=== PATIENT | female | born 2005 | race Caucasian/White ===

== ENCOUNTER 2024-02-22 14:48 | Outpatient (OUT) | payer BC, SELFPAY ==
--- NOTE | 2024-02-22 14:52 | US_ITS ---
[address] [address] Patient Name: JEFF SOTOMAYOR MRN: [id number] date: 2005 Sex: F Assigned Patient Location: [facility] Current Patient Location: Accession/Order Number: [id number] Exam Date: 02/22/2024 14:52 Report Date: 02/23/2024 08:42 At the request of: ROHAN GIBSON Procedure: US OB transvaginal EXAMINATION: US OB transvaginal HISTORY: MISSED MENSES COMPARISON: No relevant comparison available. FINDINGS: GESTATIONAL SAC: Irregular shaped gestational sac within lower cervical canal. YOLK SAC: Absent POLE: Absent CARDIAC: Absent UTERUS: Endometrium is 6 mm in thickness. OVARIES: Right: Normal. Left: Normal. CERVIX: 4.2 cm in length. CUL-DE-SAC: Normal. OTHER: None. AGE BY LMP: 8 weeks 1 day [place] BY LMP: 10/02/2024 AGE BY US CRL: Not applicable [place] BY US CRL: US/US OB transvaginal IMPRESSION: 1. in progress with a slightly irregular gestational sac within the lower cervical canal. Electronically authenticated by: CLARKE LATHAM Date: 02/23/2024 08:42
== END 2024-02-22 14:49 | disposition home or self-care (01) ==
LOC: NOMS 14:49
PROVIDERS: PCP Internal Medicine; Visit Provider Obstetrics & Gynecology
DX: O20.0 Threatened abortion (principal); N92.6 Irregular menstruation, unspecified
CPT/HCPCS: 76817

== ENCOUNTER 2024-02-23 10:14 | Outpatient (OUT) | payer BC, SELFPAY ==
--- OUTSIDE RECORDS SUMMARY | 2024-02-23 10:20 | XMS_ITS | CCD ---
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 [place] [address] [place] Globulin (S) [Mass/Vol] 3.1 g/dL Normal [facility] Comment on above: Performed By: #### C MP, ETOH, CBC #### [address] Glucose [Mass/Vol] 86 mg/dL Normal 70-100 [facility] Comment on above: Result Comment: [facility] Glucose Reference Range is dependent on time and content of last meal. Glucose of more than 200 mg/dL in a nonstressed, ambulatory subject supports the diagnosis of Diabetes Mellitus. ADA recommended reference range Performed By: #### C MP, ETOH, CBC #### [place] [address] [place] Potassium [Moles/Vol] 3.8 mmol/L Normal 3.5-5.1 [facility] Comment on above: Performed By: #### C MP, ETOH, CBC #### [place] [address] [place] Protein [Mass/Vol] 8.2 g/dL Normal 6.4-8.9 [facility] Comment on above: Performed By: #### C MP, ETOH, CBC #### [address] Sodium [Moles/Vol] 138 mmol/L Normal 136-145 [facility] Comment on above: Performed By: #### C MP, ETOH, CBC #### [address] Urea nitrogen [Mass/Vol] 9 mg/dL Normal 7-25 [facility] Comment on above: Performed By: #### C MP, ETOH, CBC #### [place] [address] [place] Drug Screen,Urineon 11-24-19 24 Amphetamine Screen,Urine Negative Normal Negative [facility] Comment on above: Performed By: #### U HCG, UA, URDS #### [address] Barbiturate Screen,Urine Negative Normal Negative [facility] Comment on above: Performed By: #### U HCG, UA, URDS #### [address] Benzodiazepines Screen,Urine Negative Normal Negative [facility] Comment on above: Performed By: #### U HCG, UA, URDS #### [address] Cannabinoid Screen,Urine Positive High Negative [facility] Comment on above: Result Comment: Thes e are unconfirmed results and should not be used for legal purposes. Drug Cut-Off Concentration: AMPH 1000 ng/mL LUCIA 200 ng/mL BROOKE 200 ng/mL COCM 300 ng/mL OP 300 ng/mL PCP 25 ng/mL THC 20 ng/mL PERFORMED BY: [place] [address] PATHOLOGIST HEAD TRIMMER TIFFANIE HIGH M.D. Performed By: #### U HCG, UA, URDS #### [address] Cocaine Screen,Urine Negative Normal Negative [facility] Comment on above: Performed By: #### U HCG, UA, URDS #### [address] Opiate Screen,Urine Negative Normal Negative [facility] Comment on above: Performed By: #### U HCG, UA, URDS #### [address] Phencyclidine Screen,Urine Negative Normal Negative [facility] Comment on above: Performed By: #### U HCG, UA, URDS #### [address] Ethyl Alcohol Profileon Ethanol [Mass/Vol] mg/dL Normal [facility] Comment on above: Performed By: #### C MP, ETOH, CBC #### [address] Percent Ethanol Not performed Normal [facility] Comment on above: Result Comment: PERF ORMED BY: [place] [address] PATHOLOGIST HEAD TRIMMER TIFFANIE HIGH M.D. Performed By: #### C MP, ETOH, CBC #### [address] HCG,Urineon 11-24-2023 Beta HCG ( test) Ql (U) Negative Normal [facility] Comment on above: Order Comment: Name Collection Type:: Clean-Voided Midstream Result Comment: PERF ORMED BY: [place] [address] PATHOLOGIST HEAD TRIMMER TIFFANIE HIGH M.D. Performed By: #### U HCG, UA, URDS #### [address] Urinalysison 11-24-2023 Appearance (U) Clear Normal Clear [facility] Comment on above: Order Comment: Name Collection Type:: Clean-Voided Midstream Performed By: #### U HCG, UA, URDS #### [address] Bilirubin,Urine Negative Normal Negative [facility] Comment on above: Order Comment: Name Collection Type:: Clean-Voided Midstream Performed By: #### U HCG, UA, URDS #### [facility] [address] Color (U) Yellow Normal Yellow [facility] Comment on above: Order Comment: Name Collection Type:: Clean-Voided Midstream Performed By: #### U HCG, UA, URDS #### [facility] [address] Glucose Ql (U) Normal Normal Normal [facility] Comment on above: Order Comment: Name Collection Type:: Clean-Voided Midstream Performed By: #### U HCG, UA, URDS #### [address] Ketones Ql (U) Negative Normal Negative [facility] Comment on above: Order Comment: Name Collection Type:: Clean-Voided Midstream Performed By: #### U HCG, UA, URDS #### [address] Leukocyte esterase Test strip Ql (U) Negative Normal Negative [facility] Comment on above: Order Comment: Name Collection Type:: Clean-Voided Midstream Performed By: #### U HCG, UA, URDS #### [place] [address] [place] Nitrite,Urine Negative Normal Negative [facility] Comment on above: Order Comment: Name Collection Type:: Clean-Voided Midstream Performed By: #### U HCG, UA, URDS #### [place] [address] [place] Occult Blood,Urine Negative Normal Negative [facility] Comment on above: Order Comment: Name Collection Type:: Clean-Voided Midstream Performed By: #### U HCG, UA, URDS #### [place] [address] [place] pH (U) 6.5 [pH] Normal 5.0-9.0 [facility] Comment on above: Order Comment: Name Collection Type:: Clean-Voided Midstream Performed By: #### U HCG, UA, URDS #### [facility] [address] [place] [id number] [facility] Protein,Urine Negative Normal Negative [facility] Comment on above: Order Comment: Name Collection Type:: Clean-Voided Midstream Performed By: #### U HCG, UA, URDS #### [facility] [address] [place] [id number] [facility] Specificy [place],Urine 1.020 Normal 1.001-1.030 [facility] Comment on above: Order Comment: Name Collection Type:: Clean-Voided Midstream Performed By: #### U HCG, UA, URDS #### [facility] [address] Urobilinogen,Urine Normal Normal Normal [facility] Comment on above: Order Comment: Name Collection Type:: Clean-Voided Midstream Performed By: #### U HCG, UA, URDS #### [place] [id number] [facility] Lipid 1996 panelon 4 Cholesterol [Mass/Vol] 143 mg/dL Low 150-200 [facility] Comment on above: Performed By: #### 2 4331-1 #### [facility] ([id number]) [address], [address] [place] [address] Cholesterol in HDL [Mass/Vol] 67 mg/dL Normal >39 [facility] Comment on above: Result Comment: HDL <40 mg/dL - High Risk HDL > or = 40mg/dL- Desirable HDL >60 mg/dL - Negative Risk Performed By: #### 2 4331-1 #### [facility] ([id number]) [address], [address] [place] [address] Cholesterol in LDL [Mass/Vol] 65 mg/dL Normal <130 [facility] Comment on above: Result Comment: LDL <100 mg/dL - Desirable LDL >160 mg/dL - High Risk Performed By: #### 2 4331-1 #### [facility] ([id number]) [address], [address] [place] [address] Cholesterol in VLDL [Mass/Vol] 11 mg/dL Normal 0-30 [facility] Comment on above: Performed By: #### 2 4331-1 #### [facility] ([id number]) [address], [address] [place] [address] CHOLESTEROL:HDL 2.1 Normal 1.0-5.0 [facility] Comment on above: Performed By: #### 2 4331-1 #### [facility] ([id number]) [address], [address] [place] [address] Triglyceride [Mass/Vol] 53 mg/dL Normal 27-150 [facility] Comment on above: Performed By: #### 2 4331-1 #### [facility] ([id number]) [address], [address] [place] [address] Encounters Encounter Date Encounter Type Care Provider Facility Start: 02-18-2024 End: 02-18-2024 ambulatory ROHAN GIBSON Not Available Start: 02-13-2024 End: 02-13-2024 Emergency department patient visit ARUN Santana [facility] Start: 02-12-2024 End: 02-13-2024 Emergency department patient visit KB WRIGHT [facility] Start: 02-12-2024 End: 02-12-2024 Emergency department patient visit MYCHAL [facility] Start: 11-25-2023 End: 11-26-2023 Evaluation and management of inpatient Ignacio Domenico Facility:[facility] Start: 11-24-2023 ambulatory Ollie Courtney acility:[facility] Start: 11-11-2023 End: 11-12-2023 ambulatory LONNY MACEDO [facility] Start: 10-27-2022 End: 10-27-[address] ANTHONY PAY Facility: Payers Date Payer Category Payer Self-pay 2022 Unknown [id number] 2004 Unknown [id number] 2.16.8 [id number] 2004 Unknown [id number] 2.16.8 [id number] 2004 Unknown [id number] 2.16.8 [id number] 2004 Unknown [id number] 2.16.8 [id number] 2004 Unknown [id number] 2.16.84 [id number] 1972 Unknown [id number] 2.16.84 [id number] 1959 Unknown [id number] Unknown [id number] 2.16.8 [id number] Unknown [id number] 2.16.8 [id number] Summary Purpose Family History No Family History Records FoundNo Family History Records FoundNo Family History Records FoundNo Family History Records Found Advance Directives No Advanced Directives Records FoundNo Advanced Directives Records FoundNo Advanced Directives Records FoundNo Advanced Directives Records Found Additional Source Comments INFORMATION SOURCE (unrecogn ized section and content) DATE CREATED AUTHOR 10/28/2022 [facility] DATE CREATED AUTHOR AUTHOR'S ORGANIZ ATION 02/14/2024 [facility] DATE CREATED AUTHOR AUTHOR'S ORGANIZ ATION 02/19/2024 [facility] DATE CREATED AUTHOR AUTHOR'S ORGANIZ ATION 02/19/2024 [facility] FOR RECORDS PERTAINING TO PATIENTS WHO ARE OR HAVE BEEN ENROLLED IN A CHEMICAL DEPENDENCY/SUBSTANCEABUSE PROGRAM, SOME INFORMATION MAY BE OMITTED. This clinical summary was aggregated from multiple sources. Caution should be exercised in using it in the provision of clinical care. This summary normalizes information from multiple sources, and as a consequence, information in this document may materially change the coding, format and clinical context of patient data. In addition, data may be omitted in some cases. CLINICAL DECISIONS SHOULD BE BASED ON THE PRIMARY CLINICAL RECORDS. [facility]. provides no warranty or guarantee of the accuracy or completeness of information in this document.
[2024-02-23 11:40] LABS: HCG Quantitative 51 mIU/mL
== END 2024-02-23 10:15 | disposition home or self-care (01) ==
LOC: LAB 10:17
PROVIDERS: PCP Internal Medicine; Visit Provider Obstetrics & Gynecology
DX: O20.0 Threatened abortion (principal)
CPT/HCPCS: 36415; 84702

== ENCOUNTER 2024-03-02 10:25 | Outpatient (OUT) | payer BC, SELFPAY ==
[2024-03-02 11:32] LABS: HCG Quantitative 4 mIU/mL
== END 2024-03-02 10:26 | disposition home or self-care (01) ==
LOC: LAB 10:26
PROVIDERS: PCP Internal Medicine; Visit Provider Obstetrics & Gynecology
DX: O20.0 Threatened abortion (principal)
CPT/HCPCS: 36415; 84702

== ENCOUNTER 2024-03-10 11:49 | Outpatient (RCR) | payer BC, SELFPAY ==
[2024-03-10 12:35] LABS: HCG Quantitative <1 mIU/mL
== END 2024-03-20 23:59 | disposition home or self-care (01) ==
LOC: LAB 11:49
PROVIDERS: PCP Internal Medicine; Visit Provider Obstetrics & Gynecology
DX: O20.0 Threatened abortion (principal)
CPT/HCPCS: 36415; 84702

== ENCOUNTER 2024-03-14 13:07 | Outpatient (OUT) | payer BC, SELFPAY ==
--- OUTSIDE RECORDS SUMMARY | 2024-03-14 13:16 | XMS_ITS ---
Patient Summarization (C-CDA 2.1 CCD) Created on: March 14, 2024 SHARONA MARKS : 2005 Sex: Undifferentiated Author Organization Sample organization Care Team Providers Care Floor Installer Name Role Phone PAY, DR ANTHONY Admitting Unavailable PAY, DR ANTHONY Attending Unavailable PAY, DR ANTHONY Consulting Unavailable Domenico, Ignacio Attending Unavailable NON STAFF Primary Care Unavailable Domenico, Ignacio Admitting Unavailable AmeliaOllie Admitting Unavailab le Ollie Cisneros Attending Unavailab le NON STAFF Primary Care Unavailable ROHAN GIBSON Attending Unavailable ARTHUR, ROHAN Attending Unavailable ARUN MEREDITH Primary Care Unavailable KB WRIGHT Attending Unavailable ARUN MEREDITH Primary Care Unavailable CLARKE DUEÑAS Attending Unavailable LONNY MACEDO Referring Unavailable ARUN MEREDITH Primary Care Unavailable KB WRIGHT Attending Unavailable KB WRIGHT Referring Unavailable ARUN MEREDITH Primary Care Unavailable ARUN MEREDITH Referring Unavailable ARUN MEREDITH Primary Care Unavailable Encounters Encounter Date Encounter Type Care Provider Facility Start: 02-29-2024 End: 02-29-2024 ambulatory ARUN [facility] Start: 02-22-2024 End: 02-22-2024 ambulatory ROHAN ARTHUR Not Available Start: 02-18-2024 End: 02-18-2024 ambulatory ROHAN ARTHUR Not Available Start: 02-12-2024 End: 02-13-2024 [facility] Start: 02-12-2024 End: 02-13-2024 Emergency department patient visit KB WRIGHT [facility] Start: 02-12-2024 End: 02-12-2024 Emergency department patient visit ARUN Santana [facility] Start: 11-25-2023 End: 11-26-2023 Evaluation and management of inpatient Ignacio Domenico Facility:[facility] Start: 11-24-2023 ambulatory Ollieralph Cisneros Roz acility:[facility] Start: 11-11-2023 End: 11-11-2023 ambulatory LONNY Greene HELLEN [facility] Start: 10-27-2022 End: 10-27-[address] RAJ KELLY Facility: Payers Date Payer Category Payer Self-pay 2022 Unknown [id number] 2005 Unknown [id number] 2.16.84 [id number] 2004 Unknown [id number] 2.16.84 [id number] 2004 Unknown [id number] 2.16.8 [id number] 2004 Unknown [id number] 2.16.8 [id number] 2004 Unknown [id number] 2.16.8 [id number] 2004 Unknown [id number] 2.16.8 [id number] 2004 Unknown [id number] 2.16.8 [id number] 1972 Unknown [id number] 2.16.84 [id number] 1959 Unknown [id number] Unknown [id number] 2.16.8 [id number] Unknown [id number] 2.16.8 [id number] Problems Active Problems Problem Classification Problem Date Documented Da te Episodic/Chronic Abdominal pain (1 source) Pelvic and perineal pain; Translations: [Pelvic and perineal pain] Onset: 02-12-2024 Episodic Allergic reactions (1 source) Other atopic [...] [Other specified related conditions, first trimester] Onset: 02-12-2024 Episodic Polyhydramnios and other problems of amniotic cavity (1 source) Other specified disorders of amniotic fluid and membranes, first trimester, not applicable or unspecified; Translations: [Other specified disorders of amniotic fluid and membranes, first trimester, not applicable or unspecified] Onset: 02-12-2024 Episodic Residual codes; unclassified (1 source) Pallor; Translations: [Pallor] Onset: 02-29-2024 Episodic Unclassified (1 source) Other specified diseases and conditions complicating ; Translations: [Other specified diseases and conditions complicating ] Onset: 02-12-2024 Unclassified (1 source) Vaginal Bleeding - Onset: 02-12-2024 Unclassified (1 source) Vagina bleeding Onset: 02-12-2024 Past or Other Problems Problem Classification Problem Date Documented Da te Episodic/Chronic Other aftercare (1 source) Other emt intermediate (current) drug therapy; Translations: [Other emt intermediate (current) drug therapy] Onset: 11-11-2023 Episodic Results Test Name Value Interpretation Reference Range Facility CBC AND AUTO DIFFon 02-29-20 ABSOLUTE BASOPHIL 0.0 X10E9/L Normal 0.0-0.2 [facility] Comment on above: Performed By: #### N UM #### [facility] ([id number]) [address] [place] [address] 09004 ABSOLUTE NEUTROPHIL 2.4 X10E9/L Normal 1.5-6.6 [facility] Comment on above: Performed By: #### N UM #### [facility] ([id number]) [address] [place] [address] 36359 Basophils/100 WBC (Bld) 0.8 % Normal [facility] Comment on above: Performed By: #### N UM #### [facility] ([id number]) [address] [place] [address] 37678 Eosinophils (Bld) [#/Vol] 0.2 10*3/uL Normal 0.0-0.4 [facility] Comment on above: Performed By: #### N UM #### [facility] ([id number]) [address] [place] [address] 85197 Eosinophils/100 WBC (Bld) 3.0 % Normal [facility] Comment on above: Performed By: #### N UM #### [facility] ([id number]) [address] [place] [address] 26442 Erythrocyte distribution width (RBC) [Ratio] 12.3 % Normal 11.5-15.0 [facility] Comment on above: Performed By: #### N UM #### [facility] ([id number]) [address] [place] [address] 11138 Hematocrit (Bld) [Volume fraction] 36.6 % Normal 35-47 [facility] Comment on above: Performed By: #### N UM #### [facility] ([id number]) [address] [place] [address] 73885 Hemoglobin (Bld) [Mass/Vol] 12.5 g/dL Normal 11.7-15.5 [facility] Comment on above: Performed By: #### N UM #### [facility] ([id number]) [address] [place] [address] 35488 Lymphocytes (Bld) [#/Vol] 2.3 10*3/uL Normal 1.0-3.5 [facility] Comment on above: Performed By: #### N UM #### [facility] ([id number]) [address] [place] [address] 08470 Lymphocytes/100 WBC (Bld) 43.8 % Normal [facility] Comment on above: Performed By: #### N UM #### [facility] ([id number]) [address] [place] [address] 81212 MCH (RBC) [Entitic mass] 29.5 pg Normal 27-34 [facility] Comment on above: Performed By: #### N UM #### [facility] ([id number]) [address] [place] [address] 16243 MCHC (RBC) [Mass/Vol] 34.1 g/dL Normal 32-36 [facility] Comment on above: Performed By: #### N UM #### [facility] ([id number]) [address] [place] [address] 75388 MCV (RBC) [Entitic vol] 86 fL Normal 80-100 [facility] Comment on above: Performed By: #### N UM #### [facility] ([id number]) [address] [place] [address] 14525 Monocytes (Bld) [#/Vol] 0.4 10*3/uL Normal 0-0.9 [facility] Comment on above: Performed By: #### N UM #### [facility] ([id number]) [address] [place] [address] 16677 Monocytes/100 WBC (Bld) 7.4 % Normal [facility] Comment on above: Performed By: #### N UM #### [facility] ([id number]) [address] [place] [address] 01094 Neutrophils/100 WBC (Bld) 45.0 % Normal [facility] Comment on above: Performed By: #### N UM #### [facility] ([id number]) [address] [place] [address] 11549 Platelet mean volume (Bld) [Entitic vol] 8.7 fL Normal 7-12 [facility] Comment on above: Performed By: #### N UM #### [facility] ([id number]) [address] [place] [address] 50936 Platelets (Bld) [#/Vol] 326 10*3/uL Normal 150-450 [facility] Comment on above: Performed By: #### N UM #### [facility] ([id number]) [address] [place] [address] 31193 RBC COUNT 4.23 X10E12/L Normal 3.80-5.20 [facility] Comment on above: Performed By: #### N UM #### [facility] ([id number]) [address] [place] [address] 96351 WBC (Bld) [#/Vol] 5.3 10*3/uL Normal 4.0-11.0 [facility] Comment on above: Performed By: #### N UM #### [facility] ([id number]) [address] [place] [address] 52507 BASIC METABOLIC PANLon 02-12 Anion gap [Moles/Vol] 8 mmol/L Normal 5-15 [facility] Comment on above: Performed By: #### [place], [address]-6, CBCA #### [facility] ([id number]) [address] [place] [address] 42908 Calcium [Mass/Vol] 9.1 mg/dL Normal 8.5-10.5 [facility] Comment on above: Performed By: #### B EDEL, , CBCA #### [facility] ([id number]) [address] [place] [address] 31280 Chloride [Moles/Vol] 103 mmol/L Normal 98-109 [facility] Comment on above: Performed By: #### Ed HOLLINGSWORTH, , CBCA #### [facility] ([id number]) [address] [place] [address] 53104 CO2 [Moles/Vol] 22 mmol/L Normal 22-32 [facility] Comment on above: Performed By: #### Ed HOLLINGSWORTH, , CBCA #### [facility] ([id number]) [address] [place] [address] 88395 Creatinine [Mass/Vol] 0.57 mg/dL Normal 0.40-1.00 [facility] Comment on above: Result Comment: METH OD TRACEABLE TO IDMS STANDARD Performed By: #### Ed HOLLINGSWORTH, , CBCA #### [facility] ([id number]) [address] [place] [address] 69127 eGFR (CKD-EPI) NON-RACE DEPENDENT >90 Normal >59 [facility] Comment on above: Result Comment: Reported eGFR is based on the CKD-EPI 2020 equation that does not use a race coefficient. Performed By: #### B EDEL, , CBCA #### [facility] ([id number]) [address] [place] [address] 27049 Glucose [Mass/Vol] 93 mg/dL Normal 65-99 [facility] Comment on above: Performed By: #### Ed HOLLINGSWORTH, , CBCA #### [facility] ([id number]) [address] [place] [address] 27678 Potassium [Moles/Vol] 3.6 mmol/L Normal 3.5-5.0 [facility] Comment on above: Performed By: #### B EDEL, , CBCA #### [facility] ([id number]) [address] [place] [address] 27806 Sodium [Moles/Vol] 133 mmol/L Low 134-146 [facility] Comment on above: Performed By: #### Ed HOLLINGSWORTH, , CBCA #### [facility] ([id number]) [address] [place] [address] 41291 Urea nitrogen [Mass/Vol] 11 mg/dL Normal 5-23 [facility] Comment on above: Performed By: #### Ed HOLLINGSWORTH, , CBCA #### [facility] ([id number]) [address] [place] [address] 02288 CBC AND AUTO DIFFon 02-13-20 24 ABSOLUTE BASOPHIL 0.1 X10E9/L Normal 0.0-0.2 [facility] Comment on above: Performed By: #### Ed HOLLINGSWORTH, , CBCA #### [facility] ([id number]) [address] [place] [address] 10463 ABSOLUTE NEUTROPHIL 5.3 X10E9/L Normal 1.5-6.6 [facility] Comment on above: Performed By: #### Ed HOLLINGSWORTH, , CBCA #### [facility] ([id number]) [address] [place] [address] 31623 Basophils/100 WBC (Bld) 0.9 % Normal [facility] Comment on above: Performed By: #### Ed HOLLINGSWORTH, , CBCA #### [facility] ([id number]) [address] [place] [address] [place] [address] DIFFERENTIAL COMMENT PLATELETS REVIEWED Normal [facility] Comment on above: Performed By: #### Ed HOLLINGSWORTH, , CBCA #### [facility] ([id number]) [address] [place] [address] 54946 Eosinophils (Bld) [#/Vol] 0.4 10*3/uL Normal 0.0-0.4 [facility] Comment on above: Performed By: #### B EDEL, , CBCA #### [facility] ([id number]) [address] [place] [address] 51867 Eosinophils/100 WBC (Bld) 4.0 % Normal [facility] Comment on above: Performed By: #### B EDEL, , CBCA #### [facility] ([id number]) [address] [place] [address] 46309 Erythrocyte distribution width (RBC) [Ratio] 12.7 % Normal 11.5-15.0 [facility] Comment on above: Performed By: #### B EDEL, , CBCA #### [facility] ([id number]) [address] [place] [address] 19479 Hematocrit (Bld) [Volume fraction] 34.3 % Low 35-47 [facility] Comment on above: Performed By: #### B EDEL, , CBCA #### [facility] ([id number]) [address] [place] [address] 65144 Hemoglobin (Bld) [Mass/Vol] 12.2 g/dL Normal 11.7-15.5 [facility] Comment on above: Performed By: #### B EDEL, , CBCA #### [facility] ([id number]) [address] [place] [address] 14736 Lymphocytes (Bld) [#/Vol] 2.7 10*3/uL Normal 1.0-3.5 [facility] Comment on above: Performed By: #### B EDEL, , CBCA #### [facility] ([id number]) [address] [place] [address] 26731 Lymphocytes/100 WBC (Bld) 29.1 % Normal [facility] Comment on above: Performed By: #### Ed HOLLINGSWORTH, , CBCA #### [facility] ([id number]) [address] [place] [address] 20138 MCH (RBC) [Entitic mass] 30.1 pg Normal 27-34 [facility] Comment on above: Performed By: #### Ed HOLLINGSWORTH, , CBCA #### [facility] ([id number]) [address] [place] [address] 18625 MCHC (RBC) [Mass/Vol] 35.7 g/dL Normal 32-36 [facility] Comment on above: Performed By: #### Ed HOLLINGSWORTH, , CBCA #### [facility] ([id number]) [address] [place] [address] 97057 MCV (RBC) [Entitic vol] 84 fL Normal 80-100 [facility] Comment on above: Performed By: #### Ed HOLLINGSWORTH, , CBCA #### [facility] ([id number]) [address] [place] [address] 37143 Monocytes (Bld) [#/Vol] 0.9 10*3/uL Normal 0-0.9 [facility] Comment on above: Performed By: #### Ed HOLLINGSWORTH, , CBCA #### [facility] ([id number]) [address] [place] [address] 29761 Monocytes/100 WBC (Bld) 9.9 % Normal [facility] Comment on above: Performed By: #### Ed HOLLINGSWORTH, , CBCA #### [facility] ([id number]) [address] [place] [address] 71140 Neutrophils/100 WBC (Bld) 56.1 % Normal [facility] Comment on above: Performed By: #### Ed HOLLINGSWORTH, , CBCA #### [facility] ([id number]) [address] [place] [address] 90377 Platelet mean volume (Bld) [Entitic vol] 9.0 fL Normal 7-12 [facility] Comment on above: Performed By: #### Ed HOLLINGSWORTH, , CBCA #### [facility] ([id number]) [address] [place] [address] 43401 Platelets (Bld) [#/Vol] 203 10*3/uL Normal 150-450 [facility] Comment on above: Performed By: #### Ed HOLLINGSWORTH, , CBCA #### [facility] ([id number]) [address] [place] [address] 98871 RBC COUNT 4.07 X10E12/L Normal 3.80-5.20 [facility] Comment on above: Performed By: #### Ed HOLLINGSWORTH, , CBCA #### [facility] ([id number]) [address] [place] [address] 66170 WBC (Bld) [#/Vol] 9.4 10*3/uL Normal 4.0-11.0 [facility] Comment on above: Performed By: #### Ed HOLLINGSWORTH, , CBCA #### [facility] ([id number]) [address] [place] [address] 84975 HCG.beta subunit IA 3rd IS Q non 02-13-2024 [place] [address] m[IU]/mL Normal [facility] Comment on above: Result Comment: [...] or nontrophoblastic neoplasms. Performed By: #### [place], [address]-5, CBCA #### [facility] ([id number]) [address] [place] [address] 15314 URN MACROSCOPIC NURon 2023 BILIRUBIN LUCIE Negative Normal NEG [facility] Comment on above: Performed By: #### N UM #### [facility] ([id number]) [address] [place] [address] 51041 BLOOD/HGB LUCIE Large Abnormal NEG [facility] Comment on above: Performed By: #### N UM #### [facility] ([id number]) [address] [place] [address] 94237 GLUCOSE LUCIE Negative Normal NEG [facility] Comment on above: Performed By: #### N UM #### [facility] ([id number]) [address] [place] [address] 57572 KETONES LUCIE Negative Normal NEG [facility] Comment on above: Performed By: #### N UM #### [facility] ([id number]) [address] [place] [address] 35017 LEUKOCYTE ESTERASE LUCIE Negative Normal NEG [facility] Comment on above: Performed By: #### N UM #### [facility] ([id number]) [address] [place] [address] 62546 NITRITE LUCIE Negative Normal NEG [facility] Comment on above: Performed By: #### N UM #### [facility] ([id number]) [address] [place] [address] 91563 PH LUCIE 6.5 Normal 5.0-8.5 [facility] Comment on above: Performed By: #### N UM #### [facility] ([id number]) [address] [place] [address] 81451 PROTEIN LUCIE Trace Abnormal NEG [facility] Comment on above: Performed By: #### N UM #### [facility] ([id number]) [address] [place] [address] 44707 SPECIFIC GRAVITY LUCIE 1.015 Normal 1.003-1.035 [facility] Comment on above: Performed By: #### N UM #### [facility] ([id number]) [address] [place] [address] 04827 UROBILINOGEN LUCIE 0.2 eu/dL Normal <1.1 [facility] Comment on above: Performed By: #### N UM #### [facility] ([id number]) [address] [place] [address] 48827 HCG ( test) Ql (U)o n 02-12-2024 Beta HCG ( test) Ql (U) Positive Abnormal NEG [facility] Comment on above: Performed By: #### 2 106-3 #### [facility] ([id number]) [address] [place] [address] 32963 HCG.beta subunit IA 3rd IS Q non 02-12-2024 [place] [address] m[IU]/mL Normal P [facility] Comment on above: Result Comment: NEW REFERENCE [...] neoplasms. Performed By: #### 4 544-3, 718-7, #### [facility] ([id number]) [address] [place] [address] 12280 HEMOGLOBINon 02-12-2024 Hemoglobin (Bld) [Mass/Vol] 12.7 g/dL Normal 11.7-15.5 [facility] Comment on above: Performed By: #### 4 544-3, 718-7, #### [facility] ([id number]) [address] [place] [address] 49202 Hematocrit Auto (Bld) [Volum e fraction]on 02-12-2024 Hematocrit (Bld) [Volume fraction] 35.4 % Normal 35-47 [facility] Comment on above: Performed By: #### 4 544-3, 718-7, #### [facility] ([id number]) [address] [place] [address] 55909 URN MACROSCOPIC NURon 2023 BILIRUBIN LUCIE Negative Normal NEG [facility] Comment on above: Performed By: #### N UM #### [facility] ([id number]) [address] [place] [address] 06210 BLOOD/HGB LUCIE MODERATE Abnormal NEG [facility] Comment on above: Performed By: #### N UM #### [facility] ([id number]) [address] [place] [address] 76606 GLUCOSE LUCIE Negative Normal NEG [facility] Comment on above: Performed By: #### N UM #### [facility] ([id number]) [address] [place] [address] 54713 KETONES LUCIE 15 mg/dL Abnormal NEG [facility] Comment on above: Performed By: #### N UM #### [facility] ([id number]) [address] [place] [address] 01999 LEUKOCYTE ESTERASE LUCIE Trace Abnormal NEG [facility] Comment on above: Performed By: #### N UM #### [facility] ([id number]) [address] [place] [address] 94566 NITRITE LUCIE Negative Normal NEG [facility] Comment on above: Performed By: #### N UM #### [facility] ([id number]) [address] [place] [address] 74088 PH LUCIE 6.5 Normal 5.0-8.5 [facility] Comment on above: Performed By: #### N UM #### [facility] ([id number]) [address] [place] [address] 08908 PROTEIN LUCIE Negative Normal NEG [facility] Comment on above: Performed By: #### N UM #### [facility] ([id number]) [address] [place] [address] 05327 SPECIFIC GRAVITY LUCIE >=1.030 Normal 1.003-1.035 [facility] Comment on above: Performed By: #### N UM #### [facility] ([id number]) [address] [place] [address] 16314 UROBILINOGEN LUCIE 1.0 eu/dL Normal <1.1 [facility] Comment on above: Performed By: #### N UM #### [facility] ([id number]) [address] [place] [address] 20885 [place] PREG LESS THAN 14 WKS WIT [...] cardiac activity with heart rate 100 bpm. Scalp Level-rump length 6 mm corresponding to gestational age [...] Sandy MD on 02/12/2024 5:07 AM Normal [facility] ECG 12 lead ECGon 11-25-2023 ECG 12 lead ECG [facility] [place] [address] [place] [address] Electrocardiograph Report Signed Patient: Sharona Marks MR#: [id number] : 2005 Acct:[id number] Age/Sex: 17 / F ADM Date: 11/24/23 Loc: Room: [address] [place] [address] Type: ADM IN Attending Dr: Ignacio Acuña [...] change was found Confirmed by Chapito Corbin ([id number]) on 11/25/2023 7:52:58 PM Referred By: Electronically Signed By:Chapito Corbin Transcribed By: MUS Signed By Chapito Corbin MD 11/25/231952 Normal [facility] Lipid Panelon 11-25-2023 Cholesterol [Mass/Vol] 121 mg/dL Low 140-200 [facility] Comment on above: Result Comment: Chol less than 200 mg/dl low risk Chol 201-239 mg/dl borderline risk Chol 240 mg/dl and greater high risk Performed By: #### L IPID, [id number], TSH3 wRFLX #### [facility] [address] [id number] [place] Cholesterol in HDL [Mass/Vol] 57 mg/dL Normal 23-92 [facility] Comment on above: Result Comment: HDL CHOL ATP-III CLASSIFICATION Cardiovascular Risk HDL > or equal to 60 mg/dL LOW HDL < 40 mg/dL HIGH Performed By: #### L IPID, [id number], TSH3 wRFLX #### [facility] [address] [place] [address] [place] Cholesterol.total/Cho lesterol in HDL [Mass ratio] 2.1 {ratio} Normal <5.0 [facility] Comment on above: Performed By: #### L IPID, [id number], TSH3 [id number] #### [facility] [address] [place] [address] [place] LDL Cholesterol,Calculate d 55 mg/dL Normal 0-100 [facility] Comment on above: Result Comment: LDL ATP III CLASSIFICATION LDL less than 100 mg/dL Optimal LDL 100-129 mg/dL Near or above optimal LDL 130-159 mg/dL Borderline high LDL 160-189 mg/dL High LDL greater than 189 mg/dL Very high Performed By: #### L IPID, [id number], TSH3 [id number] #### [facility] [address] Triglyceride w/Reflex 44 mg/dL Normal 0-149 [facility] Comment on above: Result Comment: TRIG ATP III CLASSIFICATION TRIG less than 150 mg/dL Normal TRIG 150-199 mg/dL Borderline high TRIG 200-500 mg/dL High TRIG greater than 500 mg/dL Very high Standard traceable to the Center for Disease Conrtrol and Prevention (CDC) test method. Performed By: #### L IPID, [id number], TSH3 wRFLX #### [address] VLDL CHOLESTEROL 8 mg/dL Normal [facility] Comment on above: Performed By: #### L IPID, [id number], TSH3 wRFLX #### [address] Thyroid Stim Hormone w/Rflxo n 11-25-2023 Thyroid Stim Hormone w/Rflx 3.18 u[iU]/mL Normal 0.45-5.33 [facility] Comment on above: Performed By: #### L IPID, [id number], TSH3 wRFLX #### [address] Vitamin D 25 Hydroxy Totalon 11-25-2023 Vitamin D 25 Hydroxy Total 14.7 ng/mL Low 30-100 [facility] Comment on above: Result Comment: DARYA MIN D STATUS 25(OH)VITAMIN D RANGE (ng/mL) Deficient <20 Insufficient 20 to <30 Sufficient 30 to 100 Reference: Angel MF,Yovany RAZO, Bee WILEY, et al. Evaluation,treatment, and prevention of vitamin D deficiency; an Endocrine Society clinical practice guideline. JCEM. 2010; 96(7):1911-30. PERFORMED BY: [address] [address] PATHOLOGIST CREDIT RELATIONSHIP MANAGER TIFFANIE HIGH M.D. Performed By: #### L IPID, [id number], TSH3 wRFLX #### [address] Complete Blood Count Auto Di ffon 11-24-2023 Basophils (Bld) [#/Vol] 0.0 10*3/uL Normal 0.0-0.1 [facility] Comment on above: Result Comment: PERF ORMED BY: [place] [address] PATHOLOGIST CREDIT RELATIONSHIP MANAGER TIFFANIE HIGH M.D. Performed By: #### C MP, ETOH, CBC #### [address] Basophils/100 WBC (Bld) 0.5 % Normal . [facility] Comment on above: Performed By: #### C MP, ETOH, CBC #### [address] Eosinophils (Bld) [#/Vol] 0.1 10*3/uL Normal 0.0-0.7 [facility] Comment on above: Performed By: #### C MP, ETOH, CBC #### [address] Eosinophils/100 WBC (Bld) 1.0 % Normal . [facility] Comment on above: Performed By: #### C MP, ETOH, CBC #### [address] Erythrocyte distribution width (RBC) [Ratio] 13.2 % Normal 11.9-15.3 [facility] Comment on above: Performed By: #### C MP, ETOH, CBC #### [address] Hematocrit (Bld) [Volume fraction] 41.6 % Normal 36.0-46.0 [facility] Comment on above: Performed By: #### C MP, ETOH, CBC #### [address] Hemoglobin (Bld) [Mass/Vol] 14.3 g/dL Normal 12.0-16.0 [facility] Comment on above: Performed By: #### C MP, ETOH, CBC #### [address] Lymphocytes (Bld) [#/Vol] 3.5 10*3/uL Normal 1.20-4.8 [facility] Comment on above: Performed By: #### C MP, ETOH, CBC #### [address] Lymphocytes/100 WBC (Bld) 39.9 % Normal . [facility] Comment on above: Performed By: #### C MP, ETOH, CBC #### [address] MCH (RBC) [Entitic mass] 29.3 pg Normal 25.0-35.0 [facility] Comment on above: Performed By: #### C MP, ETOH, CBC #### [address] MCV (RBC) [Entitic vol] 84.8 fL Normal 78-102 [facility] Comment on above: Performed By: #### C MP, ETOH, CBC #### [address] Mean Corpuscular HGB Conc 34.5 g/dL Normal 31.0-37.0 [facility] Comment on above: Performed By: #### C MP, ETOH, CBC #### [place] [address] [place] Monocytes (Bld) [#/Vol] 0.6 10*3/uL Normal 0.1-1.00 [facility] Comment on above: Performed By: #### C MP, ETOH, CBC #### [place] [address] [place] Monocytes/100 WBC (Bld) 17.05 % Normal 0.00-20.00 [facility] Comment on above: Performed By: #### C MP, ETOH, CBC #### [facility] [address] [place] [address] [place] Monocytes/100 WBC (Bld) 7.1 % Normal . [facility] Comment on above: Performed By: #### C MP, ETOH, CBC #### [facility] [address] [place] [address] [place] Neutrophils (Bld) [#/Vol] 4.5 10*3/uL Normal 1.2-7.7 [facility] Comment on above: Performed By: #### C MP, ETOH, CBC #### [facility] [address] [place] [address] [place] Neutrophils/100 WBC (Bld) 51.5 % Normal . [facility] Comment on above: Performed By: #### C MP, ETOH, CBC #### [facility] [address] [place] [address] [place] NRBC% 0.1 /100{WBC} Normal 0-0.5 [facility] Comment on above: Performed By: #### C MP, ETOH, CBC #### [facility] [address] [place] [address] [place] Platelet mean volume (Bld) [Entitic vol] 7.7 fL Normal 6.3-10.7 [facility] Comment on above: Performed By: #### C MP, ETOH, CBC #### [facility] [address] [place] [id number] [place] Platelets (Bld) [#/Vol] 319 10*3/uL Normal 150-450 [facility] Comment on above: Performed By: #### C MP, ETOH, CBC #### [facility] [address] [place] [id number] [place] RBC (Bld) [#/Vol] 4.90 10*6/uL Normal 4.10-5.10 [facility] Comment on above: Performed By: #### C MP, ETOH, CBC #### [facility] [address] [place] [address] [place] WBC (Bld) [#/Vol] 8.7 10*3/uL Normal 4.5-13.5 The [facility] Comment on above: Performed By: #### C MP, ETOH, CBC #### [facility] [address] Comprehensive Metabolic Pane david 11-24-2023 Albumin [Mass/Vol] 5.1 g/dL Normal 3.5-5.7 [facility] Comment on above: Performed By: #### C MP, ETOH, CBC #### [facility] [address] Albumin/Globulin [Mass ratio] 1.6 {ratio} Normal [facility] Comment on above: Performed By: #### C MP, ETOH, CBC #### [facility] [address] ALP [Catalytic activity/Vol] 67 U/L Normal 34-104 [facility] Comment on above: Performed By: #### C MP, ETOH, CBC #### [facility] [address] ALT [Catalytic activity/Vol] 10 U/L Normal 7-52 [facility] Comment on above: Performed By: #### C MP, ETOH, CBC #### [address] Anion gap [Moles/Vol] 10.9 mmol/L Normal 6.0-15.0 [facility] Comment on above: Performed By: #### C MP, ETOH, CBC #### [address] AST [Catalytic activity/Vol] 15 U/L Normal 13-39 [facility] Comment on above: Performed By: #### C MP, ETOH, CBC #### [place] [address] [place] Bilirubin [Mass/Vol] 0.4 mg/dL Normal 0.3-1.0 [facility] Comment on above: Performed By: #### C MP, ETOH, CBC #### [address] Calcium [Mass/Vol] 9.5 mg/dL Normal 8.6-10.3 [facility] Comment on above: Performed By: #### C MP, ETOH, CBC #### [address] Chloride [Moles/Vol] 106 mmol/L Normal 98-107 [facility] Comment on above: Performed By: #### C MP, ETOH, CBC #### [address] CO2 [Moles/Vol] 24.9 mmol/L Normal 21.0-31.0 [facility] Comment on above: Performed By: #### C MP, ETOH, CBC #### [address] Creatinine [Mass/Vol] 0.71 mg/dL Normal 0.60-1.20 [facility] Comment on above: Performed By: #### C MP, ETOH, CBC #### [place] [address] [place] Creatinine Clr Calc Pharmacy 124.96 Normal [facility] Comment on above: Result Comment: PERF ORMED BY: [place] [address] PATHOLOGIST CREDIT RELATIONSHIP MANAGER TIFFANIE HIGH M.D. Performed By: #### C MP, ETOH, CBC #### [address] GFR/1.73 sq M.predicted MDRD (S/P/Bld) [Vol rate/Area] mL/min/{1.73_m2} Normal [facility] Comment on above: Performed By: #### C MP, ETOH, CBC #### [place] [address] [place] Globulin (S) [Mass/Vol] 3.1 g/dL Normal [facility] Comment on above: Performed By: #### C MP, ETOH, CBC #### [address] Glucose [Mass/Vol] 86 mg/dL Normal 70-100 [facility] Comment on above: Result Comment: [facility] Glucose Reference Range is dependent on time and content of last meal. Glucose of more than 200 mg/dL in a nonstressed, ambulatory subject supports the diagnosis of Diabetes Mellitus. ADA recommended reference range Performed By: #### C MP, ETOH, CBC #### [address] Potassium [Moles/Vol] 3.8 mmol/L Normal 3.5-5.1 [facility] Comment on above: Performed By: #### C MP, ETOH, CBC #### [address] Protein [Mass/Vol] 8.2 g/dL Normal 6.4-8.9 [facility] Comment on above: Performed By: #### C MP, ETOH, CBC #### [address] Sodium [Moles/Vol] 138 mmol/L Normal 136-145 [facility] Comment on above: Performed By: #### C MP, ETOH, CBC #### [address] Urea nitrogen [Mass/Vol] 9 mg/dL Normal 7-25 [facility] Comment on above: Performed By: #### C MP, ETOH, CBC #### [address] Drug Screen,Urineon 11-24-19 24 Amphetamine Screen,Urine Negative Normal Negative [facility] Comment on above: Performed By: #### U HCG, UA, URDS #### [address] Barbiturate Screen,Urine Negative Normal Negative [facility] Comment on above: Performed By: #### U HCG, UA, URDS #### [place] [address] [place] Benzodiazepines Screen,Urine Negative Normal Negative [facility] Comment on above: Performed By: #### U HCG, UA, URDS #### [address] Cannabinoid Screen,Urine Positive High Negative [facility] Comment on above: Result Comment: Thes e are unconfirmed results and should not be used for legal purposes. Drug Cut-Off Concentration: AMPH 1000 ng/mL LUCIA 200 ng/mL BROOKE 200 ng/mL COCM 300 ng/mL OP 300 ng/mL PCP 25 ng/mL THC 20 ng/mL PERFORMED BY: [place] [address] PATHOLOGIST CREDIT RELATIONSHIP MANAGER TIFFANIE HIGH M.D. Performed By: #### U HCG, UA, URDS #### [address] Cocaine Screen,Urine Negative Normal Negative [facility] Comment on above: Performed By: #### U HCG, UA, URDS #### [address] Opiate Screen,Urine Negative Normal Negative [facility] Comment on above: Performed By: #### U HCG, UA, URDS #### [address] Phencyclidine Screen,Urine Negative Normal Negative [facility] Comment on above: Performed By: #### U HCG, UA, URDS #### [address] Ethyl Alcohol Profileon Ethanol [Mass/Vol] mg/dL Normal The [facility] Comment on above: Performed By: #### C MP, ETOH, CBC #### [address] Percent Ethanol Not performed Normal [facility] Comment on above: Result Comment: PERF ORMED BY: [place] [address] PATHOLOGIST CREDIT RELATIONSHIP MANAGER TIFFANIE HIGH M.D. Performed By: #### C MP, ETOH, CBC #### [place] [address] [place] HCG,Urineon 11-24-2023 Beta HCG ( test) Ql (U) Negative Normal [facility] Comment on above: Order Comment: Name Collection Type:: Clean-Voided Midstream Result Comment: PERF ORMED BY: [place] [address] PATHOLOGIST CREDIT RELATIONSHIP MANAGER TIFFANIE HIGH M.D. Performed By: #### U HCG, UA, URDS #### [address] Urinalysison 11-24-2023 Appearance (U) Clear Normal Clear The [facility] Comment on above: Order Comment: Name Collection Type:: Clean-Voided Midstream Performed By: #### U HCG, UA, URDS #### [address] Bilirubin,Urine Negative Normal Negative [facility] Comment on above: Order Comment: Name Collection Type:: Clean-Voided Midstream Performed By: #### U HCG, UA, URDS #### [address] Color (U) Yellow Normal Yellow [facility] Comment on above: Order Comment: Name Collection Type:: Clean-Voided Midstream Performed By: #### U HCG, UA, URDS #### [address] Glucose Ql (U) Normal Normal Normal The [facility] Comment on above: Order Comment: Name Collection Type:: Clean-Voided Midstream Performed By: #### U HCG, UA, URDS #### [address] Ketones Ql (U) Negative Normal Negative The [facility] Comment on above: Order Comment: Name Collection Type:: Clean-Voided Midstream Performed By: #### U HCG, UA, URDS #### [address] Leukocyte esterase Test strip Ql (U) Negative Normal Negative [facility] Comment on above: Order Comment: Name Collection Type:: Clean-Voided Midstream Performed By: #### U HCG, UA, URDS #### [place] [address] [place] Nitrite,Urine Negative Normal Negative [facility] Comment on above: Order Comment: Name Collection Type:: Clean-Voided Midstream Performed By: #### U HCG, UA, URDS #### [address] Occult Blood,Urine Negative Normal Negative The [facility] Comment on above: Order Comment: Name Collection Type:: Clean-Voided Midstream Performed By: #### U HCG, UA, URDS #### [address] pH (U) 6.5 [pH] Normal 5.0-9.0 [facility] Comment on above: Order Comment: Name Collection Type:: Clean-Voided Midstream Performed By: #### U HCG, UA, URDS #### [address] Protein,Urine Negative Normal Negative [facility] Comment on above: Order Comment: Name Collection Type:: Clean-Voided Midstream Performed By: #### U HCG, UA, URDS #### [address] Specificy [place],Urine 1.020 Normal 1.001-1.030 [facility] Comment on above: Order Comment: Name Collection Type:: Clean-Voided Midstream Performed By: #### U HCG, UA, URDS #### [address] Urobilinogen,Urine Normal Normal Normal [facility] Comment on above: Order Comment: Name Collection Type:: Clean-Voided Midstream Performed By: #### U HCG, UA, URDS #### [address] Lipid 1996 panelon 4 Cholesterol [Mass/Vol] 143 mg/dL Low 150-200 [facility] Comment on above: Performed By: #### 2 4331-1 #### [facility] ([id number]) [address], [address] [place] [address] Cholesterol in HDL [Mass/Vol] 67 mg/dL Normal >39 [facility] Comment on above: Result Comment: HDL <40 mg/dL - High Risk HDL > or = 40mg/dL- Desirable HDL >60 mg/dL - Negative Risk Performed By: #### 2 4331-1 #### [facility] ([id number]) [address], [address] [place] [address] Cholesterol in LDL [Mass/Vol] 65 mg/dL Normal <130 [facility] Comment on above: Result Comment: LDL <100 mg/dL - Desirable LDL >160 mg/dL - High Risk Performed By: #### 2 4331-1 #### [facility] ([id number]) [address], [address] [place] [address] Cholesterol in VLDL [Mass/Vol] 11 mg/dL Normal 0-30 [facility] Comment on above: Performed By: #### 2 4331-1 #### [facility] ([id number]) [address], [address] [place] [address] CHOLESTEROL:HDL 2.1 Normal 1.0-5.0 [facility] Comment on above: Performed By: #### 2 4331-1 #### [facility] ([id number]) [address], [address] [place] [address] Triglyceride [Mass/Vol] 53 mg/dL Normal 27-150 [facility] Comment on above: Performed By: #### 2 4331-1 #### [facility] ([id number]) [address], [address] [place] [address] Summary Purpose Family History No Family History Records FoundNo Family History Records FoundNo Family History Records FoundNo Family History Records Found Advance Directives No Advanced Directives Records FoundNo Advanced Directives Records FoundNo Advanced Directives Records FoundNo Advanced Directives Records Found Additional Source Comments INFORMATION SOURCE (unrecogn ized section and content) DATE CREATED AUTHOR 10/28/2022 [facility] DATE CREATED AUTHOR AUTHOR'S ORGANIZ ATION 02/19/2024 [facility] DATE CREATED AUTHOR AUTHOR'S ORGANIZ ATION 02/23/2024 [facility] EPIC DATE CREATED AUTHOR AUTHOR'S ORGANIZ ATION 03/01/2024 [facility] FOR RECORDS PERTAINING TO PATIENTS WHO ARE [...] BE BASED ON THE PRIMARY CLINICAL RECORDS. [facility] [employer] [facility]. provides no warranty or guarantee of the accuracy or completeness of information in this document.
[2024-03-14 14:43] LABS: HCG Quantitative <1 mIU/mL
== END 2024-03-14 13:08 | disposition home or self-care (01) ==
LOC: LAB 13:08
PROVIDERS: PCP Internal Medicine; Visit Provider Obstetrics & Gynecology
DX: O20.0 Threatened abortion (principal)
CPT/HCPCS: 36415; 84702

== ENCOUNTER 2024-06-10 09:34 | Outpatient (OUT) | payer BC, SELFPAY ==
--- NOTE | 2024-06-10 09:35 | US_ITS ---
[place] [address] Patient Name: JEFF SOTOMAYOR MRN: [id number] date: 2005 Sex: F Assigned Patient Location: [facility] Current Patient Location: [facility] Accession/Order Number: [id number] Exam Date: 06/10/2024 09:35 Report Date: 06/10/2024 10:36 At the request of: ROHAN GIBSON Procedure: US OB >= 14 weeks Fetus EXAMINATION: US OB >= 14 weeks Fetus, US OB transvaginal HISTORY: MISSED MENSES COMPARISON: No relevant comparison available. FINDINGS: White intrauterine gestation CRL: 9.17 cm, 15 weeks 0 days BPD: 2.96 cm, 15 weeks 3 days Head circumference: 10.4 cm, 15 weeks 1 day Abdominal circumference: 9.35 cm, 15 weeks 3 days Femur length: 1.1 cm, 15 weeks 3 days Estimated weight: 124 g, +/- 4 ounces Femur length BPD: 61.15 Femur length abdominal circumference: 19.36 Heart rate: 154 bpm The uterus is normal, anteverted, anteflexed The ovaries are not visualized Clinical age: Unknown Ultrasound age: 15 weeks 2 days Ultrasound [place]: 11/30/2024 US/US OB >= 14 weeks Fetus IMPRESSION: Viable white intrauterine gestation measuring 15 weeks 2 days Electronically authenticated by: RAPHAEL PAYNE Date: 06/10/2024 10:36
--- NOTE | 2024-06-10 09:38 | US_ITS ---
[place] [id number] Patient Name: JEFF SOTOMAYOR MRN: [id number] date: 2005 Sex: F Assigned Patient Location: [facility] Current Patient Location: [facility] Accession/Order Number: [id number] Exam Date: 06/10/2024 09:38 Report Date: 06/10/2024 10:36 At the request of: ROHAN GIBSON Procedure: US OB transvaginal EXAMINATION: US OB >= 14 weeks Fetus, US OB transvaginal HISTORY: MISSED MENSES COMPARISON: No relevant comparison available. FINDINGS: White intrauterine gestation CRL: 9.17 cm, 15 weeks 0 days BPD: 2.96 cm, 15 weeks 3 days Head circumference: 10.4 cm, 15 weeks 1 day Abdominal circumference: 9.35 cm, 15 weeks 3 days Femur length: 1.1 cm, 15 weeks 3 days Estimated weight: 124 g, +/- 4 ounces Femur length BPD: 61.15 Femur length abdominal circumference: 19.36 Heart rate: 154 bpm The uterus is normal, anteverted, anteflexed The ovaries are not visualized Clinical age: Unknown Ultrasound age: 15 weeks 2 days Ultrasound [place]: 11/30/2024 US/US OB transvaginal IMPRESSION: Viable white intrauterine gestation measuring 15 weeks 2 days Electronically authenticated by: RAPHAEL PAYNE Date: 06/10/2024 10:36
--- OUTSIDE RECORDS SUMMARY | 2024-06-10 09:55 | XMS_ITS | CCD ---
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 Performed By: #### N UM #### [facility] ([id number]) [address] [place] [address] 90462 PH LUCIE 6.5 Normal 5.0-8.5 [facility] Comment on above: Performed By: #### N UM #### [facility] ([id number]) [address] [place] [address] PROTEIN LUCIE Negative Normal NEG [facility] Comment on above: Performed By: #### N UM #### [facility] ([id number]) [address] [place] [address] SPECIFIC GRAVITY LUCIE >=1.030 Normal 1.003-1.035 [facility] Comment on above: Performed By: #### N UM #### [facility] ([id number]) [address] [place] [address] 03857 UROBILINOGEN LUCIE 1.0 eu/dL Normal <1.1 [facility] Comment on above: Performed By: #### N UM #### [facility] ([id number]) [address] [place] [address] [place] PREG LESS THAN 14 WKS WIT [...] cardiac activity with heart rate 100 bpm. [place]-rump length 6 mm corresponding to gestational age [...] Sandy MD on 02/12/2024 5:07 AM Normal [facility] ECG 12 lead ECGon 11-25-2023 ECG 12 lead ECG [facility] Main [place] [address] [place] [address] Electrocardiograph Report Signed Patient: Sharona Marks MR#: [id number] : 2005 Acct:[id number] Age/Sex: 17 / F ADM Date: 11/24/23 Loc: Room: [address] [place] [address] Type: ADM IN Attending Dr: Ignacio Acuña [...] change was found Confirmed by Chapito Corbin ([id number]) on 11/25/2023 7:52:58 PM Referred By: Electronically Signed By:Chapito Corbin Transcribed By: MUS Signed By Chapito Corbin MD 11/25/231952 Normal [facility] Lipid Panelon 11-25-2023 Cholesterol [Mass/Vol] 121 mg/dL Low 140-200 [facility] Comment on above: Result Comment: Chol less than 200 mg/dl low risk Chol 201-239 mg/dl borderline risk Chol 240 mg/dl and greater high risk Performed By: #### L IPID, [id number], TSH3 wRFLX #### [address] Cholesterol in HDL [Mass/Vol] 57 mg/dL Normal 23-92 [facility] Comment on above: Result Comment: HDL CHOL ATP-III CLASSIFICATION Cardiovascular Risk HDL > or equal to 60 mg/dL LOW HDL < 40 mg/dL HIGH Performed By: #### L IPID, [id number], TSH3 wRFLX #### [address] Cholesterol.total/Cho lesterol in HDL [Mass ratio] 2.1 {ratio} Normal <5.0 [facility] Comment on above: Performed By: #### L IPID, [id number], TSH3 wRFLX #### [address] LDL Cholesterol,Calculate d 55 mg/dL Normal 0-100 [facility] Comment on above: Result Comment: LDL ATP III CLASSIFICATION LDL less than 100 mg/dL Optimal LDL 100-129 mg/dL Near or above optimal LDL 130-159 mg/dL Borderline high LDL 160-189 mg/dL High LDL greater than 189 mg/dL Very high Performed By: #### L IPID, [id number], TSH3 wRFLX #### [address] Triglyceride w/Reflex 44 mg/dL Normal 0-149 [facility] Comment on above: Result Comment: TRIG ATP III CLASSIFICATION TRIG less than 150 mg/dL Normal TRIG 150-199 mg/dL Borderline high TRIG 200-500 mg/dL High TRIG greater than 500 mg/dL Very high Standard traceable to the Center for Disease Conrtrol and Prevention (CDC) test method. Performed By: #### L IPID, [id number], TSH3 wRFLX #### [address] VLDL CHOLESTEROL 8 mg/dL Normal [facility] Comment on above: Performed By: #### L IPID, [id number], TSH3 wRFLX #### [address] Thyroid Stim Hormone w/Rflxo n 11-25-2023 Thyroid Stim Hormone w/Rflx 3.18 u[iU]/mL Normal 0.45-5.33 [facility] Comment on above: Performed By: #### L IPID, [id number], TSH3 wRFLX #### [address] Vitamin D 25 Hydroxy Totalon 11-25-2023 Vitamin D 25 Hydroxy Total 14.7 ng/mL Low 30-100 [facility] Comment on above: Result Comment: DARYA MIN D STATUS 25(OH)VITAMIN D RANGE (ng/mL) Deficient <20 Insufficient 20 to <30 Sufficient 30 to 100 Reference: Angel MF,Yovany RAZO, Bee WILEY, et al. Evaluation,treatment, and prevention of vitamin D deficiency; an Endocrine Society clinical practice guideline. JCEM. 2010; 96(7):1911-30. PERFORMED BY: [place] [address] PATHOLOGIST BUSINESS MANAGEMENT PROFESSOR TIFFANIE HIGH M.D. Performed By: #### L IPID, [id number], TSH3 wRFLX #### [address] Complete Blood Count Auto Di ffon 11-24-2023 Basophils (Bld) [#/Vol] 0.0 10*3/uL Normal 0.0-0.1 [facility] Comment on above: Result Comment: PERF ORMED BY: [place] [address] PATHOLOGIST BUSINESS MANAGEMENT PROFESSOR TIFFANIE HIGH M.D. Performed By: #### C MP, ETOH, CBC #### [place] [address] [place] Basophils/100 WBC (Bld) 0.5 % Normal . [facility] Comment on above: Performed By: #### C MP, ETOH, CBC #### [place] [address] [place] Eosinophils (Bld) [#/Vol] 0.1 10*3/uL Normal 0.0-0.7 [facility] Comment on above: Performed By: #### C MP, ETOH, CBC #### [address] Eosinophils/100 WBC (Bld) 1.0 % Normal . [facility] Comment on above: Performed By: #### C MP, ETOH, CBC #### [address] Erythrocyte distribution width (RBC) [Ratio] 13.2 % Normal 11.9-15.3 [facility] Comment on above: Performed By: #### C MP, ETOH, CBC #### [address] Hematocrit (Bld) [Volume fraction] 41.6 % Normal 36.0-46.0 [facility] Comment on above: Performed By: #### C MP, ETOH, CBC #### [address] Hemoglobin (Bld) [Mass/Vol] 14.3 g/dL Normal 12.0-16.0 [facility] Comment on above: Performed By: #### C MP, ETOH, CBC #### [address] Lymphocytes (Bld) [#/Vol] 3.5 10*3/uL Normal 1.20-4.8 [facility] Comment on above: Performed By: #### C MP, ETOH, CBC #### [place] [address] [place] Lymphocytes/100 WBC (Bld) 39.9 % Normal . [facility] Comment on above: Performed By: #### C MP, ETOH, CBC #### [address] MCH (RBC) [Entitic mass] 29.3 pg Normal 25.0-35.0 [facility] Comment on above: Performed By: #### C MP, ETOH, CBC #### [address] MCV (RBC) [Entitic vol] 84.8 fL Normal 78-102 [facility] Comment on above: Performed By: #### C MP, ETOH, CBC #### [address] Mean Corpuscular HGB Conc 34.5 g/dL Normal 31.0-37.0 [facility] Comment on above: Performed By: #### C MP, ETOH, CBC #### [place] [address] [place] Monocytes (Bld) [#/Vol] 0.6 10*3/uL Normal 0.1-1.00 [facility] Comment on above: Performed By: #### C MP, ETOH, CBC #### [address] Monocytes/100 WBC (Bld) 17.05 % Normal 0.00-20.00 [facility] Comment on above: Performed By: #### C MP, ETOH, CBC #### [address] Monocytes/100 WBC (Bld) 7.1 % Normal . [facility] Comment on above: Performed By: #### C MP, ETOH, CBC #### [address] Neutrophils (Bld) [#/Vol] 4.5 10*3/uL Normal 1.2-7.7 [facility] Comment on above: Performed By: #### C MP, ETOH, CBC #### [place] [address] [place] Neutrophils/100 WBC (Bld) 51.5 % Normal . [facility] Comment on above: Performed By: #### C MP, ETOH, CBC #### [place] [address] [place] NRBC% 0.1 /100{WBC} Normal 0-0.5 [facility] Comment on above: Performed By: #### C MP, ETOH, CBC #### [address] Platelet mean volume (Bld) [Entitic vol] 7.7 fL Normal 6.3-10.7 [facility] Comment on above: Performed By: #### C MP, ETOH, CBC #### [address] Platelets (Bld) [#/Vol] 319 10*3/uL Normal 150-450 [facility] Comment on above: Performed By: #### C MP, ETOH, CBC #### [address] RBC (Bld) [#/Vol] 4.90 10*6/uL Normal 4.10-5.[address] [facility] Comment on above: Performed By: #### C MP, ETOH, CBC #### [address] WBC (Bld) [#/Vol] 8.7 10*3/uL Normal 4.5-13.5 [facility] Comment on above: Performed By: #### C MP, ETOH, CBC #### [address] Comprehensive Metabolic Pane david 11-24-2023 Albumin [Mass/Vol] 5.1 g/dL Normal 3.5-5.7 [facility] Comment on above: Performed By: #### C MP, ETOH, CBC #### [address] Albumin/Globulin [Mass ratio] 1.6 {ratio} Normal [facility] Comment on above: Performed By: #### C MP, ETOH, CBC #### [address] ALP [Catalytic activity/Vol] 67 U/L Normal 34-104 [facility] Comment on above: Performed By: #### C MP, ETOH, CBC #### [address] ALT [Catalytic activity/Vol] 10 U/L Normal 7-52 [facility] Comment on above: Performed By: #### C MP, ETOH, CBC #### [address] [place] [address] [place] Anion gap [Moles/Vol] 10.9 mmol/L Normal 6.0-15.0 [facility] Comment on above: Performed By: #### C MP, ETOH, CBC #### [facility] [address] AST [Catalytic activity/Vol] 15 U/L Normal 13-39 [facility] Comment on above: Performed By: #### C MP, ETOH, CBC #### [facility] [address] [place] [address] [place] Bilirubin [Mass/Vol] 0.4 mg/dL Normal 0.3-1.0 [facility] Comment on above: Performed By: #### C MP, ETOH, CBC #### [address] Calcium [Mass/Vol] 9.5 mg/dL Normal 8.6-10.3 [facility] Comment on above: Performed By: #### C MP, ETOH, CBC #### [place] [address] [place] Chloride [Moles/Vol] 106 mmol/L Normal 98-107 [facility] Comment on above: Performed By: #### C MP, ETOH, CBC #### [place] [address] [place] CO2 [Moles/Vol] 24.9 mmol/L Normal 21.0-31.0 [facility] Comment on above: Performed By: #### C MP, ETOH, CBC #### [place] [address] [place] Creatinine [Mass/Vol] 0.71 mg/dL Normal 0.60-1.20 [facility] Comment on above: Performed By: #### C MP, ETOH, CBC #### [place] [address] [place] Creatinine Clr Calc Pharmacy 124.96 Normal [facility] Comment on above: Result Comment: PERF ORMED BY: [place] [address] PATHOLOGIST BUSINESS MANAGEMENT PROFESSOR TIFFANIE HIGH M.D. Performed By: #### C MP, ETOH, CBC #### [facility] [address] [place] [address] [place] GFR/1.73 sq M.predicted MDRD (S/P/Bld) [Vol rate/Area] mL/min/{1.73_m2} Normal [facility] Comment on above: Performed By: #### C MP, ETOH, CBC #### [facility] [address] [place] [address] [place] Globulin (S) [Mass/Vol] 3.1 g/dL Normal [facility] Comment on above: Performed By: #### C MP, ETOH, CBC #### [address] Glucose [Mass/Vol] 86 mg/dL Normal 70-100 [facility] Comment on above: Result Comment: [facility] Glucose Reference Range is dependent on time and content of last meal. Glucose of more than 200 mg/dL in a nonstressed, ambulatory subject supports the diagnosis of Diabetes Mellitus. ADA recommended reference range Performed By: #### C MP, ETOH, CBC #### [address] Potassium [Moles/Vol] 3.8 mmol/L Normal 3.5-5.1 [facility] Comment on above: Performed By: #### C MP, ETOH, CBC #### [facility] [address] [place] [address] [place] Protein [Mass/Vol] 8.2 g/dL Normal 6.4-8.9 [facility] Comment on above: Performed By: #### C MP, ETOH, CBC #### [facility] [address] [place] [address] [place] Sodium [Moles/Vol] 138 mmol/L Normal 136-145 [facility] Comment on above: Performed By: #### C MP, ETOH, CBC #### [facility] [address] [place] [address] [place] Urea nitrogen [Mass/Vol] 9 mg/dL Normal 7-25 [facility] Comment on above: Performed By: #### C MP, ETOH, CBC #### [place] [address] [place] Drug Screen,Urineon 11-24-19 24 Amphetamine Screen,Urine Negative Normal Negative [facility] Comment on above: Performed By: #### U HCG, UA, URDS #### [address] Barbiturate Screen,Urine Negative Normal Negative [facility] Comment on above: Performed By: #### U HCG, UA, URDS #### [place] [address] [place] Benzodiazepines Screen,Urine Negative Normal Negative [facility] Comment on above: Performed By: #### U HCG, UA, URDS #### [address] Cannabinoid Screen,Urine Positive High Negative [facility] Comment on above: Result Comment: Thes e are unconfirmed results and should not be used for legal purposes. Drug Cut-Off Concentration: AMPH 1000 ng/mL LUCIA 200 ng/mL BROOKE 200 ng/mL COCM 300 ng/mL OP 300 ng/mL PCP 25 ng/mL THC 20 ng/mL PERFORMED BY: [place] [address] PATHOLOGIST BUSINESS MANAGEMENT PROFESSOR TIFFANIE HIGH M.D. Performed By: #### U HCG, UA, URDS #### [address] Cocaine Screen,Urine Negative Normal Negative [facility] Comment on above: Performed By: #### U HCG, UA, URDS #### [place] [address] [place] Opiate Screen,Urine Negative Normal Negative [facility] Comment on above: Performed By: #### U HCG, UA, URDS #### [address] Phencyclidine Screen,Urine Negative Normal Negative [facility] Comment on above: Performed By: #### U HCG, UA, URDS #### [address] [place] [address] [place] Ethyl Alcohol Profileon Ethanol [Mass/Vol] mg/dL Normal [facility] Comment on above: Performed By: #### C MP, ETOH, CBC #### [address] Percent Ethanol Not performed Normal [facility] Comment on above: Result Comment: PERF ORMED BY: [place] [address] PATHOLOGIST BUSINESS MANAGEMENT PROFESSOR TIFFANIE HIGH M.D. Performed By: #### C MP, ETOH, CBC #### [address] HCG,Urineon 11-24-2023 Beta HCG ( test) Ql (U) Negative Normal [facility] Comment on above: Order Comment: Name Collection Type:: Clean-Voided Midstream Result Comment: PERF ORMED BY: [place] [address] PATHOLOGIST BUSINESS MANAGEMENT PROFESSOR TIFFANIE HIGH M.D. Performed By: #### U HCG, UA, URDS #### [address] Urinalysison 11-24-2023 Appearance (U) Clear Normal Clear [facility] Comment on above: Order Comment: Name Collection Type:: Clean-Voided Midstream Performed By: #### U HCG, UA, URDS #### [address] Bilirubin,Urine Negative Normal Negative [facility] Comment on above: Order Comment: Name Collection Type:: Clean-Voided Midstream Performed By: #### U HCG, UA, URDS #### [address] Color (U) Yellow Normal Yellow [facility] Comment on above: Order Comment: Name Collection Type:: Clean-Voided Midstream Performed By: #### U HCG, UA, URDS #### [address] Glucose Ql (U) Normal Normal Normal [facility] Comment on above: Order Comment: Name Collection Type:: Clean-Voided Midstream Performed By: #### U HCG, UA, URDS #### [address] [address] Ketones Ql (U) Negative Normal Negative [facility] Comment on above: Order Comment: Name Collection Type:: Clean-Voided Midstream Performed By: #### U HCG, UA, URDS #### [address] Leukocyte esterase Test strip Ql (U) Negative Normal Negative [facility] Comment on above: Order Comment: Name Collection Type:: Clean-Voided Midstream Performed By: #### U HCG, UA, URDS #### [address] Nitrite,Urine Negative Normal Negative [facility] Comment on above: Order Comment: Name Collection Type:: Clean-Voided Midstream Performed By: #### U HCG, UA, URDS #### [place] [address] [place] Occult Blood,Urine Negative Normal Negative [facility] Comment on above: Order Comment: Name Collection Type:: Clean-Voided Midstream Performed By: #### U HCG, UA, URDS #### [address] pH (U) 6.5 [pH] Normal 5.0-9.0 [facility] Comment on above: Order Comment: Name Collection Type:: Clean-Voided Midstream Performed By: #### U HCG, UA, URDS #### [place] [address] [place] Protein,Urine Negative Normal Negative [facility] Comment on above: Order Comment: Name Collection Type:: Clean-Voided Midstream Performed By: #### U HCG, UA, URDS #### [place] [address] [place] Specificy [place],Urine 1.020 Normal 1.001-1.030 [facility] Comment on above: Order Comment: Name Collection Type:: Clean-Voided Midstream Performed By: #### U HCG, UA, URDS #### [facility] [address] [id number] [facility] Urobilinogen,Urine Normal Normal Normal [facility] Comment on above: Order Comment: Name Collection Type:: Clean-Voided Midstream Performed By: #### U HCG, UA, URDS #### [facility] [address] [id number] [facility] Lipid 1996 panelon 4 Cholesterol [Mass/Vol] 143 mg/dL Low 150-200 [facility] Comment on above: Performed By: #### 2 4331-1 #### [facility] ([id number]) [address], [address] [place] [address] Cholesterol in HDL [Mass/Vol] 67 mg/dL Normal >39 [facility] Comment on above: Result Comment: HDL <40 mg/dL - High Risk HDL > or = 40mg/dL- Desirable HDL >60 mg/dL - Negative Risk Performed By: #### 2 4331-1 #### [facility] ([id number]) [address], [address] [place] [address] Cholesterol in LDL [Mass/Vol] 65 mg/dL Normal <130 [facility] Comment on above: Result Comment: LDL <100 mg/dL - Desirable LDL >160 mg/dL - High Risk Performed By: #### 2 4331-1 #### [facility] ([id number]) [address], [address] [place] [address] Cholesterol in VLDL [Mass/Vol] 11 mg/dL Normal 0-30 [facility] Comment on above: Performed By: #### 2 4331-1 #### [facility] ([id number]) [address], [address] [place] [address] CHOLESTEROL:HDL 2.1 Normal 1.0-5.0 [facility] Comment on above: Performed By: #### 2 4331-1 #### [facility] ([id number]) [address], [address] [place] [address] Triglyceride [Mass/Vol] 53 mg/dL Normal 27-150 [facility] Comment on above: Performed By: #### 2 4331-1 #### [facility] ([id number]) [address], [address] [place] [address] Encounters Encounter Date Encounter Type Care Provider Facility Start: 05-22-2024 End: 05-22-2024 Emergency department patient visit [facility] Start: 05-11-2024 End: 05-11-2024 Emergency department patient visit [facility] Start: 02-29-2024 End: 02-29-2024 ambulatory [facility] Start: 02-22-2024 End: 02-22-2024 ambulatory ROHAN ARTHUR Not Available Start: 02-18-2024 End: 02-18-2024 ambulatory ROHAN ARTHUR Not Available Start: 02-12-2024 End: 02-13-2024 Emergency department patient visit [facility] Start: 02-12-2024 End: 02-13-2024 Emergency department patient visit [facility] Start: 02-12-2024 End: 02-12-2024 Emergency department patient visit [facility] Start: 11-24-2023 End: 11-26-2023 Evaluation and management of inpatient Ignacio Domenico Facility:[facility] Start: 11-24-2023 ambulatory Ollie Courtney acility:[facility] Start: 11-11-2023 End: 11-11-2023 ambulatory [facility] Start: 10-27-2022 End: 10-27-[address] ANTHONY PAY Facility: Payers Date Payer Category Payer Self-pay 2022 Unknown [id number] 2004 Unknown [id number] 2.16.84 [id number] 2004 Unknown [id number] 2.16.84 [id number] 2004 Unknown [id number] 2.16.8 40.1.428541.3.579.2.6 2004 Unknown [id number] 2.16.8 40.1.582425.3.579.2.1286 2004 Unknown [id number] 2.16.8 40.1.301328.3.579.2.1286 2004 Unknown [id number] 2.16.8 40.1.276228.3.579.2.1286 2004 Unknown [id number] 2.16.8 40.1.572999.3.579.2.1286 2004 Unknown [id number] 2.16.8 40.1.698587.3.579.2.1286 1972 Unknown [id number] 2.16.84 0.1.348569.3.579.2.593 1959 Unknown [id number] Unknown [id number] 2.16.8 40.1.979362.3.579.2.531 Unknown [id number] 2.16.8 40.1.867306.3.579.2.531 Summary Purpose Family History No Family History [...] pital DATE CREATED AUTHOR AUTHOR'S ORGANIZ ATION 02/23/2024 [facility] DATE CREATED AUTHOR AUTHOR'S ORGANIZ ATION 05/22/2024 [facility] DATE CREATED AUTHOR AUTHOR'S ORGANIZ ATION 06/03/2024 [facility] FOR RECORDS PERTAINING TO PATIENTS WHO ARE [...] BE BASED ON THE PRIMARY CLINICAL RECORDS. [facility] [employer]. provides no warranty or guarantee of the accuracy or completeness of information in this document.
== END 2024-06-10 09:35 | disposition home or self-care (01) ==
PROVIDERS: PCP Internal Medicine; Visit Provider Obstetrics & Gynecology
DX: N92.6 Irregular menstruation, unspecified (principal); R79.89 Other specified abnormal findings of blood chemistry; Z34.92 Encounter for supervision of normal pregnancy, unspecified, second trimester; Z3A.15 15 weeks gestation of pregnancy
CPT/HCPCS: 76815; 76817

== ENCOUNTER 2024-06-10 12:56 | Outpatient (OUT) | payer BC, SELFPAY ==
--- OUTSIDE RECORDS SUMMARY | 2024-06-10 13:16 | XMS_ITS | CCD ---
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 Comment on above: Performed By: #### N UM #### [facility] ([id number]) [address] [place] [address] 74968 Chloride [Moles/Vol] 104 mmol/L Normal 98-109 [facility] Comment on above: Performed By: #### N UM #### [facility] ([id number]) [address] [place] [address] 17796 CO2 [Moles/Vol] 22 mmol/L Normal 22-32 [facility] Comment on above: Performed By: #### N UM #### [facility] ([id number]) [address] [place] [address] 55391 Creatinine [Mass/Vol] 0.51 mg/dL Normal 0.40-1.00 [facility] Comment on above: Result Comment: METH OD TRACEABLE TO IDMS STANDARD Performed By: #### N UM #### [facility] ([id number]) [address] [place] [address] 17957 eGFR (CKD-EPI) NON-RACE DEPENDENT >90 Normal >59 [facility] Comment on above: Result Comment: Reported eGFR is based on the CKD-EPI 1 equation that does not use a race coefficient. Performed By: #### N UM #### [facility] ([id number]) [address] [place] [address] 68635 Glucose [Mass/Vol] 102 mg/dL High 65-99 [facility] Comment on above: Performed By: #### N UM #### [facility] ([id number]) [address] [place] [address] 47528 Potassium [Moles/Vol] 3.4 mmol/L Low 3.5-5.0 [facility] Comment on above: Performed By: #### N UM #### [facility] ([id number]) [address] [place] [address] 27838 Sodium [Moles/Vol] 132 mmol/L Low 134-146 [facility] Comment on above: Performed By: #### N UM #### [facility] ([id number]) [address] [place] [address] 20716 Urea nitrogen [Mass/Vol] 6 mg/dL Normal 5-23 [facility] Comment on above: Performed By: #### N UM #### [facility] ([id number]) [address] [place] [address] 84899 CBC AND AUTO DIFFon 05-22-20 24 ABSOLUTE BASOPHIL 0.1 X10E9/L Normal 0.0-0.2 [facility] Comment on above: Performed By: #### N UM #### [facility] ([id number]) [address] [place] [address] 10576 ABSOLUTE NEUTROPHIL 3.3 X10E9/L Normal 1.5-6.6 [facility] Comment on above: Performed By: #### N UM #### [facility] ([id number]) [address] [place] [address] 91795 Basophils/100 WBC (Bld) 0.9 % Normal [facility] Comment on above: Performed By: #### N UM #### [facility] ([id number]) [address] [place] [address] 17862 Eosinophils (Bld) [#/Vol] 0.2 10*3/uL Normal 0.0-0.4 [facility] Comment on above: Performed By: #### N UM #### [facility] ([id number]) [address] [place] [address] 29701 Eosinophils/100 WBC (Bld) 3.9 % Normal [facility] Comment on above: Performed By: #### N UM #### [facility] ([id number]) [address] [place] [address] 50225 Erythrocyte distribution width (RBC) [Ratio] 13.9 % Normal 11.5-15.0 [facility] Comment on above: Performed By: #### N UM #### [facility] ([id number]) [address] [place] [address] 79641 Hematocrit (Bld) [Volume fraction] 38.4 % Normal 35-47 [facility] Comment on above: Performed By: #### N UM #### [facility] ([id number]) [address] [place] [address] 42462 Hemoglobin (Bld) [Mass/Vol] 13.2 g/dL Normal 11.7-15.5 [facility] Comment on above: Performed By: #### N UM #### [facility] ([id number]) [address] [place] [address] 79536 Lymphocytes (Bld) [#/Vol] 1.4 10*3/uL Normal 1.0-3.5 [facility] Comment on above: Performed By: #### N UM #### [facility] ([id number]) [address] [place] [address] 24822 Lymphocytes/100 WBC (Bld) 25.9 % Normal [facility] Comment on above: Performed By: #### N UM #### [facility] ([id number]) [address] [place] [address] 90281 MCH (RBC) [Entitic mass] 28.2 pg Normal 27-34 [facility] Comment on above: Performed By: #### N UM #### [facility] ([id number]) [address] [place] [address] 70520 MCHC (RBC) [Mass/Vol] 34.3 g/dL Normal 32-36 [facility] Comment on above: Performed By: #### N UM #### [facility] ([id number]) [address] [place] [address] 06148 MCV (RBC) [Entitic vol] 82 fL Normal 80-100 [facility] Comment on above: Performed By: #### N UM #### [facility] ([id number]) [address] [place] [address] 13928 Monocytes (Bld) [#/Vol] 0.6 10*3/uL Normal 0-0.9 [facility] Comment on above: Performed By: #### N UM #### [facility] ([id number]) [address] [place] [address] 78066 Monocytes/100 WBC (Bld) 10.2 % Normal [facility] Comment on above: Performed By: #### N UM #### [facility] ([id number]) [address] [place] [address] 88676 Neutrophils/100 WBC (Bld) 59.1 % Normal [facility] Comment on above: Performed By: #### N UM #### [facility] ([id number]) [address] [place] [address] 13490 Platelet mean volume (Bld) [Entitic vol] 8.7 fL Normal 7-12 [facility] Comment on above: Performed By: #### N UM #### [facility] ([id number]) [address] [place] [address] 39544 Platelets (Bld) [#/Vol] 198 10*3/uL Normal 150-450 [facility] Comment on above: Performed By: #### N UM #### [facility] ([id number]) [address] [place] [address] 47375 RBC COUNT 4.67 X10E12/L Normal 3.80-5.20 [facility] Comment on above: Performed By: #### N UM #### [facility] ([id number]) [address] [place] [address] 35052 WBC (Bld) [#/Vol] 5.6 10*3/uL Normal 4.0-11.0 [facility] Comment on above: Performed By: #### N UM #### [facility] ([id number]) [address] [place] [address] 53220 HCG ( test) Ql (U)o n 05-22-2024 Beta HCG ( test) Ql (U) Positive Abnormal NEG [facility] Comment on above: Performed By: #### N UM #### [facility] ([id number]) [address] [place] [address] 80452 HCG.beta subunit IA 3rd IS Q non 05-22-2024 [place] [address] m[IU]/mL Normal [facility] Comment on above: Result Comment: NEW [...] neoplasms. Performed By: #### N UM #### [facility] ([id number]) [address] [place] [address] 87805 URN MACROSCOPIC NURon 2023 BILIRUBIN LUCIE Small Abnormal NEG [facility] Comment on above: Performed By: #### N UM #### [facility] ([id number]) [address] [place] [address] [place] [address] BLOOD/HGB LUCIE Trace Abnormal NEG [facility] Comment on above: Performed By: #### N UM #### [facility] ([id number]) [address] [place] [address] [place] [address] GLUCOSE LUCIE Negative Normal NEG [facility] Comment on above: Performed By: #### N UM #### [facility] ([id number]) [address] [place] [address] [place] [address] KETONES LUCIE Trace Abnormal NEG [facility] Comment on above: Performed By: #### N UM #### [facility] ([id number]) [address] [place] [address] [place] [address] LEUKOCYTE ESTERASE LUCIE Small Abnormal NEG [facility] Comment on above: Performed By: #### N UM #### [facility] ([id number]) [address] [place] [address] [place] [address] NITRITE LUCIE Negative Normal NEG [facility] Comment on above: Performed By: #### N UM #### [facility] ([id number]) [address] [place] [address] [place] [address] PH LUCIE 6.5 Normal 5.0-8.5 [facility] Comment on above: Performed By: #### N UM #### [facility] ([id number]) [address] [place] [address] [place] [address] PROTEIN LUCIE 100 mg/dL Abnormal NEG [facility] Comment on above: Performed By: #### N UM #### [facility] ([id number]) [address] [place] [address] [place] [address] SPECIFIC GRAVITY LUCIE >=1.030 Normal 1.003-1.035 [facility] Comment on above: Performed By: #### N UM #### [facility] ([id number]) [address] [place] [address] 12824 UROBILINOGEN LUCIE 1.0 eu/dL Normal <1.1 [facility] Comment on above: Performed By: #### N UM #### [facility] ([id number]) [address] [place] [address] 82307 RAPID STREP SCR NURSINGon S. pyogenes Ag EIA Ql (Throat) Positive Abnormal NEG [facility] Comment on above: Performed By: #### N UM #### [facility] ([id number]) [address] [place] [address] 13753 CBC AND AUTO DIFFon 02-29-20 ABSOLUTE BASOPHIL 0.0 X10E9/L Normal 0.0-0.2 [facility] Comment on above: Performed By: #### N UM #### [facility] ([id number]) [address] [place] [address] 34922 ABSOLUTE NEUTROPHIL 2.4 X10E9/L Normal 1.5-6.6 [facility] Comment on above: Performed By: #### N UM #### [facility] ([id number]) [address] [place] [address] 42340 Basophils/100 WBC (Bld) 0.8 % Normal [facility] Comment on above: Performed By: #### N UM #### [facility] ([id number]) [address] [place] [address] 42125 Eosinophils (Bld) [#/Vol] 0.2 10*3/uL Normal 0.0-0.4 [facility] Comment on above: Performed By: #### N UM #### [facility] ([id number]) [address] [place] [address] 58640 Eosinophils/100 WBC (Bld) 3.0 % Normal [facility] Comment on above: Performed By: #### N UM #### [facility] ([id number]) [address] [place] [address] 67827 Erythrocyte distribution width (RBC) [Ratio] 12.3 % Normal 11.5-15.0 [facility] Comment on above: Performed By: #### N UM #### [facility] ([id number]) [address] [place] [address] 96209 Hematocrit (Bld) [Volume fraction] 36.6 % Normal 35-47 [facility] Comment on above: Performed By: #### N UM #### [facility] ([id number]) [address] [place] [address] 46396 Hemoglobin (Bld) [Mass/Vol] 12.5 g/dL Normal 11.7-15.5 [facility] Comment on above: Performed By: #### N UM #### [facility] ([id number]) [address] [place] [address] 10855 Lymphocytes (Bld) [#/Vol] 2.3 10*3/uL Normal 1.0-3.5 [facility] Comment on above: Performed By: #### N UM #### [facility] ([id number]) [address] [place] [address] 24209 Lymphocytes/100 WBC (Bld) 43.8 % Normal [facility] Comment on above: Performed By: #### N UM #### [facility] ([id number]) [address] [place] [address] 05960 MCH (RBC) [Entitic mass] 29.5 pg Normal 27-34 [facility] Comment on above: Performed By: #### N UM #### [facility] ([id number]) [address] [place] [address] 64153 MCHC (RBC) [Mass/Vol] 34.1 g/dL Normal 32-36 [facility] Comment on above: Performed By: #### N UM #### [facility] ([id number]) [address] [place] [address] 54464 MCV (RBC) [Entitic vol] 86 fL Normal 80-100 [facility] Comment on above: Performed By: #### N UM #### [facility] ([id number]) [address] [place] [address] 81965 Monocytes (Bld) [#/Vol] 0.4 10*3/uL Normal 0-0.9 [facility] Comment on above: Performed By: #### N UM #### [facility] ([id number]) [address] [place] [address] 48985 Monocytes/100 WBC (Bld) 7.4 % Normal [facility] Comment on above: Performed By: #### N UM #### [facility] ([id number]) [address] [place] [address] 92970 Neutrophils/100 WBC (Bld) 45.0 % Normal [facility] Comment on above: Performed By: #### N UM #### [facility] ([id number]) [address] [place] [address] 21857 Platelet mean volume (Bld) [Entitic vol] 8.7 fL Normal 7-12 [facility] Comment on above: Performed By: #### N UM #### [facility] ([id number]) [address] [place] [address] 87139 Platelets (Bld) [#/Vol] 326 10*3/uL Normal 150-450 [facility] Comment on above: Performed By: #### N UM #### [facility] ([id number]) [address] [place] [address] 42053 RBC COUNT 4.23 X10E12/L Normal 3.80-5.20 [facility] Comment on above: Performed By: #### N UM #### [facility] ([id number]) [address] [place] [address] 13774 WBC (Bld) [#/Vol] 5.3 10*3/uL Normal 4.0-11.0 [facility] Comment on above: Performed By: #### N UM #### [facility] ([id number]) [address] [place] [address] 55850 BASIC METABOLIC PANLon 02-12 Anion gap [Moles/Vol] 8 mmol/L Normal 5-15 [facility] Comment on above: Performed By: #### B EDEL, , CBCA #### [facility] ([id number]) [address] [place] [address] 79076 Calcium [Mass/Vol] 9.1 mg/dL Normal 8.5-10.5 [facility] Comment on above: Performed By: #### B EDEL, , CBCA #### [facility] ([id number]) [address] [place] [address] 26038 Chloride [Moles/Vol] 103 mmol/L Normal 98-109 [facility] Comment on above: Performed By: #### Ed HOLLINGSWORTH, , CBCA #### [facility] ([id number]) [address] [place] [address] 22899 CO2 [Moles/Vol] 22 mmol/L Normal 22-32 [facility] Comment on above: Performed By: #### Ed HOLLINGSWORTH, , CBCA #### [facility] ([id number]) [address] [place] [address] 98344 Creatinine [Mass/Vol] 0.57 mg/dL Normal 0.40-1.00 [facility] Comment on above: Result Comment: METH OD TRACEABLE TO IDMS STANDARD Performed By: #### B EDEL, , CBCA #### [facility] ([id number]) [address] [place] [address] 45237 eGFR (CKD-EPI) NON-RACE DEPENDENT >90 Normal >59 [facility] Comment on above: Result Comment: Reported eGFR is based on the CKD-EPI 2020 equation that does not use a race coefficient. Performed By: #### B EDEL, , CBCA #### [facility] ([id number]) [address] [place] [address] 97951 Glucose [Mass/Vol] 93 mg/dL Normal 65-99 [facility] Comment on above: Performed By: #### B EDEL, , CBCA #### [facility] ([id number]) [address] [place] [address] 98210 Potassium [Moles/Vol] 3.6 mmol/L Normal 3.5-5.0 [facility] Comment on above: Performed By: #### Ed HOLLINGSWORTH, , CBCA #### [facility] ([id number]) [address] [place] [address] 20493 Sodium [Moles/Vol] 133 mmol/L Low 134-146 [facility] Comment on above: Performed By: #### Ed HOLLINGSWORTH, , CBCA #### [facility] ([id number]) [address] [place] [address] 49737 Urea nitrogen [Mass/Vol] 11 mg/dL Normal 5-23 [facility] Comment on above: Performed By: #### Ed HOLLINGSWORTH, , CBCA #### [facility] ([id number]) [address] [place] [address] 71441 CBC AND AUTO DIFFon 05-25-20 24 ABSOLUTE BASOPHIL 0.1 X10E9/L Normal 0.0-0.2 [facility] Comment on above: Performed By: #### B EDEL , CBCA #### [facility] ([id number]) [address] [place] [address] 81715 ABSOLUTE NEUTROPHIL 5.3 X10E9/L Normal 1.5-6.6 [facility] Comment on above: Performed By: #### B EDEL, , CBCA #### [facility] ([id number]) [address] [place] [address] 11483 Basophils/100 WBC (Bld) 0.9 % Normal [facility] Comment on above: Performed By: #### B EDEL, , CBCA #### [facility] ([id number]) [address] [place] [address] 38405 DIFFERENTIAL COMMENT PLATELETS REVIEWED Normal [facility] Comment on above: Performed By: #### B EDEL, , CBCA #### [facility] ([id number]) [address] [place] [address] 76152 Eosinophils (Bld) [#/Vol] 0.4 10*3/uL Normal 0.0-0.4 [facility] Comment on above: Performed By: #### B EDEL, , CBCA #### [facility] ([id number]) [address] [place] [address] 79874 Eosinophils/100 WBC (Bld) 4.0 % Normal [facility] Comment on above: Performed By: #### B EDEL, , CBCA #### [facility] ([id number]) [address] [place] [address] 39179 Erythrocyte distribution width (RBC) [Ratio] 12.7 % Normal 11.5-15.0 [facility] Comment on above: Performed By: #### B EDEL, , CBCA #### [facility] ([id number]) [address] [place] [address] [place] [address] Hematocrit (Bld) [Volume fraction] 34.3 % Low 35-47 [facility] Comment on above: Performed By: #### B EDEL, , CBCA #### [facility] ([id number]) [address] [place] [address] 88188 Hemoglobin (Bld) [Mass/Vol] 12.2 g/dL Normal 11.7-15.5 [facility] Comment on above: Performed By: #### B EDEL, , CBCA #### [facility] ([id number]) [address] [place] [address] 43502 Lymphocytes (Bld) [#/Vol] 2.7 10*3/uL Normal 1.0-3.5 [facility] Comment on above: Performed By: #### Ed HOLLINGSWORTH, , CBCA #### [facility] ([id number]) [address] [place] [address] 81094 Lymphocytes/100 WBC (Bld) 29.1 % Normal [facility] Comment on above: Performed By: #### Ed HOLLINGSWORTH, , CBCA #### [facility] ([id number]) [address] [place] [address] 38473 MCH (RBC) [Entitic mass] 30.1 pg Normal 27-34 [facility] Comment on above: Performed By: #### Ed HOLLINGSWORTH, , CBCA #### [facility] ([id number]) [address] [place] [address] 20491 MCHC (RBC) [Mass/Vol] 35.7 g/dL Normal 32-36 [facility] Comment on above: Performed By: #### Ed HOLLINGSWORTH, , CBCA #### [facility] ([id number]) [address] [place] [address] 08854 MCV (RBC) [Entitic vol] 84 fL Normal 80-100 [facility] Comment on above: Performed By: #### Ed HOLLINGSWORTH, , CBCA #### [facility] ([id number]) [address] [place] [address] 79505 Monocytes (Bld) [#/Vol] 0.9 10*3/uL Normal 0-0.9 [facility] Comment on above: Performed By: #### Ed HOLLINGSWORTH, , CBCA #### [facility] ([id number]) [address] [place] [address] 14083 Monocytes/100 WBC (Bld) 9.9 % Normal [facility] Comment on above: Performed By: #### Ed HOLLINGSWORTH, , CBCA #### [facility] ([id number]) [address] [place] [address] 55934 Neutrophils/100 WBC (Bld) 56.1 % Normal [facility] Comment on above: Performed By: #### Ed HOLLINGSWORTH, , CBCA #### [facility] ([id number]) [address] [place] [address] 73679 Platelet mean volume (Bld) [Entitic vol] 9.0 fL Normal 7-12 [facility] Comment on above: Performed By: #### Ed HOLLINGSWORTH, , CBCA #### [facility] ([id number]) [address] [place] [address] 19970 Platelets (Bld) [#/Vol] 203 10*3/uL Normal 150-450 [facility] Comment on above: Performed By: #### Ed HOLLINGSWORTH, , CBCA #### [facility] ([id number]) [address] [place] [address] 25066 RBC COUNT 4.07 X10E12/L Normal 3.80-5.20 [facility] Comment on above: Performed By: #### Ed HOLLINGSWORTH, , CBCA #### [facility] ([id number]) [address] [place] [address] 80227 WBC (Bld) [#/Vol] 9.4 10*3/uL Normal 4.0-11.0 [facility] Comment on above: Performed By: #### B MP, , CBCA #### [facility] ([id number]) [address] [place] [address] 59535 HCG.beta subunit IA 3rd IS Q non 02-13-2024 [place] [address] m[IU]/mL Normal [facility] Comment on above: Result Comment: NEW [...] By: #### B MP, , CBCA #### [facility] ([id number]) [address] [place] [address] 19511 URN MACROSCOPIC NURon 2023 BILIRUBIN LUCIE Negative Normal NEG [facility] Comment on above: Performed By: #### N UM #### [facility] ([id number]) [address] [place] [address] 48493 BLOOD/HGB LUCIE Large Abnormal NEG [facility] Comment on above: Performed By: #### N UM #### [facility] ([id number]) [address] [place] [address], [place] [address] GLUCOSE LUCIE Negative Normal NEG [facility] Comment on above: Performed By: #### N UM #### [facility] ([id number]) [address] [place] [address] [place] [address] KETONES LUCIE Negative Normal NEG [facility] Comment on above: Performed By: #### N UM #### [facility] ([id number]) [address] [place] [address] [place] [address] LEUKOCYTE ESTERASE LUCIE Negative Normal NEG [facility] Comment on above: Performed By: #### N UM #### [facility] ([id number]) [address] [place] [address] [place] [address] NITRITE LUCIE Negative Normal NEG [facility] Comment on above: Performed By: #### N UM #### [facility] ([id number]) [address] [place] [address] [place] [address] PH LUCIE 6.5 Normal 5.0-8.5 [facility] Comment on above: Performed By: #### N UM #### [facility] ([id number]) [address] [place] [address] [place] [address] PROTEIN LUCIE Trace Abnormal NEG [facility] Comment on above: Performed By: #### N UM #### [facility] ([id number]) [address] [place] [address] [place] [address] SPECIFIC GRAVITY LUCIE 1.015 Normal 1.003-1.035 [facility] Comment on above: Performed By: #### N UM #### [facility] ([id number]) [address] [place] [address] [place] [address] UROBILINOGEN LUCIE 0.2 eu/dL Normal <1.1 [facility] Comment on above: Performed By: #### N UM #### [facility] ([id number]) [address] [place] [id number] HCG ( test) Ql (U)o n 02-12-2024 Beta HCG ( test) Ql (U) Positive Abnormal NEG [facility] Comment on above: Performed By: #### 2 106-3 #### [facility] ([id number]) [address] [place] [address] HCG.beta subunit IA 3rd IS Q non 02-12-2024 [place] [address] m[IU]/mL Normal [facility] [facility] Comment on above: Result Comment: NEW [...] Performed By: #### 4 544-3, 718, #### [facility] ([id number]) [address] [place] [address]229 HEMOGLOBINon 02-12-2024 Hemoglobin (Bld) [Mass/Vol] 12.7 g/dL Normal 11.7-15.5 [facility] Comment on above: Performed By: #### 4 544-3, 718-7, #### [facility] ([id number]) [address] [place] [address]11 Hematocrit Auto (Bld) [Volum e fraction]on 02-12-2024 Hematocrit (Bld) [Volume fraction] 35.4 % Normal 35-47 [facility] Comment on above: Performed By: #### 4 544-3, 718-7, 92161-0 #### [facility] ([id number]) [address] [place] [address]245 URN MACROSCOPIC NURon 2023 BILIRUBIN LUCIE Negative Normal NEG [facility] Comment on above: Performed By: #### N UM #### [facility] ([id number]) [address] [place] [address] 19303 BLOOD/HGB LUCIE MODERATE Abnormal NEG [facility] Comment on above: Performed By: #### N UM #### [facility] ([id number]) [address] [place] [address] [place] [address] GLUCOSE LUCIE Negative Normal NEG [facility] Comment on above: Performed By: #### N UM #### [facility] ([id number]) [address] [place] [address] [place] [address] KETONES LUCIE 15 mg/dL Abnormal NEG [facility] Comment on above: Performed By: #### N UM #### [facility] ([id number]) [address] [place] [address] [place] [address] LEUKOCYTE ESTERASE LUCIE Trace Abnormal NEG [facility] Comment on above: Performed By: #### N UM #### [facility] ([id number]) [address] [place] [address] [place] [address] NITRITE LUCIE Negative Normal NEG [facility] Comment on above: Performed By: #### N UM #### [facility] ([id number]) [address] [place] [address] 85368 PH LUCIE 6.5 Normal 5.0-8.5 [facility] Comment on above: Performed By: #### N UM #### [facility] ([id number]) [address] [place] [address] PROTEIN LUCIE Negative Normal NEG [facility] Comment on above: Performed By: #### N UM #### [facility] ([id number]) [address] [place] [address] SPECIFIC GRAVITY LUCIE >=1.030 Normal 1.003-1.035 [facility] Comment on above: Performed By: #### N UM #### [facility] ([id number]) [address] [place] [address] UROBILINOGEN LUCIE 1.0 eu/dL Normal <1.1 [facility] Comment on above: Performed By: #### N UM #### [facility] ([id number]) [address] [place] [address] [place] PREG LESS THAN 14 WKS WIT [...] cardiac activity with heart rate 100 bpm. Benton-rump length 6 mm corresponding to gestational age [...] Sandy MD on 02/12/2024 5:07 AM Normal [facility] ECG 12 lead ECGon 11-25-2023 ECG 12 lead ECG [facility] [place] [address] [place] [address] Electrocardiograph Report Signed Patient: Sharona Marks MR#: [id number] : 2005 Acct:[id number] Age/Sex: 17 / F ADM Date: 11/24/23 Loc: Room: [address] [place] [address] Type: ADM IN Attending Dr: Ignacio Acuña [...] change was found Confirmed by Chapito Corbin ([id number]) on 11/25/2023 7:52:58 PM Referred By: Electronically Signed By:Chapito Corbin Transcribed By: MUS Signed By Chapito Corbin MD 11/25/231952 Normal [facility] Lipid Panelon 11-25-2023 Cholesterol [Mass/Vol] 121 mg/dL Low 140-200 [facility] Comment on above: Result Comment: Chol less than 200 mg/dl low risk Chol 201-239 mg/dl borderline risk Chol 240 mg/dl and greater high risk Performed By: #### L IPID, [id number], TSH3 wRFLX #### [address] Cholesterol in HDL [Mass/Vol] 57 mg/dL Normal 23-92 [facility] Comment on above: Result Comment: HDL CHOL ATP-III CLASSIFICATION Cardiovascular Risk HDL > or equal to 60 mg/dL LOW HDL < 40 mg/dL HIGH Performed By: #### L IPID, [id number], TSH3 wRFLX #### [address] Cholesterol.total/Cho lesterol in HDL [Mass ratio] 2.1 {ratio} Normal <5.0 [facility] Comment on above: Performed By: #### L IPID, [id number], TSH3 wRFLX #### [address] LDL Cholesterol,Calculate d 55 mg/dL Normal 0-100 [facility] Comment on above: Result Comment: LDL ATP III CLASSIFICATION LDL less than 100 mg/dL Optimal LDL 100-129 mg/dL Near or above optimal LDL 130-159 mg/dL Borderline high LDL 160-189 mg/dL High LDL greater than 189 mg/dL Very high Performed By: #### L IPID, [id number], TSH3 wRFLX #### [address] Triglyceride w/Reflex 44 mg/dL Normal 0-149 [facility] Comment on above: Result Comment: TRIG ATP III CLASSIFICATION TRIG less than 150 mg/dL Normal TRIG 150-199 mg/dL Borderline high TRIG 200-500 mg/dL High TRIG greater than 500 mg/dL Very high Standard traceable to the Center for Disease Conrtrol and Prevention (CDC) test method. Performed By: #### L IPID, [id number], TSH3 wRFLX #### [address] VLDL CHOLESTEROL 8 mg/dL Normal [facility] Comment on above: Performed By: #### L IPID, [id number], TSH3 wRFLX #### [address] Thyroid Stim Hormone w/Rflxo n 11-25-2023 Thyroid Stim Hormone w/Rflx 3.18 u[iU]/mL Normal 0.45-5.33 [facility] Comment on above: Performed By: #### L IPID, [id number], TSH3 wRFLX #### [address] Vitamin D 25 Hydroxy Totalon 11-25-2023 Vitamin D 25 Hydroxy Total 14.7 ng/mL Low 30-100 [facility] Comment on above: Result Comment: DARYA MIN D STATUS 25(OH)VITAMIN D RANGE (ng/mL) Deficient <20 Insufficient 20 to <30 Sufficient 30 to 100 Reference: Angel MF,Yovany RAZO, Bee WILEY, et al. Evaluation,treatment, and prevention of vitamin D deficiency; an Endocrine Society clinical practice guideline. JCEM. 2010; 96(7):1911-30. PERFORMED BY: [place] [address] PATHOLOGIST [employer] INSTALLER TIFFANIE HIGH M.D. Performed By: #### L IPID, [id number], TSH3 wRFLX #### [address] Complete Blood Count Auto Di ffon 11-24-2023 Basophils (Bld) [#/Vol] 0.0 10*3/uL Normal 0.0-0.1 [facility] Comment on above: Result Comment: PERF ORMED BY: [place] [address] PATHOLOGIST [employer] INSTALLER TIFFANIE HIGH M.D. Performed By: #### C MP, ETOH, CBC #### [place] [address] [place] Basophils/100 WBC (Bld) 0.5 % Normal . [facility] Comment on above: Performed By: #### C MP, ETOH, CBC #### [place] [address] [place] Eosinophils (Bld) [#/Vol] 0.1 10*3/uL Normal 0.0-0.7 [facility] Comment on above: Performed By: #### C MP, ETOH, CBC #### [address] Eosinophils/100 WBC (Bld) 1.0 % Normal . [facility] Comment on above: Performed By: #### C MP, ETOH, CBC #### [address] Erythrocyte distribution width (RBC) [Ratio] 13.2 % Normal 11.9-15.3 [facility] Comment on above: Performed By: #### C MP, ETOH, CBC #### [address] Hematocrit (Bld) [Volume fraction] 41.6 % Normal 36.0-46.0 [facility] Comment on above: Performed By: #### C MP, ETOH, CBC #### [address] Hemoglobin (Bld) [Mass/Vol] 14.3 g/dL Normal 12.0-16.0 [facility] Comment on above: Performed By: #### C MP, ETOH, CBC #### [address] Lymphocytes (Bld) [#/Vol] 3.5 10*3/uL Normal 1.20-4.8 [facility] Comment on above: Performed By: #### C MP, ETOH, CBC #### [place] [address] [place] Lymphocytes/100 WBC (Bld) 39.9 % Normal . [facility] Comment on above: Performed By: #### C MP, ETOH, CBC #### [address] MCH (RBC) [Entitic mass] 29.3 pg Normal 25.0-35.0 [facility] Comment on above: Performed By: #### C MP, ETOH, CBC #### [address] MCV (RBC) [Entitic vol] 84.8 fL Normal 78-102 [facility] Comment on above: Performed By: #### C MP, ETOH, CBC #### [address] Mean Corpuscular HGB Conc 34.5 g/dL Normal 31.0-37.0 [facility] Comment on above: Performed By: #### C MP, ETOH, CBC #### [place] [address] [place] Monocytes (Bld) [#/Vol] 0.6 10*3/uL Normal 0.1-1.00 [facility] Comment on above: Performed By: #### C MP, ETOH, CBC #### [address] Monocytes/100 WBC (Bld) 17.05 % Normal 0.00-20.00 [facility] Comment on above: Performed By: #### C MP, ETOH, CBC #### [address] Monocytes/100 WBC (Bld) 7.1 % Normal . [facility] Comment on above: Performed By: #### C MP, ETOH, CBC #### [address] Neutrophils (Bld) [#/Vol] 4.5 10*3/uL Normal 1.2-7.7 [facility] Comment on above: Performed By: #### C MP, ETOH, CBC #### [place] [address] [place] Neutrophils/100 WBC (Bld) 51.5 % Normal . [facility] Comment on above: Performed By: #### C MP, ETOH, CBC #### [place] [address] [place] NRBC% 0.1 /100{WBC} Normal 0-0.5 [facility] Comment on above: Performed By: #### C MP, ETOH, CBC #### [address] Platelet mean volume (Bld) [Entitic vol] 7.7 fL Normal 6.3-10.7 [facility] Comment on above: Performed By: #### C MP, ETOH, CBC #### [address] Platelets (Bld) [#/Vol] 319 10*3/uL Normal 150-450 [facility] Comment on above: Performed By: #### C MP, ETOH, CBC #### [address] RBC (Bld) [#/Vol] 4.90 10*6/uL Normal 4.10-5.10 [facility] Comment on above: Performed By: #### C MP, ETOH, CBC #### [address] WBC (Bld) [#/Vol] 8.7 10*3/uL Normal 4.5-13.5 [facility] Comment on above: Performed By: #### C MP, ETOH, CBC #### [address] Comprehensive Metabolic Pane david 11-24-2023 Albumin [Mass/Vol] 5.1 g/dL Normal 3.5-5.7 [facility] Comment on above: Performed By: #### C MP, ETOH, CBC #### [address] Albumin/Globulin [Mass ratio] 1.6 {ratio} Normal [facility] Comment on above: Performed By: #### C MP, ETOH, CBC #### [address] ALP [Catalytic activity/Vol] 67 U/L Normal 34-104 [facility] Comment on above: Performed By: #### C MP, ETOH, CBC #### [address] ALT [Catalytic activity/Vol] 10 U/L Normal 7-52 [facility] Comment on above: Performed By: #### C MP, ETOH, CBC #### [address] [place] [address] [place] Anion gap [Moles/Vol] 10.9 mmol/L Normal 6.0-15.0 [facility] Comment on above: Performed By: #### C MP, ETOH, CBC #### [facility] [address] AST [Catalytic activity/Vol] 15 U/L Normal 13-39 [facility] Comment on above: Performed By: #### C MP, ETOH, CBC #### [facility] [address] [place] [address] [place] Bilirubin [Mass/Vol] 0.4 mg/dL Normal 0.3-1.0 [facility] Comment on above: Performed By: #### C MP, ETOH, CBC #### [address] Calcium [Mass/Vol] 9.5 mg/dL Normal 8.6-10.3 [facility] Comment on above: Performed By: #### C MP, ETOH, CBC #### [place] [address] [place] Chloride [Moles/Vol] 106 mmol/L Normal 98-107 [facility] Comment on above: Performed By: #### C MP, ETOH, CBC #### [place] [address] [place] CO2 [Moles/Vol] 24.9 mmol/L Normal 21.0-31.0 [facility] Comment on above: Performed By: #### C MP, ETOH, CBC #### [place] [address] [place] Creatinine [Mass/Vol] 0.71 mg/dL Normal 0.60-1.20 [facility] Comment on above: Performed By: #### C MP, ETOH, CBC #### [place] [address] [place] Creatinine Clr Calc Pharmacy 124.96 Normal [facility] Comment on above: Result Comment: PERF ORMED BY: [place] [address] PATHOLOGIST [employer] INSTALLER TIFFANIE HIGH M.D. Performed By: #### C MP, ETOH, CBC #### [facility] [address] [place] [address] [place] GFR/1.73 sq M.predicted MDRD (S/P/Bld) [Vol rate/Area] mL/min/{1.73_m2} Normal [facility] Comment on above: Performed By: #### C MP, ETOH, CBC #### [facility] [address] [place] [address] [place] Globulin (S) [Mass/Vol] 3.1 g/dL Normal [facility] Comment on above: Performed By: #### C MP, ETOH, CBC #### [address] Glucose [Mass/Vol] 86 mg/dL Normal 70-100 [facility] Comment on above: Result Comment: [facility] Glucose Reference Range is dependent on time and content of last meal. Glucose of more than 200 mg/dL in a nonstressed, ambulatory subject supports the diagnosis of Diabetes Mellitus. ADA recommended reference range Performed By: #### C MP, ETOH, CBC #### [address] Potassium [Moles/Vol] 3.8 mmol/L Normal 3.5-5.1 [facility] Comment on above: Performed By: #### C MP, ETOH, CBC #### [facility] [address] [place] [address] [place] Protein [Mass/Vol] 8.2 g/dL Normal 6.4-8.9 [facility] Comment on above: Performed By: #### C MP, ETOH, CBC #### [facility] [address] [place] [address] [place] Sodium [Moles/Vol] 138 mmol/L Normal 136-145 [facility] Comment on above: Performed By: #### C MP, ETOH, CBC #### [facility] [address] [place] [address] [place] Urea nitrogen [Mass/Vol] 9 mg/dL Normal 7-25 [facility] Comment on above: Performed By: #### C MP, ETOH, CBC #### [place] [address] [place] Drug Screen,Urineon 11-24-19 24 Amphetamine Screen,Urine Negative Normal Negative [facility] Comment on above: Performed By: #### U HCG, UA, URDS #### [address] Barbiturate Screen,Urine Negative Normal Negative [facility] Comment on above: Performed By: #### U HCG, UA, URDS #### [place] [address] [place] Benzodiazepines Screen,Urine Negative Normal Negative [facility] Comment on above: Performed By: #### U HCG, UA, URDS #### [address] Cannabinoid Screen,Urine Positive High Negative [facility] Comment on above: Result Comment: Thes e are unconfirmed results and should not be used for legal purposes. Drug Cut-Off Concentration: AMPH 1000 ng/mL LUCIA 200 ng/mL BROOKE 200 ng/mL COCM 300 ng/mL OP 300 ng/mL PCP 25 ng/mL THC 20 ng/mL PERFORMED BY: [place] [address] PATHOLOGIST [employer] INSTALLER TIFFANIE HIGH M.D. Performed By: #### U HCG, UA, URDS #### [address] Cocaine Screen,Urine Negative Normal Negative [facility] Comment on above: Performed By: #### U HCG, UA, URDS #### [place] [address] [place] Opiate Screen,Urine Negative Normal Negative [facility] Comment on above: Performed By: #### U HCG, UA, URDS #### [address] Phencyclidine Screen,Urine Negative Normal Negative [facility] Comment on above: Performed By: #### U HCG, UA, URDS #### [address] [place] [address] [place] Ethyl Alcohol Profileon Ethanol [Mass/Vol] mg/dL Normal [facility] Comment on above: Performed By: #### C MP, ETOH, CBC #### [address] Percent Ethanol Not performed Normal [facility] Comment on above: Result Comment: PERF ORMED BY: [place] [address] PATHOLOGIST [employer]IO ANTEN[employer] INSTALLER TIFFANIE HIGH M.D. Performed By: #### C MP, ETOH, CBC #### [address] HCG,Urineon 11-24-2023 Beta HCG ( test) Ql (U) Negative Normal [facility] Comment on above: Order Comment: Name Collection Type:: Clean-Voided Midstream Result Comment: PERF ORMED BY: [place] [address] PATHOLOGIST [employer]IO AN[employer]EN[employer] INSTALLER TIFFANIE HIGH M.D. Performed By: #### U HCG, UA, URDS #### [address] Urinalysison 11-24-2023 Appearance (U) Clear Normal Clear [facility] Comment on above: Order Comment: Name Collection Type:: Clean-Voided Midstream Performed By: #### U HCG, UA, URDS #### [address] Bilirubin,Urine Negative Normal Negative [facility] Comment on above: Order Comment: Name Collection Type:: Clean-Voided Midstream Performed By: #### U HCG, UA, URDS #### [address] Color (U) Yellow Normal Yellow [facility] Comment on above: Order Comment: Name Collection Type:: Clean-Voided Midstream Performed By: #### U HCG, UA, URDS #### [address] Glucose Ql (U) Normal Normal Normal [facility] Comment on above: Order Comment: Name Collection Type:: Clean-Voided Midstream Performed By: #### U HCG, UA, URDS #### [address] Ketones Ql (U) Negative Normal Negative [facility] Comment on above: Order Comment: Name Collection Type:: Clean-Voided Midstream Performed By: #### U HCG, UA, URDS #### [address] Leukocyte esterase Test strip Ql (U) Negative Normal Negative [facility] Comment on above: Order Comment: Name Collection Type:: Clean-Voided Midstream Performed By: #### U HCG, UA, URDS #### [address] Nitrite,Urine Negative Normal Negative [facility] Comment on above: Order Comment: Name Collection Type:: Clean-Voided Midstream Performed By: #### U HCG, UA, URDS #### [place] [address] [place] Occult Blood,Urine Negative Normal Negative [facility] Comment on above: Order Comment: Name Collection Type:: Clean-Voided Midstream Performed By: #### U HCG, UA, URDS #### [address] pH (U) 6.5 [pH] Normal 5.0-9.0 [facility] Comment on above: Order Comment: Name Collection Type:: Clean-Voided Midstream Performed By: #### U HCG, UA, URDS #### [place] [address] [place] Protein,Urine Negative Normal Negative [facility] Comment on above: Order Comment: Name Collection Type:: Clean-Voided Midstream Performed By: #### U HCG, UA, URDS #### [place] [address] [place] Specificy [place],Urine 1.020 Normal 1.001-1.030 [facility] Comment on above: Order Comment: Name Collection Type:: Clean-Voided Midstream Performed By: #### U HCG, UA, URDS #### [facility] [address] [place] [id number] [facility] Urobilinogen,Urine Normal Normal Normal [facility] Comment on above: Order Comment: Name Collection Type:: Clean-Voided Midstream Performed By: #### U HCG, UA, URDS #### [facility] [address] [place] [id number] [facility] Lipid 1996 panelon 4 Cholesterol [Mass/Vol] 143 mg/dL Low 150-200 [facility] Comment on above: Performed By: #### 2 4331-1 #### [facility] ([id number]) [address], [address] [place] [address] Cholesterol in HDL [Mass/Vol] 67 mg/dL Normal >39 [facility] Comment on above: Result Comment: HDL <40 mg/dL - High Risk HDL > or = 40mg/dL- Desirable HDL >60 mg/dL - Negative Risk Performed By: #### 2 4331-1 #### [facility] ([id number]) [address] [place] [address] Cholesterol in LDL [Mass/Vol] 65 mg/dL Normal <130 [facility] Comment on above: Result Comment: LDL <100 mg/dL - Desirable LDL >160 mg/dL - High Risk Performed By: #### 2 4331-1 #### [facility] ([id number]) [address] [place] [address] Cholesterol in VLDL [Mass/Vol] 11 mg/dL Normal 0-30 [facility] Comment on above: Performed By: #### 2 4331-1 #### [facility] ([id number]) [address] [place] [address] CHOLESTEROL:HDL 2.1 Normal 1.0-5.0 [facility] Comment on above: Performed By: #### 2 4331-1 #### [facility] ([id number]) [address] [place] [address] Triglyceride [Mass/Vol] 53 mg/dL Normal 27-150 [facility] Comment on above: Performed By: #### 2 4331-1 #### [facility] ([id number]) [address] [place] [address] Encounters Encounter Date Encounter Type Care Provider Facility Start: 05-22-2024 End: 05-22-2024 Emergency department patient visit [facility] Start: 05-11-2024 End: 05-11-2024 Emergency department patient visit [facility] Start: 02-29-2024 End: 02-29-2024 ambulatory [facility] Start: 02-22-2024 End: 02-22-2024 ambulatory ROHAN ARTHUR Not Available Start: 02-18-2024 End: 02-18-2024 ambulatory ROHAN ARTHUR Not Available Start: 02-12-2024 End: 02-13-2024 Emergency department patient visit [facility] Start: 02-12-2024 End: 02-13-2024 Emergency department patient visit [facility] Start: 02-12-2024 End: 02-12-2024 Emergency department patient visit [facility] Start: 11-24-2023 End: 11-26-2023 Evaluation and management of inpatient Ignacio Domenico Facility:[facility] Start: 11-24-2023 ambulatory Ollie Courtney acility:[facility] Start: 11-11-2023 End: 11-11-2023 ambulatory LONNY M [facility] Start: 10-27-2022 End: 10-27-[address] ANTHONY PAY Facility: Payers Date Payer Category Payer Self-pay 2022 Unknown [id number] 2004 Unknown [id number] 2.16.84 [id number] 2004 Unknown [id number] 2.16.84 [id number] 2004 Unknown [id number] 2.16.8 [id number] 2004 Unknown [id number] 2.16.8 [id number] 2004 Unknown [id number] 2.16.8 [id number] 2004 Unknown [id number] 2.16.8 [id number] 2004 Unknown [id number] 2.16.8 [id number] 2004 Unknown [id number] 2.16.8 40.1.476438.3.579.2.1286 1972 Unknown [id number] 2.16.84 [id number] 1959 Unknown [id number] Unknown [id number] 2.16.8 [id number] Unknown [id number] 2.16.8 [id number] Summary Purpose Family History No Family History [...] DATE CREATED AUTHOR AUTHOR'S ORGANIZ ATION 02/23/2024 [facility] DATE CREATED AUTHOR AUTHOR'S ORGANIZ ATION 05/22/2024 [facility] DATE CREATED AUTHOR AUTHOR'S ORGANIZ ATION 06/03/2024 [facility] FOR RECORDS PERTAINING TO [...] BE BASED ON THE PRIMARY CLINICAL RECORDS. [facility]. provides no warranty or guarantee of the accuracy or completeness of information in this document.
[2024-06-10 13:30] LABS: Basophils Percent Auto 0.4 % (0.2-2.0); Eosinophils Absolute Auto 0.2 10^3/uL (0.0-0.7); Eosinophils Percent Auto 2.8 % (0.9-7.0); Hematocrit 34.2 % (36.0-48.0); Immature Granulocytes Abs Auto 0.02 10^3/uL (0.00-0.03); Immature Granulocytes Pct Auto 0.3 % (0.0-0.5); Lymphocytes Absolute Auto 1.6 10^3/uL (1.2-3.8); Lymphocytes Percent Auto 21.1 % (20.5-60.0); Mean Corpuscular HGB Conc 35.1 g/dL (29.9-35.2); Mean Corpuscular Hemoglobin 28.4 pg (26.7-34.0); Mean Platelet Volume 10.6 fL (9.5-13.5); Monocytes Absolute Auto 0.5 10^3/uL (0.3-0.8); Monocytes Percent Auto 6.5 % (1.7-12.0); Neutrophils Absolute Auto 5.1 10^3/uL (1.4-6.5); Neutrophils Percent Auto 68.9 % (43.0-75.0); Platelet Count 193 10^3/uL (150-450); Red Blood Count 4.22 10^6/uL (4.20-5.40); Red Cell Distribution Width 13.1 % (11.0-15.0); White Blood Count 7.4 10^3/uL (4.0-11.0)
[2024-06-10 13:39] LABS: Amphetamine Screen Urine NEGATIVE (NEGATIVE); Barbiturates Screen Urine NEGATIVE (NEGATIVE); Benzodiazepines Screen Urine NEGATIVE (NEGATIVE); Buprenorphine Screen Urine NEGATIVE (NEGATIVE); Cannabinoid Screen Urine POSITIVE (NEGATIVE); Cocaine Screen Urine NEGATIVE (NEGATIVE); Methadone Screen Urine NEGATIVE (NEGATIVE); Methamphetamines Screen Urine NEGATIVE (NEGATIVE); Opiate Screen Urine NEGATIVE (NEGATIVE); Oxycodone Screen Urine NEGATIVE (NEGATIVE); Phencyclidine Screen Urine NEGATIVE (NEGATIVE); Tricyclic Antidepressant Urine NEGATIVE (NEGATIVE)
[2024-06-10 14:53] LABS: BOX Test Reference Lab UNITY; BOX Test Sent Out UNITY
[2024-06-10 14:56] LABS: Estimated Average Glucose 94 mg/dL; Glycohemoglobin A1C 4.9 % (4.5-6.2)
[2024-06-11 06:10] LABS: HBsAg Screen Negative (Negative); HIV Ab/p24 Ag Screen Non Reactive (Non Reactive); Rubella Antibodies, IgG 1.86 index (Immune >0.99)
[2024-06-11 12:08] LABS: Rapid Plasma Reagin, Quant Non Reactive titer (NonRea<1:1)
[2024-06-11 16:09] LABS: HCV Ab Non Reactive (Non Reactive)
[2024-06-14 10:14] LABS: Cannabinoid Positive (.); Carboxy THC Conf, MS, UR >750 ng/mL (Cutoff=10)
== END 2024-06-10 12:57 | disposition home or self-care (01) ==
PROVIDERS: PCP Internal Medicine; Visit Provider Obstetrics & Gynecology
DX: Z34.92 Encounter for supervision of normal pregnancy, unspecified, second trimester (principal); Z3A.15 15 weeks gestation of pregnancy; Z36.0 Encounter for antenatal screening for chromosomal anomalies; N92.6 Irregular menstruation, unspecified; R79.89 Other specified abnormal findings of blood chemistry
CPT/HCPCS: 36415; 76815; 76817; 80307; 80349; 83036; 85025; 86592; 86762; 86803; 86850; 86900; 86901; 87086; 87340; 87389

== ENCOUNTER 2024-06-16 15:11 | Outpatient (OUT) | payer MEDICAID, SELFPAY ==
--- OUTSIDE RECORDS SUMMARY | 2024-06-16 15:34 | XMS_ITS | CCD ---
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 Name Role Phone PAY, DR ANTHONY Admitting Unavailable PAY, DR ANTHONY Attending Unavailable PAY, DR ANTHONY Consulting Unavailable ARUN MEREDITH Primary Care Unavailable KB WRIGHT Attending Unavailable MASOUD, ARUN Santana Primary Care Unavailable CLARKE DUEÑAS Attending Unavailable KB WRIGHT Attending Unavailable KB WRIGHT Referring Unavailable HICANDIE, ARUN Santana Primary Care Unavailable MASOUD, ARUN Santana Referring Unavailable HIESTHORACIO, ARUN Santana Primary Care Unavailable HIESTHORACIO, ARUN Santana Primary Care Unavailable HIESTHORACIO, ARUN Santana Primary Care Unavailable PARISA VERAS Attending Unavailable LONNY MACEDO Referring Unavailable ARUN MEREDITH Primary Care Unavailable Ignacio Acuña Attending Unavailable NON STAFF Primary Care Unavailable Ignacio Acuña Admitting Unavailable Ollie Cisneros Admitting Unavailab le Ollie Cisneros Attending Unavailab le NON STAFF Primary Care Unavailable ROHAN GIBSON Attending Unavailable ROHAN GIBSON Attending Unavailable Problems Active [...] 02-12-2024 Episodic Other aftercare (1 source) Other retirement (current) drug therapy; Translations: [Other retirement (current) drug therapy] Onset: 11-11-2023 Episodic Other [...] mmol/L Normal 5-15 [facility] Comment on above: Performed By: #### N UM #### [facility] ([id number]) [address] [place] [address] 15855 Calcium [Mass/Vol] 8.7 mg/dL Normal 8.5-10.5 [facility] Comment on above: Performed By: #### N UM #### [facility] ([id number]) [address] [place] [address] 22481 Chloride [Moles/Vol] 104 mmol/L Normal 98-109 [facility] Comment on above: Performed By: #### N UM #### [facility] ([id number]) [address] [place] [address] 00670 CO2 [Moles/Vol] 22 mmol/L Normal 22-32 [facility] Comment on above: Performed By: #### N UM #### [facility] ([id number]) [address] [place] [address] 96497 Creatinine [Mass/Vol] 0.51 mg/dL Normal 0.40-1.00 [facility] Comment on above: Result Comment: METH OD TRACEABLE TO IDMS STANDARD Performed By: #### N UM #### [facility] ([id number]) [address] [place] [address] 22860 eGFR (CKD-EPI) NON-RACE DEPENDENT >90 Normal >59 [facility] Comment on above: Result Comment: Reported eGFR is based on the CKD-EPI 2020 equation that does not use a race coefficient. Performed By: #### N UM #### [facility] ([id number]) [address] [place] [address] 84653 Glucose [Mass/Vol] 102 mg/dL High 65-99 [facility] Comment on above: Performed By: #### N UM #### [facility] ([id number]) [address] [place] [address] 89822 Potassium [Moles/Vol] 3.4 mmol/L Low 3.5-5.0 [facility] Comment on above: Performed By: #### N UM #### [facility] ([id number]) [address] [place] [address] 72402 Sodium [Moles/Vol] 132 mmol/L Low 134-146 [facility] Comment on above: Performed By: #### N UM #### [facility] ([id number]) [address] [place] [address] 24341 Urea nitrogen [Mass/Vol] 6 mg/dL Normal 5-23 [facility] Comment on above: Performed By: #### N UM #### [facility] ([id number]) [address] [place] [address] 37573 CBC AND AUTO DIFFon 05-22-20 24 ABSOLUTE BASOPHIL 0.1 X10E9/L Normal 0.0-0.2 [facility] Comment on above: Performed By: #### N UM #### [facility] ([id number]) [address] [place] [address] 24332 ABSOLUTE NEUTROPHIL 3.3 X10E9/L Normal 1.5-6.6 [facility] Comment on above: Performed By: #### N UM #### [facility] ([id number]) [address] [place] [address] 41689 Basophils/100 WBC (Bld) 0.9 % Normal [facility] Comment on above: Performed By: #### N UM #### [facility] ([id number]) [address] [place] [address] 28716 Eosinophils (Bld) [#/Vol] 0.2 10*3/uL Normal 0.0-0.4 [facility] Comment on above: Performed By: #### N UM #### [facility] ([id number]) [address] [place] [address] 24948 Eosinophils/100 WBC (Bld) 3.9 % Normal [facility] Comment on above: Performed By: #### N UM #### [facility] ([id number]) [address] [place] [address] 79204 Erythrocyte distribution width (RBC) [Ratio] 13.9 % Normal 11.5-15.0 [facility] Comment on above: Performed By: #### N UM #### [facility] ([id number]) [address] [place] [address] 11491 Hematocrit (Bld) [Volume fraction] 38.4 % Normal 35-47 [facility] Comment on above: Performed By: #### N UM #### [facility] ([id number]) [address] [place] [address] 23983 Hemoglobin (Bld) [Mass/Vol] 13.2 g/dL Normal 11.7-15.5 [facility] Comment on above: Performed By: #### N UM #### [facility] ([id number]) [address] [place] [address] 03424 Lymphocytes (Bld) [#/Vol] 1.4 10*3/uL Normal 1.0-3.5 [facility] Comment on above: Performed By: #### N UM #### [facility] ([id number]) [address] [place] [address] 91054 Lymphocytes/100 WBC (Bld) 25.9 % Normal [facility] Comment on above: Performed By: #### N UM #### [facility] ([id number]) [address] [place] [address] 66893 MCH (RBC) [Entitic mass] 28.2 pg Normal 27-34 [facility] Comment on above: Performed By: #### N UM #### [facility] ([id number]) [address] [place] [address] 50483 MCHC (RBC) [Mass/Vol] 34.3 g/dL Normal 32-36 [facility] Comment on above: Performed By: #### N UM #### [facility] ([id number]) [address] [place] [address] 42938 MCV (RBC) [Entitic vol] 82 fL Normal 80-100 [facility] Comment on above: Performed By: #### N UM #### [facility] ([id number]) [address] [place] [address] 56524 Monocytes (Bld) [#/Vol] 0.6 10*3/uL Normal 0-0.9 [facility] Comment on above: Performed By: #### N UM #### [facility] ([id number]) [address] [place] [address] 63493 Monocytes/100 WBC (Bld) 10.2 % Normal [facility] Comment on above: Performed By: #### N UM #### [facility] ([id number]) [address] [place] [address] 79773 Neutrophils/100 WBC (Bld) 59.1 % Normal [facility] Comment on above: Performed By: #### N UM #### [facility] ([id number]) [address] [place] [address] 71930 Platelet mean volume (Bld) [Entitic vol] 8.7 fL Normal 7-12 [facility] Comment on above: Performed By: #### N UM #### [facility] ([id number]) [address] [place] [address] 88030 Platelets (Bld) [#/Vol] 198 10*3/uL Normal 150-450 [facility] Comment on above: Performed By: #### N UM #### [facility] ([id number]) [address] [place] [address] 09893 RBC COUNT 4.67 X10E12/L Normal 3.80-5.20 [facility] Comment on above: Performed By: #### N UM #### [facility] ([id number]) [address] [place] [address] 35323 WBC (Bld) [#/Vol] 5.6 10*3/uL Normal 4.0-11.0 [facility] Comment on above: Performed By: #### N UM #### [facility] ([id number]) [address] [place] [address] 84792 HCG ( test) Ql (U)o n 05-22-2024 Beta HCG ( test) Ql (U) Positive Abnormal NEG [facility] Comment on above: Performed By: #### N UM #### [facility] ([id number]) [address] [place] [address] 72939 HCG.beta subunit IA 3rd IS Q non 05-22-2024 [place] [address] m[IU]/mL Normal P [facility] Comment on above: Result Comment: NEW [...] neoplasms. Performed By: #### N UM #### [facility] ([id number]) [address] [place] [address] 85464 URN MACROSCOPIC NURon 2023 BILIRUBIN LUCIE Small Abnormal NEG [facility] Comment on above: Performed By: #### N UM #### [facility] ([id number]) [address] [place] [address] [place] [address] BLOOD/HGB LUCIE Trace Abnormal NEG [facility] Comment on above: Performed By: #### N UM #### [facility] ([id number]) [address] [place] [address] [place] [address] GLUCOSE LUCIE Negative Normal NEG [facility] Comment on above: Performed By: #### N UM #### [facility] ([id number]) [address] [place] [address] [place] [address] KETONES LUCIE Trace Abnormal NEG [facility] Comment on above: Performed By: #### N UM #### [facility] ([id number]) [address] [place] [address] [place] [address] LEUKOCYTE ESTERASE LUCIE Small Abnormal NEG [facility] Comment on above: Performed By: #### N UM #### [facility] ([id number]) [address] [place] [address] [place] [address] NITRITE LUCIE Negative Normal NEG [facility] Comment on above: Performed By: #### N UM #### [facility] ([id number]) [address] [place] [address] [place] [address] PH LUCIE 6.5 Normal 5.0-8.5 [facility] Comment on above: Performed By: #### N UM #### [facility] ([id number]) [address] [place] [address] [place] [address] PROTEIN LUCIE 100 mg/dL Abnormal NEG [facility] Comment on above: Performed By: #### N UM #### [facility] ([id number]) [address] [place] [address] [place] [address] SPECIFIC GRAVITY LUCIE >=1.030 Normal 1.003-1.035 [facility] Comment on above: Performed By: #### N UM #### [facility] ([id number]) [address] [place] [address] 01060 UROBILINOGEN LUCIE 1.0 eu/dL Normal <1.1 [facility] Comment on above: Performed By: #### N UM #### [facility] ([id number]) [address] [place] [address] 03581 RAPID STREP SCR NURSINGon S. pyogenes Ag EIA Ql (Throat) Positive Abnormal NEG [facility] Comment on above: Performed By: #### N UM #### [facility] ([id number]) [address] [place] [address] 62531 CBC AND AUTO DIFFon 02-29-20 ABSOLUTE BASOPHIL 0.0 X10E9/L Normal 0.0-0.2 [facility] Comment on above: Performed By: #### N UM #### [facility] ([id number]) [address] [place] [address] 42990 ABSOLUTE NEUTROPHIL 2.4 X10E9/L Normal 1.5-6.6 [facility] Comment on above: Performed By: #### N UM #### [facility] ([id number]) [address] [place] [address] 70864 Basophils/100 WBC (Bld) 0.8 % Normal [facility] Comment on above: Performed By: #### N UM #### [facility] ([id number]) [address] [place] [address] 61893 Eosinophils (Bld) [#/Vol] 0.2 10*3/uL Normal 0.0-0.4 [facility] Comment on above: Performed By: #### N UM #### [facility] ([id number]) [address] [place] [address] 85580 Eosinophils/100 WBC (Bld) 3.0 % Normal [facility] Comment on above: Performed By: #### N UM #### [facility] ([id number]) [address] [place] [address] 52591 Erythrocyte distribution width (RBC) [Ratio] 12.3 % Normal 11.5-15.0 [facility] Comment on above: Performed By: #### N UM #### [facility] ([id number]) [address] [place] [address] 32213 Hematocrit (Bld) [Volume fraction] 36.6 % Normal 35-47 [facility] Comment on above: Performed By: #### N UM #### [facility] ([id number]) [address] [place] [address] 50948 Hemoglobin (Bld) [Mass/Vol] 12.5 g/dL Normal 11.7-15.5 [facility] Comment on above: Performed By: #### N UM #### [facility] ([id number]) [address] [place] [address] 08305 Lymphocytes (Bld) [#/Vol] 2.3 10*3/uL Normal 1.0-3.5 [facility] Comment on above: Performed By: #### N UM #### [facility] ([id number]) [address] [place] [address] 76156 Lymphocytes/100 WBC (Bld) 43.8 % Normal [facility] Comment on above: Performed By: #### N UM #### [facility] ([id number]) [address] [place] [address] 94583 MCH (RBC) [Entitic mass] 29.5 pg Normal 27-34 [facility] Comment on above: Performed By: #### N UM #### [facility] ([id number]) [address] [place] [address] 91234 MCHC (RBC) [Mass/Vol] 34.1 g/dL Normal 32-36 [facility] Comment on above: Performed By: #### N UM #### [facility] ([id number]) [address] [place] [address] 09273 MCV (RBC) [Entitic vol] 86 fL Normal 80-100 [facility] Comment on above: Performed By: #### N UM #### [facility] ([id number]) [address] [place] [address] 60769 Monocytes (Bld) [#/Vol] 0.4 10*3/uL Normal 0-0.9 [facility] Comment on above: Performed By: #### N UM #### [facility] ([id number]) [address] [place] [address] 09826 Monocytes/100 WBC (Bld) 7.4 % Normal [facility] Comment on above: Performed By: #### N UM #### [facility] ([id number]) [address] [place] [address] 99602 Neutrophils/100 WBC (Bld) 45.0 % Normal [facility] Comment on above: Performed By: #### N UM #### [facility] ([id number]) [address] [place] [address] 82632 Platelet mean volume (Bld) [Entitic vol] 8.7 fL Normal 7-12 [facility] Comment on above: Performed By: #### N UM #### [facility] ([id number]) [address] [place] [address] 82552 Platelets (Bld) [#/Vol] 326 10*3/uL Normal 150-450 [facility] Comment on above: Performed By: #### N UM #### [facility] ([id number]) [address] [place] [address] 05423 RBC COUNT 4.23 X10E12/L Normal 3.80-5.20 [facility] Comment on above: Performed By: #### N UM #### [facility] ([id number]) [address] [place] [address] 52711 WBC (Bld) [#/Vol] 5.3 10*3/uL Normal 4.0-11.0 [facility] Comment on above: Performed By: #### N UM #### [facility] ([id number]) [address] [place] [address] 37721 BASIC METABOLIC PANLon 02-12 Anion gap [Moles/Vol] 8 mmol/L Normal 5-15 [facility] Comment on above: Performed By: #### B EDEL, , CBCA #### [facility] ([id number]) [address] [place] [address] 96532 Calcium [Mass/Vol] 9.1 mg/dL Normal 8.5-10.5 [facility] Comment on above: Performed By: #### B EDEL, , CBCA #### [facility] ([id number]) [address] [place] [address] 93219 Chloride [Moles/Vol] 103 mmol/L Normal 98-109 [facility] Comment on above: Performed By: #### Ed HOLLINGSWORTH, , CBCA #### [facility] ([id number]) [address] [place] [address] 64842 CO2 [Moles/Vol] 22 mmol/L Normal 22-32 [facility] Comment on above: Performed By: #### Ed HOLLINGSWORTH, , CBCA #### [facility] ([id number]) [address] [place] [address] 02667 Creatinine [Mass/Vol] 0.57 mg/dL Normal 0.40-1.00 [facility] Comment on above: Result Comment: METH OD TRACEABLE TO IDMS STANDARD Performed By: #### B EDEL, , CBCA #### [facility] ([id number]) [address] [place] [address] 12047 eGFR (CKD-EPI) NON-RACE DEPENDENT >90 Normal >59 [facility] Comment on above: Result Comment: Reported eGFR is based on the CKD-EPI 2020 equation that does not use a race coefficient. Performed By: #### B EDEL, , CBCA #### [facility] ([id number]) [address] [place] [address] 49292 Glucose [Mass/Vol] 93 mg/dL Normal 65-99 [facility] Comment on above: Performed By: #### Ed HOLLING[place]TH, , CBCA #### [facility] ([id number]) [address] [place] [address] 81010 Potassium [Moles/Vol] 3.6 mmol/L Normal 3.5-5.0 [facility] Comment on above: Performed By: #### Ed HOLLING[place]TH, , CBCA #### [facility] ([id number]) [address] [place] [address] 53569 Sodium [Moles/Vol] 133 mmol/L Low 134-146 [facility] Comment on above: Performed By: #### Ed HOLLING[place]ORTH, , CBCA #### [facility] ([id number]) [address] [place] [address] 01459 Urea nitrogen [Mass/Vol] 11 mg/dL Normal 5-23 [facility] Comment on above: Performed By: #### Ed HOLLINGSWORTH, , CBCA #### [facility] ([id number]) [address] [place] [address] 77209 CBC AND AUTO DIFFon 05-25-20 24 ABSOLUTE BASOPHIL 0.1 X10E9/L Normal 0.0-0.2 [facility] Comment on above: Performed By: #### B EDEL, , CBCA #### [facility] ([id number]) [address] [place] [address] 21837 ABSOLUTE NEUTROPHIL 5.3 X10E9/L Normal 1.5-6.6 [facility] Comment on above: Performed By: #### B EDEL, , CBCA #### [facility] ([id number]) [address] [place] [address] 31856 Basophils/100 WBC (Bld) 0.9 % Normal [facility] Comment on above: Performed By: #### B DEEL, , CBCA #### [facility] ([id number]) [address] [place] [address] 65232 DIFFERENTIAL COMMENT PLATELETS REVIEWED Normal [facility] Comment on above: Performed By: #### B EDEL, , CBCA #### [facility] ([id number]) [address] [place] [address] 40022 Eosinophils (Bld) [#/Vol] 0.4 10*3/uL Normal 0.0-0.4 [facility] Comment on above: Performed By: #### B EDEL, , CBCA #### [facility] ([id number]) [address] [place] [address] 34200 Eosinophils/100 WBC (Bld) 4.0 % Normal [facility] Comment on above: Performed By: #### B EDEL, , CBCA #### [facility] ([id number]) [address] [place] [address] 64142 Erythrocyte distribution width (RBC) [Ratio] 12.7 % Normal 11.5-15.0 [facility] Comment on above: Performed By: #### B EDEL, , CBCA #### [facility] ([id number]) [address] [place] [address] 92963 Hematocrit (Bld) [Volume fraction] 34.3 % Low 35-47 [facility] Comment on above: Performed By: #### Ed HOLLINGSWORTH, , CBCA #### [facility] ([id number]) [address] [place] [address] 55188 Hemoglobin (Bld) [Mass/Vol] 12.2 g/dL Normal 11.7-15.5 [facility] Comment on above: Performed By: #### Ed HOLLINGSWORTH, , CBCA #### [facility] ([id number]) [address] [place] [address] 71023 Lymphocytes (Bld) [#/Vol] 2.7 10*3/uL Normal 1.0-3.5 [facility] Comment on above: Performed By: #### Ed HOLLINGSWORTH, , CBCA #### [facility] ([id number]) [address] [place] [address] 44079 Lymphocytes/100 WBC (Bld) 29.1 % Normal [facility] Comment on above: Performed By: #### Ed HOLLINGSWORTH, , CBCA #### [facility] ([id number]) [address] [place] [address] 19417 MCH (RBC) [Entitic mass] 30.1 pg Normal 27-34 [facility] Comment on above: Performed By: #### Ed HOLLINGSWORTH, , CBCA #### [facility] ([id number]) [address] [place] [address] 13896 MCHC (RBC) [Mass/Vol] 35.7 g/dL Normal 32-36 [facility] Comment on above: Performed By: #### Ed HOLLINGSWORTH, , CBCA #### [facility] ([id number]) [address] [place] [address] 50178 MCV (RBC) [Entitic vol] 84 fL Normal 80-100 [facility] Comment on above: Performed By: #### B EDEL, , CBCA #### [facility] ([id number]) [address] [place] [address] 96689 Monocytes (Bld) [#/Vol] 0.9 10*3/uL Normal 0-0.9 [facility] Comment on above: Performed By: #### Ed HOLLINGSWORTH, , CBCA #### [facility] ([id number]) [address] [place] [address] 24127 Monocytes/100 WBC (Bld) 9.9 % Normal [facility] Comment on above: Performed By: #### Ed HOLLINGSWORTH, , CBCA #### [facility] ([id number]) [address] [place] [address] 21516 Neutrophils/100 WBC (Bld) 56.1 % Normal [facility] Comment on above: Performed By: #### Ed HOLLINGSWORTH, , CBCA #### [facility] ([id number]) [address] [place] [address] 09053 Platelet mean volume (Bld) [Entitic vol] 9.0 fL Normal 7-12 [facility] Comment on above: Performed By: #### Ed HOLLINGSWORTH, , CBCA #### [facility] ([id number]) [address] [place] [address] 37688 Platelets (Bld) [#/Vol] 203 10*3/uL Normal 150-450 [facility] Comment on above: Performed By: #### Ed HOLLINGSWORTH, , CBCA #### [facility] ([id number]) [address] [place] [address] 48852 RBC COUNT 4.07 X10E12/L Normal 3.80-5.20 [facility] Comment on above: Performed By: #### Ed HOLLINGSWORTH, , CBCA #### [facility] ([id number]) [address] [place] [address] 59979 WBC (Bld) [#/Vol] 9.4 10*3/uL Normal 4.0-11.0 [facility] Comment on above: Performed By: #### B EDEL, , CBCA #### [facility] ([id number]) [address] [place] [address] 25414 HCG.beta subunit IA 3rd IS Q non 02-13-2024 [place] [address] m[IU]/mL Normal [facility] Comment on above: Result Comment: NEW [...] By: #### B EDEL, , CBCA #### [facility] ([id number]) [address] [place] [address] 70701 URN MACROSCOPIC NURon 2023 BILIRUBIN LUCIE Negative Normal NEG [facility] Comment on above: Performed By: #### N UM #### [facility] ([id number]) [address] [place] [address] 49474 BLOOD/HGB LUCIE Large Abnormal NEG [facility] Comment on above: Performed By: #### N UM #### [facility] ([id number]) [address] [place] [address] [place] [address] GLUCOSE LUCIE Negative Normal NEG [facility] Comment on above: Performed By: #### N UM #### [facility] ([id number]) [address] [place] [address] [place] [address] KETONES LUCIE Negative Normal NEG [facility] Comment on above: Performed By: #### N UM #### [facility] ([id number]) [address] [place] [address] [place] [address] LEUKOCYTE ESTERASE LUCIE Negative Normal NEG [facility] Comment on above: Performed By: #### N UM #### [facility] ([id number]) [address] [place] [address] [place] [address] NITRITE LUCIE Negative Normal NEG [facility] Comment on above: Performed By: #### N UM #### [facility] ([id number]) [address] [place] [address] [place] [address] PH LUCIE 6.5 Normal 5.0-8.5 [facility] Comment on above: Performed By: #### N UM #### [facility] ([id number]) [address] [place] [address], [place] [address] PROTEIN LUCIE Trace Abnormal NEG [facility] Comment on above: Performed By: #### N UM #### [facility] ([id number]) [address] [place] [address] [place] [address] SPECIFIC GRAVITY LUCIE 1.015 Normal 1.003-1.035 [facility] Comment on above: Performed By: #### N UM #### [facility] ([id number]) [address] [place] [address] [place] [address] UROBILINOGEN LUCIE 0.2 eu/dL Normal <1.1 [facility] Comment on above: Performed By: #### N UM #### [facility] ([id number]) [address] [place] [address] HCG ( test) Ql (U)o n 02-12-2024 Beta HCG ( test) Ql (U) Positive Abnormal NEG [facility] Comment on above: Performed By: #### 2 106-3 #### [facility] ([id number]) [address] [place] [address] HCG.beta subunit IA 3rd IS Q non 02-12-2024 [place] [address] m[IU]/mL Normal P [facility] Comment on above: Result Comment: NEW [...] Performed By: #### 4 544-3, 718-7, #### [facility] ([id number]) [address] [place] [id number] HEMOGLOBINon 02-12-2024 Hemoglobin (Bld) [Mass/Vol] 12.7 g/dL Normal 11.7-15.5 [facility] Comment on above: Performed By: #### 4 544-3, 718-7, #### [facility] ([id number]) [address] [place] [address] Hematocrit Auto (Bld) [Volum e fraction]on 02-12-2024 Hematocrit (Bld) [Volume fraction] 35.4 % Normal 35-47 [facility] Comment on above: Performed By: #### 4 544-3, 718-7, 34322-5 #### [facility] ([id number]) [address] [place] [address] URN MACROSCOPIC NURon 2023 BILIRUBIN LUCIE Negative Normal NEG [facility] Comment on above: Performed By: #### N UM #### [facility] ([id number]) [address] [place] [address] BLOOD/HGB LUCIE MODERATE Abnormal NEG [facility] Comment on above: Performed By: #### N UM #### [facility] ([id number]) [address] [place] [address] [place] [address] GLUCOSE LUCIE Negative Normal NEG [facility] Comment on above: Performed By: #### N UM #### [facility] ([id number]) [address] [place] [address] [place] [address] KETONES LUCIE 15 mg/dL Abnormal NEG [facility] Comment on above: Performed By: #### N UM #### [facility] ([id number]) [address] [place] [address] [place] [address] LEUKOCYTE ESTERASE LUCIE Trace Abnormal NEG [facility] Comment on above: Performed By: #### N UM #### [facility] ([id number]) [address] [place] [address] [place] [address] NITRITE LUCIE Negative Normal NEG [facility] Comment on above: Performed By: #### N UM #### [facility] [facility] ([id number]) [address] [place] [address] PH LUCIE 6.5 Normal 5.0-8.5 [facility] Comment on above: Performed By: #### N UM #### [facility] ([id number]) [address] [place] [address] PROTEIN LUCIE Negative Normal NEG [facility] Comment on above: Performed By: #### N UM #### [facility] ([id number]) [address] [place] [address] 24193 SPECIFIC GRAVITY LUCIE >=1.030 Normal 1.003-1.035 [facility] Comment on above: Performed By: #### N UM #### [facility] ([id number]) [address] [place] [address] 79448 UROBILINOGEN LUCIE 1.0 eu/dL Normal <1.1 [facility] Comment on above: Performed By: #### N UM #### [facility] ([id number]) [address] [place] [address] [place] PREG LESS THAN 14 WKS WIT [...] cardiac activity with heart rate 100 bpm. [place]-rump length 6 mm corresponding to gestational age [...] Sandy MD on 02/12/2024 5:07 AM [facility] ECG 12 lead ECGon 11-25-2023 ECG 12 lead ECG [facility] Main [place] [address] [place] [address] Electrocardiograph Report Signed Patient: Sharona Marks MR#: [id number] : 2005 Acct:[id number] Age/Sex: 17 / F ADM Date: 11/24/23 Loc: Room: [address] [place] [address] Type: ADM IN Attending Dr: Ignacio Acuña [...] change was found Confirmed by Chapito Corbin ([id number]) on 11/25/2023 7:52:58 PM Referred By: Electronically Signed By:Chapito Corbin Transcribed By: MUS Signed By Chapito Corbin MD 11/25/231952 Normal [facility] Lipid Panelon 11-25-2023 Cholesterol [Mass/Vol] 121 mg/dL Low 140-200 [facility] Comment on above: Result Comment: Chol less than 200 mg/dl low risk Chol 201-239 mg/dl borderline risk Chol 240 mg/dl and greater high risk Performed By: #### L IPID, [id number], TSH3 wRFLX #### [facility] [address] Cholesterol in HDL [Mass/Vol] 57 mg/dL Normal 23-92 [facility] Comment on above: Result Comment: HDL CHOL ATP-III CLASSIFICATION Cardiovascular Risk HDL > or equal to 60 mg/dL LOW HDL < 40 mg/dL HIGH Performed By: #### L IPID, [id number], TSH3 wRFLX #### [facility] [address] Cholesterol.total/Cho lesterol in HDL [Mass ratio] 2.1 {ratio} Normal <5.0 [facility] Comment on above: Performed By: #### L IPID, [id number], TSH3 wRFLX #### [address] LDL Cholesterol,Calculate d 55 mg/dL Normal 0-100 [facility] Comment on above: Result Comment: LDL ATP III CLASSIFICATION LDL less than 100 mg/dL Optimal LDL 100-129 mg/dL Near or above optimal LDL 130-159 mg/dL Borderline high LDL 160-189 mg/dL High LDL greater than 189 mg/dL Very high Performed By: #### L IPID, [id number], TSH3 wRFLX #### [address] Triglyceride w/Reflex 44 mg/dL Normal 0-149 [facility] Comment on above: Result Comment: TRIG ATP III CLASSIFICATION TRIG less than 150 mg/dL Normal TRIG 150-199 mg/dL Borderline high TRIG 200-500 mg/dL High TRIG greater than 500 mg/dL Very high Standard traceable to the Center for Disease Conrtrol and Prevention (CDC) test method. Performed By: #### L IPID, [id number], TSH3 wRFLX #### [address] VLDL CHOLESTEROL 8 mg/dL Normal [facility] Comment on above: Performed By: #### L IPID, [id number], TSH3 wRFLX #### [address] Thyroid Stim Hormone w/Rflxo n 03-06-2024 Thyroid Stim Hormone w/Rflx 3.18 u[iU]/mL Normal 0.45-5.33 [facility] Comment on above: Performed By: #### L IPID, [id number], TSH3 wRFLX #### [address] Vitamin D 25 Hydroxy Totalon 11-25-2023 Vitamin D 25 Hydroxy Total 14.7 ng/mL Low 30-100 [facility] Comment on above: Result Comment: DARYA MIN D STATUS 25(OH)VITAMIN D RANGE (ng/mL) Deficient <20 Insufficient 20 to <30 Sufficient 30 to 100 Reference: Angel MF,Yovany NC, Bee WILEY, et al. Evaluation,treatment, and prevention of vitamin D deficiency; an Endocrine Society clinical practice guideline. JCEM. 2010; 96(7):1911-30. PERFORMED BY: [place] [address] PATHOLOGIST LEAD RIDER TIFFANIE HIGH M.D. Performed By: #### L IPID, [id number], TSH3 wRFLX #### [address] Complete Blood Count Auto Di ffon 11-24-2023 Basophils (Bld) [#/Vol] 0.0 10*3/uL Normal 0.0-0.1 [facility] Comment on above: Result Comment: PERF ORMED BY: [place] [address] PATHOLOGIST LEAD RIDER TIFFANIE HIGH M.D. Performed By: #### C MP, ETOH, CBC #### [place] [address] [place] Basophils/100 WBC (Bld) 0.5 % Normal . [facility] Comment on above: Performed By: #### C MP, ETOH, CBC #### [address] Eosinophils (Bld) [#/Vol] 0.1 10*3/uL Normal 0.0-0.7 [facility] Comment on above: Performed By: #### C MP, ETOH, CBC #### [address] Eosinophils/100 WBC (Bld) 1.0 % Normal . [facility] Comment on above: Performed By: #### C MP, ETOH, CBC #### [address] Erythrocyte distribution width (RBC) [Ratio] 13.2 % Normal 11.9-15.3 [facility] Comment on above: Performed By: #### C MP, ETOH, CBC #### [address] Hematocrit (Bld) [Volume fraction] 41.6 % Normal 36.0-46.0 [facility] Comment on above: Performed By: #### C MP, ETOH, CBC #### [address] Hemoglobin (Bld) [Mass/Vol] 14.3 g/dL Normal 12.0-16.0 [facility] Comment on above: Performed By: #### C MP, ETOH, CBC #### [address] Lymphocytes (Bld) [#/Vol] 3.5 10*3/uL Normal 1.20-4.8 [facility] Comment on above: Performed By: #### C MP, ETOH, CBC #### [place] [address] [place] Lymphocytes/100 WBC (Bld) 39.9 % Normal . [facility] Comment on above: Performed By: #### C MP, ETOH, CBC #### [address] MCH (RBC) [Entitic mass] 29.3 pg Normal 25.0-35.0 [facility] Comment on above: Performed By: #### C MP, ETOH, CBC #### [address] MCV (RBC) [Entitic vol] 84.8 fL Normal 78-102 [facility] Comment on above: Performed By: #### C MP, ETOH, CBC #### [address] Mean Corpuscular HGB Conc 34.5 g/dL Normal 31.0-37.0 [facility] Comment on above: Performed By: #### C MP, ETOH, CBC #### [place] [address] [place] Monocytes (Bld) [#/Vol] 0.6 10*3/uL Normal 0.1-1.00 [facility] Comment on above: Performed By: #### C MP, ETOH, CBC #### [address] Monocytes/100 WBC (Bld) 17.05 % Normal 0.00-20.00 [facility] Comment on above: Performed By: #### C MP, ETOH, CBC #### [place] [address] [place] Monocytes/100 WBC (Bld) 7.1 % Normal . [facility] Comment on above: Performed By: #### C MP, ETOH, CBC #### [address] Neutrophils (Bld) [#/Vol] 4.5 10*3/uL Normal 1.2-7.7 [facility] Comment on above: Performed By: #### C MP, ETOH, CBC #### [place] [address] [place] Neutrophils/100 WBC (Bld) 51.5 % Normal . [facility] Comment on above: Performed By: #### C MP, ETOH, CBC #### [place] [address] [place] NRBC% 0.1 /100{WBC} Normal 0-0.5 [facility] Comment on above: Performed By: #### C MP, ETOH, CBC #### [address] Platelet mean volume (Bld) [Entitic vol] 7.7 fL Normal 6.3-10.7 [facility] Comment on above: Performed By: #### C MP, ETOH, CBC #### [address] Platelets (Bld) [#/Vol] 319 10*3/uL Normal 150-450 [facility] Comment on above: Performed By: #### C MP, ETOH, CBC #### [address] RBC (Bld) [#/Vol] 4.90 10*6/uL Normal 4.10-5.10 [facility] Comment on above: Performed By: #### C MP, ETOH, CBC #### [address] WBC (Bld) [#/Vol] 8.7 10*3/uL Normal 4.5-13.5 The [facility] Comment on above: Performed By: #### C MP, ETOH, CBC #### [address] Comprehensive Metabolic Pane david 11-24-2023 Albumin [Mass/Vol] 5.1 g/dL Normal 3.5-5.7 The [facility] Comment on above: Performed By: #### C MP, ETOH, CBC #### [address] Albumin/Globulin [Mass ratio] 1.6 {ratio} Normal [facility] Comment on above: Performed By: #### C MP, ETOH, CBC #### [address] ALP [Catalytic activity/Vol] 67 U/L Normal 34-104 [facility] Comment on above: Performed By: #### C MP, ETOH, CBC #### [address] ALT [Catalytic activity/Vol] 10 U/L Normal 7-52 [facility] Comment on above: Performed By: #### C MP, ETOH, CBC #### [place] [address] [place] Anion gap [Moles/Vol] 10.9 mmol/L Normal 6.0-15.0 Th e [facility] Comment on above: Performed By: #### C MP, ETOH, CBC #### [address] AST [Catalytic activity/Vol] 15 U/L Normal 13-39 [facility] Comment on above: Performed By: #### C MP, ETOH, CBC #### [address] Bilirubin [Mass/Vol] 0.4 mg/dL Normal 0.3-1.0 [facility] Comment on above: Performed By: #### C MP, ETOH, CBC #### [address] Calcium [Mass/Vol] 9.5 mg/dL Normal 8.6-10.3 The [facility] Comment on above: Performed By: #### C MP, ETOH, CBC #### [address] Chloride [Moles/Vol] 106 mmol/L Normal 98-107 [facility] Comment on above: Performed By: #### C MP, ETOH, CBC #### [address] CO2 [Moles/Vol] 24.9 mmol/L Normal 21.0-31.0 The [facility] Comment on above: Performed By: #### C MP, ETOH, CBC #### [address] Creatinine [Mass/Vol] 0.71 mg/dL Normal 0.60-1.20 [facility] Comment on above: Performed By: #### C MP, ETOH, CBC #### [place] [address] [place] Creatinine Clr Calc Pharmacy 124.96 Normal [facility] Comment on above: Result Comment: PERF ORMED BY: [place] [address] PATHOLOGIST LEAD RIDER TIFFANIE HIGH M.D. Performed By: #### C MP, ETOH, CBC #### [facility] [address] [place] [address] [place] GFR/1.73 sq M.predicted MDRD (S/P/Bld) [Vol rate/Area] mL/min/{1.73_m2} Normal [facility] Comment on above: Performed By: #### C MP, ETOH, CBC #### [facility] [address] [place] [address] [place] Globulin (S) [Mass/Vol] 3.1 g/dL Normal [facility] Comment on above: Performed By: #### C MP, ETOH, CBC #### [facility] [address] Glucose [Mass/Vol] 86 mg/dL Normal 70-100 The [facility] Comment on above: Result Comment: [place] Glucose Reference Range is dependent on time and content of last meal. Glucose of more than 200 mg/dL in a nonstressed, ambulatory subject supports the diagnosis of Diabetes Mellitus. ADA recommended reference range Performed By: #### C MP, ETOH, CBC #### [facility] [address] [place] [address] [place] Potassium [Moles/Vol] 3.8 mmol/L Normal 3.5-5.1 [facility] Comment on above: Performed By: #### C MP, ETOH, CBC #### [facility] [address] [place] [address] [place] Protein [Mass/Vol] 8.2 g/dL Normal 6.4-8.9 The [facility] Comment on above: Performed By: #### C MP, ETOH, CBC #### [facility] [address] [place] [id number] [place] Sodium [Moles/Vol] 138 mmol/L Normal 136-145 The [facility] Comment on above: Performed By: #### C MP, ETOH, CBC #### [facility] [address] [place] [id number] [place] Urea nitrogen [Mass/Vol] 9 mg/dL Normal 7-25 [facility] Comment on above: Performed By: #### C MP, ETOH, CBC #### [address] Drug Screen,Urineon 11-24-19 24 Amphetamine Screen,Urine Negative Normal Negative [facility] Comment on above: Performed By: #### U HCG, UA, URDS #### [address] Barbiturate Screen,Urine Negative Normal Negative [facility] Comment on above: Performed By: #### U HCG, UA, URDS #### [address] Benzodiazepines Screen,Urine Negative Normal Negative [facility] Comment on above: Performed By: #### U HCG, UA, URDS #### [address] Cannabinoid Screen,Urine Positive High Negative [facility] Comment on above: Result Comment: Thes e are unconfirmed results and should not be used for legal purposes. Drug Cut-Off Concentration: AMPH 1000 ng/mL LUCIA 200 ng/mL BROOKE 200 ng/mL COCM 300 ng/mL OP 300 ng/mL PCP 25 ng/mL THC 20 ng/mL PERFORMED BY: [place] [address] PATHOLOGIST LEAD RIDER TIFFANIE HIGH M.D. Performed By: #### U HCG, UA, URDS #### [address] Cocaine Screen,Urine Negative Normal Negative [facility] Comment on above: Performed By: #### U HCG, UA, URDS #### [place] [address] [place] Opiate Screen,Urine Negative Normal Negative The [facility] Comment on above: Performed By: #### U HCG, UA, URDS #### [address] Phencyclidine Screen,Urine Negative Normal Negative [facility] Comment on above: Performed By: #### U HCG, UA, URDS #### [address] Ethyl Alcohol Profileon Ethanol [Mass/Vol] mg/dL Normal The [facility] Comment on above: Performed By: #### C MP, ETOH, CBC #### [address] Percent Ethanol Not performed Normal [facility] Comment on above: Result Comment: PERF ORMED BY: [place] [address] PATHOLOGIST LEAD RIDER TIFFANIE HIGH M.D. Performed By: #### C MP, ETOH, CBC #### [address] HCG,Urineon 11-24-2023 Beta HCG ( test) Ql (U) Negative Normal [facility] Comment on above: Order Comment: Name Collection Type:: Clean-Voided Midstream Result Comment: PERF ORMED BY: [place] [address] PATHOLOGIST LEAD RIDER TIFFANIE HIGH M.D. Performed By: #### U HCG, UA, URDS #### [address] Urinalysison 11-24-2023 Appearance (U) Clear Normal Clear The [facility] Comment on above: Order Comment: Name Collection Type:: Clean-Voided Midstream Performed By: #### U HCG, UA, URDS #### [address] Bilirubin,Urine Negative Normal Negative The [facility] Comment on above: Order Comment: Name Collection Type:: Clean-Voided Midstream Performed By: #### U HCG, UA, URDS #### [address] Color (U) Yellow Normal Yellow [facility] Comment on above: Order Comment: Name Collection Type:: Clean-Voided Midstream Performed By: #### U HCG, UA, URDS #### [address] Glucose Ql (U) Normal Normal Normal [facility] Comment on above: Order Comment: Name Collection Type:: Clean-Voided Midstream Performed By: #### U HCG, UA, URDS #### [place] [address] [place] Ketones Ql (U) Negative Normal Negative [facility] Comment on above: Order Comment: Name Collection Type:: Clean-Voided Midstream Performed By: #### U HCG, UA, URDS #### [address] Leukocyte esterase Test strip Ql (U) Negative Normal Negative [facility] Comment on above: Order Comment: Name Collection Type:: Clean-Voided Midstream Performed By: #### U HCG, UA, URDS #### [place] [address] [place] Nitrite,Urine Negative Normal Negative [facility] Comment on above: Order Comment: Name Collection Type:: Clean-Voided Midstream Performed By: #### U HCG, UA, URDS #### [place] [address] [place] Occult Blood,Urine Negative Normal Negative The [facility] Comment on above: Order Comment: Name Collection Type:: Clean-Voided Midstream Performed By: #### U HCG, UA, URDS #### [place] [address] [place] pH (U) 6.5 [pH] Normal 5.0-9.0 [facility] Comment on above: Order Comment: Name Collection Type:: Clean-Voided Midstream Performed By: #### U HCG, UA, URDS #### [place] [address] [place] Protein,Urine Negative Normal Negative [facility] Comment on above: Order Comment: Name Collection Type:: Clean-Voided Midstream Performed By: #### U HCG, UA, URDS #### [place] [address] [place] Specificy [place],Urine 1.020 Normal 1.001-1.030 [facility] Comment on above: Order Comment: Name Collection Type:: Clean-Voided Midstream Performed By: #### U HCG, UA, URDS #### [facility] [address] Urobilinogen,Urine Normal Normal Normal The [facility] Comment on above: Order Comment: Name Collection Type:: Clean-Voided Midstream Performed By: #### U HCG, UA, URDS #### [facility] [address] [place] [id number] [facility] Lipid 1996 panelon 4 Cholesterol [Mass/Vol] 143 mg/dL Low 150-200 [facility] Comment on above: Performed By: #### 2 4331-1 #### [facility] ([id number]) [address], [address] [place] [address] Cholesterol in HDL [Mass/Vol] 67 mg/dL Normal >39 [facility] Comment on above: Result Comment: HDL <40 mg/dL - High Risk HDL > or = 40mg/dL- Desirable HDL >60 mg/dL - Negative Risk Performed By: #### 2 4331-1 #### [facility] ([id number]) [address], [address] [place] [address] Cholesterol in LDL [Mass/Vol] 65 mg/dL Normal <130 [facility] Comment on above: Result Comment: LDL <100 mg/dL - Desirable LDL >160 mg/dL - High Risk Performed By: #### 2 4331-1 #### [facility] ([id number]) [address], [address] [place] [address] Cholesterol in VLDL [Mass/Vol] 11 mg/dL Normal 0-30 [facility] Comment on above: Performed By: #### 2 4331-1 #### [facility] ([id number]) [address], [address] [place] [address] CHOLESTEROL:HDL 2.1 Normal 1.0-5.0 [facility] Comment on above: Performed By: #### 2 4331-1 #### [facility] ([id number]) [address] [place] [address] Triglyceride [Mass/Vol] 53 mg/dL Normal 27-150 [facility] Comment on above: Performed By: #### 2 4331-1 #### [facility] ([id number]) [address] [place] [address] Encounters Encounter Date Encounter Type Care Provider Facility Start: 06-10-2024 End: 06-10-2024 ambulatory ROHAN ARTHUR Not Available Start: 05-22-2024 End: 05-22-2024 Emergency department patient visit [facility] Start: 05-11-2024 End: 05-11-2024 Emergency department patient visit [facility] Start: 02-29-2024 End: 02-29-2024 ambulatory [facility] Start: 02-22-2024 End: 02-22-2024 ambulatory ROHAN ARTHUR Not Available Start: 02-18-2024 End: 02-18-2024 ambulatory ROHAN ARTHUR Not Available Start: 02-12-2024 End: 02-13-2024 Emergency department patient visit [facility] Start: 02-12-2024 End: 02-13-2024 Emergency department patient visit [facility] Start: 02-12-2024 End: 02-12-2024 Emergency department patient visit [facility] Start: 11-24-2023 End: 11-26-2023 Evaluation and management of inpatient Ignacio Domenico Facility:[facility] Start: 11-24-2023 ambulatory Ollie Courtney acility:[facility] Start: 11-11-2023 End: 11-11-2023 ambulatory LONNY Greene [facility] Start: 10-27-2022 End: 10-27-[address] ANTHONY PAY Facility: Payers Date Payer Category Payer Medicaid [id number] 2023 Self-pay 2022 Unknown [id number] 2004 Unknown [id number] 2.16.8 [id number] 2004 Unknown [id number] 2.16.8 40.1.215118.3.579.2.1286 2004 Unknown [id number] 2.16.8 40.1.436464.3.579.2.1286 2004 Unknown [id number] 2.16.8 40.1.833348.3.579.2.1286 2004 Unknown [id number] 2.16.8 40.1.062087.3.579.2.1286 2004 Unknown [id number] 2.16.8 40.1.748803.3.579.2.1286 2004 Unknown [id number] 2.16.84 0.1.243239.3.579.2.1259 2004 Unknown [id number] 2.16.84 0.1.219250.3.579.2.1259 2004 Unknown [id number] 2.16.84 0.1.092489.3.579.2.1259 1972 Unknown [id number] 2.16.84 0.1.226014.3.579.2.593 1959 Unknown [id number] Unknown [id number] 2.16.8 40.1.658822.3.579.2.531 Unknown [id number] 2.16.8 40.1.191126.3.579.2.531 Summary Purpose Family History No Family History Records FoundNo Family History Records FoundNo Family History Records FoundNo Family History Records Found Advance Directives No Advanced Directives Records FoundNo Advanced Directives Records FoundNo Advanced Directives Records FoundNo Advanced Directives Records Found Additional Source Comments INFORMATION SOURCE (unrecogn ized section and content) DATE CREATED AUTHOR 10/28/2022 [facility] DATE CREATED AUTHOR AUTHOR'S ORGANIZ ATION 05/22/2024 [facility] DATE CREATED AUTHOR AUTHOR'S ORGANIZ ATION 06/03/2024 [facility] DATE CREATED AUTHOR AUTHOR'S ORGANIZ ATION 06/12/2024 [facility] EPIC FOR RECORDS PERTAINING TO PATIENTS WHO ARE [...] BE BASED ON THE PRIMARY CLINICAL RECORDS. [facility] [employer] [facility]. provides no warranty or guarantee of the accuracy or completeness of information in this document.
[2024-06-19 01:10] LABS: AFP Value 19.7 ng/mL (.); Gest. Age on Collection Date 16.1 weeks (.); Gestat. Age Based On Ultrasound (.); Insulin Dep Diabetes No (.); Maternal Age At EDD 19.9 yr (.); OSBR Risk 1 IN 10000 (.); Results Report (.)
== END 2024-06-16 15:12 | disposition home or self-care (01) ==
LOC: LAB 15:12
PROVIDERS: PCP Internal Medicine; Visit Provider Obstetrics & Gynecology
DX: Z34.92 Encounter for supervision of normal pregnancy, unspecified, second trimester (principal)
CPT/HCPCS: 36415; 82105

== ENCOUNTER 2024-07-18 14:01 | Outpatient (OUT) | payer MEDICAID, SELFPAY ==
--- NOTE | 2024-07-18 14:04 | US_ITS ---
[address] [address] Patient Name: JEFF SOTOMAYOR MRN: [id number] date: 2005 Sex: F Assigned Patient Location: [facility] Current Patient Location: [facility] Accession/Order Number: [id number] Exam Date: 07/18/2024 14:05 Report Date: 07/18/2024 15:16 At the request of: ROHAN GIBSON Procedure: US OB anatomy EXAMINATION: US OB anatomy, US OB cervical length HISTORY: ANATOMY COMPARISON: No relevant comparison available. TECHNIQUE: Transabdominal sonographic examination was performed for obstetrical and evaluation. FINDINGS: Number: 1 Heart Rate: 158 bpm H.B. /min Amniotic Fluid Volume: Subjectively normal Placental Location: ANT/FUNDAL, the placental edge is 7.4 cm in the internal os Cervix Length: 4.90 cm , closed Normal anatomy: Lateral ventricles, cerebellum, posterior fossa, nose, lips, orbits, four-chamber heart, RVOT, LVOT, diaphragm, stomach, kidneys, abdominal cord insertion, bladder, umbilical arteries, three-vessel cord, spine, extremities BIOMETRY: BPD: 4.48 cm; 19 weeks 4 days; 9.70 % HC: 16.96 cm; 19 weeks 4 days; 5.40 % AC: 15.42 cm; 20 weeks 4 days; 39.80 % FL: 3.28 cm; 20 weeks 2 days; 25.70 % EFW:331.90 g; 25.20 % FL/AC: 21.27 FL/BPD: 73.21 HC/AC: 1.10 GESTATIONAL AGE: Age by EDC: 20 weeks 5 days [place] by EDC: 2024-11-30 Age by current US: 20 weeks 0 days [place] by current US: 2024-12-05 US/US OB anatomy IMPRESSION: Normal anatomy scan Closed cervix measuring 4.9 cm *Reference: [facility] Practice Guideline for the performance of Obstetric Ultrasound Examinations, June 21, 2007. Electronically authenticated by: RAPHAEL PAYNE Date: 07/18/2024 15:16
--- NOTE | 2024-07-18 14:04 | US_ITS ---
[address] [address] Patient Name: JEFF SOTOMAYOR MRN: [id number] date: 2005 Sex: F Assigned Patient Location: [facility] Current Patient Location: [facility] Accession/Order Number: [id number] Exam Date: 07/18/2024 14:05 Report Date: 07/18/2024 15:16 At the request of: ROHAN GIBSON Procedure: US OB cervical length EXAMINATION: US OB anatomy, US OB cervical length HISTORY: ANATOMY COMPARISON: No relevant comparison available. TECHNIQUE: Transabdominal sonographic examination was performed for obstetrical and evaluation. FINDINGS: Number: 1 Heart Rate: 158 bpm H.B. /min Amniotic Fluid Volume: Subjectively normal Placental Location: ANT/FUNDAL, the placental edge is 7.4 cm in the internal os Cervix Length: 4.90 cm , closed Normal anatomy: Lateral ventricles, cerebellum, posterior fossa, nose, lips, orbits, four-chamber heart, RVOT, LVOT, diaphragm, stomach, kidneys, abdominal cord insertion, bladder, umbilical arteries, three-vessel cord, spine, extremities BIOMETRY: BPD: 4.48 cm; 19 weeks 4 days; 9.70 % HC: 16.96 cm; 19 weeks 4 days; 5.40 % AC: 15.42 cm; 20 weeks 4 days; 39.80 % FL: 3.28 cm; 20 weeks 2 days; 25.70 % EFW:331.90 g; 25.20 % FL/AC: 21.27 FL/BPD: 73.21 HC/AC: 1.10 GESTATIONAL AGE: Age by EDC: 20 weeks 5 days [place] by EDC: 2024-11-30 Age by current US: 20 weeks 0 days [place] by current US: 2024-12-05 US/US OB cervical length IMPRESSION: Normal anatomy scan Closed cervix measuring 4.9 cm *Reference: [facility] Practice Guideline for the performance of Obstetric Ultrasound Examinations, June 21, 2007. Electronically authenticated by: RAPHAEL PAYNE Date: 07/18/2024 15:16
--- OUTSIDE RECORDS SUMMARY | 2024-07-18 14:10 | XMS_ITS | CCD ---
Author Organization [facility]iniSynd Care Team Providers Care Stone Polisher Hand Name Role Phone PAY, DR ANTHONY Admitting Unavailable PAY, DR ANTHONY Attending Unavailable PAY, DR ANTHONY Consulting Unavailable ARUN MEREDITH Primary Care Unavailable KB WRIGHT Attending Unavailable MASOUD, ARUN Santana Primary Care Unavailable CLARKE DUEÑAS Attending Unavailable KB WRIGHT Attending Unavailable KB WRIGHT Referring Unavailable MASOUD, ARUN Santana Primary Care Unavailable MASOUD, ARUN Santana Referring Unavailable MASOUD, ARUN Santana Primary Care Unavailable ARUN MEREDITH Primary Care Unavailable MASOUD, ARUN Santana Primary Care Unavailable PARISA VERAS Attending Unavailable LONNY MACEDO Referring Unavailable ARUN MEREDITH Primary Care Unavailable Ignacio Acuña Attending Unavailable NON STAFF Primary Care Unavailable Ignacio Acuña Admitting Unavailable Ollie Cisneros Admitting Unavailab Ollie Chacon Attending Unavailab le NON STAFF Primary Care Unavailable ROHAN CHAVARRIA Attending Unavailable ROHAN CHAVARRIA Attending Unavailable ROHAN CHAVARRIA Attending Unavailable Arun Meredith MD Primary Care Provider Medications Current Medications Medication Drug Class(es) Dates Sig (Normalized) Sig (Original) citalopram 20 mg oral tablet (2 sources) Serotonin Reuptake Inhibitor Start: 07-05-2024 End: 07-05-2025 take 1 tablet by mouth once daily citalopram (CeleXA) 20 MG tablet Indications: Major depressive disorder in partial remission, unspecified whether recurrent (HCC) (CMS/HCC) Take 1 tablet (20 mg) by mouth Daily 30 tablet 11 07/05/2024 07/05/2025 Active ondansetron 4 mg disintegrating oral tablet (3 sources) Serotonin-3 Receptor Antagonist Start: 06-10-2024 End: 07-10-2024 take 1 tablet by mouth every six hours as needed for nausea and vomiting and nausea and nausea ondansetron ODT (Zofran-ODT) 4 MG disintegrating tablet Indications: Nausea Take 1 tablet (4 mg) by mouth every 6 (six) hours if needed for nausea or vomiting 30 tablet 2 06/10/2024 07/10/2024 Active MV-Min-Fe Fum-FA-DHA ( 1 PO) (3 sources) MV-Min- Fe Fum-FA-DHA ( 1 PO) Take by mouth Active Problems Active Problems Problem Classification Problem Date [...] W/FATS COOKING OILS INITIAL] Onset: 10-28-2022 Episodic Immunizations and screening for infectious disease (2 sources) Exposure to sexually transmissible disorder; Translations: [Contact with and (suspected) exposure to infections with a predominantly sexual mode of transmission] 07-05-2024 Episodic Mood disorders (3 sources) Bipolar disorder, unspecified; Translations: [Major depression in partial remission] Onset: 11-24-2023 07-05-2024 Chronic Other female genital disorders (2 sources) Vaginal discharge; Translations: [Other specified noninflammatory disorders of vagina] 07-05-2024 Episodic Other and delivery including normal (2 sources) Second trimester ; Translations: [Encounter for supervision of normal , unspecified, second trimester] 07-05-2024 Episodic Other screening for suspected conditions (not mental disorders or infectious disease) (2 sources) Patient encounter status; Translations: [Encounter for other specified screening] 07-05-2024 Episodic Other upper respiratory disease (1 source) Pain [...] Unclassified (1 source) Vagina bleeding Onset: 02-12-2024 Unclassified (3 sources) OB Reminders Onset: 07-05-2024 07-05-2024 Urinary tract infections (1 source) Urinary tract [...] 02-12-2024 Episodic Other aftercare (1 source) 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; Translations: [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] Onset: 11-11-2023 Episodic Other [...] Test Name Value Interpretation Reference Range Facility Urinalysis macro (dipstick) panel (U)on 07-05-2024 Bilirubin, UA Negative Negative - 4(70) +++ mg/dL [facility] Blood, UA Negative Negative - 50 Mendez/mcL [facility] Clarity, UA Clear [facility], UA Yellow [facility] Glucose, UA Negative Negative - 2000(110) ++++ mg/dL [facility] Interpretation and review of laboratory results Abnormal [facility] Ketones, UA Positive Negative - 160(16) ++++ mg/dL [facility] Leukocytes, UA Positive Negative - 500+++ Bhavani/mcL [facility] Nitrite, UA Negative Negative - Positive [facility] pH, UA 5.5 5 - 9 [facility] Protein, UA Positive Negative - 2000(20) ++++ mg/dL [facility] Spec Grav, UA 1.03 1 - 1.03 [facility] Urobilinogen, UA 1.0 0.2 - 12 [facility] BASIC METABOLIC PANLon 05-22 Anion gap [Moles/Vol] 6 mmol/L Normal 5-15 [facility] Comment on above: Performed By: #### N UM #### [facility] ([id number]) [address] [place] [address] 60850 Calcium [Mass/Vol] 8.7 mg/dL Normal 8.5-10.5 [facility] Comment on above: Performed By: #### N UM #### [facility] ([id number]) [address] [place] [address] 51640 Chloride [Moles/Vol] 104 mmol/L Normal 98-109 [facility] Comment on above: Performed By: #### N UM #### [facility] ([id number]) [address] [place] [address] 85298 CO2 [Moles/Vol] 22 mmol/L Normal 22-32 [facility] Comment on above: Performed By: #### N UM #### [facility] ([id number]) [address] [place] [address] 16403 Creatinine [Mass/Vol] 0.51 mg/dL Normal 0.40-1.00 [facility] Comment on above: Result Comment: METH OD TRACEABLE TO IDMS STANDARD Performed By: #### N UM #### [facility] ([id number]) [address] [place] [address] 32590 eGFR (CKD-EPI) NON-RACE DEPENDENT >90 Normal >59 [facility] Comment on above: Result Comment: Reported eGFR is based on the CKD-EPI 2020 equation that does not use a race coefficient. Performed By: #### N UM #### [facility] ([id number]) [address] [place] [address] 02824 Glucose [Mass/Vol] 102 mg/dL High 65-99 [facility] Comment on above: Performed By: #### N UM #### [facility] ([id number]) [address] [place] [address] 20212 Potassium [Moles/Vol] 3.4 mmol/L Low 3.5-5.0 [facility] Comment on above: Performed By: #### N UM #### [facility] ([id number]) [address] [place] [address] 24227 Sodium [Moles/Vol] 132 mmol/L Low 134-146 [facility] Comment on above: Performed By: #### N UM #### [facility] ([id number]) [address] [place] [address] 52397 Urea nitrogen [Mass/Vol] 6 mg/dL Normal 5-23 [facility] Comment on above: Performed By: #### N UM #### [facility] ([id number]) [address] [place] [address] 31085 CBC AND AUTO DIFFon 05-22-20 24 ABSOLUTE BASOPHIL 0.1 X10E9/L Normal 0.0-0.2 [facility] Comment on above: Performed By: #### N UM #### [facility] ([id number]) [address] [place] [address] 08027 ABSOLUTE NEUTROPHIL 3.3 X10E9/L Normal 1.5-6.6 [facility] Comment on above: Performed By: #### N UM #### [facility] ([id number]) [address] [place] [address] 20070 Basophils/100 WBC (Bld) 0.9 % Normal [facility] Comment on above: Performed By: #### N UM #### [facility] ([id number]) [address] [place] [address] 96840 Eosinophils (Bld) [#/Vol] 0.2 10*3/uL Normal 0.0-0.4 [facility] Comment on above: Performed By: #### N UM #### [facility] ([id number]) [address] [place] [address] 79728 Eosinophils/100 WBC (Bld) 3.9 % Normal [facility] Comment on above: Performed By: #### N UM #### [facility] ([id number]) [address] [place] [address] 80091 Erythrocyte distribution width (RBC) [Ratio] 13.9 % Normal 11.5-15.0 [facility] Comment on above: Performed By: #### N UM #### [facility] ([id number]) [address] [place] [address] 70390 Hematocrit (Bld) [Volume fraction] 38.4 % Normal 35-47 [facility] Comment on above: Performed By: #### N UM #### [facility] ([id number]) [address] [place] [address] 94200 Hemoglobin (Bld) [Mass/Vol] 13.2 g/dL Normal 11.7-15.5 [facility] Comment on above: Performed By: #### N UM #### [facility] ([id number]) [address] [place] [address] 04344 Lymphocytes (Bld) [#/Vol] 1.4 10*3/uL Normal 1.0-3.5 [facility] Comment on above: Performed By: #### N UM #### [facility] ([id number]) [address] [place] [address] 19883 Lymphocytes/100 WBC (Bld) 25.9 % Normal [facility] Comment on above: Performed By: #### N UM #### [facility] ([id number]) [address] [place] [address] 57967 MCH (RBC) [Entitic mass] 28.2 pg Normal 27-34 [facility] Comment on above: Performed By: #### N UM #### [facility] ([id number]) [address] [place] [address] 71774 MCHC (RBC) [Mass/Vol] 34.3 g/dL Normal 32-36 [facility] Comment on above: Performed By: #### N UM #### [facility] ([id number]) [address] [place] [address] 26254 MCV (RBC) [Entitic vol] 82 fL Normal 80-100 [facility] Comment on above: Performed By: #### N UM #### [facility] ([id number]) [address] [place] [address] 38440 Monocytes (Bld) [#/Vol] 0.6 10*3/uL Normal 0-0.9 [facility] Comment on above: Performed By: #### N UM #### [facility] ([id number]) [address] [place] [address] 76387 Monocytes/100 WBC (Bld) 10.2 % Normal [facility] Comment on above: Performed By: #### N UM #### [facility] ([id number]) [address] [place] [address] 11266 Neutrophils/100 WBC (Bld) 59.1 % Normal [facility] Comment on above: Performed By: #### N UM #### [facility] ([id number]) [address] [place] [address] 11153 Platelet mean volume (Bld) [Entitic vol] 8.7 fL Normal 7-12 [facility] Comment on above: Performed By: #### N UM #### [facility] ([id number]) [address] [place] [address] 83095 Platelets (Bld) [#/Vol] 198 10*3/uL Normal 150-450 [facility] Comment on above: Performed By: #### N UM #### [facility] ([id number]) [address] [place] [address] 36309 RBC COUNT 4.67 X10E12/L Normal 3.80-5.20 [facility] Comment on above: Performed By: #### N UM #### [facility] ([id number]) [address] [place] [address] 22651 WBC (Bld) [#/Vol] 5.6 10*3/uL Normal 4.0-11.0 [facility] Comment on above: Performed By: #### N UM #### [facility] ([id number]) [address] [place] [address] 73872 HCG ( test) Ql (U)o n 05-22-2024 Beta HCG ( test) Ql (U) Positive Abnormal NEG [facility] Comment on above: Performed By: #### N UM #### [facility] ([id number]) [address] [place] [address] 16794 HCG.beta subunit IA 3rd IS Q non 05-22-2024 [place] [address] m[IU]/mL Normal P [facility] Comment on above: Result Comment: NEW [...] neoplasms. Performed By: #### N UM #### [facility] ([id number]) [address] [place] [address] 18812 URN MACROSCOPIC NURon 2023 BILIRUBIN LUCIE Small Abnormal NEG [facility] Comment on above: Performed By: #### N UM #### [facility] ([id number]) [address] [place] [address] 43900 BLOOD/HGB LUCIE Trace Abnormal NEG [facility] Comment on above: Performed By: #### N UM #### [facility] ([id number]) [address] [place] [address] 14727 GLUCOSE LUCIE Negative Normal [facility] Comment on above: Performed By: #### N UM #### [facility] ([id number]) [address] [place] [address] 86934 KETONES LUCIE Trace Abnormal NEG [facility] Comment on above: Performed By: #### N UM #### [facility] ([id number]) [address] [place] [address] 48310 LEUKOCYTE ESTERASE LUCIE Small Abnormal NEG [facility] Comment on above: Performed By: #### N UM #### [facility] ([id number]) [address] [place] [address] 08922 NITRITE LUCIE Negative Normal [facility] Comment on above: Performed By: #### N UM #### [facility] ([id number]) [address] [place] [address] 06903 PH LUCIE 6.5 Normal 5.0-8.5 [facility] Comment on above: Performed By: #### N UM #### [facility] ([id number]) [address] [place] [address] 44283 PROTEIN LUCIE 100 mg/dL Abnormal NEG [facility] Comment on above: Performed By: #### N UM #### [facility] ([id number]) [address] [place] [address] 99665 SPECIFIC GRAVITY LUCIE >=1.030 Normal 1.003-1.035 [facility] Comment on above: Performed By: #### N UM #### [facility] ([id number]) [address] [place] [address] 89715 UROBILINOGEN LUCIE 1.0 eu/dL Normal <1.1 [facility] Comment on above: Performed By: #### N UM #### [facility] ([id number]) [address] [place] [address] 62292 RAPID STREP SCR NURSINGon S. pyogenes Ag EIA Ql (Throat) Positive Abnormal NEG [facility] Comment on above: Performed By: #### N UM #### [facility] ([id number]) [address] [place] [address] 31891 CBC AND AUTO DIFFon 02-29-20 ABSOLUTE BASOPHIL 0.0 X10E9/L Normal 0.0-0.2 [facility] Comment on above: Performed By: #### N UM #### [facility] ([id number]) [address] [place] [address] 59843 ABSOLUTE NEUTROPHIL 2.4 X10E9/L Normal 1.5-6.6 [facility] Comment on above: Performed By: #### N UM #### [facility] ([id number]) [address] [place] [address] 87769 Basophils/100 WBC (Bld) 0.8 % Normal [facility] Comment on above: Performed By: #### N UM #### [facility] ([id number]) [address] [place] [address] 18840 Eosinophils (Bld) [#/Vol] 0.2 10*3/uL Normal 0.0-0.4 [facility] Comment on above: Performed By: #### N UM #### [facility] ([id number]) [address] [place] [address] 97346 Eosinophils/100 WBC (Bld) 3.0 % Normal [facility] Comment on above: Performed By: #### N UM #### [facility] ([id number]) [address] [place] [address] 51419 Erythrocyte distribution width (RBC) [Ratio] 12.3 % Normal 11.5-15.0 [facility] Comment on above: Performed By: #### N UM #### [facility] ([id number]) [address] [place] [address] 46689 Hematocrit (Bld) [Volume fraction] 36.6 % Normal 35-47 [facility] Comment on above: Performed By: #### N UM #### [facility] ([id number]) [address] [place] [address] 34425 Hemoglobin (Bld) [Mass/Vol] 12.5 g/dL Normal 11.7-15.5 [facility] Comment on above: Performed By: #### N UM #### [facility] ([id number]) [address] [place] [address] 17737 Lymphocytes (Bld) [#/Vol] 2.3 10*3/uL Normal 1.0-3.5 [facility] Comment on above: Performed By: #### N UM #### [facility] ([id number]) [address] [place] [address] 17632 Lymphocytes/100 WBC (Bld) 43.8 % Normal [facility] Comment on above: Performed By: #### N UM #### [facility] ([id number]) [address] [place] [address] 82553 MCH (RBC) [Entitic mass] 29.5 pg Normal 27-34 [facility] Comment on above: Performed By: #### N UM #### [facility] ([id number]) [address] [place] [address] 93323 MCHC (RBC) [Mass/Vol] 34.1 g/dL Normal 32-36 [facility] Comment on above: Performed By: #### N UM #### [facility] ([id number]) [address] [place] [address] 14969 MCV (RBC) [Entitic vol] 86 fL Normal 80-100 [facility] Comment on above: Performed By: #### N UM #### [facility] ([id number]) [address] [place] [address] 30340 Monocytes (Bld) [#/Vol] 0.4 10*3/uL Normal 0-0.9 [facility] Comment on above: Performed By: #### N UM #### [facility] ([id number]) [address] [place] [address] 40739 Monocytes/100 WBC (Bld) 7.4 % Normal [facility] Comment on above: Performed By: #### N UM #### [facility] ([id number]) [address] [place] [address] 56950 Neutrophils/100 WBC (Bld) 45.0 % Normal [facility] Comment on above: Performed By: #### N UM #### [facility] ([id number]) [address] [place] [address] 68051 Platelet mean volume (Bld) [Entitic vol] 8.7 fL Normal 7-12 [facility] Comment on above: Performed By: #### N UM #### [facility] ([id number]) [address] [place] [address] 28952 Platelets (Bld) [#/Vol] 326 10*3/uL Normal 150-450 [facility] Comment on above: Performed By: #### N UM #### [facility] ([id number]) [address] [place] [address] 53201 RBC COUNT 4.23 X10E12/L Normal 3.80-5.20 [facility] Comment on above: Performed By: #### N UM #### [facility] ([id number]) [address] [place] [address] 62396 WBC (Bld) [#/Vol] 5.3 10*3/uL Normal 4.0-11.0 [facility] Comment on above: Performed By: #### N UM #### [facility] ([id number]) [address] [place] [address] 71911 BASIC METABOLIC PANLon 02-12 Anion gap [Moles/Vol] 8 mmol/L Normal 5-15 [facility] Comment on above: Performed By: #### B EDEL, , CBCA #### [facility] ([id number]) [address] [place] [address] 01002 Calcium [Mass/Vol] 9.1 mg/dL Normal 8.5-10.5 [facility] Comment on above: Performed By: #### B EDEL, , CBCA #### [facility] ([id number]) [address] [place] [address] 15461 Chloride [Moles/Vol] 103 mmol/L Normal 98-109 [facility] Comment on above: Performed By: #### B EDEL, , CBCA #### [facility] ([id number]) [address] [place] [address] 13036 CO2 [Moles/Vol] 22 mmol/L Normal 22-32 [facility] Comment on above: Performed By: #### B DEEL, , CBCA #### [facility] ([id number]) [address] [place] [address] 88644 Creatinine [Mass/Vol] 0.57 mg/dL Normal 0.40-1.00 [facility] Comment on above: Result Comment: METH OD TRACEABLE TO IDMS STANDARD Performed By: #### B EDEL, , CBCA #### [facility] ([id number]) [address] [place] [address] 59095 eGFR (CKD-EPI) NON-RACE DEPENDENT >90 Normal >59 [facility] Comment on above: Result Comment: Reported eGFR is based on the CKD-EPI 2020 equation that does not use a race coefficient. Performed By: #### B EDEL, , CBCA #### [facility] ([id number]) [address] [place] [address] 99014 Glucose [Mass/Vol] 93 mg/dL Normal 65-99 [facility] Comment on above: Performed By: #### B EDEL, , CBCA #### [facility] ([id number]) [address] [place] [address] 28401 Potassium [Moles/Vol] 3.6 mmol/L Normal 3.5-5.0 [facility] Comment on above: Performed By: #### B EDEL, , CBCA #### [facility] ([id number]) [address] [place] [address] 91525 Sodium [Moles/Vol] 133 mmol/L Low 134-146 [facility] Comment on above: Performed By: #### B EDEL, , CBCA #### [facility] ([id number]) [address] [place] [address] 13031 Urea nitrogen [Mass/Vol] 11 mg/dL Normal 5-23 [facility] Comment on above: Performed By: #### B EDEL, , CBCA #### [facility] ([id number]) [address] [place] [address] 23711 CBC AND AUTO DIFFon 02-12- 24 ABSOLUTE BASOPHIL 0.1 X10E9/L Normal 0.0-0.2 [facility] Comment on above: Performed By: #### B EDEL, , CBCA #### [facility] ([id number]) [address] [place] [address] 15789 ABSOLUTE NEUTROPHIL 5.3 X10E9/L Normal 1.5-6.6 [facility] Comment on above: Performed By: #### Ed HOLLINGSWORTH, , CBCA #### [facility] ([id number]) [address] [place] [address] 31439 Basophils/100 WBC (Bld) 0.9 % Normal [facility] Comment on above: Performed By: #### Ed HOLLINGSWORTH, , CBCA #### [facility] ([id number]) [address] [place] [address] [place] [address] DIFFERENTIAL COMMENT PLATELETS REVIEWED Normal [facility] Comment on above: Performed By: #### Ed HOLLINGSWORTH, , CBCA #### [facility] ([id number]) [address] [place] [address] 36831 Eosinophils (Bld) [#/Vol] 0.4 10*3/uL Normal 0.0-0.4 [facility] Comment on above: Performed By: #### B EDEL, , CBCA #### [facility] ([id number]) [address] [place] [address] 36590 Eosinophils/100 WBC (Bld) 4.0 % Normal [facility] Comment on above: Performed By: #### Ed HOLLINGSWORTH, , CBCA #### [facility] ([id number]) [address] [place] [address] 91157 Erythrocyte distribution width (RBC) [Ratio] 12.7 % Normal 11.5-15.0 [facility] Comment on above: Performed By: #### Ed HOLLINGSWORTH, , CBCA #### [facility] ([id number]) [address] [place] [address] 79861 Hematocrit (Bld) [Volume fraction] 34.3 % Low 35-47 [facility] Comment on above: Performed By: #### Ed HOLLINGSWORTH, , CBCA #### [facility] ([id number]) [address] [place] [address] 62451 Hemoglobin (Bld) [Mass/Vol] 12.2 g/dL Normal 11.7-15.5 [facility] Comment on above: Performed By: #### Ed HOLLINGSWORTH, , CBCA #### [facility] ([id number]) [address] [place] [address] 58917 Lymphocytes (Bld) [#/Vol] 2.7 10*3/uL Normal 1.0-3.5 [facility] Comment on above: Performed By: #### Ed HOLLINGSWORTH, , CBCA #### [facility] ([id number]) [address] [place] [address] 01825 Lymphocytes/100 WBC (Bld) 29.1 % Normal [facility] Comment on above: Performed By: #### Ed HOLLINGSWORTH, , CBCA #### [facility] ([id number]) [address] [place] [address] 64789 MCH (RBC) [Entitic mass] 30.1 pg Normal 27-34 [facility] Comment on above: Performed By: #### Ed HOLLINGSWORTH, , CBCA #### [facility] ([id number]) [address] [place] [address] 54095 MCHC (RBC) [Mass/Vol] 35.7 g/dL Normal 32-36 [facility] Comment on above: Performed By: #### Ed HOLLINGSWORTH, , CBCA #### [facility] ([id number]) [address] [place] [address] 01190 MCV (RBC) [Entitic vol] 84 fL Normal 80-100 [facility] Comment on above: Performed By: #### Ed HOLLINGSWORTH, , CBCA #### [facility] ([id number]) [address] [place] [address] 18206 Monocytes (Bld) [#/Vol] 0.9 10*3/uL Normal 0-0.9 [facility] Comment on above: Performed By: #### Ed HOLLINGSWORTH, , CBCA #### [facility] ([id number]) [address] [place] [address] 63592 Monocytes/100 WBC (Bld) 9.9 % Normal [facility] Comment on above: Performed By: #### Ed HOLLINGSWORTH, , CBCA #### [facility] ([id number]) [address] [place] [address] 92925 Neutrophils/100 WBC (Bld) 56.1 % Normal [facility] Comment on above: Performed By: #### Ed HOLLINGSWORTH, , CBCA #### [facility] ([id number]) [address] [place] [address] 94701 Platelet mean volume (Bld) [Entitic vol] 9.0 fL Normal 7-12 [facility] Comment on above: Performed By: #### B EDEL, , CBCA #### [facility] ([id number]) [address] [place] [address] 00045 Platelets (Bld) [#/Vol] 203 10*3/uL Normal 150-450 [facility] Comment on above: Performed By: #### B EDEL, , CBCA #### [facility] ([id number]) [address] [place] [address] 60140 RBC COUNT 4.07 X10E12/L Normal 3.80-5.20 [facility] Comment on above: Performed By: #### B EDEL, , CBCA #### [facility] ([id number]) [address] [place] [address] 32002 WBC (Bld) [#/Vol] 9.4 10*3/uL Normal 4.0-11.0 [facility] Comment on above: Performed By: #### B EDEL, , CBCA #### [facility] ([id number]) [address] [place] [address] 43671 HCG.beta subunit IA 3rd IS Q non 02-13-2024 [place] [address] m[IU]/mL Normal P [facility] Comment on above: Result Comment: NEW [...] nontrophoblastic neoplasms. Performed By: #### [place], [address]-3, CBCA #### [facility] ([id number]) [address] [place] [address] 87210 URN MACROSCOPIC NURon 2023 BILIRUBIN LUCIE Negative Normal NEG [facility] Comment on above: Performed By: #### N UM #### [facility] ([id number]) [address] [place] [address] 61989 BLOOD/HGB LUCIE Large Abnormal NEG [facility] Comment on above: Performed By: #### N UM #### [facility] ([id number]) [address] [place] [address] 32407 GLUCOSE LUCIE Negative Normal NEG [facility] Comment on above: Performed By: #### N UM #### [facility] ([id number]) [address] [place] [address] 48558 KETONES LUCIE Negative Normal NEG [facility] Comment on above: Performed By: #### N UM #### [facility] ([id number]) [address] [place] [address] 41843 LEUKOCYTE ESTERASE LUCIE Negative Normal NEG [facility] Comment on above: Performed By: #### N UM #### [facility] ([id number]) [address] [place] [address] 57472 NITRITE LUCIE Negative Normal NEG [facility] Comment on above: Performed By: #### N UM #### [facility] ([id number]) [address] [place] [address] 80263 PH LUCIE 6.5 Normal 5.0-8.5 [facility] Comment on above: Performed By: #### N UM #### [facility] ([id number]) [address] [place] [address] 32016 PROTEIN LUCIE Trace Abnormal NEG [facility] Comment on above: Performed By: #### N UM #### [facility] ([id number]) [address] [place] [address] 88139 SPECIFIC GRAVITY LUCIE 1.015 Normal 1.003-1.035 [facility] Comment on above: Performed By: #### N UM #### [facility] ([id number]) [address] [place] [address] 63779 UROBILINOGEN LUCIE 0.2 eu/dL Normal <1.1 [facility] Comment on above: Performed By: #### N UM #### [facility] ([id number]) [address] [place] [address] 51477 HCG ( test) Ql (U)o n 02-12-2024 Beta HCG ( test) Ql (U) Positive Abnormal NEG [facility] Comment on above: Performed By: #### 2 106-3 #### [facility] ([id number]) [address] [place] [address] 58204 HCG.beta subunit IA 3rd IS Q non 02-12-2024 [place] [address] m[IU]/mL Normal P [facility] Comment on above: Result Comment: NEW [...] Performed By: #### 4 544-3, 718-7, #### [facility] ([id number]) [address] [place] [address] 69151 HEMOGLOBINon 02-12-2024 Hemoglobin (Bld) [Mass/Vol] 12.7 g/dL Normal 11.7-15.5 [facility] Comment on above: Performed By: #### 4 544-3, 7187, #### [facility] ([id number]) [address] [place] [address] 07591 Hematocrit Auto (Bld) [Volum e fraction]on 02-12-2024 Hematocrit (Bld) [Volume fraction] 35.4 % Normal 35-47 [facility] Comment on above: Performed By: #### 4 544-3, 7187, #### [facility] ([id number]) [address] [place] [address] 77541 URN MACROSCOPIC NURon 2023 BILIRUBIN LUCIE Negative Normal NEG [facility] Comment on above: Performed By: #### N UM #### [facility] ([id number]) [address] [place] [address] 51078 BLOOD/HGB LUCIE MODERATE Abnormal NEG [facility] Comment on above: Performed By: #### N UM #### [facility] ([id number]) [address] [place] [address] 87430 GLUCOSE LUCIE Negative Normal NEG [facility] Comment on above: Performed By: #### N UM #### [facility] ([id number]) [address] [place] [address] 05444 KETONES LUCIE 15 mg/dL Abnormal NEG [facility] Comment on above: Performed By: #### N UM #### [facility] ([id number]) [address] [place] [address] 82439 LEUKOCYTE ESTERASE LUCIE Trace Abnormal NEG [facility] Comment on above: Performed By: #### N UM #### [facility] ([id number]) [address] [place] [address] 73305 NITRITE LUCIE Negative Normal NEG [facility] Comment on above: Performed By: #### N UM #### [facility] ([id number]) [address] [place] [address] 68900 PH LUCIE 6.5 Normal 5.0-8.5 [facility] Comment on above: Performed By: #### N UM #### [facility] ([id number]) [address] [place] [address] 43805 PROTEIN LUCIE Negative Normal NEG [facility] Comment on above: Performed By: #### N UM #### [facility] ([id number]) [address] [place] [address] 33718 SPECIFIC GRAVITY LUCIE >=1.030 Normal 1.003-1.035 [facility] Comment on above: Performed By: #### N UM #### [facility] ([id number]) [address] [place] [address] 48771 UROBILINOGEN LUCIE 1.0 eu/dL Normal <1.1 [facility] Comment on above: Performed By: #### N UM #### [facility] ([id number]) [address] [place] [address] 80505 [place] PREG LESS THAN 14 WKS WIT [...] cardiac activity with heart rate 100 bpm. Doctor Phillips-rump length 6 mm corresponding to gestational age [...] lead ECGon 11-25-2023 ECG 12 lead ECG [place] [address] Electrocardiograph Report Signed Patient: Sharona Marks MR#: [id number] : 2005 Acct:[id number] Age/Sex: 17 / F ADM Date: 11/24/23 Loc: Room: [address] [place] [address] Type: ADM IN Attending Dr: Ignacio Acuña [...] change was found Confirmed by Chapito Corbin ([id number]) on 11/25/2023 7:52:58 PM Referred By: Electronically Signed By:Chapito Corbin Transcribed By: MUS Signed By Chapito Corbin MD 11/25/231952 Normal [facility] Lipid Panelon 11-25-2023 Cholesterol [Mass/Vol] 121 mg/dL Low 140-200 [facility] Comment on above: Result Comment: Chol less than 200 mg/dl low risk Chol 201-239 mg/dl borderline risk Chol 240 mg/dl and greater high risk Performed By: #### L IPID, [id number], TSH3 wRFLX #### [facility] [address] [place] [address] Cholesterol in HDL [Mass/Vol] 57 mg/dL Normal 23-92 [facility] Comment on above: Result Comment: HDL CHOL ATP-III CLASSIFICATION Cardiovascular Risk HDL > or equal to 60 mg/dL LOW HDL < 40 mg/dL HIGH Performed By: #### L IPID, [id number], TSH3 wRFLX #### [facility] [address] [place] [address] [facility] Cholesterol.total/Ch olesterol in HDL [Mass ratio] 2.1 {ratio} Normal <5.0 [facility] Comment on above: Performed By: #### L IPID, [id number], TSH3 wRFLX #### [facility] [address] [place] [address] [facility] LDL Cholesterol,Calculat ed 55 mg/dL Normal 0-100 [facility] Comment on above: Result Comment: LDL ATP III CLASSIFICATION LDL less than 100 mg/dL Optimal LDL 100-129 mg/dL Near or above optimal LDL 130-159 mg/dL Borderline high LDL 160-189 mg/dL High LDL greater than 189 mg/dL Very high Performed By: #### L IPID, [id number], TSH3 wRFLX #### [address] Triglyceride w/Reflex 44 mg/dL Normal 0-149 [facility] Comment on above: Result Comment: TRIG ATP III CLASSIFICATION TRIG less than 150 mg/dL Normal TRIG 150-199 mg/dL Borderline high TRIG 200-500 mg/dL High TRIG greater than 500 mg/dL Very high Standard traceable to the Center for Disease Conrtrol and Prevention (CDC) test method. Performed By: #### L IPID, [id number], TSH3 wRFLX #### [address] VLDL CHOLESTEROL 8 mg/dL Normal [facility] Comment on above: Performed By: #### L IPID, [id number], TSH3 wRFLX #### [address] Thyroid Stim Hormone w/Rflxo n 11-25-2023 Thyroid Stim Hormone w/Rflx 3.18 u[iU]/mL Normal 0.45-5.33 [facility] Comment on above: Performed By: #### L IPID, [id number], TSH3 wRFLX #### [address] Vitamin D 25 Hydroxy Totalon 11-25-2023 Vitamin D 25 Hydroxy Total 14.7 ng/mL Low 30-100 [facility] Comment on above: Result Comment: DARYA MIN D STATUS 25(OH)VITAMIN D RANGE (ng/mL) Deficient <20 Insufficient 20 to <30 Sufficient 30 to 100 Reference: Angel MF,Yovany NC, Bee WILEY, et al. Evaluation,treatment, and prevention of vitamin D deficiency; an Endocrine Society clinical practice guideline. JCEM. 2010; 96(7):1911-30. PERFORMED BY: [place] [address] PATHOLOGIST COMPOSITION BOARD PRESS OPERATOR TIFFANIE HIGH M.D. Performed By: #### L IPID, [id number], TSH3 wRFLX #### [address] Complete Blood Count Auto Di ffon 11-24-2023 Basophils (Bld) [#/Vol] 0.0 10*3/uL Normal 0.0-0.1 [facility] Comment on above: Result Comment: PERF ORMED BY: [place] [address] PATHOLOGIST COMPOSITION BOARD PRESS OPERATOR TIFFANIE HIGH M.D. Performed By: #### C MP, ETOH, CBC #### [address] Basophils/100 WBC (Bld) 0.5 % Normal . [facility] Comment on above: Performed By: #### C MP, ETOH, CBC #### [address] Eosinophils (Bld) [#/Vol] 0.1 10*3/uL Normal 0.0-0.7 [facility] Comment on above: Performed By: #### C MP, ETOH, CBC #### [address] Eosinophils/100 WBC (Bld) 1.0 % Normal . [facility] Comment on above: Performed By: #### C MP, ETOH, CBC #### [address] Erythrocyte distribution width (RBC) [Ratio] 13.2 % Normal 11.9-15.3 [facility] Comment on above: Performed By: #### C MP, ETOH, CBC #### [address] Hematocrit (Bld) [Volume fraction] 41.6 % Normal 36.0-46.0 [facility] Comment on above: Performed By: #### C MP, ETOH, CBC #### [address] Hemoglobin (Bld) [Mass/Vol] 14.3 g/dL Normal 12.0-16.0 [facility] Comment on above: Performed By: #### C MP, ETOH, CBC #### [place] [address] [place] Lymphocytes (Bld) [#/Vol] 3.5 10*3/uL Normal 1.20-4.8 [facility] Comment on above: Performed By: #### C MP, ETOH, CBC #### [address] Lymphocytes/100 WBC (Bld) 39.9 % Normal . [facility] Comment on above: Performed By: #### C MP, ETOH, CBC #### [address] MCH (RBC) [Entitic mass] 29.3 pg Normal 25.0-35.0 [facility] Comment on above: Performed By: #### C MP, ETOH, CBC #### [address] MCV (RBC) [Entitic vol] 84.8 fL Normal 78-102 [facility] Comment on above: Performed By: #### C MP, ETOH, CBC #### [address] Mean Corpuscular HGB Conc 34.5 g/dL Normal 31.0-37.0 [facility] Comment on above: Performed By: #### C MP, ETOH, CBC #### [address] Monocytes (Bld) [#/Vol] 0.6 10*3/uL Normal 0.1-1.00 [facility] Comment on above: Performed By: #### C MP, ETOH, CBC #### [address] Monocytes/100 WBC (Bld) 17.05 % Normal 0.00-20.00 [facility] Comment on above: Performed By: #### C MP, ETOH, CBC #### [address] Monocytes/100 WBC (Bld) 7.1 % Normal . [facility] Comment on above: Performed By: #### C MP, ETOH, CBC #### [place] [address] [place] Neutrophils (Bld) [#/Vol] 4.5 10*3/uL Normal 1.2-7.7 [facility] Comment on above: Performed By: #### C MP, ETOH, CBC #### [address] Neutrophils/100 WBC (Bld) 51.5 % Normal . [facility] Comment on above: Performed By: #### C MP, ETOH, CBC #### [address] NRBC% 0.1 /100{WBC} Normal 0-0.5 [facility] Comment on above: Performed By: #### C MP, ETOH, CBC #### [address] Platelet mean volume (Bld) [Entitic vol] 7.7 fL Normal 6.3-10.7 [facility] Comment on above: Performed By: #### C MP, ETOH, CBC #### [address] Platelets (Bld) [#/Vol] 319 10*3/uL Normal 150-450 [facility] Comment on above: Performed By: #### C MP, ETOH, CBC #### [address] RBC (Bld) [#/Vol] 4.90 10*6/uL Normal 4.10-5.10 [facility] Comment on above: Performed By: #### C MP, ETOH, CBC #### [address] WBC (Bld) [#/Vol] 8.7 10*3/uL Normal 4.5-13.5 [facility] Comment on above: Performed By: #### C MP, ETOH, CBC #### [address] Comprehensive Metabolic Pane david 11-24-2023 Albumin [Mass/Vol] 5.1 g/dL Normal 3.5-5.7 [facility] Comment on above: Performed By: #### C MP, ETOH, CBC #### [place] [address] [place] Albumin/Globulin [Mass ratio] 1.6 {ratio} Normal [facility] Comment on above: Performed By: #### C MP, ETOH, CBC #### [facility] [address] ALP [Catalytic activity/Vol] 67 U/L Normal 34-104 [facility] Comment on above: Performed By: #### C MP, ETOH, CBC #### [address] ALT [Catalytic activity/Vol] 10 U/L Normal 7-52 [facility] Comment on above: Performed By: #### C MP, ETOH, CBC #### [address] Anion gap [Moles/Vol] 10.9 mmol/L Normal 6.0-15.0 [facility] Comment on above: Performed By: #### C MP, ETOH, CBC #### [place] [address] [place] AST [Catalytic activity/Vol] 15 U/L Normal 13-39 [facility] Comment on above: Performed By: #### C MP, ETOH, CBC #### [address] Bilirubin [Mass/Vol] 0.4 mg/dL Normal 0.3-1.0 [facility] Comment on above: Performed By: #### C MP, ETOH, CBC #### [place] [address] [place] Calcium [Mass/Vol] 9.5 mg/dL Normal 8.6-10.3 [facility] Comment on above: Performed By: #### C MP, ETOH, CBC #### [place] [address] [place] Chloride [Moles/Vol] 106 mmol/L Normal 98-107 [facility] Comment on above: Performed By: #### C MP, ETOH, CBC #### [address] CO2 [Moles/Vol] 24.9 mmol/L Normal 21.0-31.0 [facility] Comment on above: Performed By: #### C MP, ETOH, CBC #### [address] Creatinine [Mass/Vol] 0.71 mg/dL Normal 0.60-1.20 [facility] Comment on above: Performed By: #### C MP, ETOH, CBC #### [place] [address] [place] Creatinine Clr Calc Pharmacy 124.96 Normal [facility] Comment on above: Result Comment: PERF ORMED BY: [place] [address] PATHOLOGIST COMPOSITION BOARD PRESS OPERATOR TIFFANIE HIGH M.D. Performed By: #### C MP, ETOH, CBC #### [address] GFR/1.73 sq M.predicted MDRD (S/P/Bld) [Vol rate/Area] mL/min/{1.73_m2} Normal [facility] Comment on above: Performed By: #### C MP, ETOH, CBC #### [address] Globulin (S) [Mass/Vol] 3.1 g/dL Normal [facility] Comment on above: Performed By: #### C MP, ETOH, CBC #### [address] Glucose [Mass/Vol] 86 mg/dL Normal 70-100 [facility] Comment on above: Result Comment: [place] Glucose Reference Range is dependent on time and content of last meal. Glucose of more than 200 mg/dL in a nonstressed, ambulatory subject supports the diagnosis of Diabetes Mellitus. ADA recommended reference range Performed By: #### C MP, ETOH, CBC #### [address] Potassium [Moles/Vol] 3.8 mmol/L Normal 3.5-5.1 [facility] Comment on above: Performed By: #### C MP, ETOH, CBC #### [address] Protein [Mass/Vol] 8.2 g/dL Normal 6.4-8.9 [facility] Comment on above: Performed By: #### C MP, ETOH, CBC #### [address] Sodium [Moles/Vol] 138 mmol/L Normal 136-145 [facility] Comment on above: Performed By: #### C MP, ETOH, CBC #### [address] Urea nitrogen [Mass/Vol] 9 mg/dL Normal 7-25 [facility] Comment on above: Performed By: #### C MP, ETOH, CBC #### [address] Drug Screen,Urineon 11-24-19 24 Amphetamine Screen,Urine Negative Normal Negative [facility] Comment on above: Performed By: #### U HCG, UA, URDS #### [address] Barbiturate Screen,Urine Negative Normal Negative [facility] Comment on above: Performed By: #### U HCG, UA, URDS #### [place] [address] [place] Benzodiazepines Screen,Urine Negative Normal Negative [facility] Comment on above: Performed By: #### U HCG, UA, URDS #### [address] Cannabinoid Screen,Urine Positive High Negative [facility] Comment on above: Result Comment: Thes e are unconfirmed results and should not be used for legal purposes. Drug Cut-Off Concentration: AMPH 1000 ng/mL LUCIA 200 ng/mL BROOKE 200 ng/mL COCM 300 ng/mL OP 300 ng/mL PCP 25 ng/mL THC 20 ng/mL PERFORMED BY: [place] [address] PATHOLOGIST COMPOSITION BOARD PRESS OPERATOR TIFFANIE HIGH M.D. Performed By: #### U HCG, UA, URDS #### [address] Cocaine Screen,Urine Negative Normal Negative [facility] Comment on above: Performed By: #### U HCG, UA, URDS #### [facility] [address] Opiate Screen,Urine Negative Normal Negative [facility] Comment on above: Performed By: #### U HCG, UA, URDS #### [address] Phencyclidine Screen,Urine Negative Normal Negative [facility] Comment on above: Performed By: #### U HCG, UA, URDS #### [address] Ethyl Alcohol Profileon Ethanol [Mass/Vol] mg/dL Normal [facility] Comment on above: Performed By: #### C MP, ETOH, CBC #### [address] Percent Ethanol Not performed Normal [facility] Comment on above: Result Comment: PERF ORMED BY: [place] [address] PATHOLOGIST COMPOSITION BOARD PRESS OPERATOR TIFFANIE HIGH M.D. Performed By: #### C MP, ETOH, CBC #### [address] HCG,Urineon 11-24-2023 Beta HCG ( test) Ql (U) Negative Normal [facility] Comment on above: Order Comment: Name Collection Type:: Clean-Voided Midstream Result Comment: PERF ORMED BY: [place] [address] PATHOLOGIST COMPOSITION BOARD PRESS OPERATOR TIFFANIE HIGH M.D. Performed By: #### U HCG, UA, URDS #### [address] Urinalysison 11-24-2023 Appearance (U) Clear Normal Clear [facility] Comment on above: Order Comment: Name Collection Type:: Clean-Voided Midstream Performed By: #### U HCG, UA, URDS #### [facility] [address] [place] [address] [place] Bilirubin,Urine Negative Normal Negative [facility] Comment on above: Order Comment: Name Collection Type:: Clean-Voided Midstream Performed By: #### U HCG, UA, URDS #### [place] [address] [place] Color (U) Yellow Normal Yellow [facility] Comment on above: Order Comment: Name Collection Type:: Clean-Voided Midstream Performed By: #### U HCG, UA, URDS #### [address] Glucose Ql (U) Normal Normal Normal [facility] Comment on above: Order Comment: Name Collection Type:: Clean-Voided Midstream Performed By: #### U HCG, UA, URDS #### [place] [address] [place] Ketones Ql (U) Negative Normal Negative [facility] Comment on above: Order Comment: Name Collection Type:: Clean-Voided Midstream Performed By: #### U HCG, UA, URDS #### [place] [address] [place] Leukocyte esterase Test strip Ql (U) Negative Normal Negative [facility] Comment on above: Order Comment: Name Collection Type:: Clean-Voided Midstream Performed By: #### U HCG, UA, URDS #### [place] [address] [place] Nitrite,Urine Negative Normal Negative [facility] Comment on above: Order Comment: Name Collection Type:: Clean-Voided Midstream Performed By: #### U HCG, UA, URDS #### [place] [id number] [place] Occult Blood,Urine Negative Normal Negative [facility] Comment on above: Order Comment: Name Collection Type:: Clean-Voided Midstream Performed By: #### U HCG, UA, URDS #### [facility] [address] pH (U) 6.5 [pH] Normal 5.0-9.0 [facility] Comment on above: Order Comment: Name Collection Type:: Clean-Voided Midstream Performed By: #### U HCG, UA, URDS #### [facility] [address] Protein,Urine Negative Normal Negative [facility] Comment on above: Order Comment: Name Collection Type:: Clean-Voided Midstream Performed By: #### U HCG, UA, URDS #### [address] Specificy [place],Urine 1.020 Normal 1.001-1.030 [facility] Comment on above: Order Comment: Name Collection Type:: Clean-Voided Midstream Performed By: #### U HCG, UA, URDS #### [address] Urobilinogen,Urine Normal Normal Normal [facility] Comment on above: Order Comment: Name Collection Type:: Clean-Voided Midstream Performed By: #### U HCG, UA, URDS #### [address] Lipid 1996 panelon 4 Cholesterol [Mass/Vol] 143 mg/dL Low 150-200 [facility] Comment on above: Performed By: #### 2 4331-1 #### [facility] ([id number]) [address] [place] [address], [address] [place] [address] Cholesterol in HDL [Mass/Vol] 67 mg/dL Normal >39 [facility] Comment on above: Result Comment: HDL <40 mg/dL - High Risk HDL > or = 40mg/dL- Desirable HDL >60 mg/dL - Negative Risk Performed By: #### 2 4331-1 #### [facility] ([id number]) [address], [address] [place] [address] Cholesterol in LDL [Mass/Vol] 65 mg/dL Normal <130 [facility] Comment on above: Result Comment: LDL <100 mg/dL - Desirable LDL >160 mg/dL - High Risk Performed By: #### 2 4331-1 #### [facility] ([id number]) [address], [facility] [address] [place] [address] Cholesterol in VLDL [Mass/Vol] 11 mg/dL Normal 0-30 [facility] Comment on above: Performed By: #### 2 4331-1 #### [facility] ([id number]) [address], [address] [place] [address] CHOLESTEROL:HDL 2.1 Normal 1.0-5.0 [facility] Comment on above: Performed By: #### 2 4331-1 #### [facility] ([id number]) [address], [address] [place] [address] Triglyceride [Mass/Vol] 53 mg/dL Normal 27-150 [facility] Comment on above: Performed By: #### 2 4331-1 #### [facility] ([id number]) [address], [address] [place] [address] Vital Signs Date Time Vital Sign Value Performing Clinician Salazar gonzalez 07-05-2024 14:35-0400 Body mass index (BMI) [Ratio] 24.18 kg/m2 [employer] Work Phone: [facility] 07-05-2024 14:35-0400 Body weight 70.03 kg [employer] Work Phone: [facility] 07-05-2024 14:35-0400 Diastolic blood pressure 68 mm[Hg] Rohan Deon DO Work Phone: [facility] 07-05-2024 14:35-0400 Systolic blood pressure 116 mm[Hg] Rohan Deon DO Work Phone: [facility] Healthcare Encounters Encounter Date Encounter Type Care Provider Facility Start: 07-05-2024 End: 07-05-2024 Bamboo flowsheet Rohan Deon DO Work Phone: [facility] Start: 07-05-2024 End: 07-05-2024 Bamboo flowsheet Rohan Deon DO Work Phone: [facility] Start: 07-05-2024 End: 07-05-2024 ambulatory ROHAN DEON Not Available Start: 07-05-2024 End: 07-05-2024 Office outpatient visit 15 minutes Rohan Deon DO Work Phone: [facility] Comment on above: Second trimester pre gnancy; Vaginal discharge; STD exposure; Screening, , for anatomic survey; Major depressive disorder in partial remission, unspecified whether recurrent (HCC) ([facility]/HCC) Start: 06-10-2024 End: 06-10-2024 ambulatory ROHAN DEON Not Available Start: 05-22-2024 End: 05-22-2024 Emergency department patient visit [facility] Start: 05-11-2024 End: 05-11-2024 Emergency department patient visit [facility] Start: 02-29-2024 End: 02-29-2024 ambulatory [facility] Start: 02-22-2024 End: 02-22-2024 ambulatory ROHAN DEON Not Available Start: 02-18-2024 End: 02-18-2024 ambulatory ROHAN DEON Not Available Start: 02-12-2024 End: 02-13-2024 Emergency department patient visit [facility] Start: 02-12-2024 End: 02-13-2024 Emergency department patient visit KB WRIGHT [facility] Start: 02-12-2024 End: 02-12-2024 Emergency department patient visit ARUN MEREDITH [facility] Start: 11-24-2023 End: 11-26-2023 Evaluation and management of inpatient Ignacio Acuña Facility:[facility] Start: 11-24-2023 ambulatory Ollie Courtney acility:[facility] Start: 11-11-2023 End: 11-11-2023 ambulatory LONNY MACEDO [facility] Start: 10-27-2022 End: 10-27-[address] RAJ KELLY Facility:[facility] Procedures Date Procedure Procedure Detail Performing Clinician Start: 07-05-2024 Urnls dip stick/tabl et rgnt non-auto w/o micrscp Rohan Chavarria DO Work Phone: Plan of Treatment Date Care Activity Detail Author Start: 08-03-2024 End: 08-03-2024 Patient encounter procedure 08/03/2024 2:40 PM EST Routine [facility] [address] [place] [id number] Rohan Chavarria, DO [address], [place] [id number] [facility] Start: 07-18-2024 End: 07-18-2024 Professional / ancillary services management 07/18/2024 2:00 PM EDT Ancillary Procedure [facility] [address] [place] [id number] [facility] Start: 07-05-2024 End: 07-05-2025 US for US OB ANATOMY SINGLE W US OB CERVICAL LENGTH Imaging Routine Screening, , for anatomic survey Expected: 07/05/2024 (Approximate), Expires: 07/05/2025 [facility] Work Phone: Comment on above: Expected: 07/05/2024 (Approximate), Expires: 07/05/2025 Start: 05-22-2024 Influenza vaccination Influenz a Vaccine (#1) [facility] Payers Date Payer Category Payer Medicaid [place] [id number] 2024 Medicaid [id number] 2023 Self-pay 2022 Unknown [id number] 2004 Unknown [id number] 2004 Unknown [id number] 2.16.840.1.248746.3.579.2.1285 2004 Unknown [id number] 2.16.840.1.239398.3.579.2.1285 2004 Unknown [id number] 2.16.840.1.873975.3.579.2.1285 2004 Unknown [id number] 2.16.840.1.604134.3.579.2.1285 2004 Unknown [id number] 2.16.840.1.951859.3.579.2.1285 2004 Unknown [id number] 2.16.840.1.848681.3.579.2.9 2004 Unknown [id number] 2.16.840.1.901288.3.579.2.9 2004 Unknown [id number] 2.16.840.1.024203.3.579.2.9 2004 Unknown [id number] 2.16.840.1.272208.3.579.2.1259 1972 Unknown [id number] 2.16.840.1.399327.3.579.2.593 1959 Unknown [id number] Unknown [id number] 2.16.840.1.609462.3.579.2.531 Unknown [id number] 2.16.840.1.551354.3.579.2.531 Social History Date Type Detail Facility Tobacco smoking stat [facility] Tobacco smoking consumption unknown [facility] Start: 06-10-2024 Alcoholic beverage intake Ex-drinker (finding) [facility] Start: 02-18-2024 Alcohol Comment maybe once gabrielle ry couple of months [facility] Start: 03-09-2024 [facility] Start: 2004 Sex assigned at Not on file [facility] Start: 07-05-2024 Gender identity Not on file [facility] Start: 07-05-2024 History of Social function [facility] Goals Date Patient Goal Desired Activity /State Personal health goal History of Present illness Narrative 07-05-2024 Hemalatha Zaldivar LPN - 07/05/2024 1:40 PM EDT Note Date & Type Note Facility 07-05-2024 History of Presen t illness Narrative Reason for Appointment: Patient ID: Sharona Marks is a 18 y.o. female who presents for Routine Visit and STI Screening Patient presents today for Return OB appointment. MEDICATIONS Current Outpatient Medications Medication Instructions ondansetron ODT (ZOFRAN-ODT) 4 mg, Oral, Every 6 hours PRN MV-Min-Fe Fum-FA-DHA ( 1 PO) Oral ALLERGIES No Known Allergies PROBLEMS Active Ambulatory Problems Diagnosis Date Noted No Active Ambulatory Problems Resolved Ambulatory Problems Diagnosis Date Noted No Resolved Ambulatory Problems Past Medical History: Diagnosis Date Subchorionic hematoma HISTORY PAST MEDICAL HISTORY SOCIAL HISTORY Past Medical History: Diagnosis Date Subchorionic hematoma Social History Tobacco Use Smoking status: Not on file Smokeless tobacco: Not on file Substance Use Topics Alcohol use: Not Currently Comment: maybe once every couple of months Drug use: Not Currently Types: Marijuana Comment: have not used marijuana since september FAMILY HISTORY Family History Problem Relation Name Age of Onset Cervical cancer Mother SURGICAL HISTORY No past surgical history on file. REVIEW OF SYSTEMS Review of Systems: Review of Systems Constitutional: Negative. HENT: Negative. Eyes: Negative. Respiratory: Negative. Cardiovascular: Negative. Gastrointestinal: Negative. Genitourinary: Negative. Musculoskeletal: Negative. Skin: Negative. Neurological: Negative. All other systems reviewed and are negative. Hematological: Negative. Endocrine: Negative. Allergic/Immunologic: Negative. OBJECTIVE Objective: Physical Exam Constitutional: Appearance: Normal appearance. She is well-developed. Cardiovascular: Rate and Rhythm: Normal rate and regular rhythm. Pulmonary: Effort: Pulmonary effort is normal. Breath sounds: Normal breath sounds. Abdominal: General: Bowel sounds are normal. There is no distension. Palpations: Abdomen is soft. Tenderness: There is no abdominal tenderness. There is no guarding or rebound. Musculoskeletal: General: No swelling. Normal range of motion. Right lower leg: No edema. Left lower leg: No edema. Neurological: Mental Status: She is alert and oriented to person, place, and time. Skin: General: Skin is warm and dry. Psychiatric: Mood and Affect: Mood normal. Behavior: Behavior normal. Vitals and nursing note reviewed. Exam conducted with a remedial project manager present. Vitals: Estimated body mass index is 24.18 kg/m as calculated from the following: Height as of 02/18/24: 5' 7 . Weight as of this encounter: 154 lb 6.4 oz. BP: 116/68 Patient's last menstrual period was 12/27/2023. ASSESSMENT & PLAN ICD-10-CM 1. Second trimester Z34.92 POCT urinalysis dipstick manually resulted 2. Vaginal discharge N89.8 3. STD exposure Z20.2 4. Screening, , for anatomic survey Z36.89 US OB ANATOMY SINGLE W US OB CERVICAL LENGTH Patient presents today for a routine obstetrics appointment. Patient is currently 18w6d with a Estimated Date of Delivery: 11/30/24. Pt has been off her psych meds since she found out she was , pt states depression is her biggest complaint -denies suicidal and homicidal ideations. Rx for celexa faxed to pharmacy. Documented by Hemalatha Zaldivar LPN on behalf of: Rohan Cahvarria DO documented in this encounter [facility] Evaluation note Note Date & Type Note Facility Evaluation note Diagnosis Second trimester state, incidental Vaginal discharge Leukorrhea, not specified as infective STD exposure Screening, , for anatomic survey Encounter for anatomic survey Major depressive disorder in partial remission, unspecified whether recurrent (HCC) (CMS/HCC) documented in this encounter [facility] Summary Purpose Family History No Family History Records FoundNo Family History Records FoundNo Family History Records FoundNo Family History Records Found Advance Directives No Advanced Directives Records FoundNo Advanced Directives Records FoundNo Advanced Directives Records FoundNo Advanced Directives Records Found Additional Source Comments INFORMATION SOURCE (unrecogn ized section and content) DATE CREATED AUTHOR 10/28/2022 [facility] DATE CREATED AUTHOR AUTHOR'S ORGANIZ ATION 05/22/2024 [facility] DATE CREATED AUTHOR AUTHOR'S ORGANIZ ATION 06/03/2024 [facility] DATE CREATED AUTHOR AUTHOR'S ORGANIZ ATION 07/07/2024 [facility] EP[employer] Care Teams (unrecognized sec tion and content) [employer] Relationship Specialty Start Date End Date Arun Meredith MD [address] [place] [address], [address] [place] [address] PCP - General Family Medicine 01/22/24 [employer] Relationship Specialty Start Date End Date Arun Meredith MD [address] [place] [address], [address] [place] [address] PCP - General Family Medicine 01/22/24 Reason for Visit (unrecogniz ed section and content) Reason Comments Routine Visit STI Screening FOR RECORDS PERTAINING TO PATIENTS WHO ARE [...] BE BASED ON THE PRIMARY CLINICAL RECORDS. [employer] provides no warranty or guarantee of the accuracy or completeness of information in this document.
== END 2024-07-18 14:02 | disposition home or self-care (01) ==
LOC: NOMS 14:01
PROVIDERS: PCP Internal Medicine; Visit Provider Obstetrics & Gynecology
DX: Z36.89 Encounter for other specified antenatal screening (principal); Z3A.20 20 weeks gestation of pregnancy
CPT/HCPCS: 76805; 76817

== ENCOUNTER 2024-07-23 23:13 | Emergency (ER) | payer MEDICAID, SELFPAY ==
[2024-07-23 23:16] VITALS: BP 114/62; PULSE 90; TEMP 36.7; O2SAT 98; BMI 23.6
--- OUTSIDE RECORDS SUMMARY | 2024-07-23 23:21 | XMS_ITS | CCD ---
Author Organization [facility] CliniSyfl Care Team Providers Care Perl Programmer Name Role Phone PAY, DR ANTHONY Admitting [...] 02-12-2024 Episodic Other aftercare (1 source) Other terminologist (current) drug therapy; Translations: [Other terminologist (current) drug therapy] Onset: 11-11-2023 Episodic Other [...] UA Negative Negative - 4(70) +++ mg/dL [facility] Blood, UA Negative Negative - 50 Mendez/mcL [facility] Clarity, UA Clear [facility] Color, UA Yellow [facility] Glucose, UA Negative Negative - 2000(110) ++++ mg/dL [facility] Interpretation and review of laboratory results Abnormal [facility] Ketones, UA Positive Negative - 160(16) ++++ mg/dL [facility] Leukocytes, UA Positive Negative - 500+++ Bhavani/mcL [facility] Nitrite, UA Negative Negative - Positive [facility] pH, UA 5.5 5 - 9 [facility] Protein, UA Positive Negative - 2000(20) ++++ mg/dL [facility] Spec Grav, UA 1.03 1 - 1.03 [facility] Urobilinogen, UA 1.0 0.2 - 12 mg/dL [facility] BASIC METABOLIC PANLon 05-22 Anion gap [Moles/Vol] 6 mmol/L Normal 5-15 [facility] Comment on above: Performed By: #### N UM #### [facility] ([id number]) [address] [place] [address] 45886 Calcium [Mass/Vol] 8.7 mg/dL Normal 8.5-10.5 [facility] Comment on above: Performed By: #### N UM #### [facility] ([id number]) [address] [place] [address] 93865 Chloride [Moles/Vol] 104 mmol/L Normal 98-109 [facility] Comment on above: Performed By: #### N UM #### [facility] ([id number]) [address] [place] [address] 99393 CO2 [Moles/Vol] 22 mmol/L Normal 22-32 [facility] Comment on above: Performed By: #### N UM #### [facility] ([id number]) [address] [place] [address] 97227 Creatinine [Mass/Vol] 0.51 mg/dL Normal 0.40-1.00 [facility] Comment on above: Result Comment: METH OD TRACEABLE TO IDMS STANDARD Performed By: #### N UM #### [facility] ([id number]) [address] [place] [address] 66633 eGFR (CKD-EPI) NON-RACE DEPENDENT >90 Normal >59 [facility] Comment on above: Result Comment: Reported eGFR is based on the CKD-EPI 2020 equation that does not use a race coefficient. Performed By: #### N UM #### [facility] ([id number]) [address] [place] [address] 30425 Glucose [Mass/Vol] 102 mg/dL High 65-99 [facility] Comment on above: Performed By: #### N UM #### [facility] ([id number]) [address] [place] [address] 01118 Potassium [Moles/Vol] 3.4 mmol/L Low 3.5-5.0 [facility] Comment on above: Performed By: #### N UM #### [facility] ([id number]) [address] [place] [address] 54624 Sodium [Moles/Vol] 132 mmol/L Low 134-146 [facility] Comment on above: Performed By: #### N UM #### [facility] ([id number]) [address] [place] [address] 17796 Urea nitrogen [Mass/Vol] 6 mg/dL Normal 5-23 [facility] Comment on above: Performed By: #### N UM #### [facility] ([id number]) [address] [place] [address] 31830 CBC AND AUTO DIFFon 05-22-20 24 ABSOLUTE BASOPHIL 0.1 X10E9/L Normal 0.0-0.2 [facility] Comment on above: Performed By: #### N UM #### [facility] ([id number]) [address] [place] [address] 78559 ABSOLUTE NEUTROPHIL 3.3 X10E9/L Normal 1.5-6.6 [facility] Comment on above: Performed By: #### N UM #### [facility] ([id number]) [address] [place] [address] 25856 Basophils/100 WBC (Bld) 0.9 % Normal [facility] Comment on above: Performed By: #### N UM #### [facility] ([id number]) [address] [place] [address] 69073 Eosinophils (Bld) [#/Vol] 0.2 10*3/uL Normal 0.0-0.4 [facility] Comment on above: Performed By: #### N UM #### [facility] ([id number]) [address] [place] [address] 63072 Eosinophils/100 WBC (Bld) 3.9 % Normal [facility] Comment on above: Performed By: #### N UM #### [facility] ([id number]) [address] [place] [address] 06905 Erythrocyte distribution width (RBC) [Ratio] 13.9 % Normal 11.5-15.0 [facility] Comment on above: Performed By: #### N UM #### [facility] ([id number]) [address] [place] [address] 82087 Hematocrit (Bld) [Volume fraction] 38.4 % Normal 35-47 [facility] Comment on above: Performed By: #### N UM #### [facility] ([id number]) [address] [place] [address] 56221 Hemoglobin (Bld) [Mass/Vol] 13.2 g/dL Normal 11.7-15.5 [facility] Comment on above: Performed By: #### N UM #### [facility] ([id number]) [address] [place] [address] 23412 Lymphocytes (Bld) [#/Vol] 1.4 10*3/uL Normal 1.0-3.5 [facility] Comment on above: Performed By: #### N UM #### [facility] ([id number]) [address] [place] [address] 77247 Lymphocytes/100 WBC (Bld) 25.9 % Normal [facility] Comment on above: Performed By: #### N UM #### [facility] ([id number]) [address] [place] [address] 52910 MCH (RBC) [Entitic mass] 28.2 pg Normal 27-34 [facility] Comment on above: Performed By: #### N UM #### [facility] ([id number]) [address] [place] [address] 44025 MCHC (RBC) [Mass/Vol] 34.3 g/dL Normal 32-36 [facility] Comment on above: Performed By: #### N UM #### [facility] ([id number]) [address] [place] [address] 98900 MCV (RBC) [Entitic vol] 82 fL Normal 80-100 [facility] Comment on above: Performed By: #### N UM #### [facility] ([id number]) [address] [place] [address] 55186 Monocytes (Bld) [#/Vol] 0.6 10*3/uL Normal 0-0.9 [facility] Comment on above: Performed By: #### N UM #### [facility] ([id number]) [address] [place] [address] 40672 Monocytes/100 WBC (Bld) 10.2 % Normal [facility] Comment on above: Performed By: #### N UM #### [facility] ([id number]) [address] [place] [address] 30876 Neutrophils/100 WBC (Bld) 59.1 % Normal [facility] Comment on above: Performed By: #### N UM #### [facility] ([id number]) [address] [place] [address] 23629 Platelet mean volume (Bld) [Entitic vol] 8.7 fL Normal 7-12 [facility] Comment on above: Performed By: #### N UM #### [facility] ([id number]) [address] [place] [address] 01306 Platelets (Bld) [#/Vol] 198 10*3/uL Normal 150-450 [facility] Comment on above: Performed By: #### N UM #### [facility] ([id number]) [address] [place] [address] 16470 RBC COUNT 4.67 X10E12/L Normal 3.80-5.20 [facility] Comment on above: Performed By: #### N UM #### [facility] ([id number]) [address] [place] [address] 28157 WBC (Bld) [#/Vol] 5.6 10*3/uL Normal 4.0-11.0 [facility] Comment on above: Performed By: #### N UM #### [facility] ([id number]) [address] [place] [address] 47324 HCG ( test) Ql (U)o n 05-22-2024 Beta HCG ( test) Ql (U) Positive Abnormal NEG [facility] Comment on above: Performed By: #### N UM #### [facility] ([id number]) [address] [place] [address] 16602 HCG.beta subunit IA 3rd IS Q non 05-22-2024 [place] [address] m[IU]/mL Normal P [facility] Comment on above: Result Comment: NEW [...] neoplasms. Performed By: #### N UM #### [facility] ([id number]) [address] [place] [address] 83299 URN MACROSCOPIC NURon 2023 BILIRUBIN LUCIE Small Abnormal NEG [facility] Comment on above: Performed By: #### N UM #### [facility] ([id number]) [address] [place] [address] 64655 BLOOD/HGB LUCIE Trace Abnormal NEG [facility] Comment on above: Performed By: #### N UM #### [facility] ([id number]) [address] [place] [address] 73325 GLUCOSE LUCIE Negative Normal [facility] Comment on above: Performed By: #### N UM #### [facility] ([id number]) [address] [place] [address] 54576 KETONES LUCIE Trace Abnormal NEG [facility] Comment on above: Performed By: #### N UM #### [facility] ([id number]) [address] [place] [address] 29010 LEUKOCYTE ESTERASE LUCIE Small Abnormal NEG [facility] Comment on above: Performed By: #### N UM #### [facility] ([id number]) [address] [place] [address] 33858 NITRITE LUCIE Negative Normal [facility] Comment on above: Performed By: #### N UM #### [facility] ([id number]) [address] [place] [address] 45596 PH LUCIE 6.5 Normal 5.0-8.5 [facility] Comment on above: Performed By: #### N UM #### [facility] ([id number]) [address] [place] [address] 01610 PROTEIN LUCIE 100 mg/dL Abnormal NEG [facility] Comment on above: Performed By: #### N UM #### [facility] ([id number]) [address] [place] [address] 52807 SPECIFIC GRAVITY LUCIE >=1.030 Normal 1.003-1.035 [facility] Comment on above: Performed By: #### N UM #### [facility] ([id number]) [address] [place] [address] 13404 UROBILINOGEN LUCIE 1.0 eu/dL Normal <1.1 [facility] Comment on above: Performed By: #### N UM #### [facility] ([id number]) [address] [place] [address] 57045 RAPID STREP SCR NURSINGon S. pyogenes Ag EIA Ql (Throat) Positive Abnormal NEG [facility] Comment on above: Performed By: #### N UM #### [facility] ([id number]) [address] [place] [address] 46973 CBC AND AUTO DIFFon 02-29-20 ABSOLUTE BASOPHIL 0.0 X10E9/L Normal 0.0-0.2 [facility] Comment on above: Performed By: #### N UM #### [facility] ([id number]) [address] [place] [address] 83235 ABSOLUTE NEUTROPHIL 2.4 X10E9/L Normal 1.5-6.6 [facility] Comment on above: Performed By: #### N UM #### [facility] ([id number]) [address] [place] [address] 56938 Basophils/100 WBC (Bld) 0.8 % Normal [facility] Comment on above: Performed By: #### N UM #### [facility] ([id number]) [address] [place] [address] 53793 Eosinophils (Bld) [#/Vol] 0.2 10*3/uL Normal 0.0-0.4 [facility] Comment on above: Performed By: #### N UM #### [facility] ([id number]) [address] [place] [address] 18016 Eosinophils/100 WBC (Bld) 3.0 % Normal [facility] Comment on above: Performed By: #### N UM #### [facility] ([id number]) [address] [place] [address] 86804 Erythrocyte distribution width (RBC) [Ratio] 12.3 % Normal 11.5-15.0 [facility] Comment on above: Performed By: #### N UM #### [facility] ([id number]) [address] [place] [address] 47346 Hematocrit (Bld) [Volume fraction] 36.6 % Normal 35-47 [facility] Comment on above: Performed By: #### N UM #### [facility] ([id number]) [address] [place] [address] 17478 Hemoglobin (Bld) [Mass/Vol] 12.5 g/dL Normal 11.7-15.5 [facility] Comment on above: Performed By: #### N UM #### [facility] ([id number]) [address] [place] [address] 50209 Lymphocytes (Bld) [#/Vol] 2.3 10*3/uL Normal 1.0-3.5 [facility] Comment on above: Performed By: #### N UM #### [facility] ([id number]) [address] [place] [address] 35255 Lymphocytes/100 WBC (Bld) 43.8 % Normal [facility] Comment on above: Performed By: #### N UM #### [facility] ([id number]) [address] [place] [address] 25174 MCH (RBC) [Entitic mass] 29.5 pg Normal 27-34 [facility] Comment on above: Performed By: #### N UM #### [facility] ([id number]) [address] [place] [address] 64771 MCHC (RBC) [Mass/Vol] 34.1 g/dL Normal 32-36 [facility] Comment on above: Performed By: #### N UM #### [facility] ([id number]) [address] [place] [address] 70164 MCV (RBC) [Entitic vol] 86 fL Normal 80-100 [facility] Comment on above: Performed By: #### N UM #### [facility] ([id number]) [address] [place] [address] 33053 Monocytes (Bld) [#/Vol] 0.4 10*3/uL Normal 0-0.9 [facility] Comment on above: Performed By: #### N UM #### [facility] ([id number]) [address] [place] [address] 09832 Monocytes/100 WBC (Bld) 7.4 % Normal [facility] Comment on above: Performed By: #### N UM #### [facility] ([id number]) [address] [place] [address] 89617 Neutrophils/100 WBC (Bld) 45.0 % Normal [facility] Comment on above: Performed By: #### N UM #### [facility] ([id number]) [address] [place] [address] 29184 Platelet mean volume (Bld) [Entitic vol] 8.7 fL Normal 7-12 [facility] Comment on above: Performed By: #### N UM #### [facility] ([id number]) [address] [place] [address] 74271 Platelets (Bld) [#/Vol] 326 10*3/uL Normal 150-450 [facility] Comment on above: Performed By: #### N UM #### [facility] ([id number]) [address] [place] [address] 63785 RBC COUNT 4.23 X10E12/L Normal 3.80-5.20 [facility] Comment on above: Performed By: #### N UM #### [facility] ([id number]) [address] [place] [address] 60249 WBC (Bld) [#/Vol] 5.3 10*3/uL Normal 4.0-11.0 [facility] Comment on above: Performed By: #### N UM #### [facility] ([id number]) [address] [place] [address] 95637 BASIC METABOLIC PANLon 02-12 Anion gap [Moles/Vol] 8 mmol/L Normal 5-15 [facility] Comment on above: Performed By: #### B EDEL, , CBCA #### [facility] ([id number]) [address] [place] [address] 59299 Calcium [Mass/Vol] 9.1 mg/dL Normal 8.5-10.5 [facility] Comment on above: Performed By: #### B EDEL, , CBCA #### [facility] ([id number]) [address] [place] [address] 71460 Chloride [Moles/Vol] 103 mmol/L Normal 98-109 [facility] Comment on above: Performed By: #### B EDEL, , CBCA #### [facility] ([id number]) [address] [place] [address] 59716 CO2 [Moles/Vol] 22 mmol/L Normal 22-32 [facility] Comment on above: Performed By: #### B EDEL, , CBCA #### [facility] ([id number]) [address] [place] [address] 39774 Creatinine [Mass/Vol] 0.57 mg/dL Normal 0.40-1.00 [facility] Comment on above: Result Comment: METH OD TRACEABLE TO IDMS STANDARD Performed By: #### B EDEL, , CBCA #### [facility] ([id number]) [address] [place] [address] 33203 eGFR (CKD-EPI) NON-RACE DEPENDENT >90 Normal >59 [facility] Comment on above: Result Comment: Reported eGFR is based on the CKD-EPI 2020 equation that does not use a race coefficient. Performed By: #### B EDEL, , CBCA #### [facility] ([id number]) [address] [place] [address] 56828 Glucose [Mass/Vol] 93 mg/dL Normal 65-99 [facility] Comment on above: Performed By: #### B EDEL, , CBCA #### [facility] ([id number]) [address] [place] [address] 19431 Potassium [Moles/Vol] 3.6 mmol/L Normal 3.5-5.0 [facility] Comment on above: Performed By: #### B EEDL, , CBCA #### [facility] ([id number]) [address] [place] [address] 55231 Sodium [Moles/Vol] 133 mmol/L Low 134-146 [facility] Comment on above: Performed By: #### B EDEL, , CBCA #### [facility] ([id number]) [address] [place] [address] 17099 Urea nitrogen [Mass/Vol] 11 mg/dL Normal 5-23 [facility] Comment on above: Performed By: #### B EDEL, , CBCA #### [facility] ([id number]) [address] [place] [address] 26232 CBC AND AUTO DIFFon 02-12- 24 ABSOLUTE BASOPHIL 0.1 X10E9/L Normal 0.0-0.2 [facility] Comment on above: Performed By: #### B EDEL, , CBCA #### [facility] ([id number]) [address] [place] [address] 14731 ABSOLUTE NEUTROPHIL 5.3 X10E9/L Normal 1.5-6.6 [facility] Comment on above: Performed By: #### Ed HOLLING[place]ORTH, , CBCA #### [facility] ([id number]) [address] [place] [address] 46215 Basophils/100 WBC (Bld) 0.9 % Normal [facility] Comment on above: Performed By: #### Ed HOLLING[place]ORTH, , CBCA #### [facility] ([id number]) [address] [place] [address] [place] [address] DIFFERENTIAL COMMENT PLATELETS REVIEWED Normal [facility] Comment on above: Performed By: #### Ed HOLLINGSWORTH, , CBCA #### [facility] ([id number]) [address] [place] [address] 11070 Eosinophils (Bld) [#/Vol] 0.4 10*3/uL Normal 0.0-0.4 [facility] Comment on above: Performed By: #### B EDEL, , CBCA #### [facility] ([id number]) [address] [place] [address] 88778 Eosinophils/100 WBC (Bld) 4.0 % Normal [facility] Comment on above: Performed By: #### Ed HOLLING[place]TH, , CBCA #### [facility] ([id number]) [address] [place] [address] 50419 Erythrocyte distribution width (RBC) [Ratio] 12.7 % Normal 11.5-15.0 [facility] Comment on above: Performed By: #### Ed HOLLINGSWORTH, , CBCA #### [facility] ([id number]) [address] [place] [address] 52067 Hematocrit (Bld) [Volume fraction] 34.3 % Low 35-47 [facility] Comment on above: Performed By: #### Ed HOLLINGSWORTH, , CBCA #### [facility] ([id number]) [address] [place] [address] 36547 Hemoglobin (Bld) [Mass/Vol] 12.2 g/dL Normal 11.7-15.5 [facility] Comment on above: Performed By: #### Ed HOLLING[place]ORTH, , CBCA #### [facility] ([id number]) [address] [place] [address] 85294 Lymphocytes (Bld) [#/Vol] 2.7 10*3/uL Normal 1.0-3.5 [facility] Comment on above: Performed By: #### Ed HOLLING[place]ORTH, , CBCA #### [facility] ([id number]) [address] [place] [address] 27651 Lymphocytes/100 WBC (Bld) 29.1 % Normal [facility] Comment on above: Performed By: #### Ed HOLLINGSWORTH, , CBCA #### [facility] ([id number]) [address] [place] [address] 12591 MCH (RBC) [Entitic mass] 30.1 pg Normal 27-34 [facility] Comment on above: Performed By: #### Ed HOLLINGSWORTH, , CBCA #### [facility] ([id number]) [address] [place] [address] 85197 MCHC (RBC) [Mass/Vol] 35.7 g/dL Normal 32-36 [facility] Comment on above: Performed By: #### Ed HOLLINGSWORTH, , CBCA #### [facility] ([id number]) [address] [place] [address] 76271 MCV (RBC) [Entitic vol] 84 fL Normal 80-100 [facility] Comment on above: Performed By: #### Ed HOLLINGSWORTH, , CBCA #### [facility] ([id number]) [address] [place] [address] 14805 Monocytes (Bld) [#/Vol] 0.9 10*3/uL Normal 0-0.9 [facility] Comment on above: Performed By: #### Ed HOLLINGSWORTH, , CBCA #### [facility] ([id number]) [address] [place] [address] 62728 Monocytes/100 WBC (Bld) 9.9 % Normal [facility] Comment on above: Performed By: #### Ed HOLLINGSWORTH, , CBCA #### [facility] ([id number]) [address] [place] [address] 37462 Neutrophils/100 WBC (Bld) 56.1 % Normal [facility] Comment on above: Performed By: #### Ed HOLLINGSWORTH, , CBCA #### [facility] ([id number]) [address] [place] [address] 13889 Platelet mean volume (Bld) [Entitic vol] 9.0 fL Normal 7-12 [facility] Comment on above: Performed By: #### B EDEL, , CBCA #### [facility] ([id number]) [address] [place] [address] 17942 Platelets (Bld) [#/Vol] 203 10*3/uL Normal 150-450 [facility] Comment on above: Performed By: #### B EDEL, , CBCA #### [facility] ([id number]) [address] [place] [address] 50693 RBC COUNT 4.07 X10E12/L Normal 3.80-5.20 [facility] Comment on above: Performed By: #### B EDEL, , CBCA #### [facility] ([id number]) [address] [place] [address] 96215 WBC (Bld) [#/Vol] 9.4 10*3/uL Normal 4.0-11.0 [facility] Comment on above: Performed By: #### B EDEL, , CBCA #### [facility] ([id number]) [address] [place] [address] 34422 HCG.beta subunit IA 3rd IS Q non 02-13-2024 [place] [address] m[IU]/mL Normal P [facility] Comment on above: Result Comment: NEW [...] nontrophoblastic neoplasms. Performed By: #### [place], [address]-3, CBCA #### [facility] ([id number]) [address] [place] [address] 54961 URN MACROSCOPIC NURon 2023 BILIRUBIN LUCIE Negative Normal NEG [facility] Comment on above: Performed By: #### N UM #### [facility] ([id number]) [address] [place] [address] 64688 BLOOD/HGB LUCIE Large Abnormal NEG [facility] Comment on above: Performed By: #### N UM #### [facility] ([id number]) [address] [place] [address] 03993 GLUCOSE LUCIE Negative Normal NEG [facility] Comment on above: Performed By: #### N UM #### [facility] ([id number]) [address] [place] [address] 44944 KETONES LUCIE Negative Normal NEG [facility] Comment on above: Performed By: #### N UM #### [facility] ([id number]) [address] [place] [address] 73267 LEUKOCYTE ESTERASE LUCIE Negative Normal NEG [facility] Comment on above: Performed By: #### N UM #### [facility] ([id number]) [address] [place] [address] 40436 NITRITE LUCIE Negative Normal NEG [facility] Comment on above: Performed By: #### N UM #### [facility] ([id number]) [address] [place] [address] [id number] PH LUCIE 6.5 Normal 5.0-8.5 [facility] Comment on above: Performed By: #### N UM #### [facility] ([id number]) [address] [place] [address] [id number] PROTEIN LUCIE Trace Abnormal NEG [facility] Comment on above: Performed By: #### N UM #### [facility] ([id number]) [address] [place] [address] 32912 SPECIFIC GRAVITY LUCIE 1.015 Normal 1.003-1.035 [facility] Comment on above: Performed By: #### N UM #### [facility] ([id number]) [address] [place] [address] 61020 UROBILINOGEN LUCIE 0.2 eu/dL Normal <1.1 [facility] Comment on above: Performed By: #### N UM #### [facility] ([id number]) [address] [place] [address] 60612 HCG ( test) Ql (U)o n 02-12-2024 Beta HCG ( test) Ql (U) Positive Abnormal NEG [facility] Comment on above: Performed By: #### 2 106-3 #### [facility] ([id number]) [address] [place] [address] 57126 HCG.beta subunit IA 3rd IS Q non 02-12-2024 [place] [address] m[IU]/mL Normal P [facility] Comment on above: Result Comment: NEW [...] Performed By: #### 4 544-3, 718-7, #### [facility] ([id number]) [address] [place] [address] 14968 HEMOGLOBINon 02-12-2024 Hemoglobin (Bld) [Mass/Vol] 12.7 g/dL Normal 11.7-15.5 [facility] Comment on above: Performed By: #### 4 544-3, 7187, #### [facility] ([id number]) [address] [place] [address] 62878 Hematocrit Auto (Bld) [Volum e fraction]on 02-12-2024 Hematocrit (Bld) [Volume fraction] 35.4 % Normal 35-47 [facility] Comment on above: Performed By: #### 4 544-3, 7187, #### [facility] ([id number]) [address] [place] [address] 66351 URN MACROSCOPIC NURon 2023 BILIRUBIN LUCIE Negative Normal NEG [facility] Comment on above: Performed By: #### N UM #### [facility] ([id number]) [address] [place] [address] 23033 BLOOD/HGB LUCIE MODERATE Abnormal NEG [facility] Comment on above: Performed By: #### N UM #### [facility] ([id number]) [address] [place] [address] 26495 GLUCOSE LUCIE Negative Normal NEG [facility] Comment on above: Performed By: #### N UM #### [facility] ([id number]) [address] [place] [address] 72227 KETONES LUCIE 15 mg/dL Abnormal NEG [facility] Comment on above: Performed By: #### N UM #### [facility] ([id number]) [address] [place] [address] 50699 LEUKOCYTE ESTERASE LUCIE Trace Abnormal NEG [facility] Comment on above: Performed By: #### N UM #### [facility] ([id number]) [address] [place] [address] 86828 NITRITE LUCIE Negative Normal NEG [facility] Comment on above: Performed By: #### N UM #### [facility] ([id number]) [address] [place] [address] 76755 PH LUCIE 6.5 Normal 5.0-8.5 [facility] Comment on above: Performed By: #### N UM #### [facility] ([id number]) [address] [place] [address] 10995 PROTEIN LUCIE Negative Normal NEG [facility] Comment on above: Performed By: #### N UM #### [facility] ([id number]) [address] [place] [address] 82807 SPECIFIC GRAVITY LUCIE >=1.030 Normal 1.003-1.035 [facility] Comment on above: Performed By: #### N UM #### [facility] ([id number]) [address] [place] [address] 09664 UROBILINOGEN LUCIE 1.0 eu/dL Normal <1.1 [facility] Comment on above: Performed By: #### N UM #### [facility] ([id number]) [address] [place] [address]807 [place] PREG LESS THAN 14 WKS WIT [...] cardiac activity with heart rate 100 bpm. [place]-rump length 6 mm corresponding to gestational age [...] Sandy MD on 02/12/2024 5:07 AM Normal [facility] ECG 12 lead ECGon 11-25-2023 ECG 12 lead ECG [facility] [place] [address] Electrocardiograph Report Signed Patient: Sharona Marks MR#: [id number] : 2005 Acct:[id number] Age/Sex: 17 / F ADM Date: 11/24/23 Loc: Room: [address] [place] [address] Type: ADM IN Attending Dr: Ignacio Acuña [...] change was found Confirmed by Chapito Corbin ([id number]) on 11/25/2023 7:52:58 PM Referred By: Electronically Signed By:Chapito Corbin Transcribed By: MUS Signed By Chapito Corbin MD 11/25/231952 Normal [facility] Lipid Panelon 11-25-2023 Cholesterol [Mass/Vol] 121 mg/dL Low 140-200 [facility] Comment on above: Result Comment: Chol less than 200 mg/dl low risk Chol 201-239 mg/dl borderline risk Chol 240 mg/dl and greater high risk Performed By: #### L IPID, [id number], TSH3 wRFLX #### [facility] [address] [place] [address] Cholesterol in HDL [Mass/Vol] 57 mg/dL Normal 23-92 [facility] Comment on above: Result Comment: HDL CHOL ATP-III CLASSIFICATION Cardiovascular Risk HDL > or equal to 60 mg/dL LOW HDL < 40 mg/dL HIGH Performed By: #### L IPID, [id number], TSH3 wRFLX #### [facility] [address] [place] [address] [facility] Cholesterol.total/Ch olesterol in HDL [Mass ratio] 2.1 {ratio} Normal <5.0 [facility] Comment on above: Performed By: #### L IPID, [id number], TSH3 wRFLX #### [facility] [address] [place] [address] [facility] LDL Cholesterol,Calculat ed 55 mg/dL Normal 0-100 [facility] Comment on above: Result Comment: LDL ATP III CLASSIFICATION LDL less than 100 mg/dL Optimal LDL 100-129 mg/dL Near or above optimal LDL 130-159 mg/dL Borderline high LDL 160-189 mg/dL High LDL greater than 189 mg/dL Very high Performed By: #### L IPID, [id number], TSH3 wRFLX #### [address] Triglyceride w/Reflex 44 mg/dL Normal 0-149 [facility] Comment on above: Result Comment: TRIG ATP III CLASSIFICATION TRIG less than 150 mg/dL Normal TRIG 150-199 mg/dL Borderline high TRIG 200-500 mg/dL High TRIG greater than 500 mg/dL Very high Standard traceable to the Center for Disease Conrtrol and Prevention (CDC) test method. Performed By: #### L IPID, [id number], TSH3 wRFLX #### [address] VLDL CHOLESTEROL 8 mg/dL Normal [facility] Comment on above: Performed By: #### L IPID, [id number], TSH3 wRFLX #### [address] Thyroid Stim Hormone w/Rflxo n 11-25-2023 Thyroid Stim Hormone w/Rflx 3.18 u[iU]/mL Normal 0.45-5.33 [facility] Comment on above: Performed By: #### L IPID, [id number], TSH3 wRFLX #### [address] Vitamin D 25 Hydroxy Totalon 11-25-2023 Vitamin D 25 Hydroxy Total 14.7 ng/mL Low 30-100 [facility] Comment on above: Result Comment: DARYA MIN D STATUS 25(OH)VITAMIN D RANGE (ng/mL) Deficient <20 Insufficient 20 to <30 Sufficient 30 to 100 Reference: Angel MF,Yovany NC, Bee WILEY, et al. Evaluation,treatment, and prevention of vitamin D deficiency; an Endocrine Society clinical practice guideline. JCEM. 2010; 96(7):1911-30. PERFORMED BY: [place] [id number] PATHOLOGIST RISK ENGINEER TIFFANIE HIGH M.D. Performed By: #### L IPID, [id number], TSH3 wRFLX #### [address] Complete Blood Count Auto Di ffon 11-24-2023 Basophils (Bld) [#/Vol] 0.0 10*3/uL Normal 0.0-0.1 [facility] Comment on above: Result Comment: PERF ORMED BY: [place] [id number] PATHOLOGIST RISK ENGINEER TIFFANIE HIGH M.D. Performed By: #### C MP, ETOH, CBC #### [address] Basophils/100 WBC (Bld) 0.5 % Normal . [facility] Comment on above: Performed By: #### C MP, ETOH, CBC #### [address] Eosinophils (Bld) [#/Vol] 0.1 10*3/uL Normal 0.0-0.7 [facility] Comment on above: Performed By: #### C MP, ETOH, CBC #### [address] Eosinophils/100 WBC (Bld) 1.0 % Normal . [facility] Comment on above: Performed By: #### C MP, ETOH, CBC #### [address] Erythrocyte distribution width (RBC) [Ratio] 13.2 % Normal 11.9-15.3 [facility] Comment on above: Performed By: #### C MP, ETOH, CBC #### [address] Hematocrit (Bld) [Volume fraction] 41.6 % Normal 36.0-46.0 [facility] Comment on above: Performed By: #### C MP, ETOH, CBC #### [address] Hemoglobin (Bld) [Mass/Vol] 14.3 g/dL Normal 12.0-16.0 [facility] Comment on above: Performed By: #### C MP, ETOH, CBC #### [place] [address] [place] Lymphocytes (Bld) [#/Vol] 3.5 10*3/uL Normal 1.20-4.8 [facility] Comment on above: Performed By: #### C MP, ETOH, CBC #### [address] Lymphocytes/100 WBC (Bld) 39.9 % Normal . [facility] Comment on above: Performed By: #### C MP, ETOH, CBC #### [address] MCH (RBC) [Entitic mass] 29.3 pg Normal 25.0-35.0 [facility] Comment on above: Performed By: #### C MP, ETOH, CBC #### [address] MCV (RBC) [Entitic vol] 84.8 fL Normal 78-102 [facility] Comment on above: Performed By: #### C MP, ETOH, CBC #### [address] Mean Corpuscular HGB Conc 34.5 g/dL Normal 31.0-37.0 [facility] Comment on above: Performed By: #### C MP, ETOH, CBC #### [address] Monocytes (Bld) [#/Vol] 0.6 10*3/uL Normal 0.1-1.00 [facility] Comment on above: Performed By: #### C MP, ETOH, CBC #### [address] Monocytes/100 WBC (Bld) 17.05 % Normal 0.00-20.00 [facility] Comment on above: Performed By: #### C MP, ETOH, CBC #### [address] Monocytes/100 WBC (Bld) 7.1 % Normal . [facility] Comment on above: Performed By: #### C MP, ETOH, CBC #### [place] [address] [place] Neutrophils (Bld) [#/Vol] 4.5 10*3/uL Normal 1.2-7.7 [facility] Comment on above: Performed By: #### C MP, ETOH, CBC #### [address] Neutrophils/100 WBC (Bld) 51.5 % Normal . [facility] Comment on above: Performed By: #### C MP, ETOH, CBC #### [address] NRBC% 0.1 /100{WBC} Normal 0-0.5 [facility] Comment on above: Performed By: #### C MP, ETOH, CBC #### [address] Platelet mean volume (Bld) [Entitic vol] 7.7 fL Normal 6.3-10.7 [facility] Comment on above: Performed By: #### C MP, ETOH, CBC #### [address] Platelets (Bld) [#/Vol] 319 10*3/uL Normal 150-450 [facility] Comment on above: Performed By: #### C MP, ETOH, CBC #### [address] RBC (Bld) [#/Vol] 4.90 10*6/uL Normal 4.10-5.10 [facility] Comment on above: Performed By: #### C MP, ETOH, CBC #### [address] WBC (Bld) [#/Vol] 8.7 10*3/uL Normal 4.5-13.5 [facility] Comment on above: Performed By: #### C MP, ETOH, CBC #### [address] Comprehensive Metabolic Pane david 11-24-2023 Albumin [Mass/Vol] 5.1 g/dL Normal 3.5-5.7 [facility] Comment on above: Performed By: #### C MP, ETOH, CBC #### [place] [address] [place] Albumin/Globulin [Mass ratio] 1.6 {ratio} Normal [facility] Comment on above: Performed By: #### C MP, ETOH, CBC #### [facility] [address] ALP [Catalytic activity/Vol] 67 U/L Normal 34-104 [facility] Comment on above: Performed By: #### C MP, ETOH, CBC #### [address] ALT [Catalytic activity/Vol] 10 U/L Normal 7-52 [facility] Comment on above: Performed By: #### C MP, ETOH, CBC #### [address] Anion gap [Moles/Vol] 10.9 mmol/L Normal 6.0-15.0 [facility] Comment on above: Performed By: #### C MP, ETOH, CBC #### [place] [address] [place] AST [Catalytic activity/Vol] 15 U/L Normal 13-39 [facility] Comment on above: Performed By: #### C MP, ETOH, CBC #### [address] Bilirubin [Mass/Vol] 0.4 mg/dL Normal 0.3-1.0 [facility] Comment on above: Performed By: #### C MP, ETOH, CBC #### [place] [address] [place] Calcium [Mass/Vol] 9.5 mg/dL Normal 8.6-10.3 [facility] Comment on above: Performed By: #### C MP, ETOH, CBC #### [place] [address] [place] Chloride [Moles/Vol] 106 mmol/L Normal 98-107 [facility] Comment on above: Performed By: #### C MP, ETOH, CBC #### [address] CO2 [Moles/Vol] 24.9 mmol/L Normal 21.0-31.0 [facility] Comment on above: Performed By: #### C MP, ETOH, CBC #### [address] Creatinine [Mass/Vol] 0.71 mg/dL Normal 0.60-1.20 [facility] Comment on above: Performed By: #### C MP, ETOH, CBC #### [place] [address] [place] Creatinine Clr Calc Pharmacy 124.96 Normal [facility] Comment on above: Result Comment: PERF ORMED BY: [place] [id number] PATHOLOGIST RISK ENGINEER TIFFANIE HIGH M.D. Performed By: #### C MP, ETOH, CBC #### [address] GFR/1.73 sq M.predicted MDRD (S/P/Bld) [Vol rate/Area] mL/min/{1.73_m2} Normal [facility] Comment on above: Performed By: #### C MP, ETOH, CBC #### [address] Globulin (S) [Mass/Vol] 3.1 g/dL Normal [facility] Comment on above: Performed By: #### C MP, ETOH, CBC #### [address] Glucose [Mass/Vol] 86 mg/dL Normal 70-100 [facility] Comment on above: Result Comment: [place] Glucose Reference Range is dependent on time and content of last meal. Glucose of more than 200 mg/dL in a nonstressed, ambulatory subject supports the diagnosis of Diabetes Mellitus. ADA recommended reference range Performed By: #### C MP, ETOH, CBC #### [address] Potassium [Moles/Vol] 3.8 mmol/L Normal 3.5-5.1 [facility] Comment on above: Performed By: #### C MP, ETOH, CBC #### [address] Protein [Mass/Vol] 8.2 g/dL Normal 6.4-8.9 [facility] Comment on above: Performed By: #### C MP, ETOH, CBC #### [address] Sodium [Moles/Vol] 138 mmol/L Normal 136-145 [facility] Comment on above: Performed By: #### C MP, ETOH, CBC #### [address] Urea nitrogen [Mass/Vol] 9 mg/dL Normal 7-25 [facility] Comment on above: Performed By: #### C MP, ETOH, CBC #### [address] Drug Screen,Urineon 11-24-19 24 Amphetamine Screen,Urine Negative Normal Negative [facility] Comment on above: Performed By: #### U HCG, UA, URDS #### [address] Barbiturate Screen,Urine Negative Normal Negative [facility] Comment on above: Performed By: #### U HCG, UA, URDS #### [place] [address] [place] Benzodiazepines Screen,Urine Negative Normal Negative [facility] Comment on above: Performed By: #### U HCG, UA, URDS #### [address] Cannabinoid Screen,Urine Positive High Negative [facility] Comment on above: Result Comment: Thes e are unconfirmed results and should not be used for legal purposes. Drug Cut-Off Concentration: AMPH 1000 ng/mL LUCIA 200 ng/mL BROOKE 200 ng/mL COCM 300 ng/mL OP 300 ng/mL PCP 25 ng/mL THC 20 ng/mL PERFORMED BY: [place] [id number] PATHOLOGIST RISK ENGINEER TIFFANIE HIGH M.D. Performed By: #### U HCG, UA, URDS #### [address] Cocaine Screen,Urine Negative Normal Negative [facility] Comment on above: Performed By: #### U HCG, UA, URDS #### [facility] [address] Opiate Screen,Urine Negative Normal Negative [facility] Comment on above: Performed By: #### U HCG, UA, URDS #### [address] Phencyclidine Screen,Urine Negative Normal Negative [facility] Comment on above: Performed By: #### U HCG, UA, URDS #### [address] Ethyl Alcohol Profileon Ethanol [Mass/Vol] mg/dL Normal [facility] Comment on above: Performed By: #### C MP, ETOH, CBC #### [address] Percent Ethanol Not performed Normal [facility] Comment on above: Result Comment: PERF ORMED BY: [place] [id number] PATHOLOGIST RISK ENGINEER TIFFANIE HIGH M.D. Performed By: #### C MP, ETOH, CBC #### [address] HCG,Urineon 11-24-2023 Beta HCG ( test) Ql (U) Negative Normal [facility] Comment on above: Order Comment: Name Collection Type:: Clean-Voided Midstream Result Comment: PERF ORMED BY: [place] [id number] PATHOLOGIST RISK ENGINEER TIFFANIE HIGH M.D. Performed By: #### U HCG, UA, URDS #### [address] Urinalysison 11-24-2023 Appearance (U) Clear Normal Clear [facility] Comment on above: Order Comment: Name Collection Type:: Clean-Voided Midstream Performed By: #### U HCG, UA, URDS #### [facility] [address] [place] [address] [place] Bilirubin,Urine Negative Normal Negative [facility] Comment on above: Order Comment: Name Collection Type:: Clean-Voided Midstream Performed By: #### U HCG, UA, URDS #### [place] [address] [place] Color (U) Yellow Normal Yellow [facility] Comment on above: Order Comment: Name Collection Type:: Clean-Voided Midstream Performed By: #### U HCG, UA, URDS #### [address] Glucose Ql (U) Normal Normal Normal [facility] Comment on above: Order Comment: Name Collection Type:: Clean-Voided Midstream Performed By: #### U HCG, UA, URDS #### [place] [address] [place] Ketones Ql (U) Negative Normal Negative [facility] Comment on above: Order Comment: Name Collection Type:: Clean-Voided Midstream Performed By: #### U HCG, UA, URDS #### [place] [address] [place] Leukocyte esterase Test strip Ql (U) Negative Normal Negative [facility] Comment on above: Order Comment: Name Collection Type:: Clean-Voided Midstream Performed By: #### U HCG, UA, URDS #### [place] [address] [place] Nitrite,Urine Negative Normal Negative [facility] Comment on above: Order Comment: Name Collection Type:: Clean-Voided Midstream Performed By: #### U HCG, UA, URDS #### [place] [id number] [place] Occult Blood,Urine Negative Normal Negative [facility] Comment on above: Order Comment: Name Collection Type:: Clean-Voided Midstream Performed By: #### U HCG, UA, URDS #### [facility] [address] pH (U) 6.5 [pH] Normal 5.0-9.0 [facility] Comment on above: Order Comment: Name Collection Type:: Clean-Voided Midstream Performed By: #### U HCG, UA, URDS #### [facility] [address] Protein,Urine Negative Normal Negative [facility] Comment on above: Order Comment: Name Collection Type:: Clean-Voided Midstream Performed By: #### U HCG, UA, URDS #### [address] Specificy [place],Urine 1.020 Normal 1.001-1.030 [facility] Comment on above: Order Comment: Name Collection Type:: Clean-Voided Midstream Performed By: #### U HCG, UA, URDS #### [address] Urobilinogen,Urine Normal Normal Normal [facility] Comment on above: Order Comment: Name Collection Type:: Clean-Voided Midstream Performed By: #### U HCG, UA, URDS #### [address] Lipid 1996 panelon 4 Cholesterol [Mass/Vol] 143 mg/dL Low 150-200 [facility] Comment on above: Performed By: #### 2 4331-1 #### [facility] ([id number]) [address] [place] [address], [address] [place] [address] Cholesterol in HDL [Mass/Vol] 67 mg/dL Normal >39 [facility] Comment on above: Result Comment: HDL <40 mg/dL - High Risk HDL > or = 40mg/dL- Desirable HDL >60 mg/dL - Negative Risk Performed By: #### 2 4331-1 #### [facility] ([id number]) [address], [address] [place] [address] Cholesterol in LDL [Mass/Vol] 65 mg/dL Normal <130 [facility] Comment on above: Result Comment: LDL <100 mg/dL - Desirable LDL >160 mg/dL - High Risk Performed By: #### 2 4331-1 #### [facility] ([id number]) [address], [facility] [address] [place] [address] Cholesterol in VLDL [Mass/Vol] 11 mg/dL Normal 0-30 [facility] Comment on above: Performed By: #### 2 4331-1 #### [facility] ([id number]) [address], [address] [place] [address] CHOLESTEROL:HDL 2.1 Normal 1.0-5.0 [facility] Comment on above: Performed By: #### 2 4331-1 #### [facility] ([id number]) [address], [address] [place] [address] Triglyceride [Mass/Vol] 53 mg/dL Normal 27-150 [facility] Comment on above: Performed By: #### 2 4331-1 #### [facility] ([id number]) [address], [address] [place] [address] Vital Signs Date Time Vital Sign Value Performing Clinician Salazar gonzalez 07-05-2024 14:35-0400 Body mass index (BMI) [Ratio] 24.18 kg/m2 [employer] Work Phone: [facility] 07-05-2024 14:35-0400 Body weight 70.03 kg [employer] Work Phone: [facility] 07-05-2024 14:35-0400 Diastolic blood pressure 68 mm[Hg] Rohan Deon DO Work Phone: [facility] 07-05-2024 14:35-0400 Systolic blood pressure 116 mm[Hg] Rohan Deon DO Work Phone: [facility] Healthcare Encounters Encounter Date Encounter Type Care Provider Facility Start: 07-05-2024 End: 07-05-2024 Bamboo flowsheet Rohan Deon DO Work Phone: [facility] Start: 07-05-2024 End: 07-05-2024 Bamboo flowsheet Rohan Deon DO Work Phone: [facility] Start: 07-05-2024 End: 07-05-2024 ambulatory ROHAN DEON Not Available Start: 07-05-2024 End: 07-05-2024 Office outpatient visit 15 minutes Rohan Deon DO Work Phone: [facility] Comment on above: Second trimester pre gnancy; Vaginal discharge; STD exposure; Screening, , for anatomic survey; Major depressive disorder in partial remission, unspecified whether recurrent (HCC) ([facility]/HCC) Start: 06-10-2024 End: 06-10-2024 ambulatory ROHAN DEON Not Available Start: 05-22-2024 End: 05-22-2024 Emergency department patient visit [facility] Start: 05-11-2024 End: 05-11-2024 Emergency department patient visit [facility] Start: 02-29-2024 End: 02-29-2024 ambulatory [facility] Start: 02-22-2024 End: 02-22-2024 ambulatory ROHAN DEON Not Available Start: 02-18-2024 End: 02-18-2024 ambulatory ROHAN DEON Not Available Start: 02-12-2024 End: 02-13-2024 Emergency department patient visit [facility] Start: 02-12-2024 End: 02-13-2024 Emergency department patient visit KB WRIGHT [facility] Start: 02-12-2024 End: 02-12-2024 Emergency department patient visit ARUN MEREDITH [facility] Start: 11-24-2023 End: 11-26-2023 Evaluation and management of inpatient Ignacio Acuña Facility:[facility] Start: 11-24-2023 ambulatory Ollie Courtney acility:[facility] Start: 11-11-2023 End: 11-11-2023 ambulatory LONNY MACEDO [facility] Start: 10-27-2022 End: 10-27-[address] RAJ KELLY Facility:[facility] Procedures Date Procedure Procedure Detail Performing Clinician Start: 07-05-2024 Urnls dip stick/tabl et rgnt non-auto w/o micrscp Rohan Chavarria DO Work Phone: Plan of Treatment Date Care Activity Detail Author Start: 08-03-2024 End: 08-03-2024 Patient encounter procedure 08/03/2024 2:40 PM EST Routine [facility] [address] [place] [id number] Rohan Chavarria, DO [address] [place], [place] [id number] [facility] Start: 07-18-2024 End: 07-18-2024 Professional / ancillary services management 07/18/2024 2:00 PM EDT Ancillary Procedure [facility] [address] [place] [id number] [facility] Start: 07-05-2024 End: 07-05-2025 US for US OB ANATOMY SINGLE W US OB CERVICAL LENGTH Imaging Routine Screening, , for anatomic survey Expected: 07/05/2024 (Approximate), Expires: 07/05/2025 [facility] Work Phone: Comment on above: Expected: 07/05/2024 (Approximate), Expires: 07/05/2025 Start: 05-22-2024 Influenza vaccination Influenz a Vaccine (#1) [facility] Payers Date Payer Category Payer Medicaid [place]ICAID [place] [id number] 2024 Medicaid [id number] 2023 Self-pay 2022 Unknown [id number] 2004 Unknown [id number] [id number]85 2004 Unknown [id number] 2.16.840.1.200984.3.579.2.1285 2004 Unknown [id number] 2.16.840.1.712822.3.579.2.1285 2004 Unknown [id number] 2.16.840.1.456912.3.579.2.1285 2004 Unknown [id number] 2.16.840.1.510095.3.579.2.1285 2004 Unknown [id number] 2.16.840.1.416794.3.579.2.1285 2004 Unknown [id number] 2.16.840.1.067440.3.579.2.9 2004 Unknown [id number] 2.16.840.1.975682.3.579.2.9 2004 Unknown [id number] 2.16.840.1.514240.3.579.2.9 2004 Unknown [id number] 2.16.840.1.636628.3.579.2.1259 1972 Unknown [id number] 2.16.840.1.664415.3.579.2.593 1959 Unknown [id number] Unknown [id number] 2.16.840.1.593158.3.579.2.531 Unknown [id number] 2.16.840.1.080012.3.579.2.531 Social History Date Type Detail Facility Tobacco smoking stat [facility] Tobacco smoking consumption unknown [facility] Start: [...] nursing note reviewed. Exam conducted with a accounts receivable supervisor present. 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 [employer] provides no warranty or guarantee of the accuracy or completeness of information in this document.
[2024-07-23] MEDS: 0.9 % SODIUM CHLORIDE 500 ML IV (23:41)
[2024-07-23 23:42] LABS: Basophils Percent Auto 0.3 % (0.2-2.0); Eosinophils Absolute Auto 0.3 10^3/uL (0.0-0.7); Eosinophils Percent Auto 5.3 % (0.9-7.0); Hematocrit 34.8 % (36.0-48.0); Hemoglobin 12.1 g/dL (12.0-16.0); Immature Granulocytes Abs Auto 0.02 10^3/uL (0.00-0.03); Immature Granulocytes Pct Auto 0.3 % (0.0-0.5); Lymphocytes Absolute Auto 1.6 10^3/uL (1.2-3.8); Lymphocytes Percent Auto 27.6 % (20.5-60.0); Mean Corpuscular HGB Conc 34.8 g/dL (29.9-35.2); Mean Corpuscular Volume 83.5 fL (81.0-99.0); Mean Platelet Volume 11.1 fL (9.5-13.5); Monocytes Absolute Auto 0.6 10^3/uL (0.3-0.8); Neutrophils Absolute Auto 3.2 10^3/uL (1.4-6.5); Neutrophils Percent Auto 55.5 % (43.0-75.0); Platelet Count 180 10^3/uL (150-450); Red Blood Count 4.17 10^6/uL (4.20-5.40); Red Cell Distribution Width 13.2 % (11.0-15.0); White Blood Count 5.8 10^3/uL (4.0-11.0)
--- NOTE | 2024-07-23 23:47 | ED.GENADUL1 ---
HPI HPI - General Adult General Chief complaint: Weakness Stated complaint: dehydrated Time Seen by Provider: 07/23/24 23:20 Source: patient Mode of arrival: walk-in Limitations: no limitations History of Present Illness HPI narrative: 18-year-old female to the emergency department with chief complaint of dehydration. Patient reports she is currently weeks and has had issues with morning sickness. She follows with Dr. Chavarria. She has ultrasound that shows intrauterine . Patient reports she was sick with an upper respiratory infection this week and had decreased intake in addition to her morning sickness. Her mother urged her to come to the emergency department for evaluation of dehydration. She reports her urine has been dark. She denies any dysuria, urgency, frequency. She denies any fever, sweats, chills. No abdominal pain. No diarrhea. Related Data Home Medications ?Medication ?Instructions ?Recorded ?Confirmed citalopram 20 mg tablet mg 07/23/24 Allergies Allergy/AdvReac Type Severity Reaction Status Date / Time No Known Drug Allergies Allergy Verified 07/23/24 23:21 Opioid HPI Opioid Management Most Recent Opioid Data: Urine Cannabinoids Positive (.) A 06/10/24 13:05 06/10/24 Ur Phencyclidine Scrn Negative (NEGATIVE) 06/10/24 13:05 06/10/24 Review of Systems ROS Status of ROS 10 or more systems reviewed and unremarkable except as noted in history and below PFSH PFSH Social History Little interest or pleasure in doing things: not at all Feeling down, depressed, or hopeless: not at all Exam Narrative Exam Narrative: VITALS: I have reviewed the triage vital signs. GENERAL: Well developed, well appearing adult in no acute distress. NEURO: Alert and oriented. Moves all extremities. Face is symmetric and expressive. EYES: PERRL. No scleral icterus or conjunctival injection. No discharge. HENT: Normocephalic, atraumatic. Hearing is grossly intact. Nares grossly patent and without discharge. Mucous membranes moist. NECK: No JVD. Patient moves neck without restriction. CARDIO: Rhythm regular. Normal rate. No murmur, rub, or gallop. Pulses equal bilaterally in the upper and lower extremity. No lower extremity edema. PULM: Lungs clear to auscultation in all levy. No wheezes, rales, or rhonchi. No conversational dyspnea. No splinting, stridor, or accessory muscle use. GI/: Abdomen is soft and non-tender. Normoactive bowel sounds. EXTREMITIES: Symmetric muscle bulk. No joint swelling. No clubbing, cyanosis, or deformity. SKIN: Warm and dry. Normal turgor. No rash or lesions appreciated. PSYCH: Mood, affect, and interaction is appropriate to the setting. Constitutional Vital Signs, click to edit/add: Last Vital Signs Temp 98.1 F 07/23/24 23:16 Pulse 90 07/23/24 23:16 Resp 18 07/23/24 23:16 BP 114/62 07/23/24 23:16 Pulse Ox 98 07/23/24 23:16 O2 Del Method Room Air 07/23/24 23:16 Course Vital Signs Vital signs: Vital Signs Temperature 98.1 F 07/23/24 23:16 Pulse Rate 90 07/23/24 23:16 Respiratory Rate 18 07/23/24 23:16 Blood Pressure 114/62 07/23/24 23:16 Pulse Oximetry 98 07/23/24 23:16 Oxygen Delivery Method Room Air 07/23/24 23:16 Temperature 98.1 F 07/23/24 23:16 Pulse Rate 90 07/23/24 23:16 Respiratory Rate 18 07/23/24 23:16 Blood Pressure 114/62 07/23/24 23:16 Pulse Oximetry 98 07/23/24 23:16 Oxygen Delivery Method Room Air 07/23/24 23:16 Medical Decision Making MDM Narrative Medical decision making narrative: Well-appearing 18-year-old female to the emergency department for evaluation for dehydration. Vital stable, the patient is afebrile. 500 cc bolus of fluids are ordered. Mild hypokalemia otherwise unremarkable labs. Oral potassium was given. She passed p.o. challenge. She is drinking fluids in the room. She has Zofran at home. Recommend continue oral rehydration at home. Discussed strategies. She will follow-up with OB. Return precautions were discussed. All questions were answered. The patient was discharged home. Medical Records Medical records reviewed: Yes I reviewed the patient's medical records Lab Data Lab results reviewed: Yes I reviewed the patient's lab results Labs: Lab Results 07/23/24 Range/Units 23:35 WBC 5.8 (4.0-11.0) 10^3/uL RBC 4.17 L (4.20-5.40) 10^6/uL Hgb 12.1 (12.0-16.0) g/dL Hct 34.8 L (36.0-48.0) % MCV 83.5 (81.0-99.0) fL MCH 29.0 (26.7-34.0) pg MCHC 34.8 (29.9-35.2) g/dL RDW 13.2 (11.0-15.0) % Plt Count 180 (150-450) 10^3/uL MPV 11.1 (9.5-13.5) fL Neut % (Auto) 55.5 (43.0-75.0) % Lymph % (Auto) 27.6 (20.5-60.0) % [place] % (Auto) 11.0 (1.7-12.0) % Eos % (Auto) 5.3 (0.9-7.0) % Baso % (Auto) 0.3 (0.2-2.0) % Neut # (Auto) 3.2 (1.4-6.5) 10^3/uL Lymph # (Auto) 1.6 (1.2-3.8) 10^3/uL [place] # (Auto) 0.6 (0.3-0.8) 10^3/uL Eos # (Auto) 0.3 (0.0-0.7) 10^3/uL Baso # (Auto) 0.0 (0.0-0.1) 10^3/uL Abs Immat Gran (auto) 0.02 (0.00-0.03) 10^3/uL Imm/Tot Granulo (auto) 0.3 (0.0-0.5) % Sodium 137 (136-145) mmol/L Potassium 3.2 L (3.5-5.1) mmol/L Chloride 103 (98-107) mmol/L Carbon Dioxide 23.5 (21.0-32.0) mmol/L Anion Gap 13.7 BUN 6.0 L (6.4-19.3) mg/dL Creatinine 0.55 (0.55-1.02) mg/dL Est GFR ( Amer) >60 (>=60 mL/min/1.73m^2) Est GFR (Non-Af Amer) >60 (>=60 mL/min/1.73m^2) BUN/Creatinine Ratio 10.9 Glucose 89 (74-106) mg/dL Calcium 8.7 (8.5-10.1) mg/dL Discharge Plan Discharge Chief Complaint: Weakness Clinical Impression: Dehydration, Acute hypokalemia Patient Disposition: Home, Self-Care Time of Disposition Decision: 00:26 Condition: Good Mode of Transportation: Private Vehicle Prescriptions / Home Meds: No Action citalopram 20 mg tablet Print Language: Yakut Instructions: Dehydration (ED), Hypokalemia (ED) Additional Instructions: Call the office of your primary care doctor to arrange for follow-up within the above-stated timeframe. Your ED visit was focused on your acute issue and does not replace primary care. You should review your labs, imaging, and diagnoses from this ED visit with your primary care physician. There may be non-emergent/ incidental findings that need further evaluation. You should review your vital signs including blood pressure with your PCP. If you were prescribed medications you should discuss possible side-effects and drug interactions with your pharmacist. Call 911 or go to the nearest Emergency Department if you develop any new or worsening symptoms. Referrals: ARUN MEREDITH [Primary Care Provider] - 1 week
[2024-07-23 23:59] LABS: Anion Gap 13.7; BUN Creatinine Ratio 10.9; Calcium 8.7 mg/dL (8.5-10.1); Carbon Dioxide 23.5 mmol/L (21.0-32.0); Chloride 103 mmol/L (98-107); Estimated GFR (African America >60 (>=60 mL/min/1.73m^2); Estimated GFR (Non-African Ame >60 (>=60 mL/min/1.73m^2); Glucose 89 mg/dL (74-106); Potassium 3.2 mmol/L (3.5-5.1); Sodium 137 mmol/L (136-145)
[2024-07-24] MEDS: POTASSIUM CHLORIDE 10 MEQ ER TABLET 40 MEQ PO (00:16)
[2024-07-24 00:35] VITALS: BP 120/68; PULSE 80; O2SAT 99
== END 2024-07-24 00:44 | disposition home or self-care (01) ==
PROVIDERS: Emergency Provider Student in an Organized Health Care Education/Training Program; PCP Internal Medicine
DX: O99.282 Endocrine, nutritional and metabolic diseases complicating pregnancy, second trimester (principal); E86.0 Dehydration; E87.6 Hypokalemia; Z3A.22 22 weeks gestation of pregnancy
CPT/HCPCS: 36415; 80048; 85025; 99284

== ENCOUNTER 2024-08-30 13:52 | Observation (INO) | payer SELFPAY ==
[2024-08-30 14:16] VITALS: BP 111/70; PULSE 81; TEMP 35.4; TEMP 36.3
[2024-08-30 14:27] LABS: Glucometer 89 mg/dL (74-106)
[2024-08-30 14:27] LABS: Glucometer 91 mg/dL (74-106)
[2024-08-30 15:04] LABS: Bilirubin Urine NEGATIVE (NEGATIVE); Blood Urine NEGATIVE (NEGATIVE); Clarity Urine CLEAR (CLEAR); Color Urine LT. YELLOW (YELLOW); Glucose Urine UA NEGATIVE (NEGATIVE); Ketones Urine 40 mg/dL (NEGATIVE); Leukocyte Esterase Urine MODERATE (NEGATIVE); Nitrite Urine NEGATIVE (NEGATIVE); Protein Urine 30 mg/dL (NEG/TRACE); Specific Gravity Urine >=1.030 (1.005-1.025)
[2024-08-30 15:06] LABS: Urine Microscopic Indicated YES
[2024-08-30 15:10] LABS: Bacteria Urine MODERATE #/HPF (NONE SEEN); Crystals Seen? Seen #/HPF (None Seen); Mucus Urine LARGE (NONE SEEN); RBC Urine NONE SEEN #/HPF (0-2); Squamous Epithelial Cell Urine MODERATE #/LPF (NONE/RARE)
[2024-08-30 15:11] LABS: Calcium Oxalate Crystals Urine FEW; Urine Culture Indicated YES
== END 2024-08-30 16:00 | disposition home or self-care (01) ==
PROVIDERS: Admitting Provider Obstetrics & Gynecology; PCP Internal Medicine; Visit Provider Obstetrics & Gynecology
DX: O99.280 Endocrine, nutritional and metabolic diseases complicating pregnancy, unspecified trimester (principal); E16.2 Hypoglycemia, unspecified; Z3A.00 Weeks of gestation of pregnancy not specified; O26.899 Other specified pregnancy related conditions, unspecified trimester; R42 Dizziness and giddiness; R82.998 Other abnormal findings in urine
CPT/HCPCS: 36415; 59025; 81001; 87086; G0378; G0379

== ENCOUNTER 2024-09-09 10:44 | Outpatient (OUT) | payer SELFPAY ==
--- OUTSIDE RECORDS SUMMARY | 2024-09-09 10:50 | XMS_ITS | CCD ---
Author Organization [facility] Care Team Providers Care 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 Name Role Phone PAY, DR ANTHONY Admitting Unavailable PAY, DR ANTHONY Attending Unavailable PAY, DR ANTHONY Consulting Unavailable ROHAN CHAVARRIA Attending Unavailable ROHAN CHAVARRIA Attending Unavailable ROHAN CHAVARRIA Attending Unavailable Arun Meredith MD Primary Care Provider ARUN MEREDITH Primary Care Unavailable KB WRIGHT Attending Unavailable MASOUD, ARUN Santana Primary Care Unavailable CLARKE DUEÑAS Attending Unavailable KB WRIGHT Attending Unavailable KB WRIGHT Referring Unavailable ARUN MEREDITH Primary Care Unavailable ARUN MEREDITH Referring Unavailable MASOUD, ARUN Santana Primary Care Unavailable MASOUD, ARUN Santana Primary Care Unavailable MASOUD, ARUN Santana Primary Care Unavailable PARISA VERAS Attending Unavailable LONNY MACEDO Referring Unavailable MASOUD, ARUN Santana Primary Care Unavailable CARLOTA ENRIQUEZ Admitting Unavailable CARLOTA ENRIQUEZ Attending Unavailable ARUN MEREDITH Primary Care Unavailable MASOUD, ARUN Santana Primary Care Unavailable MONICA SINGLETON Attending Unavailable Ignacio Acuña Attending Unavailable NON STAFF Primary Care Unavailable Ignacio Acuña Admitting Unavailable Ollie Cisneros Admitting Unavailab Ollie Chacon Attending Unavailab niki NON STAFF Primary Care Unavailable Medications Current Medications Medication Drug Class(es) Dates Sig (Normalized) Sig (Original) ondansetron 4 mg disintegrating oral tablet (4 sources) Serotonin-3 Receptor Antagonist Start: 06-10-2024 End: 07-10-2024 take 1 tablet by mouth every six hours as needed for nausea and vomiting and nausea and nausea ondansetron ODT (Zofran-ODT) 4 MG disintegrating tablet Indications: Nausea Take 1 tablet (4 mg) by mouth every 6 (six) hours if needed for nausea or vomiting 30 tablet 2 06/10/2024 07/10/2024 Active MV-Min-Fe Fum-FA-DHA ( 1 PO) (9 sources) MV-Min- Fe Fum-FA-DHA ( 1 PO) Take by mouth Active 24 hr venlafaxine 37.5 mg extended release oral capsule (2 sources) Serotonin and Norepinephrine Reuptake Inhibitor Start: 09-06-2024 End: 09-06-2025 take 1 capsule by mouth once daily venlafaxine XR (Effexor XR) 37.5 MG 24 hr capsule Indications: Anxiety with depression Take 1 capsule (37.5 mg) by mouth Daily Do not crush or chew. 30 capsule 11 09/06/2024 09/06/2025 Active Completed/Discontinued Medications Medication Drug Class(es) Dates Sig (Normalized) Sig (Original) citalopram 20 mg oral tablet (6 sources) Serotonin Reuptake Inhibitor Start: 07-05-2024 End: 07-05-2025 take 1 tablet by mouth once daily citalopram (CeleXA) 20 MG tablet Indications: Major depressive disorder in partial remission, unspecified whether recurrent (HCC) (CMS/HCC) Take 1 tablet (20 mg) by mouth Daily 30 tablet 11 07/05/2024 09/06/2024 Discontinued Problems Active Problems Problem Classification Problem Date Documented Date Episodic/Chronic Allergic reactions (1 source) Other atopic dermatitis; Translations: [Other atopic dermatitis] Onset: 11-11-2023 Chronic Anxiety disorders (5 sources) Mental health problem; Translations: [Mixed anxiety and depressive disorder] Onset: 08-31-2024 09-06-2024 Chronic Tucker (4 sources) Burn of second [...] predominantly sexual mode of transmission] 07-05-2024 Episodic Menstrual disorders (1 source) Missed period; Translations: [Irregular menstruation, unspecified] 06-10-2024 Chronic Mood disorders (3 sources) Major depression in partial remission; Translations: [Major depressive disorder, single episode, in partial remission] Onset: 11-24-2023 07-05-2024 Chronic Other female genital disorders (2 sources) Vaginal discharge; Translations: [Other specified noninflammatory disorders of vagina] 07-05-2024 Episodic Other and delivery including normal (9 sources) Second trimester ; Translations: [Encounter for supervision of normal , unspecified, second trimester] Onset: 09-06-2024 07-05-2024 Episodic Other screening for suspected conditions (not mental disorders or infectious disease) (8 sources) Patient encounter status; Translations: [Encounter for other specified screening] Onset: 09-06-2024 07-05-2024 Episodic Residual codes; unclassified (4 sources) Gestation period, 27 weeks; Translations: [27 weeks gestation of ] Onset: 09-06-2024 09-06-2024 Episodic Unclassified (7 sources) OB Reminders Onset: 07-05-2024 07-05-2024 Unclassified (1 source) Decreased Movement Onset: 08-28-2024 Unclassified (1 source) Other specified diseases and conditions complicating ; Translations: [Other specified diseases and conditions complicating ] Onset: 02-12-2024 Unclassified (1 source) Vaginal Bleeding - Onset: 02-12-2024 Unclassified (1 source) Vagina bleeding Onset: 02-12-2024 Past or Other Problems Problem Classification Problem Date Documented Date Episodic/Chronic Abdominal pain (3 sources) Unspecified abdominal pain; Translations: [Abdominal pain] Onset: 02-12-2024 Episodic Genitourinary symptoms and ill-defined conditions (1 source) Bacteriuria; Translations: [Bacteriuria] Onset: 02-12-2024 Episodic Hemorrhage during ; abruptio placenta; placenta previa (2 sources) Hemorrhage in early , unspecified; Translations: [Other antepartum hemorrhage, first trimester] Onset: 02-12-2024 Episodic Other aftercare (1 source) Other jail (current) drug therapy; Translations: [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] Onset: 11-11-2023 Episodic Other complications of (1 source) Other specified related conditions, first trimester; Translations: [Other specified related conditions, first trimester] Onset: 02-12-2024 Episodic Other upper respiratory disease (1 source) Pain in throat Onset: 05-11-2024 Episodic Other upper respiratory infections (1 source) Streptococcal pharyngitis; Translations: [Streptococcal pharyngitis] Onset: 05-11-2024 Episodic Polyhydramnios and other problems of amniotic cavity (1 source) Other specified disorders of amniotic fluid and membranes, first trimester, not applicable or unspecified; Translations: [Other specified disorders of amniotic fluid and membranes, first trimester, not applicable or unspecified] Onset: 02-12-2024 Episodic Residual codes; unclassified (1 source) Pallor; Translations: [Pallor] Onset: 02-29-2024 Episodic Urinary tract infections (1 source) Urinary tract infection, site not specified; Translations: [Urinary tract infection, site not specified] Onset: 05-22-2024 Episodic Results Test Name Value Interpretation Reference Range Facility Urinalysis macro (dipstick) panel (U)on 09-06-2024 Bilirubin, UA Negative Negative - 4(70) +++ mg/dL [facility] Blood, UA Negative Negative - 50 Mendez/mcL [facility] Clarity, UA Cloudy [facility] re Color, UA Yellow [facility] e Glucose, UA Negative Negative - 1999(110) ++++ mg/dL [facility] Interpretation and review of laboratory results Abnormal [facility] Ketones, UA Negative Negative - 160(16) ++++ mg/dL [facility] Leukocytes, UA Positive Negative - 500+++ Bhavani/mcL [facility] Comment on above: small Nitrite, UA Negative Negative - Positive [facility] pH, UA 7 5 - [address] [facility] Protein, UA Trace Negative - 1999(20) ++++ mg/dL [facility] Spec Grav, UA 1.025 1 - 1.03 [facility] Urobilinogen, UA 0.2 0.2 - 12 mg/dL [facility] CBC AND AUTO DIFFon 08-31-20 ABSOLUTE BASOPHIL 0.0 X10E9/L Normal 0.0-0.2 [facility] Comment on above: Performed By: #### N UM #### [facility] ([id number]) [address] [place] [address] 93723 ABSOLUTE NEUTROPHIL 5.3 X10E9/L Normal 1.5-6.6 [facility] Comment on above: Performed By: #### N UM #### [facility] ([id number]) [address] [place] [address] 48094 Basophils/100 WBC (Bld) 0.5 % Normal [facility] Comment on above: Performed By: #### N UM #### [facility] ([id number]) [address] [place] [address] 44625 Eosinophils (Bld) [#/Vol] 0.1 10*3/uL Normal 0.0-0.4 [facility] Comment on above: Performed By: #### N UM #### [facility] ([id number]) [address] [place] [address] 48266 Eosinophils/100 WBC (Bld) 0.9 % Normal [facility] Comment on above: Performed By: #### N UM #### [facility] ([id number]) [address] [place] [address] 82360 Erythrocyte distribution width (RBC) [Ratio] 13.4 % Normal 11.5-15.0 [facility] Comment on above: Performed By: #### N UM #### [facility] ([id number]) [address] [place] [address] 70759 Hematocrit (Bld) [Volume fraction] 38.3 % Normal 35-47 [facility] Comment on above: Performed By: #### N UM #### [facility] ([id number]) [address] [place] [address] 24380 Hemoglobin (Bld) [Mass/Vol] 13.1 g/dL Normal 11.7-15.5 [facility] Comment on above: Performed By: #### N UM #### [facility] ([id number]) [address] [place] [address] 69814 Lymphocytes (Bld) [#/Vol] 1.3 10*3/uL Normal 1.0-3.5 [facility] Comment on above: Performed By: #### N UM #### [facility] ([id number]) [address] [place] [address] 74301 Lymphocytes/100 WBC (Bld) 18.3 % Normal [facility] Comment on above: Performed By: #### N UM #### [facility] ([id number]) [address] [place] [address] 11853 MCH (RBC) [Entitic mass] 29.0 pg Normal 27-34 [facility] Comment on above: Performed By: #### N UM #### [facility] ([id number]) [address] [place] [address] 50049 MCHC (RBC) [Mass/Vol] 34.2 g/dL Normal 32-36 [facility] Comment on above: Performed By: #### N UM #### [facility] ([id number]) [address] [place] [address] 20227 MCV (RBC) [Entitic vol] 85 fL Normal 80-100 [facility] Comment on above: Performed By: #### N UM #### [facility] ([id number]) [address] [place] [address] 98802 Monocytes (Bld) [#/Vol] 0.6 10*3/uL Normal 0-0.9 [facility] Comment on above: Performed By: #### N UM #### [facility] ([id number]) [address] [place] [address] 00398 Monocytes/100 WBC (Bld) 8.6 % Normal [facility] Comment on above: Performed By: #### N UM #### [facility] ([id number]) [address] [place] [address] 79057 Neutrophils/100 WBC (Bld) 71.7 % Normal [facility] Comment on above: Performed By: #### N UM #### [facility] ([id number]) [address] [place] [address] 36276 Platelet mean volume (Bld) [Entitic vol] 9.4 fL Normal 7-12 [facility] Comment on above: Performed By: #### N UM #### [facility] ([id number]) [address] [place] [address] 67062 Platelets (Bld) [#/Vol] 218 10*3/uL Normal 150-450 [facility] Comment on above: Performed By: #### N UM #### [facility] ([id number]) [address] [place] [address] 13449 RBC COUNT 4.51 X10E12/L Normal 3.80-5.20 [facility] Comment on above: Performed By: #### N UM #### [facility] ([id number]) [address] [place] [address] 10298 WBC (Bld) [#/Vol] 7.4 10*3/uL Normal 4.0-11.0 [facility] Comment on above: Performed By: #### N UM #### [facility] ([id number]) [address] [place] [address] 33101 COMPREHENSIVE METABOLIC PANE Andrew 08-31-2024 Albumin [Mass/Vol] 3.9 g/dL Normal 3.2-5.3 [facility] Comment on above: Performed By: #### 2 106-3 #### [facility] ([id number]) [address] [place] [address] 82059 ALP [Catalytic activity/Vol] 96 U/L Normal 39-130 [facility] Comment on above: Performed By: #### 2 106-3 #### [facility] ([id number]) [address] [place] [address] 83807 ALT [Catalytic activity/Vol] 9 U/L Normal 0-31 [facility] Comment on above: Performed By: #### 2 106-3 #### [facility] ([id number]) [address] [place] [address] 42400 Anion gap [Moles/Vol] 8 mmol/L Normal 5-15 [facility] Comment on above: Performed By: #### 2 106-3 #### [facility] ([id number]) [address] [place] [address] 90155 AST [Catalytic activity/Vol] 15 U/L Normal 0-41 [facility] Comment on above: Performed By: #### 2 106-3 #### [facility] ([id number]) [address] [place] [address] 72805 Bilirubin [Mass/Vol] 0.4 mg/dL Normal 0.3-1.2 [facility] Comment on above: Performed By: #### 2 106-3 #### [facility] ([id number]) [address] [place] [address] 81593 Calcium [Mass/Vol] 9.3 mg/dL Normal 8.5-10.5 [facility] Comment on above: Performed By: #### 2 106-3 #### [facility] ([id number]) [address] [place] [address] 30300 Chloride [Moles/Vol] 104 mmol/L Normal 98-109 [facility] Comment on above: Performed By: #### 2 106-3 #### [facility] ([id number]) [address] [place] [address] 85045 CO2 [Moles/Vol] 22 mmol/L Normal 22-32 [facility] Comment on above: Performed By: #### 2 106-3 #### [facility] ([id number]) [address] [place] [address] 64550 Creatinine [Mass/Vol] 0.37 mg/dL Low 0.40-1.00 [facility] Comment on above: Result Comment: METH OD TRACEABLE TO IDMS STANDARD Performed By: #### 2 106-3 #### [facility] ([id number]) [address] [place] [address] 49220 eGFR (CKD-EPI) NON-RACE DEPENDENT >90 Normal >59 [facility] Comment on above: Result Comment: Reported eGFR is based on the CKD-EPI 2020 equation that does not use a race coefficient. Performed By: #### 2 106-3 #### [facility] ([id number]) [address] [place] [address] 00820 Glucose [Mass/Vol] 88 mg/dL Normal 65-99 [facility] Comment on above: Performed By: #### 2 106-3 #### [facility] ([id number]) [address] [place] [address] 92880 Potassium [Moles/Vol] 3.3 mmol/L Low 3.5-5.0 [facility] Comment on above: Performed By: #### 2 106-3 #### [facility] ([id number]) [address] [place] [address] 20226 Protein [Mass/Vol] 7.4 g/dL Normal 6.0-8.0 [facility] Comment on above: Performed By: #### 2 106-3 #### [facility] ([id number]) [address] [place] [address] 44713 Sodium [Moles/Vol] 134 mmol/L Normal 134-146 [facility] Comment on above: Performed By: #### 2 106-3 #### [facility] ([id number]) [address] [place] [address] 59599 Urea nitrogen [Mass/Vol] 6 mg/dL Normal 5-23 [facility] Comment on above: Performed By: #### 2 106-3 #### [facility] ([id number]) [address] [place] [address] 21162 DRUG SCREEN, URINEon 024 AMPHETAMINE/METHAMP Negative Normal NEG [facility] Comment on above: Result Comment: AMPH /METH screening cut off = 1000 ng/mL Performed By: #### 2 106-3 #### [facility] ([id number]) [address] [place] [address] 82032 BARBITURATES Negative Normal NEG [facility] Comment on above: Result Comment: Becca iturates screening cut off value = 200 ng/mL Performed By: #### 2 106-3 #### [facility] ([id number]) [address] [place] [address] 93099 BENZODIAZEPINES Negative Normal NEG [facility] Comment on above: Result Comment: Janusz odiazepines screening cut off value = 200 ng/mL Performed By: #### 2 106-3 #### [facility] ([id number]) [address] [place] [address] 91137 CANNABINOIDS Positive Abnormal NEG [facility] Comment on above: Result Comment: Conf irmation available upon request. Cannabinoids/THC screening cut off value = 50 ng/mL Performed By: #### 2 106-3 #### [facility] ([id number]) [address] [place] [address] 01444 COCAINE METABOLITE Negative Normal NEG [facility] Comment on above: Result Comment: Coca ine screening cut off value = 300 ng/mL Performed By: #### 2 106-3 #### [facility] ([id number]) [address] [place] [address] 06086 ECSTASY Negative Normal NEG [facility] Comment on above: Result Comment: Ecst asy screening cut off value = 500 ng/mL This report is intended for use in clinical monitoring or management of patients. Performed By: #### 2 106-3 #### [facility] ([id number]) [address] [place] [address] 60983 METHADONE Negative Normal NEG [facility] Comment on above: Result Comment: Meth adone screening cut off value = 300 ng/mL. Performed By: #### 2 106-3 #### [facility] ([id number]) [address] [place] [address] 31177 OPIATES Negative Normal NEG [facility] Comment on above: Result Comment: Opia jovanna screening cut off value = 300 ng/mL NOTE: This test is used for the detection of codeine, hydrocodone (>1000 ng/mL), morphine and hydromorphone (>900 ng/mL) in urine. Performed By: #### 2 106-3 #### [facility] ([id number]) [address] [place] [address] 03480 OXYCODONE Negative Normal NEG [facility] Comment on above: Result Comment: Oxyc odone screening cut off value = 300 ng/mL NOTE: This test is used for the detection of oxycodone and oxymorphone in urine. Performed By: #### 2 106-3 #### [facility] ([id number]) [address] [place] [address] 49688 PHENCYCLIDINE Negative Normal NEG [facility] Comment on above: Result Comment: Phen cyclidine screening cut off value = 25 ng/mL Performed By: #### 2 106-3 #### [facility] ([id number]) [address] [place] [address] 12568 THYROID PROFILEon 08-31-2024 Free T4 [Mass/Vol] 0.88 ng/dL Normal 0.61-1.60 [facility] Comment on above: Result Comment: NEW REFERENCE RANGE FOR PEDIATRIC PATIENTS Performed By: #### 2 106-3 #### [facility] ([id number]) [address] [place] [address] [place] [address] TSH 1.27 uIU/mL Normal 0.49-4.67 [facility] Comment on above: Result Comment: NEW REFERENCE RANGE FOR PEDIATRIC PATIENTS Performed By: #### 2 106-3 #### [facility] ([id number]) [address] [place] [address], [place] [address] URINE CULTUREon 08-31-2024 Bacteria identified Cx Nom (U) CULTURE RESULTS <10,000 ORGANISMS/ML NORMAL URO GENITAL GABRIELE Normal [facility] Comment on above: Performed By: #### 2 106-3 #### [facility] ([id number]) [address] [place] [address] 38277 URN MACROSCOPIC NURon 2023 BILIRUBIN LUCIE Small Abnormal NEG [facility] Comment on above: Performed By: #### N UM #### [facility] ([id number]) [address] [place] [address] [place] [address] BLOOD/HGB LUCIE Negative Normal NEG [facility] Comment on above: Performed By: #### N UM #### [facility] ([id number]) [address] [place] [address] [place] [address] GLUCOSE LUCIE Negative Normal NEG [facility] Comment on above: Performed By: #### N UM #### [facility] ([id number]) [address] [place] [address] [place] [address] KETONES LUCIE 80 mg/dL Abnormal NEG [facility] Comment on above: Performed By: #### N UM #### [facility] ([id number]) [address] [place] [address] [place] [address] LEUKOCYTE ESTERASE LUCIE Trace Abnormal NEG [facility] Comment on above: Performed By: #### N UM #### [facility] ([id number]) [address] [place] [address] 43443 NITRITE LUCIE Negative Normal NEG [facility] Comment on above: Performed By: #### N UM #### [facility] ([id number]) [address] [place] [address] 33465 PH LUCIE 6.0 Normal 5.0-8.5 [facility] Comment on above: Performed By: #### N UM #### [facility] ([id number]) [address] [place] [address] 17052 PROTEIN LUCIE >=300 Abnormal NEG [facility] Comment on above: Performed By: #### N UM #### [facility] ([id number]) [address] [place] [address] 83866 SPECIFIC GRAVITY LUCIE >=1.030 Normal 1.003-1.035 [facility] Comment on above: Performed By: #### N UM #### [facility] ([id number]) [address] [place] [address] 03479 UROBILINOGEN LUCIE 0.2 eu/dL Normal <1.1 [facility] Comment on above: Performed By: #### N UM #### [facility] ([id number]) [address] [place] [address] 17354 Urinalysis macro (dipstick) panel (U)on 07-05-2024 Bilirubin, UA Negative Negative - 4(70) +++ mg/dL [facility] Blood, UA Negative Negative - 50 Mendez/mcL [facility] Clarity, UA Clear [facility] Color, UA Yellow [facility] Glucose, UA Negative Negative - 2000(110) ++++ mg/dL [facility] Interpretation and review of laboratory results Abnormal [facility] Ketones, UA Positive Negative - 160(16) ++++ mg/dL [facility] Leukocytes, UA Positive Negative - 500+++ Bhavani/mcL [facility] Nitrite, UA Negative Negative - Positive [facility] pH, UA 5.5 5 - 9 [facility] Protein, UA Positive Negative - 2000(20) ++++ mg/dL [facility] Spec Grav, UA 1.03 1 - 1.03 [facility] Urobilinogen, UA 1.0 0.2 - 12 mg/dL [facility] AFP, SERUM, OPEN SPINA BIFID Aon 06-19-2024 AFP MOM 0.60 . [facility] AFP VALUE 19.7 ng/mL . [facility] COMMENT: Comment . [facility] Comment on above: Nathalia Aguiar , Ph.D., [facility] Director References: Available Upon Request. Multiples Of Median Cutoffs For AFP Elevations Bryant 2.5 Black 2.8 IDD 2.0 Twins 4.5 Abbreviation Definitions IDD - Insulin Dep Diabetes OSBR - Open Spina Bifida Risk For further inquiries contact [facility] [facility] at [phone]. This test was developed and its performance characteristics determined by [employer]. It has not been cleared or approved by the Food and Drug Administration. Performed at: [facility] [address] [id number] Paint Specialist: Robson Redman [facility], Phone: [phone] GEST. AGE ON COLLECTION DATE 16.1 . weeks [facility] GESTAT. AGE BASED ON Ultrasound . [facility] Comment on above: 15.3 on 06/10/2024 Recalculations are not recommended when gestational dating by LMP and ultrasound are within 10 days. INSULIN DEP DIABETES No . [facility] INTERPRETATION Comment . [facility] Comment on above: Interpretation: Scre en Negative This result is screen negative for OSB. The AFP MoM calculated is based on the gestational age provided. MS-AFP can identify up to 80% of open neural tube defects. Closed neural tube defects and some open defects may not be detected by this test. This test does not screen for Down Syndrome or Trisomy 18. If screening for Down Syndrome or Trisomy 18 is desired, contact [facility] to discuss available options. The [employer] recommends amniocentesis be offered to women age 35 and older. [age] [place] [age] [facility] MULTIPLE GESTATION No . [facility] [facility] [place] [id number] . [facility] . [facility] RESULTS Report . [facility] e TEST RESULTS: Negative . [facility] WEIGHT [address] [facility] N N ULTRASOUND [id number] 15 N 1 Y 156 N N N N N White/ [facility]IS[facility] HCG ( test) Ql (U)o n 06-10-2024 Interpretation and review of laboratory results Abnormal [facility] Preg Test, Ur Positive [facility] Health care [facility] Urinalysis macro (dipstick) panel (U)on 06-10-2024 Bilirubin, UA Negative Negative - 4(70) +++ mg/dL [facility] Blood, UA Negative Negative - 50 Mendez/mcL [facility] Clarity, UA Clear [facility] Healthsc re Color, UA Yellow [facility] Glucose, UA Negative Negative - 1999(110) ++++ mg/dL [facility] Interpretation and review of laboratory results Abnormal [facility] Ketones, UA Positive Negative - 160(16) ++++ mg/dL [facility] Leukocytes, UA Positive Negative - 500+++ Bhavani/mcL [facility] Nitrite, UA Negative Negative - Positive [facility] pH, UA 7.0 5 - [address] [facility] Protein, UA Positive Negative - 1999(20) ++++ mg/dL [facility] Spec Grav, UA 1.025 1 - 1.03 [facility] Urobilinogen, UA 1.0 0.2 - 12 mg/dL [facility] BASIC METABOLIC PANLon 05-22 Anion gap [Moles/Vol] 6 mmol/L Normal 5-15 [facility] Comment on above: Performed By: #### N UM #### [facility] ([id number]) [address] [place] [address] 47887 Calcium [Mass/Vol] 8.7 mg/dL Normal 8.5-10.5 [facility] Comment on above: Performed By: #### N UM #### [facility] ([id number]) [address] [place] [address] 99337 Chloride [Moles/Vol] 104 mmol/L Normal 98-109 [facility] Comment on above: Performed By: #### N UM #### [facility] ([id number]) [address] [place] [address] 95253 CO2 [Moles/Vol] 22 mmol/L Normal 22-32 [facility] Comment on above: Performed By: #### N UM #### [facility] ([id number]) [address] [place] [address] 25044 Creatinine [Mass/Vol] 0.51 mg/dL Normal 0.40-1.00 [facility] Comment on above: Result Comment: METH OD TRACEABLE TO IDMS STANDARD Performed By: #### N UM #### [facility] ([id number]) [address] [place] [address] 13887 eGFR (CKD-EPI) NON-RACE DEPENDENT >90 Normal >59 [facility] Comment on above: Result Comment: Reported eGFR is based on the CKD-EPI 2020 equation that does not use a race coefficient. Performed By: #### N UM #### [facility] ([id number]) [address] [place] [address] 48001 Glucose [Mass/Vol] 102 mg/dL High 65-99 [facility] Comment on above: Performed By: #### N UM #### [facility] ([id number]) [address] [place] [address] 25395 Potassium [Moles/Vol] 3.4 mmol/L Low 3.5-5.0 [facility] Comment on above: Performed By: #### N UM #### [facility] ([id number]) [address] [place] [address] 79195 Sodium [Moles/Vol] 132 mmol/L Low 134-146 [facility] Comment on above: Performed By: #### N UM #### [facility] ([id number]) [address] [place] [address] 99090 Urea nitrogen [Mass/Vol] 6 mg/dL Normal 5-23 [facility] Comment on above: Performed By: #### N UM #### [facility] ([id number]) [address] [place] [address] 58807 CBC AND AUTO DIFFon 05-22-20 24 ABSOLUTE BASOPHIL 0.1 X10E9/L Normal 0.0-0.2 [facility] Comment on above: Performed By: #### N UM #### [facility] ([id number]) [address] [place] [address] 25778 ABSOLUTE NEUTROPHIL 3.3 X10E9/L Normal 1.5-6.6 [facility] Comment on above: Performed By: #### N UM #### [facility] ([id number]) [address] [place] [address] 16850 Basophils/100 WBC (Bld) 0.9 % Normal [facility] Comment on above: Performed By: #### N UM #### [facility] ([id number]) [address] [place] [address] 87646 Eosinophils (Bld) [#/Vol] 0.2 10*3/uL Normal 0.0-0.4 [facility] Comment on above: Performed By: #### N UM #### [facility] ([id number]) [address] [place] [address] 78628 Eosinophils/100 WBC (Bld) 3.9 % Normal [facility] Comment on above: Performed By: #### N UM #### [facility] ([id number]) [address] [place] [address] 93687 Erythrocyte distribution width (RBC) [Ratio] 13.9 % Normal 11.5-15.0 [facility] Comment on above: Performed By: #### N UM #### [facility] ([id number]) [address] [place] [address] 44527 Hematocrit (Bld) [Volume fraction] 38.4 % Normal 35-47 [facility] Comment on above: Performed By: #### N UM #### [facility] ([id number]) [address] [place] [address] 52130 Hemoglobin (Bld) [Mass/Vol] 13.2 g/dL Normal 11.7-15.5 [facility] Comment on above: Performed By: #### N UM #### [facility] ([id number]) [address] [place] [address] 39856 Lymphocytes (Bld) [#/Vol] 1.4 10*3/uL Normal 1.0-3.5 [facility] Comment on above: Performed By: #### N UM #### [facility] ([id number]) [address] [place] [address] 08106 Lymphocytes/100 WBC (Bld) 25.9 % Normal [facility] Comment on above: Performed By: #### N UM #### [facility] ([id number]) [address] [place] [address] 13658 MCH (RBC) [Entitic mass] 28.2 pg Normal 27-34 [facility] Comment on above: Performed By: #### N UM #### [facility] ([id number]) [address] [place] [address] 63308 MCHC (RBC) [Mass/Vol] 34.3 g/dL Normal 32-36 [facility] Comment on above: Performed By: #### N UM #### [facility] ([id number]) [address] [place] [address] 53654 MCV (RBC) [Entitic vol] 82 fL Normal 80-100 [facility] Comment on above: Performed By: #### N UM #### [facility] ([id number]) [address] [place] [address] 63877 Monocytes (Bld) [#/Vol] 0.6 10*3/uL Normal 0-0.9 [facility] Comment on above: Performed By: #### N UM #### [facility] ([id number]) [address] [place] [address] 77442 Monocytes/100 WBC (Bld) 10.2 % Normal [facility] Comment on above: Performed By: #### N UM #### [facility] ([id number]) [address] [place] [address] 28193 Neutrophils/100 WBC (Bld) 59.1 % Normal [facility] Comment on above: Performed By: #### N UM #### [facility] ([id number]) [address] [place] [address] 94650 Platelet mean volume (Bld) [Entitic vol] 8.7 fL Normal 7-12 [facility] Comment on above: Performed By: #### N UM #### [facility] ([id number]) [address] [place] [address] 08789 Platelets (Bld) [#/Vol] 198 10*3/uL Normal 150-450 [facility] Comment on above: Performed By: #### N UM #### [facility] ([id number]) [address] [place] [address] 67077 RBC COUNT 4.67 X10E12/L Normal 3.80-5.20 [facility] Comment on above: Performed By: #### N UM #### [facility] ([id number]) [address] [place] [address] 42489 WBC (Bld) [#/Vol] 5.6 10*3/uL Normal 4.0-11.0 [facility] Comment on above: Performed By: #### N UM #### [facility] ([id number]) [address] [place] [address] 73176 HCG ( test) Ql (U)o n 05-22-2024 Beta HCG ( test) Ql (U) Positive Abnormal NEG [facility] Comment on above: Performed By: #### N UM #### [facility] ([id number]) [address] [place] [address] 64081 HCG.beta subunit IA 3rd IS Q non 05-22-2024 [place] [address] m[IU]/mL Normal P [facility] Comment on [...] neoplasms. Performed By: #### N UM #### [facility] ([id number]) [address] [place] [address] 41589 URN MACROSCOPIC NURon 2023 BILIRUBIN LUCIE Small Abnormal NEG [facility] Comment on above: Performed By: #### N UM #### [facility] ([id number]) [address] [place] [address] 96674 BLOOD/HGB LUCIE Trace Abnormal NEG [facility] Comment on above: Performed By: #### N UM #### [facility] ([id number]) [address] [place] [address] 68436 GLUCOSE LUCIE Negative Normal NEG [facility] Comment on above: Performed By: #### N UM #### [facility] ([id number]) [address] [place] [address] 65429 KETONES LUCIE Trace Abnormal NEG [facility] Comment on above: Performed By: #### N UM #### [facility] ([id number]) [address] [place] [address] 87936 LEUKOCYTE ESTERASE LUCIE Small Abnormal NEG [facility] Comment on above: Performed By: #### N UM #### [facility] ([id number]) [address] [place] [address] 37485 NITRITE LUCIE Negative Normal NEG [facility] Comment on above: Performed By: #### N UM #### [facility] ([id number]) [address] [place] [address] 85681 PH LUCIE 6.5 Normal 5.0-8.5 [facility] Comment on above: Performed By: #### N UM #### [facility] ([id number]) [address] [place] [address] 09197 PROTEIN LUCIE 100 mg/dL Abnormal NEG [facility] Comment on above: Performed By: #### N UM #### [facility] ([id number]) [address] [place] [address] 39772 SPECIFIC GRAVITY LUCIE >=1.030 Normal 1.003-1.035 [facility] Comment on above: Performed By: #### N UM #### [facility] ([id number]) [address] [place] [address] 13353 UROBILINOGEN LUCIE 1.0 eu/dL Normal <1.1 [facility] Comment on above: Performed By: #### N UM #### [facility] ([id number]) [address] [place] [address]APID STREP SCR NURSINGon S. pyogenes Ag EIA Ql (Throat) Positive Abnormal NEG [facility] Comment on above: Performed By: #### N UM #### [facility] ([id number]) [address] [place] [address] 51008 CBC AND AUTO DIFFon 02-29-20 ABSOLUTE BASOPHIL 0.0 X10E9/L Normal 0.0-0.2 [facility] Comment on above: Performed By: #### N UM #### [facility] ([id number]) [address] [place] [address] 13138 ABSOLUTE NEUTROPHIL 2.4 X10E9/L Normal 1.5-6.6 [facility] Comment on above: Performed By: #### N UM #### [facility] ([id number]) [address] [place] [address] 89236 Basophils/100 WBC (Bld) 0.8 % Normal [facility] Comment on above: Performed By: #### N UM #### [facility] ([id number]) [address] [place] [address] 40581 Eosinophils (Bld) [#/Vol] 0.2 10*3/uL Normal 0.0-0.4 [facility] Comment on above: Performed By: #### N UM #### [facility] ([id number]) [address] [place] [address] 49687 Eosinophils/100 WBC (Bld) 3.0 % Normal [facility] Comment on above: Performed By: #### N UM #### [facility] ([id number]) [address] [place] [address] 91729 Erythrocyte distribution width (RBC) [Ratio] 12.3 % Normal 11.5-15.0 [facility] Comment on above: Performed By: #### N UM #### [facility] ([id number]) [address] [place] [address] 54056 Hematocrit (Bld) [Volume fraction] 36.6 % Normal 35-47 [facility] Comment on above: Performed By: #### N UM #### [facility] ([id number]) [address] [place] [address] 78034 Hemoglobin (Bld) [Mass/Vol] 12.5 g/dL Normal 11.7-15.5 [facility] Comment on above: Performed By: #### N UM #### [facility] ([id number]) [address] [place] [address] 20479 Lymphocytes (Bld) [#/Vol] 2.3 10*3/uL Normal 1.0-3.5 [facility] Comment on above: Performed By: #### N UM #### [facility] ([id number]) [address] [place] [address] 24520 Lymphocytes/100 WBC (Bld) 43.8 % Normal [facility] Comment on above: Performed By: #### N UM #### [facility] ([id number]) [address] [place] [address] 95233 MCH (RBC) [Entitic mass] 29.5 pg Normal 27-34 [facility] Comment on above: Performed By: #### N UM #### [facility] ([id number]) [address] [place] [address] 90959 MCHC (RBC) [Mass/Vol] 34.1 g/dL Normal 32-36 [facility] Comment on above: Performed By: #### N UM #### [facility] ([id number]) [address] [place] [address] 41009 MCV (RBC) [Entitic vol] 86 fL Normal 80-100 [facility] Comment on above: Performed By: #### N UM #### [facility] ([id number]) [address] [place] [address] 35216 Monocytes (Bld) [#/Vol] 0.4 10*3/uL Normal 0-0.9 [facility] Comment on above: Performed By: #### N UM #### [facility] ([id number]) [address] [place] [address] 85346 Monocytes/100 WBC (Bld) 7.4 % Normal [facility] Comment on above: Performed By: #### N UM #### [facility] ([id number]) [address] [place] [address] 42221 Neutrophils/100 WBC (Bld) 45.0 % Normal [facility] Comment on above: Performed By: #### N UM #### [facility] ([id number]) [address] [place] [address] 77150 Platelet mean volume (Bld) [Entitic vol] 8.7 fL Normal 7-12 [facility] Comment on above: Performed By: #### N UM #### [facility] ([id number]) [address] [place] [address] 22335 Platelets (Bld) [#/Vol] 326 10*3/uL Normal 150-450 [facility] Comment on above: Performed By: #### N UM #### [facility] ([id number]) [address] [place] [address] 38025 RBC COUNT 4.23 X10E12/L Normal 3.80-5.20 [facility] Comment on above: Performed By: #### N UM #### [facility] ([id number]) [address] [place] [address] 47456 WBC (Bld) [#/Vol] 5.3 10*3/uL Normal 4.0-11.0 [facility] Comment on above: Performed By: #### N UM #### [facility] ([id number]) [address] [place] [address] 38070 BASIC METABOLIC PANLon 02-12 Anion gap [Moles/Vol] 8 mmol/L Normal 5-15 [facility] Comment on above: Performed By: #### B EDEL, , CBCA #### [facility] ([id number]) [address] [place] [address] 52603 Calcium [Mass/Vol] 9.1 mg/dL Normal 8.5-10.5 [facility] Comment on above: Performed By: #### B EDEL, , CBCA #### [facility] ([id number]) [address] [place] [address] 38381 Chloride [Moles/Vol] 103 mmol/L Normal 98-109 [facility] Comment on above: Performed By: #### B EDEL, , CBCA #### [facility] ([id number]) [address] [place] [address] 78329 CO2 [Moles/Vol] 22 mmol/L Normal 22-32 [facility] Comment on above: Performed By: #### Ed HOLLINGSWORTH, , CBCA #### [facility] ([id number]) [address] [place] [address] 71616 Creatinine [Mass/Vol] 0.57 mg/dL Normal 0.40-1.00 [facility] Comment on above: Result Comment: METH OD TRACEABLE TO IDMS STANDARD Performed By: #### B EDEL, , CBCA #### [facility] ([id number]) [address] [place] [address] 74027 eGFR (CKD-EPI) NON-RACE DEPENDENT >90 Normal >59 [facility] Comment on above: Result Comment: Reported eGFR is based on the CKD-EPI 2020 equation that does not use a race coefficient. Performed By: #### B EDEL, [id number], CBCA #### [facility] ([id number]) [address] [place] [address] 58371 Glucose [Mass/Vol] 93 mg/dL Normal 65-99 [facility] Comment on above: Performed By: #### B EDEL, , CBCA #### [facility] ([id number]) [address] [place] [address] 58825 Potassium [Moles/Vol] 3.6 mmol/L Normal 3.5-5.0 [facility] Comment on above: Performed By: #### Ed HOLLING[place]ORTH, , CBCA #### [facility] ([id number]) [address] [place] [address] 56208 Sodium [Moles/Vol] 133 mmol/L Low 134-146 [facility] Comment on above: Performed By: #### Ed HOLLINGSWORTH, , CBCA #### [facility] ([id number]) [address] [place] [address] [place] [address] Urea nitrogen [Mass/Vol] 11 mg/dL Normal 5-23 [facility] Comment on above: Performed By: #### Ed HOLLINGSWORTH, , CBCA #### [facility] ([id number]) [address] [place] [address] 74533 CBC AND AUTO DIFFon 05-25-20 24 ABSOLUTE BASOPHIL 0.1 X10E9/L Normal 0.0-0.2 [facility] Comment on above: Performed By: #### Ed HOLLINGSWORTH, , CBCA #### [facility] ([id number]) [address] [place] [address] 40156 ABSOLUTE NEUTROPHIL 5.3 X10E9/L Normal 1.5-6.6 [facility] Comment on above: Performed By: #### Ed HOLLINGSWORTH, , CBCA #### [facility] ([id number]) [address] [place] [address] 05018 Basophils/100 WBC (Bld) 0.9 % Normal [facility] Comment on above: Performed By: #### B EDEL, , CBCA #### [facility] ([id number]) [address] [place] [address] 52363 DIFFERENTIAL COMMENT PLATELETS REVIEWED Normal [facility] Comment on above: Performed By: #### B EDEL, , CBCA #### [facility] ([id number]) [address] [place] [address] 47894 Eosinophils (Bld) [#/Vol] 0.4 10*3/uL Normal 0.0-0.4 [facility] Comment on above: Performed By: #### B EDEL, , CBCA #### [facility] ([id number]) [address] [place] [address] 95076 Eosinophils/100 WBC (Bld) 4.0 % Normal [facility] Comment on above: Performed By: #### Ed HOLLINGSWORTH, , CBCA #### [facility] ([id number]) [address] [place] [address] 07777 Erythrocyte distribution width (RBC) [Ratio] 12.7 % Normal 11.5-15.0 [facility] Comment on above: Performed By: #### Ed HOLLINGSWORTH, , CBCA #### [facility] ([id number]) [address] [place] [address] 66652 Hematocrit (Bld) [Volume fraction] 34.3 % Low 35-47 [facility] Comment on above: Performed By: #### Ed HOLLINGSWORTH, , CBCA #### [facility] ([id number]) [address] [place] [address] 74339 Hemoglobin (Bld) [Mass/Vol] 12.2 g/dL Normal 11.7-15.5 [facility] Comment on above: Performed By: #### Ed HOLLINGSWORTH, , CBCA #### [facility] ([id number]) [address] [place] [address] 57077 Lymphocytes (Bld) [#/Vol] 2.7 10*3/uL Normal 1.0-3.5 [facility] Comment on above: Performed By: #### Ed HOLLINGSWORTH, , CBCA #### [facility] ([id number]) [address] [place] [address] 89633 Lymphocytes/100 WBC (Bld) 29.1 % Normal [facility] Comment on above: Performed By: #### Ed HOLLINGSWORTH, , CBCA #### [facility] ([id number]) [address] [place] [address] 86392 MCH (RBC) [Entitic mass] 30.1 pg Normal 27-34 [facility] Comment on above: Performed By: #### Ed HOLLINGSWORTH, , CBCA #### [facility] ([id number]) [address] [place] [address] 27414 MCHC (RBC) [Mass/Vol] 35.7 g/dL Normal 32-36 [facility] Comment on above: Performed By: #### Ed HOLLINGSWORTH, , CBCA #### [facility] ([id number]) [address] [place] [address] 90364 MCV (RBC) [Entitic vol] 84 fL Normal 80-100 [facility] Comment on above: Performed By: #### Ed HOLLINGSWORTH, , CBCA #### [facility] ([id number]) [address] [place] [address] 05466 Monocytes (Bld) [#/Vol] 0.9 10*3/uL Normal 0-0.9 [facility] Comment on above: Performed By: #### Ed HOLLINGSWORTH, , CBCA #### [facility] ([id number]) [address] [place] [address] 00484 Monocytes/100 WBC (Bld) 9.9 % Normal [facility] Comment on above: Performed By: #### B EDEL, , CBCA #### [facility] ([id number]) [address] [place] [address] 69023 Neutrophils/100 WBC (Bld) 56.1 % Normal [facility] Comment on above: Performed By: #### B EDEL, , CBCA #### [facility] ([id number]) [address] [place] [address] [place] [address] Platelet mean volume (Bld) [Entitic vol] 9.0 fL Normal 7-12 [facility] Comment on above: Performed By: #### B EDEL, , CBCA #### [facility] ([id number]) [address] [place] [address] 66111 Platelets (Bld) [#/Vol] 203 10*3/uL Normal 150-450 [facility] Comment on above: Performed By: #### B EDEL, , CBCA #### [facility] ([id number]) [address] [place] [address] [place] [address] RBC COUNT 4.07 X10E12/L Normal 3.80-5.20 [facility] Comment on above: Performed By: #### B EDEL, , CBCA #### [facility] ([id number]) [address] [place] [address] 82482 WBC (Bld) [#/Vol] 9.4 10*3/uL Normal 4.0-11.0 [facility] Comment on above: Performed By: #### B EDEL, , CBCA #### [facility] ([id number]) [address] [place] [address] 09578 HCG.beta subunit IA 3rd IS Q non 02-13-2024 [place] [address] m[IU]/mL Normal P [facility] Comment on [...] or nontrophoblastic neoplasms. Performed By: #### B , 40745-6, CBCA #### [facility] ([id number]) [address] [place] [address] 69936 URN MACROSCOPIC NURon 2023 BILIRUBIN LUCIE Negative Normal NEG [facility] Comment on above: Performed By: #### N UM #### [facility] ([id number]) [address] [place] [address] 08000 BLOOD/HGB LUCIE Large Abnormal NEG [facility] Comment on above: Performed By: #### N UM #### [facility] ([id number]) [address] [place] [address] 38035 GLUCOSE LUCIE Negative Normal NEG [facility] Comment on above: Performed By: #### N UM #### [facility] ([id number]) [address] [place] [address] 89433 KETONES LUCIE Negative Normal NEG [facility] Comment on above: Performed By: #### N UM #### [facility] ([id number]) [address] [place] [address] [place] [address] LEUKOCYTE ESTERASE LUCIE Negative Normal NEG [facility] Comment on above: Performed By: #### N UM #### [facility] ([id number]) [address] [place] [id number] NITRITE LUCIE Negative Normal NEG [facility] Comment on above: Performed By: #### N UM #### [facility] ([id number]) [address] [place] [id number] PH LUCIE 6.5 Normal 5.0-8.5 [facility] Comment on above: Performed By: #### N UM #### [facility] ([id number]) [address] [place] [id number] PROTEIN LUCIE Trace Abnormal NEG [facility] Comment on above: Performed By: #### N UM #### [facility] ([id number]) [address] [place] [id number] SPECIFIC GRAVITY LUCIE 1.015 Normal 1.003-1.035 [facility] Comment on above: Performed By: #### N UM #### [facility] ([id number]) [address] [place] [address] [place] [address] UROBILINOGEN LUCIE 0.2 eu/dL Normal <1.1 [facility] Comment on above: Performed By: #### N UM #### [facility] ([id number]) [address] [place] [address] HCG ( test) Ql (U)o n 02-12-2024 Beta HCG ( test) Ql (U) Positive Abnormal NEG [facility] Comment on above: Performed By: #### 2 106-3 #### [facility] ([id number]) [address] [place] [address] HCG.beta subunit IA 3rd IS Q non 02-12-2024 [place] [address] m[IU]/mL Normal P [facility] Comment on [...] nontrophoblastic neoplasms. Performed By: #### 4 544-3, 7187, #### [facility] ([id number]) [address] [place] [address] HEMOGLOBINon 02-12-2024 Hemoglobin (Bld) [Mass/Vol] 12.7 g/dL Normal 11.7-15.5 [facility] Comment on above: Performed By: #### 4 544-3, 7187, #### [facility] ([id number]) [address] [place] [address] Hematocrit Auto (Bld) [Volum e fraction]on 02-12-2024 Hematocrit (Bld) [Volume fraction] 35.4 % Normal 35-47 [facility] Comment on above: Performed By: #### 4 544-3, 7187, #### [facility] ([id number]) [address] [place] [address] URN MACROSCOPIC NURon 2023 BILIRUBIN LUCIE Negative Normal NEG [facility] Comment on above: Performed By: #### N UM #### [facility] ([id number]) [address] [place] [address] BLOOD/HGB LUCIE MODERATE Abnormal NEG [facility] Comment on above: Performed By: #### N UM #### [facility] ([id number]) [address] [place] [address] GLUCOSE LUCIE Negative Normal NEG [facility] Comment on above: Performed By: #### N UM #### [facility] ([id number]) [address] [place] [address] KETONES LUCIE 15 mg/dL Abnormal NEG [facility] Comment on above: Performed By: #### N UM #### [facility] ([id number]) [address] [place] [address] LEUKOCYTE ESTERASE LUCIE Trace Abnormal NEG [facility] Comment on above: Performed By: #### N UM #### [facility] ([id number]) [address] [place] [address] NITRITE LUCIE Negative Normal NEG [facility] Comment on above: Performed By: #### N UM #### [facility] ([id number]) [address] [place] [address] PH LUCIE 6.5 Normal 5.0-8.5 [facility] Comment on above: Performed By: #### N UM #### [facility] ([id number]) [address] [place] [address] PROTEIN LUCIE Negative Normal NEG [facility] Comment on above: Performed By: #### N UM #### [facility] ([id number]) [address] [place] [address] [place] [address] SPECIFIC GRAVITY LUCIE >=1.030 Normal 1.003-1.035 [facility] Comment on above: Performed By: #### N UM #### [facility] ([id number]) [address] [facility], [place] [address] UROBILINOGEN LUCIE 1.0 eu/dL Normal <1.1 [facility] Comment on above: Performed By: #### N UM #### [facility] ([id number]) [address] [facility] [place] [address] [place] PREG LESS THAN 14 WKS WIT [...] cardiac activity with heart rate 100 bpm. [place]-rump length 6 mm corresponding to gestational age [...] Sandy MD on 02/12/2024 5:07 AM Normal [facility] ECG 12 lead ECGon 11-25-2023 ECG 12 lead ECG [facility] Main [place] [address] [place] [address] Electrocardiograph Report Signed Patient: Sharona Marks MR#: [id number] : 2005 Acct:[id number] Age/Sex: 17 / F ADM Date: 11/24/23 Loc: Room: [address] [place] [address] Type: ADM IN Attending Dr: Ignacio Acuña [...] change was found Confirmed by Chapito Corbin ([id number]) on 11/25/2023 7:52:58 PM Referred By: Electronically Signed By:Chapito Corbin Transcribed By: MUS Signed By Chapito Corbin MD 11/25/231952 Normal [facility] Lipid Panelon 11-25-2023 Cholesterol [Mass/Vol] 121 mg/dL Low 140-200 [facility] Comment on above: Result Comment: Chol less than 200 mg/dl low risk Chol 201-239 mg/dl borderline risk Chol 240 mg/dl and greater high risk Performed By: #### L IPID, [id number], TSH3 wRFLX #### [facility] [address] [place] [address] Cholesterol in HDL [Mass/Vol] 57 mg/dL Normal 23-92 [facility] Comment on above: Result Comment: HDL CHOL ATP-III CLASSIFICATION Cardiovascular Risk HDL > or equal to 60 mg/dL LOW HDL < 40 mg/dL HIGH Performed By: #### L IPID, [id number], TSH3 wRFLX #### [facility] [address] Cholesterol.total/Ch olesterol in HDL [Mass ratio] 2.1 {ratio} Normal <5.0 [facility] Comment on above: Performed By: #### L IPID, [id number], TSH3 wRFLX #### [facility] [address] LDL Cholesterol,Calculat ed 55 mg/dL Normal 0-100 [facility] Comment on above: Result Comment: LDL ATP III CLASSIFICATION LDL less than 100 mg/dL Optimal LDL 100-129 mg/dL Near or above optimal LDL 130-159 mg/dL Borderline high LDL 160-189 mg/dL High LDL greater than 189 mg/dL Very high Performed By: #### L IPID, [id number], TSH3 wRFLX #### [address] Triglyceride w/Reflex 44 mg/dL Normal 0-149 [facility] Comment on above: Result Comment: TRIG ATP III CLASSIFICATION TRIG less than 150 mg/dL Normal TRIG 150-199 mg/dL Borderline high TRIG 200-500 mg/dL High TRIG greater than 500 mg/dL Very high Standard traceable to the Center for Disease Conrtrol and Prevention (CDC) test method. Performed By: #### L IPID, [id number], TSH3 wRFLX #### [address] VLDL CHOLESTEROL 8 mg/dL Normal [facility] Comment on above: Performed By: #### L IPID, [id number], TSH3 wRFLX #### [facility] [address] [place] [id number] [facility] Thyroid Stim Hormone w/Rflxo n 11-25-2023 Thyroid Stim Hormone w/Rflx 3.18 u[iU]/mL Normal 0.45-5.33 [facility] Comment on above: Performed By: #### L IPID, [id number], TSH3 wRFLX #### [place] [id number] [facility] Vitamin D 25 Hydroxy Totalon 11-25-2023 Vitamin D 25 Hydroxy Total 14.7 ng/mL Low 30-100 [facility] Comment on above: Result Comment: DARYA MIN D STATUS 25(OH)VITAMIN D RANGE (ng/mL) Deficient <20 Insufficient 20 to <30 Sufficient 30 to 100 Reference: Angel MF,Yovany NC, Bee WILEY, et al. Evaluation,treatment, and prevention of vitamin D deficiency; an Endocrine Society clinical practice guideline. JCEM. 2010; 96(7):1911-30. PERFORMED BY: [place] [address] PATHOLOGIST ROTARY CUTTER OPERATOR TIFFANIE HIGH M.D. Performed By: #### L IPID, [id number], TSH3 wRFLX #### [address] Complete Blood Count Auto Di ffon 11-24-2023 Basophils (Bld) [#/Vol] 0.0 10*3/uL Normal 0.0-0.1 [facility] Comment on above: Result Comment: PERF ORMED BY: [place] [address] PATHOLOGIST ROTARY CUTTER OPERATOR TIFFANIE HIGH M.D. Performed By: #### C MP, ETOH, CBC #### [address] Basophils/100 WBC (Bld) 0.5 % Normal . [facility] Comment on above: Performed By: #### C MP, ETOH, CBC #### [address] Eosinophils (Bld) [#/Vol] 0.1 10*3/uL Normal 0.0-0.7 [facility] Comment on above: Performed By: #### C MP, ETOH, CBC #### [address] Eosinophils/100 WBC (Bld) 1.0 % Normal . [facility] Comment on above: Performed By: #### C MP, ETOH, CBC #### [address] Erythrocyte distribution width (RBC) [Ratio] 13.2 % Normal 11.9-15.3 [facility] Comment on above: Performed By: #### C MP, ETOH, CBC #### [address] Hematocrit (Bld) [Volume fraction] 41.6 % Normal 36.0-46.0 [facility] Comment on above: Performed By: #### C MP, ETOH, CBC #### [address] Hemoglobin (Bld) [Mass/Vol] 14.3 g/dL Normal 12.0-16.0 [facility] Comment on above: Performed By: #### C MP, ETOH, CBC #### [address] Lymphocytes (Bld) [#/Vol] 3.5 10*3/uL Normal 1.20-4.8 [facility] Comment on above: Performed By: #### C MP, ETOH, CBC #### [address] Lymphocytes/100 WBC (Bld) 39.9 % Normal . [facility] Comment on above: Performed By: #### C MP, ETOH, CBC #### [address] MCH (RBC) [Entitic mass] 29.3 pg Normal 25.0-35.0 [facility] Comment on above: Performed By: #### C MP, ETOH, CBC #### [address] MCV (RBC) [Entitic vol] 84.8 fL Normal 78-102 [facility] Comment on above: Performed By: #### C MP, ETOH, CBC #### [address] Mean Corpuscular HGB Conc 34.5 g/dL Normal 31.0-37.0 [facility] Comment on above: Performed By: #### C MP, ETOH, CBC #### [address] Monocytes (Bld) [#/Vol] 0.6 10*3/uL Normal 0.1-1.00 [facility] Comment on above: Performed By: #### C MP, ETOH, CBC #### [facility] [address] [place] [address] [place] Monocytes/100 WBC (Bld) 17.05 % Normal 0.00-20.00 [facility] Comment on above: Performed By: #### C MP, ETOH, CBC #### [facility] [address] [place] [address] [place] Monocytes/100 WBC (Bld) 7.1 % Normal . [facility] Comment on above: Performed By: #### C MP, ETOH, CBC #### [facility] [address] [place] [address] [place] Neutrophils (Bld) [#/Vol] 4.5 10*3/uL Normal 1.2-7.7 [facility] Comment on above: Performed By: #### C MP, ETOH, CBC #### [place] [address] [place] Neutrophils/100 WBC (Bld) 51.5 % Normal . [facility] Comment on above: Performed By: #### C MP, ETOH, CBC #### [place] [address] [place] NRBC% 0.1 /100{WBC} Normal 0-0.5 [facility] Comment on above: Performed By: #### C MP, ETOH, CBC #### [facility] [address] [place] [address] [place] Platelet mean volume (Bld) [Entitic vol] 7.7 fL Normal 6.3-10.7 [facility] Comment on above: Performed By: #### C MP, ETOH, CBC #### [facility] [address] [place] [address] [place] Platelets (Bld) [#/Vol] 319 10*3/uL Normal 150-450 [facility] Comment on above: Performed By: #### C MP, ETOH, CBC #### [address] RBC (Bld) [#/Vol] 4.90 10*6/uL Normal 4.10-5.10 [facility] Comment on above: Performed By: #### C MP, ETOH, CBC #### [address] WBC (Bld) [#/Vol] 8.7 10*3/uL Normal 4.5-13.5 [facility] Comment on above: Performed By: #### C MP, ETOH, CBC #### [address] Comprehensive Metabolic Pane andrew 11-24-2023 Albumin [Mass/Vol] 5.1 g/dL Normal 3.5-5.7 [facility] Comment on above: Performed By: #### C MP, ETOH, CBC #### [address] Albumin/Globulin [Mass ratio] 1.6 {ratio} Normal [facility] Comment on above: Performed By: #### C MP, ETOH, CBC #### [address] ALP [Catalytic activity/Vol] 67 U/L Normal 34-104 [facility] Comment on above: Performed By: #### C MP, ETOH, CBC #### [address] ALT [Catalytic activity/Vol] 10 U/L Normal 7-52 [facility] Comment on above: Performed By: #### C MP, ETOH, CBC #### [address] Anion gap [Moles/Vol] 10.9 mmol/L Normal 6.0-15.0 [facility] Comment on above: Performed By: #### C MP, ETOH, CBC #### [address] AST [Catalytic activity/Vol] 15 U/L Normal 13-39 [facility] Comment on above: Performed By: #### C MP, ETOH, CBC #### [place] [address] [place] Bilirubin [Mass/Vol] 0.4 mg/dL Normal 0.3-1.0 [facility] Comment on above: Performed By: #### C MP, ETOH, CBC #### [place] [address] [place] Calcium [Mass/Vol] 9.5 mg/dL Normal 8.6-10.3 [facility] Comment on above: Performed By: #### C MP, ETOH, CBC #### [place] [address] [place] Chloride [Moles/Vol] 106 mmol/L Normal 98-107 [facility] Comment on above: Performed By: #### C MP, ETOH, CBC #### [address] CO2 [Moles/Vol] 24.9 mmol/L Normal 21.0-31.0 [facility] Comment on above: Performed By: #### C MP, ETOH, CBC #### [place] [address] [place] Creatinine [Mass/Vol] 0.71 mg/dL Normal 0.60-1.20 [facility] Comment on above: Performed By: #### C MP, ETOH, CBC #### [place] [address] [place] Creatinine Clr Calc Pharmacy 124.96 Normal [facility] Comment on above: Result Comment: PERF ORMED BY: [place] [address] PATHOLOGIST ROTARY CUTTER OPERATOR TIFFANIE HIGH M.D. Performed By: #### C MP, ETOH, CBC #### [place] [address] [place] GFR/1.73 sq M.predicted MDRD (S/P/Bld) [Vol rate/Area] mL/min/{1.73_m2} Normal [facility] Comment on above: Performed By: #### C MP, ETOH, CBC #### [address] Globulin (S) [Mass/Vol] 3.1 g/dL Normal [facility] Comment on above: Performed By: #### C MP, ETOH, CBC #### [address] Glucose [Mass/Vol] 86 mg/dL Normal 70-100 [facility] Comment on above: Result Comment: [facility] Glucose Reference Range is dependent on time and content of last meal. Glucose of more than 200 mg/dL in a nonstressed, ambulatory subject supports the diagnosis of Diabetes Mellitus. ADA recommended reference range Performed By: #### C MP, ETOH, CBC #### [address] Potassium [Moles/Vol] 3.8 mmol/L Normal 3.5-5.1 [facility] Comment on above: Performed By: #### C MP, ETOH, CBC #### [address] Protein [Mass/Vol] 8.2 g/dL Normal 6.4-8.9 [facility] Comment on above: Performed By: #### C MP, ETOH, CBC #### [address] Sodium [Moles/Vol] 138 mmol/L Normal 136-145 [facility] Comment on above: Performed By: #### C MP, ETOH, CBC #### [address] Urea nitrogen [Mass/Vol] 9 mg/dL Normal 7-25 [facility] Comment on above: Performed By: #### C MP, ETOH, CBC #### [place] [address] [place] Drug Screen,Urineon 11-24-19 24 Amphetamine Screen,Urine Negative Normal Negative [facility] Comment on above: Performed By: #### U HCG, UA, URDS #### [address] Barbiturate Screen,Urine Negative Normal Negative [facility] Comment on above: Performed By: #### U HCG, UA, URDS #### [address] Benzodiazepines Screen,Urine Negative Normal Negative [facility] Comment on above: Performed By: #### U HCG, UA, URDS #### [address] Cannabinoid Screen,Urine Positive High Negative [facility] Comment on above: Result Comment: Thes e are unconfirmed results and should not be used for legal purposes. Drug Cut-Off Concentration: AMPH 1000 ng/mL BECCA 200 ng/mL JANUSZ 200 ng/mL COCM 300 ng/mL OP 300 ng/mL PCP 25 ng/mL THC 20 ng/mL PERFORMED BY: [place] [address] PATHOLOGIST ROTARY CUTTER OPERATOR TIFFANIE HIGH M.D. Performed By: #### U HCG, UA, URDS #### [address] Cocaine Screen,Urine Negative Normal Negative [facility] Comment on above: Performed By: #### U HCG, UA, URDS #### [address] Opiate Screen,Urine Negative Normal Negative [facility] Comment on above: Performed By: #### U HCG, UA, URDS #### [address] Phencyclidine Screen,Urine Negative Normal Negative [facility] Comment on above: Performed By: #### U HCG, UA, URDS #### [address] Ethyl Alcohol Profileon Ethanol [Mass/Vol] mg/dL Normal [facility] Comment on above: Performed By: #### C MP, ETOH, CBC #### [address] Percent Ethanol Not performed Normal [facility] Comment on above: Result Comment: PERF ORMED BY: [address] [address] PATHOLOGIST ROTARY CUTTER OPERATOR TIFFANIE HIGH M.D. Performed By: #### C MP, ETOH, CBC #### [place] [address] [place] HCG,Urineon 11-24-2023 Beta HCG ( test) Ql (U) Negative Normal [facility] Comment on above: Order Comment: Name Collection Type:: Clean-Voided Midstream Result Comment: PERF ORMED BY: [place] [address] PATHOLOGIST ROTARY CUTTER OPERATOR TIFFANIE HIGH M.D. Performed By: #### U HCG, UA, URDS #### [address] Urinalysison 11-24-2023 Appearance (U) Clear Normal Clear [facility] Comment on above: Order Comment: Name Collection Type:: Clean-Voided Midstream Performed By: #### U HCG, UA, URDS #### [address] Bilirubin,Urine Negative Normal Negative [facility] Comment on above: Order Comment: Name Collection Type:: Clean-Voided Midstream Performed By: #### U HCG, UA, URDS #### [address] Color (U) Yellow Normal Yellow [facility] Comment on above: Order Comment: Name Collection Type:: Clean-Voided Midstream Performed By: #### U HCG, UA, URDS #### [address] Glucose Ql (U) Normal Normal Normal [facility] Comment on above: Order Comment: Name Collection Type:: Clean-Voided Midstream Performed By: #### U HCG, UA, URDS #### [address] Ketones Ql (U) Negative Normal Negative [facility] Comment on above: Order Comment: Name Collection Type:: Clean-Voided Midstream Performed By: #### U HCG, UA, URDS #### [address] Leukocyte esterase Test strip Ql (U) Negative Normal Negative [facility] Comment on above: Order Comment: Name Collection Type:: Clean-Voided Midstream Performed By: #### U HCG, UA, URDS #### [address] Nitrite,Urine Negative Normal Negative [facility] Comment on above: Order Comment: Name Collection Type:: Clean-Voided Midstream Performed By: #### U HCG, UA, URDS #### [address] Occult Blood,Urine Negative Normal Negative [facility] Comment on above: Order Comment: Name Collection Type:: Clean-Voided Midstream Performed By: #### U HCG, UA, URDS #### [address] pH (U) 6.5 [pH] Normal 5.0-9.0 [facility] Comment on above: Order Comment: Name Collection Type:: Clean-Voided Midstream Performed By: #### U HCG, UA, URDS #### [address] Protein,Urine Negative Normal Negative [facility] Comment on above: Order Comment: Name Collection Type:: Clean-Voided Midstream Performed By: #### U HCG, UA, URDS #### [address] Specificy [place],Urine 1.020 Normal 1.001-1.030 [facility] Comment on above: Order Comment: Name Collection Type:: Clean-Voided Midstream Performed By: #### U HCG, UA, URDS #### [address] Urobilinogen,Urine Normal Normal Normal [facility] Comment on above: Order Comment: Name Collection Type:: Clean-Voided Midstream Performed By: #### U HCG, UA, URDS #### [address] [place] [address] [facility] Lipid 1996 panelon 4 Cholesterol [Mass/Vol] 143 mg/dL Low 150-200 [facility] Comment on above: Performed By: #### 2 4331-1 #### [facility] ([id number]) [address] [place] [address] Cholesterol in HDL [Mass/Vol] 67 mg/dL Normal >39 [facility] Comment on above: Result Comment: HDL <40 mg/dL - High Risk HDL > or = 40mg/dL- Desirable HDL >60 mg/dL - Negative Risk Performed By: #### 2 4331-1 #### [facility] ([id number]) [address] [place] [address] Cholesterol in LDL [Mass/Vol] 65 mg/dL Normal <130 [facility] Comment on above: Result Comment: LDL <100 mg/dL - Desirable LDL >160 mg/dL - High Risk Performed By: #### 2 4331-1 #### [facility] ([id number]) [address] [place] [address] Cholesterol in VLDL [Mass/Vol] 11 mg/dL Normal 0-30 [facility] Comment on above: Performed By: #### 2 4331-1 #### [facility] ([id number]) [address] [place] [address] CHOLESTEROL:HDL 2.1 Normal 1.0-5.0 [facility] Comment on above: Performed By: #### 2 4331-1 #### [facility] ([id number]) [address] [place] [address] Triglyceride [Mass/Vol] 53 mg/dL Normal 27-150 [facility] Comment on above: Performed By: #### 2 4331-1 #### [facility] ([id number]) [address] [place] [address] Vital Signs Date Time Vital Sign Value Performing Clinician Salazar gonzalez 09-06-2024 14:06-0500 Body mass index (BMI) [Ratio] 24.45 kg/m2 Rohan Deon DO Work Phone: [facility] 09-06-2024 14:06-0500 Body weight 70.82 kg Rohan Deon DO Work Phone: [facility] 09-06-2024 14:06-0500 Diastolic blood pressure 60 mm[Hg] Rohan Deon DO Work Phone: [facility] 09-06-2024 14:06-0500 Systolic blood pressure 128 mm[Hg] Rohan Deon DO Work Phone: [facility] 07-05-2024 14:35-0400 Body mass index (BMI) [Ratio] 24.18 kg/m2 Rohan Deon DO Work Phone: [facility] 07-05-2024 14:35-0400 Body weight 70.03 kg Rohan Deon DO Work Phone: [facility] 07-05-2024 14:35-0400 Diastolic blood pressure 68 mm[Hg] Rohan Deon DO Work Phone: [facility] 07-05-2024 14:35-0400 Systolic blood pressure 116 mm[Hg] Rohan Deon DO Work Phone: [facility] 06-10-2024 10:45-0400 Body mass index (BMI) [Ratio] 24.43 kg/m2 Noms Nurse [facility] 06-10-2024 10:45-0400 Body weight 70.[address] [facility] Healthcare Encounters Encounter Date Encounter Type Care Provider Facility Start: 09-06-2024 End: 09-06-2024 Bamboo flowsheet Rohan Deon DO Work Phone: [facility] Start: 09-06-2024 End: 09-06-2024 Bamboo flowsheet Rohan Deon DO Work Phone: [facility] Start: 09-06-2024 End: 09-06-2024 Office outpatient visit 15 minutes Rohan Deon DO Work Phone: [facility] Comment on above: 27 weeks gestation o f ; Second trimester ; Diabetes mellitus screening; Anxiety with depression Start: 09-01-2024 ambulatory Ollie Courtney acility:[facility] Start: 08-31-2024 End: 08-31-2024 Telephone encounter Rohan Deon DO Work Phone: [facility] Start: 08-31-2024 End: 08-31-2024 Emergency department patient visit ARUN Santana [facility] [facility] Start: 08-31-2024 Encounter for other general examination [facility] Start: 08-28-2024 End: 08-28-2024 ambulatory CARLOTA Dawkins [facility] Start: 07-05-2024 End: 07-05-2024 Bamboo flowsheet Rohan Deon DO Work Phone: [facility] Start: 07-05-2024 End: 07-05-2024 Bamboo flowsheet Rohan Deon DO Work Phone: [facility] Start: 07-05-2024 End: 07-05-2024 ambulatory ROHAN DEON Not Available Start: 07-05-2024 End: 07-05-2024 Office outpatient visit 15 minutes Rohan Deon DO Work Phone: [facility] Comment on above: Second trimester pre gnancy; Vaginal discharge; STD exposure; Screening, , for anatomic survey; Major depressive disorder in partial remission, unspecified whether recurrent (HCC) ([facility]/HCC) Start: 06-16-2024 End: 06-19-2024 Clinisync Result Encounter Rohan Deon DO Work Phone: [facility] Unsolicited Start: 06-16-2024 End: 06-19-2024 Clinisync Result Encounter Rohan Deon DO Work Phone: [facility] Unsolicited Start: 06-10-2024 End: 06-10-2024 ambulatory ROHAN DEON Not Available Start: 06-10-2024 End: 06-10-2024 Office outpatient visit 5 minutes [facility] Deon Nurse [facility] Comment on above: GA: 15w2d Start: 05-22-2024 End: 05-22-2024 Emergency department patient visit [facility] Start: 05-11-2024 End: 05-11-2024 Emergency department patient visit [facility] Start: 02-29-2024 End: 02-29-2024 ambulatory [facility] Start: 02-22-2024 End: 02-22-2024 ambulatory ROHAN DEON Not Available Start: 02-18-2024 End: 02-18-2024 ambulatory ROHAN DEON Not Available Start: 02-12-2024 End: 02-13-2024 Emergency department patient visit [facility] Start: 02-12-2024 End: 02-13-2024 Emergency department patient visit KB WRIGHT [facility] Start: 02-12-2024 End: 02-12-2024 Emergency department patient visit [facility] Start: 11-24-2023 End: 11-26-2023 Evaluation and management of inpatient Ignacio Domenico Facility:[facility] Start: 11-11-2023 End: 11-11-2023 ambulatory [facility] Start: 10-27-2022 End: 10-27-[address] RAJ KELLY Facility:H1 Procedures Date Procedure Procedure Detail Performing Clinician Start: 09-06-2024 Urnls dip stick/tabl et rgnt non-auto w/o micrscp Rohan Deon DO Work Phone: Start: 07-05-2024 Urnls dip stick/tabl et rgnt non-auto w/o micrscp Rohan Deon DO Work Phone: Start: 06-16-2024 AFP, SERUM, OPEN SPI NA BIFIDA Rohan Deon DO Work Phone: Start: 06-10-2024 Urnls dip stick/tabl et rgnt non-auto w/o micrscp Rohan Deon DO Work Phone: Plan of Treatment Date Care Activity Detail Author Start: 09-26-2024 End: 09-26-2024 Patient encounter procedure 09/26/2024 9:20 AM EST Routine [facility] [address] [place] [address] La Grover PA [address] [place] [address] [facility] Start: 09-06-2024 End: 09-06-2025 CBC panel - Blood by Automated count CBC Lab Routine Diabetes mellitus screening Expected: 09/06/2024 (Approximate), Expires: 09/06/2025 [facility] Work Phone: Comment on above: Expected: 09/06/2024 (Approximate), Expires: 09/06/2025 Start: 09-06-2024 End: 09-06-2025 Measurement of glucose 1 hour after glucose challenge for glucose tolerance test Glucose tolerance, 1 hour Lab Routine Diabetes mellitus screening Expected: 09/06/2024 (Approximate), Expires: 09/06/2025 [facility] Comment on above: Expected: 09/06/2024 (Approximate), Expires: 09/06/2025 Start: 09-06-2024 End: 09-06-2024 Patient encounter procedure 09/06/2024 1:50 PM EST Routine [facility] [address] [place] [place] [address] Rohan Chavarria DO [address] [place] [address] Arrived [facility] Comment on above: Arrived Start: 08-03-2024 End: 08-03-2024 Patient encounter procedure 08/03/2024 2:40 PM EST Routine [facility] [address] [place] [address] Rohan Chavarria, DO [address] [place] [address] [facility] Start: 07-18-2024 End: 07-18-2024 Professional / ancillary services management 07/18/2024 2:00 PM EDT Ancillary Procedure [facility] [address] [place] [id number] [facility] Start: 07-05-2024 End: 07-05-2025 US for US OB ANATOMY SINGLE W US OB CERVICAL LENGTH Imaging Routine Screening, , for anatomic survey Expected: 07/05/2024 (Approximate), Expires: 07/05/2025 [facility] Work Phone: Comment on above: Expected: 07/05/2024 (Approximate), Expires: 07/05/2025 Start: 07-05-2024 End: 07-05-2024 Patient encounter procedure 07/05/2024 1:40 PM EDT Routine [facility] [address] [place] [id number] Rohan Chavarria, DO [address] [place] [address] [facility] Start: 06-10-2024 End: 06-10-2025 ABO/Rh ABO/Rh Lab Routine Missed menses Expected: 06/10/2024 (Approximate), Expires: 06/10/2025 [facility] Comment on above: Expected: 06/10/2024 (Approximate), Expires: 06/10/2025 Start: 06-10-2024 End: 12-08-2024 Alpha fetoprotein, maternal Alpha fetoprotein, maternal Lab Routine Second trimester Expected: 06/10/2024 (Approximate), Expires: 12/08/2024 [facility] Comment on above: Expected: 06/10/2024 (Approximate), Expires: 12/08/2024 Start: 06-10-2024 End: 06-10-2025 Blood type and Indirect antibody screen panel - Blood Type and screen Lab Routine Missed menses Expected: 06/10/2024 (Approximate), Expires: 06/10/2025 [facility] Work Phone: Comment on above: Expected: 06/10/2024 (Approximate), Expires: 06/10/2025 Start: 06-10-2024 End: 06-10-2025 Drugs of abuse panel - Urine by Screen method Rapid drug screen, urine Lab Routine Encounter for supervision of normal first in first trimester , unspecified gestational age Expected: 06/10/2024 (Approximate), Expires: 06/10/2025 [facility] Comment on above: Expected: 06/10/2024 (Approximate), Expires: 06/10/2025 Start: 06-10-2024 End: 06-10-2025 US for US OB > 14 WEEKS Imaging Routine Missed menses Elevated serum hCG Expected: 06/10/2024 (Approximate), Expires: 06/10/2025 [facility] Comment on above: Expected: 06/10/2024 (Approximate), Expires: 06/10/2025 Start: 06-10-2024 End: 06-10-2025 US Pelvis transvaginal US OB transvaginal Imaging Routine Missed menses Expected: 06/10/2024 (Approximate), Expires: 06/10/2025 [facility] Comment on above: Expected: 06/10/2024 (Approximate), Expires: 06/10/2025 Start: 05-22-2024 Influenza vaccination Influenza Vacc ine (#1) [facility] Bacteria identified in Urine by Culture Urine culture Microbiology Routine Missed menses Ordered: 06/10/2024 [facility] Comment on above: Ordered: 06/10/2024 CBC W Auto Different ial panel - Blood CBC and differential Lab Routine Missed menses Ordered: 06/10/2024 [facility] Comment on above: Ordered: 06/10/2024 Hemoglobin A1c/Hemoglobin.total in Blood Hemoglobin A1c Lab Routine Missed menses Ordered: 06/10/2024 [facility] Comment on above: Ordered: 06/10/2024 Hepatitis B virus surface Ag [Presence] in Serum or Plasma by Immunoassay Hepatitis B surface antigen Lab Routine Missed menses Ordered: 06/10/2024 [facility] Comment on above: Ordered: 06/10/2024 Hepatitis C virus Ab [Presence] in Serum or Plasma by Immunoassay Hepatitis C antibody Lab Routine Missed menses Ordered: 06/10/2024 [facility] Comment on above: Ordered: 06/10/2024 HIV-1/HIV-2 antigen/antibody combination immunoassay HIV-1 and HIV-2 antibodies Lab Routine Missed menses Ordered: 06/10/2024 [facility] Comment on above: Ordered: 06/10/2024 Reagin Ab [Presence] in Serum by RPR RPR Lab Routine Missed menses Ordered: 06/10/2024 [facility] Comment on above: Ordered: 06/10/2024 Rubella antibody, IgG Rubella an tibody, IgG Lab Routine Missed menses Ordered: 06/10/2024 [facility] Comment on above: Ordered: 06/10/2024 Payers Date Payer Category Payer Medicaid [id number] 2024 Medicaid [id number] 2023 Self-pay 2022 Unknown [id number] 2004 Unknown [id number] 2.16.84 [id number] 2004 Unknown [id number] 2.16.84 [id number] 2004 Unknown [id number] 2.16.84 0.1.772719.3.579.2.9 2004 Unknown [id number] 2.16.84 0.1.932291.3.579.2.1258 2004 Unknown [id number] 2.16.8 40.1.452571.3.579.2.1286 2004 Unknown [id number] 2.16.8 40.1.992329.3.579.2.1286 2004 Unknown [id number] 2.16.8 40.1.240283.3.579.2.1286 2004 Unknown [id number] 2.16.8 40.1.149040.3.579.2.1286 2004 Unknown [id number] 2.16.8 40.1.070010.3.579.2.1286 2004 Unknown [id number] 2.16.8 40.1.104746.3.579.2.1286 1972 Unknown [id number] 2.16.84 0.1.374578.3.579.2.593 1959 Unknown [id number] Unknown [id number] 2.16.8 40.1.667482.3.579.2.531 Unknown [id number] 2.16.8 [id number] Social History Date Type Detail Facility Tobacco smoking stat [facility] Tobacco smoking consumption unknown [facility] Start: 06-10-2024 End: 09-06-2024 Alcoholic beverage intake Ex-drinker (finding) [facility] Start: 02-18-2024 Alcohol Comment maybe once gabrielle ry couple of months [facility] Start: 03-09-2024 [facility] Start: 2005 Sex assigned at Not on file [facility] Start: 07-05-2024 Gender identity Not on file [facility] Start: 07-05-2024 History of Social function [facility] Goals Date Patient Goal Desired Activity /State Personal health goal History of Present illness Narrative 09-06-2024 Rohan Chavarria DO - 09/06/2024 1:50 PM EST Note Date & Type Note Facility 09-06-2024 History of Presen t illness Narrative Reason for Appointment: Patient ID: Sharona Marks is a 18 y.o. female who presents for Routine Visit Patient presents today for Acute Visit. MEDICATIONS Current Outpatient Medications Medication Instructions MV-Min-Fe Fum-FA-DHA ( 1 PO) Take by mouth ALLERGIES No Known Allergies PROBLEMS Active Ambulatory [...] of Onset Cervical cancer Mother SURGICAL HISTORY History reviewed. No pertinent surgical history. REVIEW OF SYSTEMS Review of Systems: Review of Systems All other systems reviewed and are negative. OBJECTIVE Objective: Physical Exam Constitutional: Appearance: Normal [...] nursing note reviewed. Exam conducted with a social welfare research worker present. Vitals: Estimated body mass index is 24.45 kg/m as calculated from the following: Height as of 24: 5' 7 . Weight as of this encounter: 156 lb 1.9 oz. BP: 128/60 Patient's last menstrual period was 12/27/2023. ASSESSMENT & PLAN ICD-10-CM 1. 27 weeks gestation of Z3A.27 POCT urinalysis dipstick manually resulted 2. Second trimester Z34.92 POCT urinalysis dipstick manually resulted 3. Diabetes mellitus screening Z13.1 CBC Glucose tolerance, 1 hour CBC Glucose tolerance, 1 hour Patient presents today for a routine obstetrics appointment. Patient is currently 27w6d with a Estimated Date of Delivery: 11/30/24. Discussed anxiety/depression with patient and Effexor will be sent to patients pharmacy. Patient to return to clinic in 2-3 weeks. Documented by Monica Tilley LPN on behalf of: Rohan Chavarria DO documented in this encounter [facility] Telephone encounter Note 08-31-2024 Telephone Encounter - Tayla Collins - 08/31/2024 12:15 PM EST Note Date & Type Note Facility 08-31-2024 Telephone encount er Note Left message for pt to call and schedule OB appt. She is self pay, Medicaid is still not active as of 08/31/24. [facility] Note 08-31-2024 Telephone Encounter - Tayla Collins - 08/31/2024 12:15 PM EST Note Date & Type Note Facility 08-31-2024 Miscellaneous Notes Formattin g of this note might be different from the original. Left message for pt to call and schedule OB appt. She is self pay, Medicaid is still not active as of 08/31/24. documented in this encounter [facility] History of Present illness Narrative 07-05-2024 Hemalatha [...] nursing note reviewed. Exam conducted with a social welfare research worker present. Vitals: Estimated body mass index is [...] DO documented in this encounter [facility] History of Present illness Narrative 06-10-2024 Linda Interiano LPN - 06/10/2024 10:00 AM EDT Note Date & Type Note Facility 06-10-2024 History of Presen t illness Narrative Reason for Appointment: Patient ID: Sharona Marks is a 18 y.o. female who presents for Amenorrhea Patient presents today for a Nurse OB Intake appointment. Patient is 15w2d with a Estimated Date of Delivery: 11/30/24 OB History Para Term AB Living 2 SAB IAB Ectopic Multiple Live Births # Outcome Date GA Lbr [place]/2nd Weight Sex Type Anes PTL Lv 2 Current 1 Current Medications: has a current medication list which includes the following prescription(s): mv-min-fe fum-fa-dha. Medical History: Active Ambulatory Problems Diagnosis Date Noted No Active Ambulatory Problems Resolved Ambulatory Problems Diagnosis Date Noted No Resolved Ambulatory Problems Past Medical History: Diagnosis Date Subchorionic hematoma Family History Problem Relation Name Age of Onset Cervical cancer Mother Social History Tobacco Use Smoking status: Not on file Smokeless tobacco: Not on file Substance Use Topics Alcohol use: Not Currently Comment: maybe once every couple of months Drug use: Not Currently Types: Marijuana Comment: have not used marijuana since september History reviewed. No pertinent surgical history. No Known Allergies Vitals: Estimated body mass index is 24.43 kg/m as calculated from the following: Height as of 02/18/24: 5' 7 . Weight as of this encounter: 156 lb. BP: Patient's last menstrual period was 12/27/2023. Assessment/Plan Diagnoses and all orders for this visit: Missed menses - Type and screen; Future - ABO/Rh; Future - CBC and differential - Hemoglobin A1c - RPR - Rubella antibody, IgG - Hepatitis B surface antigen - Hepatitis C antibody - HIV-1 and HIV-2 antibodies - Urine culture - US OB transvaginal; Future - POCT , urine manually resulted - POCT urinalysis dipstick manually resulted - US OB > 14 WEEKS; Future Encounter for supervision of normal first in first trimester - Rapid drug screen, urine; Future , unspecified gestational age - Rapid drug screen, urine; Future Encounter for screening for cervical length Elevated serum hCG - US OB > 14 WEEKS; Future Second trimester - Alpha fetoprotein, maternal; Future Nurse Note: OB Intake: Patient presents today for first OB visit. Patients history has been reviewed in great detail including any potential risks. Patient signed consent forms and patient desires testing in both trimesters. Patient currently has no complaints and has been advised to drink 6-8 glasses of water a day, eat no raw or undercooked meat, and stay away from [facility]. Patient has also been advised to not change litter boxes and eat 6 small meals a day. Patient has been consulted regarding the do's and don'ts of . Patient was given labs and all questions and concerns were answered. Follow Up: Patient is to return in 4 weeks for routine OB appointment. Follow Up: Patient is to have labs drawn at directed and return to office for initial OB appointment with provider. Patient may call office as needed with any concerns or questions. Nurse Visit Completed by: Linda Interiano LPN documented in this encounter [facility] Evaluation note Note Date & Type Note Facility Evaluation note Diagnosis Second trimester state, incidental Vaginal discharge Leukorrhea, not specified as infective STD exposure Screening, , for anatomic survey Encounter for anatomic survey Major depressive disorder in partial remission, unspecified whether recurrent (HCC) ([facility]/HCC) documented in this encounter [facility] Evaluation note Note Date & Type Note Facility Evaluation note Diagnosis 27 weeks gestation of Second trimester state, incidental Diabetes mellitus screening Screening for diabetes mellitus Anxiety with depression documented in this encounter [facility] Evaluation note Note Date & Type Note Facility Evaluation note Diagnosis Missed menses Encounter for supervision of normal first in first trimester , unspecified gestational age Encounter for screening for cervical length Elevated serum hCG Second trimester state, incidental documented in this encounter [facility] Summary [...] pital DATE CREATED AUTHOR AUTHOR'S ORGANIZ ATION 07/07/2024 [facility] EPIC DATE CREATED AUTHOR AUTHOR'S ORGANIZ ATION 09/03/2024 [facility] DATE CREATED AUTHOR AUTHOR'S ORGANIZ ATION 09/08/2024 [facility] Care Teams (unrecognized sec tion and content) 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 Relationship Specialty Start Date End Date Arun Meredith MD [address] [place] [address], [address] [place] [address] PCP - General Family Medicine 01/22/24 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 Relationship Specialty Start Date End Date Arun Meredith MD [address] [place] [address], [address] [place] [address] PCP - General Family Medicine 01/22/24 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 [facility] [email or web address] [facility]. provides no warranty or guarantee of the accuracy or completeness of information in this document.
[2024-09-09 12:06] LABS: Basophils Percent Auto 0.2 % (0.2-2.0); Eosinophils Absolute Auto 0.1 10^3/uL (0.0-0.7); Eosinophils Percent Auto 1.1 % (0.9-7.0); Hematocrit 36.9 % (36.0-48.0); Hemoglobin 12.3 g/dL (12.0-16.0); Immature Granulocytes Abs Auto 0.04 10^3/uL (0.00-0.03); Immature Granulocytes Pct Auto 0.5 % (0.0-0.5); Lymphocytes Absolute Auto 1.5 10^3/uL (1.2-3.8); Lymphocytes Percent Auto 17.5 % (20.5-60.0); Mean Corpuscular HGB Conc 33.3 g/dL (29.9-35.2); Mean Corpuscular Hemoglobin 29.1 pg (26.7-34.0); Mean Corpuscular Volume 87.4 fL (81.0-99.0); Mean Platelet Volume 11.5 fL (9.5-13.5); Monocytes Absolute Auto 0.6 10^3/uL (0.3-0.8); Neutrophils Absolute Auto 6.2 10^3/uL (1.4-6.5); Neutrophils Percent Auto 73.7 % (43.0-75.0); Platelet Count 175 10^3/uL (150-450); Red Blood Count 4.22 10^6/uL (4.20-5.40); Red Cell Distribution Width 12.7 % (11.0-15.0); White Blood Count 8.3 10^3/uL (4.0-11.0)
[2024-09-09 12:46] LABS: Glucose 1 Hour 120 mg/dL (<130)
== END 2024-09-09 10:45 | disposition home or self-care (01) ==
LOC: LAB 10:45
PROVIDERS: PCP Internal Medicine; Visit Provider Obstetrics & Gynecology
DX: Z13.1 Encounter for screening for diabetes mellitus (principal)
CPT/HCPCS: 36415; 82950; 85025

== ENCOUNTER 2024-10-14 09:30 | Outpatient (OUT) | payer SELFPAY ==
--- NOTE | 2024-10-14 09:32 | US_ITS ---
[address] [address] Patient Name: JEFF SOTOMAYOR MRN: [id number] date: 2005 Sex: F Assigned Patient Location: US Current Patient Location: US Accession/Order Number: [id number] Exam Date: 10/14/2024 09:40 Report Date: 10/14/2024 11:30 At the request of: MARCUS RUVALCABA Procedure: US OB growth EXAMINATION: US OB growth HISTORY: Size Inconsistent With Dates COMPARISON: 07/18/2024 FINDINGS: Heart Rate: 135 bpm Amniotic Fluid Volume: 14.2 cm, largest fluid pocket 4.7 cm Number: 1 Position: Cephalic presentation, longitudinal lie BIOMETRY: BPD: 8.41 cm; 33 weeks 6 days; 62.50 % HC: 31.14 cm; 34 weeks 6 days; 53.60 % AC: 29.66 cm; 33 weeks 4 days; 62.50 % FL: 6.02 cm; 31 weeks 2 days; 4.10 % EFW: 2121.88 g; 36 %, 4 lbs. 11 oz. FL/AC: 20.28 FL/BPD: 71.50 HC/AC: 1.05 GESTATIONAL AGE: Age by EDC: 33 weeks 2 days [place] by EDC: 2024-11-30 Age by US: 33 weeks 3 days [place] by US: 2024-11-29 US/US OB growth IMPRESSION: Femur length at the 4th percentile, otherwise normal interval growth Electronically authenticated by: RAPHAEL PAYNE Date: 10/14/2024 11:30
--- OUTSIDE RECORDS SUMMARY | 2024-10-14 09:45 | XMS_ITS | CCD ---
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 Name Role Phone PAY, DR ANTHONY Admitting Unavailable PAY, DR ANTHONY Attending Unavailable PAY, DR ANTHONY Consulting Unavailable Arun Meredith MD Primary Care Provider Ignacio Acuña Attending Unavailable NON STAFF Primary Care Unavailable Ignacio Acuña Admitting Unavailable Ollie Cisneros Admitting Unavailab le Ollie Cisneros Attending Unavailab le NON STAFF Primary Care Unavailable ROHAN CHAVARRIA Attending Unavailable DEON, ROHAN Attending Unavailable ROHAN CHAVARRIA Attending Unavailable ROHAN CHAVARRIA Attending Unavailable LA RUVALCABA Attending Unavailable TUCKER GIVENS Attending Unavailable ARUN MERDEITH Primary Care Unavailable KB WRIGHT Attending Unavailable ARUN MEREDITH Primary Care Unavailable TUCKER DUEÑAS Attending Unavailable KB WRIGHT Attending Unavailable KB WRIGHT Referring Unavailable ARUN MEREDITH Primary Care Unavailable ARUN MEREDITH Referring Unavailable ARUN MEREDITH Primary Care Unavailable ARUN MEREDITH Primary Care Unavailable ARUN MEREDITH Primary Care Unavailable PARISA VERAS Attending Unavailable LONNY MACEDO Referring Unavailable ARUN MEREDITH Primary Care Unavailable CARLOTA ENRIQUEZ Admitting Unavailable CARLOTA ENRIQUEZ Attending Unavailable ARUN MEREDITH Primary Care Unavailable ARUN MEREDITH Primary Care Unavailable MONICA SINGLETON Attending Unavailable ARUN MEREDITH Primary Care Unavailable Medications Current Medications Medication [...] 07/10/2024 Active MV-Min-Fe Fum-FA-DHA ( 1 PO) (19 sources) MV-Min- Fe Fum-FA-DHA ( 1 PO) Take by mouth Active 24 hr venlafaxine 37.5 mg extended release oral capsule (12 sources) Serotonin and Norepinephrine Reuptake Inhibitor Start: 09-06-2024 End: 09-06-2025 take 1 capsule by mouth once daily venlafaxine XR (Effexor XR) 37.5 MG 24 hr capsule Indications: Anxiety with depression Take 1 capsule (37.5 mg) by mouth Daily Do not crush or chew. 30 capsule 11 09/06/2024 09/06/2025 Active Completed/Discontinued Medications Medication Drug Class(es) Dates Sig (Normalized) Sig (Original) cephalexin 500 mg oral capsule (7 sources) Cephalosporin Antibacterial Start: 09-26-2024 End: 10-13-2024 take 1 capsule by mouth in the morning, then take 1 capsule by mouth in the evening, then take 1 capsule by mouth at bedtime cephalexin (Keflex) 500 MG capsule Indications: Ingrown toenail Take 1 capsule (500 mg) by mouth in the morning and 1 capsule (500 mg) in the evening and 1 capsule (500 mg) before bedtime. Do all this for 7 days. 21 capsule 09/26/2024 10/13/2024 Discontinued (Therapy completed) citalopram 20 mg oral tablet (6 sources) [...] atopic dermatitis] Onset: 11-11-2023 Chronic Anxiety disorders (15 sources) Mixed anxiety and depressive disorder; Translations: [Other specified anxiety disorders] Onset: 08-31-2024 09-06-2024 Chronic Tucker (4 sources) [...] partial remission] Onset: 11-24-2023 07-05-2024 Chronic Other complications of (2 sources) size does not accord with dates; Translations: [Uterine size-date discrepancy, unspecified trimester] 10-13-2024 Episodic Other connective tissue disease (2 sources) Pain in hallux; Translations: [Pain in left toe(s)] 09-29-2024 Episodic Other connective tissue disease (1 source) Pain in toe Onset: 09-27-2024 Episodic Other female genital disorders (2 sources) Vaginal discharge; Translations: [Other specified noninflammatory disorders of vagina] 07-05-2024 Episodic Other nervous system disorders (2 sources) Difficulty walking; Translations: [Difficulty in walking, not elsewhere classified] 09-29-2024 Chronic Other and delivery including normal (20 sources) Second trimester ; Translations: [Encounter for supervision of normal , unspecified, second trimester] Onset: 09-06-2024 07-05-2024 Episodic Other screening for suspected conditions (not mental disorders or infectious disease) (18 sources) Patient encounter status; Translations: [Encounter for other specified screening] Onset: 09-06-2024 07-05-2024 Episodic Other skin disorders (2 sources) Ingrowing toenail; Translations: [Ingrowing nail] 09-26-2024 Episodic Other skin disorders (2 sources) Ingrowing nail; Translations: [Ingrowing nail] 09-29-2024 Episodic Other skin disorders (1 source) Ingrowing nail; Translations: [Ingrowing nail] Onset: 09-27-2024 Episodic Residual codes; unclassified (14 sources) Gestation period, 27 weeks; Translations: [27 weeks gestation of ] Onset: 09-06-2024 09-06-2024 Episodic Residual codes; unclassified (2 sources) Gestation period, 30 weeks; Translations: [30 weeks gestation of ] 09-26-2024 Episodic Residual codes; unclassified (2 sources) Gestation period, 33 weeks; Translations: [33 weeks gestation of ] 10-13-2024 Episodic Skin and subcutaneous tissue infections (3 sources) Abscess of big toe; Translations: [Cutaneous abscess of left foot] Onset: 09-27-2024 09-29-2024 Episodic Unclassified (17 sources) OB Reminders Onset: 07-05-2024 07-05-2024 Unclassified [...] 02-12-2024 Episodic Other aftercare (1 source) Other mcfp (current) drug therapy; Translations: [Other mcfp (current) drug therapy] Onset: 11-11-2023 Episodic Other [...] Range Facility Urinalysis macro (dipstick) panel (U)on 09-26-2024 Bilirubin, UA Negative Negative - 4(70) +++ mg/dL [facility] Blood, UA Negative Negative - 50 Mendez/mcL [facility] Clarity, UA Clear [facility] re Color, UA Yellow [facility] e Glucose, UA Negative Negative - 2000(110) ++++ mg/dL [facility] Interpretation and review of laboratory results Abnormal [facility] Ketones, UA Positive Negative - 160(16) ++++ mg/dL [facility] Comment on above: trace Leukocytes, UA Positive Negative - 500+++ Bhavani/mcL [facility] Comment on above: small Nitrite, UA Negative Negative - Positive [facility] pH, UA 6.5 5 - [address] [facility] Protein, UA Positive Negative - 2000(20) ++++ mg/dL [facility] Comment on above: 100 Spec Grav, UA 1.03 1 - 1.03 [facility] Urobilinogen, UA 0.2 0.2 - 12 mg/dL [facility] e ALL CBC WITH AUTO DIFFon BASOPHILS ABSOLUTE AUTO 0 [facility] Basophils/100 WBC (Bld) 0.2 % 0.2 - 2.0 % [facility] Eosinophils/100 WBC (Bld) 1.1 % 0.9 - 7.0 % [facility] Erythrocyte distribution width (RBC) [Ratio] 12.7 % 11.0 - 15.0 % [facility] Hematocrit (Bld) [Volume fraction] 36.9 % 36.0 - 48.0 % [facility] e Hemoglobin (Bld) [Mass/Vol] 12.3 g/dL 12.0 - 16.0 g/dL [facility] IMMATURE GRANULOCYTES ABS AUTO 0.04 High [facility] Immature granulocytes/100 WBC (Bld) 0.5 % 0.0 - 0.5 % [facility] Interpretation and review of laboratory results Abnormal [facility] LYMPHOCYTES ABSOLUTE AUTO 1.5 [facility] Lymphocytes/100 WBC (Bld) 17.5 % Low 20.5 - 60.0 % [facility] MCH (RBC) [Entitic mass] 29.1 pg 26.7 - 34.0 pg [facility] MCHC (RBC) [Mass/Vol] 33.3 g/dL 29.9 - 35.2 g/dL [facility] MCV (RBC) [Entitic vol] 87.4 fL 81.0 - 99.0 fL [facility] MONOCYTES ABSOLUTE AUTO 0.6 [facility] Monocytes/100 WBC (Bld) 7 % 1.7 - 12.0 % [facility] NEUTROPHILS ABSOLUTE AUTO 6.2 [facility] Neutrophils/100 WBC (Bld) 73.7 % 43.0 - 75.0 % [facility] Platelet mean volume (Bld) [Entitic vol] 11.5 fL 9.5 - 13.[address] [address] EO # 0.1 [facility] e TB PLT 175 [facility] e TB RBC 4.22 [facility] e [facility] [facility] WBC 8.3 [facility] Urinalysis macro (dipstick) panel (U)on 09-06-2024 Bilirubin, UA Negative Negative - 4(70) +++ mg/dL [facility] Blood, UA Negative Negative - 50 Mendez/mcL [facility] Clarity, UA Cloudy [facility] re Color, UA Yellow [facility] e Glucose, UA Negative Negative - 2000(110) ++++ mg/dL [facility] Interpretation and review of laboratory results Abnormal [facility] Ketones, UA Negative Negative - 160(16) ++++ mg/dL [facility] Leukocytes, UA Positive Negative - 500+++ Bhavani/mcL [facility] Comment on above: small Nitrite, UA Negative Negative - Positive [facility] pH, UA 7 5 - [address] [facility] [address] Protein, UA Trace Negative - 2000(20) ++++ mg/dL [facility] Spec Grav, UA 1.025 1 - 1.03 [facility] Urobilinogen, UA 0.2 0.2 - 12 mg/dL [facility] e CBC AND AUTO DIFFon 08-31-20 ABSOLUTE BASOPHIL 0.0 X10E9/L Normal 0.0-0.2 [facility] Comment on above: Performed By: #### N UM #### [facility] ([id number]) [address] [place] [address] 11572 ABSOLUTE NEUTROPHIL 5.3 X10E9/L Normal 1.5-6.6 [facility] Comment on above: Performed By: #### N UM #### [facility] ([id number]) [address] [place] [address] 75871 Basophils/100 WBC (Bld) 0.5 % Normal [facility] Comment on above: Performed By: #### N UM #### [facility] ([id number]) [address] [place] [address] 25203 Eosinophils (Bld) [#/Vol] 0.1 10*3/uL Normal 0.0-0.4 [facility] Comment on above: Performed By: #### N UM #### [facility] ([id number]) [address] [place] [address] 42890 Eosinophils/100 WBC (Bld) 0.9 % Normal [facility] Comment on above: Performed By: #### N UM #### [facility] ([id number]) [address] [place] [address] 42474 Erythrocyte distribution width (RBC) [Ratio] 13.4 % Normal 11.5-15.0 [facility] Comment on above: Performed By: #### N UM #### [facility] ([id number]) [address] [place] [address] 13447 Hematocrit (Bld) [Volume fraction] 38.3 % Normal 35-47 [facility] Comment on above: Performed By: #### N UM #### [facility] ([id number]) [address] [place] [address] 29575 Hemoglobin (Bld) [Mass/Vol] 13.1 g/dL Normal 11.7-15.5 [facility] Comment on above: Performed By: #### N UM #### [facility] ([id number]) [address] [place] [address] 26506 Lymphocytes (Bld) [#/Vol] 1.3 10*3/uL Normal 1.0-3.5 [facility] Comment on above: Performed By: #### N UM #### [facility] ([id number]) [address] [place] [address] 89385 Lymphocytes/100 WBC (Bld) 18.3 % Normal [facility] Comment on above: Performed By: #### N UM #### [facility] ([id number]) [address] [place] [address] 08444 MCH (RBC) [Entitic mass] 29.0 pg Normal 27-34 [facility] Comment on above: Performed By: #### N UM #### [facility] ([id number]) [address] [place] [address] [place] [address] MCHC (RBC) [Mass/Vol] 34.2 g/dL Normal 32-36 [facility] Comment on above: Performed By: #### N UM #### [facility] ([id number]) [address] [place] [address] 78363 MCV (RBC) [Entitic vol] 85 fL Normal 80-100 [facility] Comment on above: Performed By: #### N UM #### [facility] ([id number]) [address] [place] [address] 18652 Monocytes (Bld) [#/Vol] 0.6 10*3/uL Normal 0-0.9 [facility] Comment on above: Performed By: #### N UM #### [facility] ([id number]) [address] [place] [address] 21641 Monocytes/100 WBC (Bld) 8.6 % Normal [facility] Comment on above: Performed By: #### N UM #### [facility] ([id number]) [address] [place] [address] 43732 Neutrophils/100 WBC (Bld) 71.7 % Normal [facility] Comment on above: Performed By: #### N UM #### [facility] ([id number]) [address] [place] [address] 42254 Platelet mean volume (Bld) [Entitic vol] 9.4 fL Normal 7-12 [facility] Comment on above: Performed By: #### N UM #### [facility] ([id number]) [address] [place] [address] 48168 Platelets (Bld) [#/Vol] 218 10*3/uL Normal 150-450 [facility] Comment on above: Performed By: #### N UM #### [facility] ([id number]) [address] [place] [address] 23159 RBC COUNT 4.51 X10E12/L Normal 3.80-5.20 [facility] Comment on above: Performed By: #### N UM #### [facility] ([id number]) [address] [place] [address] 41881 WBC (Bld) [#/Vol] 7.4 10*3/uL Normal 4.0-11.0 [facility] Comment on above: Performed By: #### N UM #### [facility] ([id number]) [address] [place] [address] [place] [address] COMPREHENSIVE METABOLIC PANE Andrew 08-31-2024 Albumin [Mass/Vol] 3.9 g/dL Normal 3.2-5.3 [facility] Comment on above: Performed By: #### 2 106-3 #### [facility] ([id number]) [address] [place] [address] [place] [address] ALP [Catalytic activity/Vol] 96 U/L Normal 39-130 [facility] Comment on above: Performed By: #### 2 106-3 #### [facility] ([id number]) [address] [place] [address] 02207 ALT [Catalytic activity/Vol] 9 U/L Normal 0-31 [facility] Comment on above: Performed By: #### 2 106-3 #### [facility] ([id number]) [address] [place] [address] [place] [address] Anion gap [Moles/Vol] 8 mmol/L Normal 5-15 [facility] Comment on above: Performed By: #### 2 106-3 #### [facility] ([id number]) [address] [place] [address] 38590 AST [Catalytic activity/Vol] 15 U/L Normal 0-41 [facility] Comment on above: Performed By: #### 2 106-3 #### [facility] ([id number]) [address] [place] [address] 64739 Bilirubin [Mass/Vol] 0.4 mg/dL Normal 0.3-1.2 [facility] Comment on above: Performed By: #### 2 106-3 #### [facility] ([id number]) [address] [place] [address] 65350 Calcium [Mass/Vol] 9.3 mg/dL Normal 8.5-10.5 [facility] Comment on above: Performed By: #### 2 106-3 #### [facility] ([id number]) [address] [place] [address] 77980 Chloride [Moles/Vol] 104 mmol/L Normal 98-109 [facility] Comment on above: Performed By: #### 2 106-3 #### [facility] ([id number]) [address] [place] [address] 25079 CO2 [Moles/Vol] 22 mmol/L Normal 22-32 [facility] Comment on above: Performed By: #### 2 106-3 #### [facility] ([id number]) [address] [place] [address] 05589 Creatinine [Mass/Vol] 0.37 mg/dL Low 0.40-1.00 [facility] Comment on above: Result Comment: METH OD TRACEABLE TO IDMS STANDARD Performed By: #### 2 106-3 #### [facility] ([id number]) [address] [place] [address] 10090 eGFR (CKD-EPI) NON-RACE DEPENDENT >90 Normal >59 [facility] Comment on above: Result Comment: Reported eGFR is based on the CKD-EPI 2021 equation that does not use a race coefficient. Performed By: #### 2 106-3 #### [facility] ([id number]) [address] [place] [address] 56341 Glucose [Mass/Vol] 88 mg/dL Normal 65-99 [facility] Comment on above: Performed By: #### 2 106-3 #### [facility] ([id number]) [address] [place] [address] 30399 Potassium [Moles/Vol] 3.3 mmol/L Low 3.5-5.0 [facility] Comment on above: Performed By: #### 2 106-3 #### [facility] ([id number]) [address] [place] [address] 11384 Protein [Mass/Vol] 7.4 g/dL Normal 6.0-8.0 [facility] Comment on above: Performed By: #### 2 106-3 #### [facility] ([id number]) [address] [place] [address] 71055 Sodium [Moles/Vol] 134 mmol/L Normal 134-146 [facility] Comment on above: Performed By: #### 2 106-3 #### [facility] ([id number]) [address] [place] [address] 30856 Urea nitrogen [Mass/Vol] 6 mg/dL Normal 5-23 [facility] Comment on above: Performed By: #### 2 106-3 #### [facility] ([id number]) [address] [place] [address] 98266 DRUG SCREEN, URINEon 024 AMPHETAMINE/METHAMP Negative Normal NEG [facility] Comment on above: Result Comment: AMPH /METH screening cut off = 1000 ng/mL Performed By: #### 2 106-3 #### [facility] ([id number]) [address] [place] [address] [place] [address] BARBITURATES Negative Normal NEG [facility] Comment on above: Result Comment: Becca iturates screening cut off value = 200 ng/mL Performed By: #### 2 106-3 #### [facility] ([id number]) [address] [place] [address] [place] [address] BENZODIAZEPINES Negative Normal NEG [facility] Comment on above: Result Comment: Janusz odiazepines screening cut off value = 200 ng/mL Performed By: #### 2 106-3 #### [facility] ([id number]) [address] [place] [address] 17326 CANNABINOIDS Positive Abnormal NEG [facility] Comment on above: Result Comment: Conf irmation available upon request. Cannabinoids/THC screening cut off value = 50 ng/mL Performed By: #### 2 106-3 #### [facility] ([id number]) [address] [place] [address] 45720 COCAINE METABOLITE Negative Normal NEG [facility] Comment on above: Result Comment: Coca ine screening cut off value = 300 ng/mL Performed By: #### 2 106-3 #### [facility] ([id number]) [address] [place] [address] 27224 ECSTASY Negative Normal NEG [facility] Comment on above: Result Comment: Ecst asy screening cut off value = 500 ng/mL This report is intended for use in clinical monitoring or management of patients. Performed By: #### 2 106-3 #### [facility] ([id number]) [address] [place] [address] 11745 METHADONE Negative Normal [facility] Comment on above: Result Comment: Meth adone screening cut off value = 300 ng/mL. Performed By: #### 2 106-3 #### [facility] ([id number]) [address] [place] [address] 81542 OPIATES Negative Normal [facility] Comment on above: Result Comment: Opia jovanna screening cut off value = 300 ng/mL NOTE: This test is used for the detection of codeine, hydrocodone (>1000 ng/mL), morphine and hydromorphone (>900 ng/mL) in urine. Performed By: #### 2 106-3 #### [facility] ([id number]) [address] [place] [address] 72653 OXYCODONE Negative Normal [facility] Comment on above: Result Comment: Oxyc odone screening cut off value = 300 ng/mL NOTE: This test is used for the detection of oxycodone and oxymorphone in urine. Performed By: #### 2 106-3 #### [facility] ([id number]) [address] [place] [address] 03179 PHENCYCLIDINE Negative Normal NEG [facility] Comment on above: Result Comment: Phen cyclidine screening cut off value = 25 ng/mL Performed By: #### 2 106-3 #### [facility] ([id number]) [address] [place] [address] 03798 THYROID PROFILEon 08-31-2024 Free T4 [Mass/Vol] 0.88 ng/dL Normal 0.61-1.60 [facility] Comment on above: Result Comment: NEW REFERENCE RANGE FOR PEDIATRIC PATIENTS Performed By: #### 2 106-3 #### [facility] ([id number]) [address] [place] [address] 95212 TSH 1.27 uIU/mL Normal 0.49-4.67 [facility] Comment on above: Result Comment: NEW REFERENCE RANGE FOR PEDIATRIC PATIENTS Performed By: #### 2 106-3 #### [facility] ([id number]) [address] [place] [address] 03550 URINE CULTUREon 08-31-2024 Bacteria identified Cx Nom (U) CULTURE RESULTS <10,000 ORGANISMS/ML NORMAL URO GENITAL GABRIELE Normal [facility] Comment on above: Performed By: #### 2 106-3 #### [facility] ([id number]) [address] [place] [address] 41973 URN MACROSCOPIC NURon 2023 BILIRUBIN LUCIE Small Abnormal NEG [facility] Comment on above: Performed By: #### N UM #### [facility] ([id number]) [address] [place] [address] 14729 BLOOD/HGB LUCIE Negative Normal NEG [facility] Comment on above: Performed By: #### N UM #### [facility] ([id number]) [address] [place] [address] 61530 GLUCOSE LUCIE Negative Normal NEG [facility] Comment on above: Performed By: #### N UM #### [facility] ([id number]) [address] [place] [address] 62481 KETONES LUCIE 80 mg/dL Abnormal NEG [facility] Comment on above: Performed By: #### N UM #### [facility] ([id number]) [address] [place] [address] 66590 LEUKOCYTE ESTERASE LUCIE Trace Abnormal NEG [facility] Comment on above: Performed By: #### N UM #### [facility] ([id number]) [address] [place] [address] 98483 NITRITE LUCIE Negative Normal NEG [facility] Comment on above: Performed By: #### N UM #### [facility] ([id number]) [address] [place] [address] 92483 PH LUCIE 6.0 Normal 5.0-8.5 [facility] Comment on above: Performed By: #### N UM #### [facility] ([id number]) [address] [place] [address] 77174 PROTEIN LUCIE >=300 Abnormal NEG [facility] Comment on above: Performed By: #### N UM #### [facility] ([id number]) [address] [place] [address] 06867 SPECIFIC GRAVITY LUCIE >=1.030 Normal 1.003-1.035 [facility] Comment on above: Performed By: #### N UM #### [facility] ([id number]) [address] [place] [address] 47322 UROBILINOGEN LUCIE 0.2 eu/dL Normal <1.1 [facility] Comment on above: Performed By: #### N UM #### [facility] ([id number]) [address] [place] [address] 97422 Urinalysis macro (dipstick) panel (U)on 07-05-2024 Bilirubin, UA Negative Negative - 4(70) +++ mg/dL [facility] Blood, UA Negative Negative - 50 Mendez/mcL [facility] Clarity, UA Clear [facility], UA Yellow [facility] Glucose, UA Negative Negative - 1999(110) ++++ mg/dL [facility] Interpretation and review of laboratory results Abnormal [facility] Ketones, UA Positive Negative - 160(16) ++++ mg/dL [facility] Leukocytes, UA Positive Negative - 500+++ Bhavani/mcL [facility] Nitrite, UA Negative Negative - Positive [facility] pH, UA 5.5 5 - 9 [facility] Protein, UA Positive Negative - 1999(20) ++++ mg/dL [facility] Spec Grav, UA 1.03 1 - 1.03 [facility] Urobilinogen, UA 1.0 0.2 - 12 mg/dL [facility] AFP, SERUM, OPEN SPINA BIFID Aon 06-19-2024 AFP MOM 0.60 . [facility] AFP VALUE 19.7 ng/mL . [facility] COMMENT: Comment . [facility] Comment on above: Nathalia Aguiar , Ph.D., [facility] Director References: Available Upon Request. Multiples Of Median Cutoffs For AFP Elevations Bryant 2.5 Black 2.8 IDD 2.0 Twins 4.5 Abbreviation Definitions IDD - Insulin Dep Diabetes OSBR - Open Spina Bifida Risk For further inquiries contact [facility] at [phone]. This test was developed and its performance characteristics determined by [employer]. It has not been cleared or approved by the Food and Drug Administration. Performed at: [facility] [address], [place], [place] [id number] Ticket Collector: Robson Redman [facility], Phone: [phone] GEST. AGE ON COLLECTION DATE 16.1 . weeks [facility] GESTAT. AGE BASED ON Ultrasound . [facility] Comment on above: 15.3 on 06/10/2024 Recalculations are not recommended when gestational dating by LMP and ultrasound are within 10 days. INSULIN DEP DIABETES No . [facility] INTERPRETATION Comment . [facility] Healt [facility]care Comment on above: Interpretation: Scre en Negative [...] Customer Services to discuss available options. The [employer] recommends amniocentesis be offered to women age 35 and older. [age] AT [place] [age] [facility] MULTIPLE GESTATION No . [facility] H ealth[place] [address] [place] [address] . [facility] hcare RACE . [facility] [employer] RESULTS Report . [facility] [employer] TEST RESULTS: Negative . [facility] WEIGHT 156 . lbs [facility] [employer] N N ULTRASOUND [id number] 2 15 N 1 Y 156 N N N N N White/ [facility] [employer] HCG ( test) Ql (U)o n 06-10-2024 Interpretation and review of laboratory results Abnormal [facility] Preg Test, Ur Positive [facility]inalysis macro (dipstick) panel (U)on 06-10-2024 Bilirubin, UA Negative Negative - 4(70) +++ mg/dL [facility] Blood, UA Negative Negative - 50 Mendez/mcL [facility] Clarity, UA Clear [facility] re Color, UA Yellow [facility] [employer] Glucose, UA Negative Negative - 1999(110) ++++ mg/dL [facility] Interpretation and review of laboratory results Abnormal [facility] Ketones, UA Positive Negative - 160(16) ++++ mg/dL [facility] Leukocytes, UA Positive Negative - 500+++ Bhavani/mcL [facility] Nitrite, UA Negative Negative - Positive [facility] pH, UA 7.0 5 - [address] [facility] Protein, UA Positive Negative - 1999(20) ++++ mg/dL [facility] Spec Grav, UA 1.025 1 - 1.03 [facility] Urobilinogen, UA 1.0 0.2 - 12 mg/dL [facility] BASIC METABOLIC PANLon 05-22 Anion gap [Moles/Vol] 6 mmol/L Normal 5-15 [facility] Comment on above: Performed By: #### N UM #### [facility] ([id number]) [address] [place] [address] 38992 Calcium [Mass/Vol] 8.7 mg/dL Normal 8.5-10.5 [facility] Comment on above: Performed By: #### N UM #### [facility] ([id number]) [address] [place] [address] 90230 Chloride [Moles/Vol] 104 mmol/L Normal 98-109 [facility] Comment on above: Performed By: #### N UM #### [facility] ([id number]) [address] [place] [address] 38544 CO2 [Moles/Vol] 22 mmol/L Normal 22-32 [facility] Comment on above: Performed By: #### N UM #### [facility] ([id number]) [address] [place] [address] 32380 Creatinine [Mass/Vol] 0.51 mg/dL Normal 0.40-1.00 [facility] Comment on above: Result Comment: METH OD TRACEABLE TO IDMS STANDARD Performed By: #### N UM #### [facility] ([id number]) [address] [place] [address] 94858 eGFR (CKD-EPI) NON-RACE DEPENDENT >90 Normal >59 [facility] Comment on above: Result Comment: Reported eGFR is based on the CKD-EPI 2021 equation that does not use a race coefficient. Performed By: #### N UM #### [facility] ([id number]) [address] [place] [address] 32741 Glucose [Mass/Vol] 102 mg/dL High 65-99 [facility] Comment on above: Performed By: #### N UM #### [facility] ([id number]) [address] [place] [address] 96020 Potassium [Moles/Vol] 3.4 mmol/L Low 3.5-5.0 [facility] Comment on above: Performed By: #### N UM #### [facility] ([id number]) [address] [place] [address] 88672 Sodium [Moles/Vol] 132 mmol/L Low 134-146 [facility] Comment on above: Performed By: #### N UM #### [facility] ([id number]) [address] [place] [address] 09605 Urea nitrogen [Mass/Vol] 6 mg/dL Normal 5-23 [facility] Comment on above: Performed By: #### N UM #### [facility] ([id number]) [address] [place] [address] 57488 CBC AND AUTO DIFFon 05-22-20 24 ABSOLUTE BASOPHIL 0.1 X10E9/L Normal 0.0-0.2 [facility] Comment on above: Performed By: #### N UM #### [facility] ([id number]) [address] [place] [address] 19751 ABSOLUTE NEUTROPHIL 3.3 X10E9/L Normal 1.5-6.6 [facility] Comment on above: Performed By: #### N UM #### [facility] ([id number]) [address] [place] [address] 65822 Basophils/100 WBC (Bld) 0.9 % Normal [facility] Comment on above: Performed By: #### N UM #### [facility] ([id number]) [address] [place] [address] 70750 Eosinophils (Bld) [#/Vol] 0.2 10*3/uL Normal 0.0-0.4 [facility] Comment on above: Performed By: #### N UM #### [facility] ([id number]) [address] [place] [address] 52296 Eosinophils/100 WBC (Bld) 3.9 % Normal [facility] Comment on above: Performed By: #### N UM #### [facility] ([id number]) [address] [place] [address] 32753 Erythrocyte distribution width (RBC) [Ratio] 13.9 % Normal 11.5-15.0 [facility] Comment on above: Performed By: #### N UM #### [facility] ([id number]) [address] [place] [address] 73269 Hematocrit (Bld) [Volume fraction] 38.4 % Normal 35-47 [facility] Comment on above: Performed By: #### N UM #### [facility] ([id number]) [address] [place] [address] 98325 Hemoglobin (Bld) [Mass/Vol] 13.2 g/dL Normal 11.7-15.5 [facility] Comment on above: Performed By: #### N UM #### [facility] ([id number]) [address] [place] [address] 52853 Lymphocytes (Bld) [#/Vol] 1.4 10*3/uL Normal 1.0-3.5 [facility] Comment on above: Performed By: #### N UM #### [facility] ([id number]) [address] [place] [address] 12403 Lymphocytes/100 WBC (Bld) 25.9 % Normal [facility] Comment on above: Performed By: #### N UM #### [facility] ([id number]) [address] [place] [address] 32173 MCH (RBC) [Entitic mass] 28.2 pg Normal 27-34 [facility] Comment on above: Performed By: #### N UM #### [facility] ([id number]) [address] [place] [address] 50352 MCHC (RBC) [Mass/Vol] 34.3 g/dL Normal 32-36 [facility] Comment on above: Performed By: #### N UM #### [facility] ([id number]) [address] [place] [address] 25484 MCV (RBC) [Entitic vol] 82 fL Normal 80-100 [facility] Comment on above: Performed By: #### N UM #### [facility] ([id number]) [address] [place] [address] 28713 Monocytes (Bld) [#/Vol] 0.6 10*3/uL Normal 0-0.9 [facility] Comment on above: Performed By: #### N UM #### [facility] ([id number]) [address] [place] [address] 82264 Monocytes/100 WBC (Bld) 10.2 % Normal [facility] Comment on above: Performed By: #### N UM #### [facility] ([id number]) [address] [place] [address] 42924 Neutrophils/100 WBC (Bld) 59.1 % Normal [facility] Comment on above: Performed By: #### N UM #### [facility] ([id number]) [address] [place] [address] 42050 Platelet mean volume (Bld) [Entitic vol] 8.7 fL Normal 7-12 [facility] Comment on above: Performed By: #### N UM #### [facility] ([id number]) [address] [place] [address] 24675 Platelets (Bld) [#/Vol] 198 10*3/uL Normal 150-450 [facility] Comment on above: Performed By: #### N UM #### [facility] ([id number]) [address] [place] [address] 37274 RBC COUNT 4.67 X10E12/L Normal 3.80-5.20 [facility] Comment on above: Performed By: #### N UM #### [facility] ([id number]) [address] [place] [address] 57560 WBC (Bld) [#/Vol] 5.6 10*3/uL Normal 4.0-11.0 [facility] Comment on above: Performed By: #### N UM #### [facility] ([id number]) [address] [place] [address] 17345 HCG ( test) Ql (U)o n 05-22-2024 Beta HCG ( test) Ql (U) Positive Abnormal NEG [facility] Comment on above: Performed By: #### N UM #### [facility] ([id number]) [address] [place] [address] 60198 HCG.beta subunit IA 3rd IS Q non 05-22-2024 [place] [address] m[IU]/mL Normal P [facility] Comment on above: Result [...] neoplasms. Performed By: #### N UM #### [facility] ([id number]) [address] [place] [address] [place] [address] URN MACROSCOPIC NURon 2023 BILIRUBIN LUCIE Small Abnormal NEG [facility] Comment on above: Performed By: #### N UM #### [facility] ([id number]) [address] [place] [address] [place] [address] BLOOD/HGB LUCIE Trace Abnormal NEG [facility] Comment on above: Performed By: #### N UM #### [facility] ([id number]) [address] [place] [address] [place] [address] GLUCOSE LUCIE Negative Normal NEG [facility] Comment on above: Performed By: #### N UM #### [facility] ([id number]) [address] [place] [address] [place] [address] KETONES LUCIE Trace Abnormal NEG [facility] Comment on above: Performed By: #### N UM #### [facility] ([id number]) [address] [place] [address] [place] [address] LEUKOCYTE ESTERASE LUCIE Small Abnormal NEG [facility] Comment on above: Performed By: #### N UM #### [facility] ([id number]) [address] [place] [address] 64060 NITRITE LUCIE Negative Normal NEG [facility] Comment on above: Performed By: #### N UM #### [facility] ([id number]) [address] [place] [address] [place] [address] PH LUCIE 6.5 Normal 5.0-8.5 [facility] Comment on above: Performed By: #### N UM #### [facility] ([id number]) [address] [place] [address] 80374 PROTEIN LUCIE 100 mg/dL Abnormal NEG [facility] Comment on above: Performed By: #### N UM #### [facility] ([id number]) [address] [place] [address] [place] [address] SPECIFIC GRAVITY LUCIE >=1.030 Normal 1.003-1.035 [facility] Comment on above: Performed By: #### N UM #### [facility] ([id number]) [address] [place] [address] 52821 UROBILINOGEN LUCIE 1.0 eu/dL Normal <1.1 [facility] Comment on above: Performed By: #### N UM #### [facility] ([id number]) [address] [place] [address] 53761 RAPID STREP SCR NURSINGon S. pyogenes Ag EIA Ql (Throat) Positive Abnormal NEG [facility] Comment on above: Performed By: #### N UM #### [facility] ([id number]) [address] [place] [address] 20434 CBC AND AUTO DIFFon 02-29-20 ABSOLUTE BASOPHIL 0.0 X10E9/L Normal 0.0-0.2 [facility] Comment on above: Performed By: #### N UM #### [facility] ([id number]) [address] [place] [address] 78745 ABSOLUTE NEUTROPHIL 2.4 X10E9/L Normal 1.5-6.6 [facility] Comment on above: Performed By: #### N UM #### [facility] ([id number]) [address] [place] [address] 10711 Basophils/100 WBC (Bld) 0.8 % Normal [facility] Comment on above: Performed By: #### N UM #### [facility] ([id number]) [address] [place] [address] 82964 Eosinophils (Bld) [#/Vol] 0.2 10*3/uL Normal 0.0-0.4 [facility] Comment on above: Performed By: #### N UM #### [facility] ([id number]) [address] [place] [address] 59189 Eosinophils/100 WBC (Bld) 3.0 % Normal [facility] Comment on above: Performed By: #### N UM #### [facility] ([id number]) [address] [place] [address] 06372 Erythrocyte distribution width (RBC) [Ratio] 12.3 % Normal 11.5-15.0 [facility] Comment on above: Performed By: #### N UM #### [facility] ([id number]) [address] [place] [address] 16438 Hematocrit (Bld) [Volume fraction] 36.6 % Normal 35-47 [facility] Comment on above: Performed By: #### N UM #### [facility] ([id number]) [address] [place] [address] 11803 Hemoglobin (Bld) [Mass/Vol] 12.5 g/dL Normal 11.7-15.5 [facility] Comment on above: Performed By: #### N UM #### [facility] ([id number]) [address] [place] [address] 77454 Lymphocytes (Bld) [#/Vol] 2.3 10*3/uL Normal 1.0-3.5 [facility] Comment on above: Performed By: #### N UM #### [facility] ([id number]) [address] [place] [address] 57101 Lymphocytes/100 WBC (Bld) 43.8 % Normal [facility] Comment on above: Performed By: #### N UM #### [facility] ([id number]) [address] [place] [address] 49426 MCH (RBC) [Entitic mass] 29.5 pg Normal 27-34 [facility] Comment on above: Performed By: #### N UM #### [facility] ([id number]) [address] [place] [address] 59445 MCHC (RBC) [Mass/Vol] 34.1 g/dL Normal 32-36 [facility] Comment on above: Performed By: #### N UM #### [facility] ([id number]) [address] [place] [address] 82280 MCV (RBC) [Entitic vol] 86 fL Normal 80-100 [facility] Comment on above: Performed By: #### N UM #### [facility] ([id number]) [address] [place] [address] 88275 Monocytes (Bld) [#/Vol] 0.4 10*3/uL Normal 0-0.9 [facility] Comment on above: Performed By: #### N UM #### [facility] ([id number]) [address] [place] [address] 78838 Monocytes/100 WBC (Bld) 7.4 % Normal [facility] Comment on above: Performed By: #### N UM #### [facility] ([id number]) [address] [place] [address] 38956 Neutrophils/100 WBC (Bld) 45.0 % Normal [facility] Comment on above: Performed By: #### N UM #### [facility] ([id number]) [address] [place] [address] 03681 Platelet mean volume (Bld) [Entitic vol] 8.7 fL Normal 7-12 [facility] Comment on above: Performed By: #### N UM #### [facility] ([id number]) [address] [place] [address] 70517 Platelets (Bld) [#/Vol] 326 10*3/uL Normal 150-450 [facility] Comment on above: Performed By: #### N UM #### [facility] ([id number]) [address] [place] [address] 25686 RBC COUNT 4.23 X10E12/L Normal 3.80-5.20 [facility] Comment on above: Performed By: #### N UM #### [facility] ([id number]) [address] [place] [address] 05668 WBC (Bld) [#/Vol] 5.3 10*3/uL Normal 4.0-11.0 [facility] Comment on above: Performed By: #### N UM #### [facility] ([id number]) [address] [place] [address] 18176 BASIC METABOLIC PANLon 02-12 Anion gap [Moles/Vol] 8 mmol/L Normal 5-15 [facility] Comment on above: Performed By: #### B EDEL, , CBCA #### [facility] ([id number]) [address] [place] [address] 39185 Calcium [Mass/Vol] 9.1 mg/dL Normal 8.5-10.5 [facility] Comment on above: Performed By: #### B EDEL, , CBCA #### [facility] ([id number]) [address] [place] [address] 39885 Chloride [Moles/Vol] 103 mmol/L Normal 98-109 [facility] Comment on above: Performed By: #### B EDEL, , CBCA #### [facility] ([id number]) [address] [place] [address] 42939 CO2 [Moles/Vol] 22 mmol/L Normal 22-32 [facility] Comment on above: Performed By: #### B EDEL, , CBCA #### [facility] ([id number]) [address] [place] [address] 94643 Creatinine [Mass/Vol] 0.57 mg/dL Normal 0.40-1.00 [facility] Comment on above: Result Comment: METH OD TRACEABLE TO IDMS STANDARD Performed By: #### B EDEL, , CBCA #### [facility] ([id number]) [address] [place] [address] 84213 eGFR (CKD-EPI) NON-RACE DEPENDENT >90 Normal >59 [facility] Comment on above: Result Comment: Reported eGFR is based on the CKD-EPI 2020 equation that does not use a race coefficient. Performed By: #### B EDEL, , CBCA #### [facility] ([id number]) [address] [place] [address] 25236 Glucose [Mass/Vol] 93 mg/dL Normal 65-99 [facility] Comment on above: Performed By: #### Ed [place], , CBCA #### [facility] ([id number]) [address] [place] [address] 17686 Potassium [Moles/Vol] 3.6 mmol/L Normal 3.5-5.0 [facility] Comment on above: Performed By: #### Ed [place], , CBCA #### [facility] ([id number]) [address] [place] [address] 40478 Sodium [Moles/Vol] 133 mmol/L Low 134-146 [facility] Comment on above: Performed By: #### Ed [place], , CBCA #### [facility] ([id number]) [address] [place] [address] 52182 Urea nitrogen [Mass/Vol] 11 mg/dL Normal 5-23 [facility] Comment on above: Performed By: #### Ed [place], , CBCA #### [facility] ([id number]) [address] [place] [address] 75162 CBC AND AUTO DIFFon 02-13-20 24 ABSOLUTE BASOPHIL 0.1 X10E9/L Normal 0.0-0.2 [facility] Comment on above: Performed By: #### B EDEL, , CBCA #### [facility] ([id number]) [address] [place] [address] 60212 ABSOLUTE NEUTROPHIL 5.3 X10E9/L Normal 1.5-6.6 [facility] Comment on above: Performed By: #### B EDEL, , CBCA #### [facility] ([id number]) [address] [place] [address] 57773 Basophils/100 WBC (Bld) 0.9 % Normal [facility] Comment on above: Performed By: #### B EDEL, , CBCA #### [facility] ([id number]) [address] [place] [address] [place] [address] DIFFERENTIAL COMMENT PLATELETS REVIEWED Normal [facility] Comment on above: Performed By: #### B EDEL, , CBCA #### [facility] ([id number]) [address] [place] [address] 12756 Eosinophils (Bld) [#/Vol] 0.4 10*3/uL Normal 0.0-0.4 [facility] Comment on above: Performed By: #### Ed [place], , CBCA #### [facility] ([id number]) [address] [place] [address] 15465 Eosinophils/100 WBC (Bld) 4.0 % Normal [facility] Comment on above: Performed By: #### B EDEL, , CBCA #### [facility] ([id number]) [address] [place] [address] 22231 Erythrocyte distribution width (RBC) [Ratio] 12.7 % Normal 11.5-15.0 [facility] Comment on above: Performed By: #### B EDEL, , CBCA #### [facility] ([id number]) [address] [place] [address] 60339 Hematocrit (Bld) [Volume fraction] 34.3 % Low 35-47 [facility] Comment on above: Performed By: #### B EDEL, , CBCA #### [facility] ([id number]) [address] [place] [address] 90711 Hemoglobin (Bld) [Mass/Vol] 12.2 g/dL Normal 11.7-15.5 [facility] Comment on above: Performed By: #### Ed [place], , CBCA #### [facility] ([id number]) [address] [place] [address] 19439 Lymphocytes (Bld) [#/Vol] 2.7 10*3/uL Normal 1.0-3.5 [facility] Comment on above: Performed By: #### Ed [place], , CBCA #### [facility] ([id number]) [address] [place] [address] 39091 Lymphocytes/100 WBC (Bld) 29.1 % Normal [facility] Comment on above: Performed By: #### Ed [place], , CBCA #### [facility] ([id number]) [address] [place] [address] 90203 MCH (RBC) [Entitic mass] 30.1 pg Normal 27-34 [facility] Comment on above: Performed By: #### B EDEL, , CBCA #### [facility] ([id number]) [address] [place] [address] 92005 MCHC (RBC) [Mass/Vol] 35.7 g/dL Normal 32-36 [facility] Comment on above: Performed By: #### Ed [place], , CBCA #### [facility] ([id number]) [address] [place] [address] 78262 MCV (RBC) [Entitic vol] 84 fL Normal 80-100 [facility] Comment on above: Performed By: #### Ed [place], , CBCA #### [facility] ([id number]) [address] [place] [address] 44045 Monocytes (Bld) [#/Vol] 0.9 10*3/uL Normal 0-0.9 [facility] Comment on above: Performed By: #### Ed [place], , CBCA #### [facility] ([id number]) [address] [place] [address] 07281 Monocytes/100 WBC (Bld) 9.9 % Normal [facility] Comment on above: Performed By: #### Ed [place], , CBCA #### [facility] ([id number]) [address] [place] [address] 78882 Neutrophils/100 WBC (Bld) 56.1 % Normal [facility] Comment on above: Performed By: #### Ed [place], , CBCA #### [facility] ([id number]) [address] [place] [address] 18240 Platelet mean volume (Bld) [Entitic vol] 9.0 fL Normal 7-12 [facility] Comment on above: Performed By: #### Ed [place], , CBCA #### [facility] ([id number]) [address] [place] [address] 56588 Platelets (Bld) [#/Vol] 203 10*3/uL Normal 150-450 [facility] Comment on above: Performed By: #### Ed [place], , CBCA #### [facility] ([id number]) [address] [place] [address] 19006 RBC COUNT 4.07 X10E12/L Normal 3.80-5.20 [facility] Comment on above: Performed By: #### B EDEL, , CBCA #### [facility] ([id number]) [address] [place] [address] 15150 WBC (Bld) [#/Vol] 9.4 10*3/uL Normal 4.0-11.0 [facility] Comment on above: Performed By: #### B EDEL, , CBCA #### [facility] ([id number]) [address] [place] [address] 87563 HCG.beta subunit IA 3rd IS Q non 02-13-2024 [place] [address] m[IU]/mL Normal P [facility] Comment on above: Result [...] By: #### B EDEL, , CBCA #### [facility] ([id number]) [address] [place] [address] 63288 URN MACROSCOPIC NURon 2023 BILIRUBIN LUCIE Negative Normal NEG [facility] Comment on above: Performed By: #### N UM #### [facility] ([id number]) [address] [place] [address] [place] [address] BLOOD/HGB LUCIE Large Abnormal NEG [facility] Comment on above: Performed By: #### N UM #### [facility] ([id number]) [address] [place] [address] [place] [address] GLUCOSE LUCIE Negative Normal NEG [facility] Comment on above: Performed By: #### N UM #### [facility] ([id number]) [address] [place] [address] [place] [address] KETONES LUCIE Negative Normal NEG [facility] Comment on above: Performed By: #### N UM #### [facility] ([id number]) [address] [place] [address] 31718 LEUKOCYTE ESTERASE LUCIE Negative Normal NEG [facility] Comment on above: Performed By: #### N UM #### [facility] ([id number]) [address] [place] [address] [place] [address] NITRITE LUCIE Negative Normal NEG [facility] Comment on above: Performed By: #### N UM #### [facility] ([id number]) [address] [place] [address]1934 PH LUCIE 6.5 Normal 5.0-8.5 [facility] Comment on above: Performed By: #### N UM #### [facility] ([id number]) [address] [place] [address] [place] [address] PROTEIN LUCIE Trace Abnormal NEG [facility] Comment on above: Performed By: #### N UM #### [facility] ([id number]) [address] [place] [address] [place] [address] SPECIFIC GRAVITY LUCIE 1.015 Normal 1.003-1.035 [facility] Comment on above: Performed By: #### N UM #### [facility] ([id number]) [address] [place] [address] [place] [address] UROBILINOGEN LUCIE 0.2 eu/dL Normal <1.1 [facility] Comment on above: Performed By: #### N UM #### [facility] ([id number]) [address] [place] [address] 31664 HCG ( test) Ql (U)o n 02-12-2024 Beta HCG ( test) Ql (U) Positive Abnormal NEG [facility] Comment on above: Performed By: #### 2 106-3 #### [facility] ([id number]) [address] [place] [address] 29684 HCG.beta subunit IA 3rd IS Q non 02-12-2024 [place] [address] m[IU]/mL Normal P [facility] Comment on above: Result [...] Performed By: #### 4 544-3, 718-7, #### [facility] ([id number]) [address] [place] [address]6427 HEMOGLOBINon 02-12-2024 Hemoglobin (Bld) [Mass/Vol] 12.7 g/dL Normal 11.7-15.5 [facility] Comment on above: Performed By: #### 4 544-3, 718-7, #### [facility] ([id number]) [address] [place] [address] 40640 Hematocrit Auto (Bld) [Volum e fraction]on 02-12-2024 Hematocrit (Bld) [Volume fraction] 35.4 % Normal 35-47 [facility] Comment on above: Performed By: #### 4 544-3, 718-7, #### [facility] ([id number]) [address] [place] [address] 12651 URN MACROSCOPIC NURon 2023 BILIRUBIN LUCIE Negative Normal NEG [facility] Comment on above: Performed By: #### N UM #### [facility] ([id number]) [address] [place] [address] 97204 BLOOD/HGB LUCIE MODERATE Abnormal NEG [facility] Comment on above: Performed By: #### N UM #### [facility] ([id number]) [address] [place] [address] 56975 GLUCOSE LUICE Negative Normal NEG [facility] Comment on above: Performed By: #### N UM #### [facility] ([id number]) [address] [place] [address] 66383 KETONES LUCIE 15 mg/dL Abnormal NEG [facility] Comment on above: Performed By: #### N UM #### [facility] ([id number]) [address] [place] [address] [place] [address] LEUKOCYTE ESTERASE LUCIE Trace Abnormal NEG [facility] Comment on above: Performed By: #### N UM #### [facility] ([id number]) [address] [place] [address] 94261 NITRITE LUCIE Negative Normal NEG [facility] Comment on above: Performed By: #### N UM #### [facility] ([id number]) [address] [place] [address] 70919 PH LUCIE 6.5 Normal 5.0-8.5 [facility] Comment on above: Performed By: #### N UM #### [facility] ([id number]) [address] [place] [address] 55534 PROTEIN LUCIE Negative Normal NEG [facility] Comment on above: Performed By: #### N UM #### [facility] ([id number]) [address] [place] [address] 20988 SPECIFIC GRAVITY LUCIE >=1.030 Normal 1.003-1.035 [facility] Comment on above: Performed By: #### N UM #### [facility] ([id number]) [address] [place] [address] 60895 UROBILINOGEN LUCIE 1.0 eu/dL Normal <1.1 [facility] Comment on above: Performed By: #### N UM #### [facility] ([id number]) [address] [place] [address] [place] PREG LESS THAN 14 WKS WIT [...] cardiac activity with heart rate 100 bpm. [place]-rump length 6 mm corresponding to gestational age [...] on 02/12/2024 5:07 AM Normal [facility] ECG 12 lead ECGon 11-25-2023 ECG 12 lead ECG [facility] [employer] [address] [place] [address] Electrocardiograph Report Signed Patient: Sharona Marks MR#: [id number] : 2005 Acct:[id number] Age/Sex: 17 / F ADM Date: 11/24/23 Loc: Room: [address] [place] [address] Type: ADM IN Attending Dr: Ignacio Acuña [...] change was found Confirmed by Chapito Corbin ([id number]) on 11/25/2023 7:52:58 PM Referred By: Electronically Signed By:Chapito Corbin Transcribed By: MUS Signed By Chapito Corbin MD 11/25/231952 Normal [facility] Lipid Panelon 11-25-2023 Cholesterol [Mass/Vol] 121 mg/dL Low 140-200 [facility] Comment on above: Result Comment: Chol less than 200 mg/dl low risk Chol 201-239 mg/dl borderline risk Chol 240 mg/dl and greater high risk Performed By: #### L IPID, [id number], TSH3 wRFLX #### [address] Cholesterol in HDL [Mass/Vol] 57 mg/dL Normal 23-92 [facility] Comment on above: Result Comment: HDL CHOL ATP-III CLASSIFICATION Cardiovascular Risk HDL > or equal to 60 mg/dL LOW HDL < 40 mg/dL HIGH Performed By: #### L IPID, [id number], TSH3 wRFLX #### [address] Cholesterol.total/Ch olesterol in HDL [Mass ratio] 2.1 {ratio} Normal <5.0 [facility] Comment on above: Performed By: #### L IPID, [id number], TSH3 wRFLX #### [address] LDL Cholesterol,Calculat ed 55 mg/dL Normal 0-100 [facility] Comment on above: Result Comment: LDL ATP III CLASSIFICATION LDL less than 100 mg/dL Optimal LDL 100-129 mg/dL Near or above optimal LDL 130-159 mg/dL Borderline high LDL 160-189 mg/dL High LDL greater than 189 mg/dL Very high Performed By: #### L IPID, [id number], TSH3 wRFLX #### [place] [address] [place] Triglyceride w/Reflex 44 mg/dL Normal 0-149 [facility] Comment on above: Result Comment: TRIG ATP III CLASSIFICATION TRIG less than 150 mg/dL Normal TRIG 150-199 mg/dL Borderline high TRIG 200-500 mg/dL High TRIG greater than 500 mg/dL Very high Standard traceable to the Center for Disease Conrtrol and Prevention (CDC) test method. Performed By: #### L IPID, [id number], TSH3 wRFLX #### [place] [id number] [facility] VLDL CHOLESTEROL 8 mg/dL Normal [facility] Comment on above: Performed By: #### L IPID, [id number], TSH3 wRFLX #### [address] Thyroid Stim Hormone w/Rflxo n 11-25-2023 Thyroid Stim Hormone w/Rflx 3.18 u[iU]/mL Normal 0.45-5.33 [facility] Comment on above: Performed By: #### L IPID, [id number], TSH3 wRFLX #### [address] Vitamin D 25 Hydroxy Totalon 11-25-2023 Vitamin D 25 Hydroxy Total 14.7 ng/mL Low 30-100 [facility] Comment on above: Result Comment: DARYA MIN D STATUS 25(OH)VITAMIN D RANGE (ng/mL) Deficient <20 Insufficient 20 to <30 Sufficient 30 to 100 Reference: Angel MF,Yovany NC, Bee WILEY, et al. Evaluation,treatment, and prevention of vitamin D deficiency; an Endocrine Society clinical practice guideline. JCEM. 2010; 96(7):1911-30. PERFORMED BY: [place] [address] PATHOLOGIST MOLD BLOWER TIFFANIE HIGH M.D. Performed By: #### L IPID, [id number], TSH3 wRFLX #### [address] Complete Blood Count Auto Di ffon 11-24-2023 Basophils (Bld) [#/Vol] 0.0 10*3/uL Normal 0.0-0.1 [facility] Comment on above: Result Comment: PERF ORMED BY: [place] [address] PATHOLOGIST MOLD BLOWER TIFFANIE HIGH M.D. Performed By: #### C MP, ETOH, CBC #### [address] Basophils/100 WBC (Bld) 0.5 % Normal . [facility] Comment on above: Performed By: #### C MP, ETOH, CBC #### [address] Eosinophils (Bld) [#/Vol] 0.1 10*3/uL Normal 0.0-0.7 [facility] Comment on above: Performed By: #### C MP, ETOH, CBC #### [address] Eosinophils/100 WBC (Bld) 1.0 % Normal . [facility] Comment on above: Performed By: #### C MP, ETOH, CBC #### [address] Erythrocyte distribution width (RBC) [Ratio] 13.2 % Normal 11.9-15.3 [facility] Comment on above: Performed By: #### C MP, ETOH, CBC #### [address] Hematocrit (Bld) [Volume fraction] 41.6 % Normal 36.0-46.0 [facility] Comment on above: Performed By: #### C MP, ETOH, CBC #### [address] Hemoglobin (Bld) [Mass/Vol] 14.3 g/dL Normal 12.0-16.0 [facility] Comment on above: Performed By: #### C MP, ETOH, CBC #### [address] Lymphocytes (Bld) [#/Vol] 3.5 10*3/uL Normal 1.20-4.8 [facility] Comment on above: Performed By: #### C MP, ETOH, CBC #### [address] Lymphocytes/100 WBC (Bld) 39.9 % Normal . [facility] Comment on above: Performed By: #### C MP, ETOH, CBC #### [address] MCH (RBC) [Entitic mass] 29.3 pg Normal 25.0-35.0 [facility] Comment on above: Performed By: #### C MP, ETOH, CBC #### [address] MCV (RBC) [Entitic vol] 84.8 fL Normal 78-102 [facility] Comment on above: Performed By: #### C MP, ETOH, CBC #### [address] Mean Corpuscular HGB Conc 34.5 g/dL Normal 31.0-37.0 [facility] Comment on above: Performed By: #### C MP, ETOH, CBC #### [address] Monocytes (Bld) [#/Vol] 0.6 10*3/uL Normal 0.1-1.00 [facility] Comment on above: Performed By: #### C MP, ETOH, CBC #### [address] Monocytes/100 WBC (Bld) 17.05 % Normal 0.00-20.00 [facility] Comment on above: Performed By: #### C MP, ETOH, CBC #### [address] Monocytes/100 WBC (Bld) 7.1 % Normal . [facility] Comment on above: Performed By: #### C MP, ETOH, CBC #### [address] Neutrophils (Bld) [#/Vol] 4.5 10*3/uL Normal 1.2-7.7 [facility] Comment on above: Performed By: #### C MP, ETOH, CBC #### [address] Neutrophils/100 WBC (Bld) 51.5 % Normal . [facility] Comment on above: Performed By: #### C MP, ETOH, CBC #### [address] NRBC% 0.1 /100{WBC} Normal 0-0.5 [facility] Comment on above: Performed By: #### C MP, ETOH, CBC #### [address] Platelet mean volume (Bld) [Entitic vol] 7.7 fL Normal 6.3-10.[address] [facility] Comment on above: Performed By: #### C MP, ETOH, CBC #### [address] Platelets (Bld) [#/Vol] 319 10*3/uL Normal 150-450 [facility] Comment on above: Performed By: #### C MP, ETOH, CBC #### [address] RBC (Bld) [#/Vol] 4.90 10*6/uL Normal 4.10-5.10 [facility] Comment on above: Performed By: #### C MP, ETOH, CBC #### [address] WBC (Bld) [#/Vol] 8.7 10*3/uL Normal 4.5-13.5 [facility] Comment on above: Performed By: #### C MP, ETOH, CBC #### [address] Comprehensive Metabolic Pane andrew 11-24-2023 Albumin [Mass/Vol] 5.1 g/dL Normal 3.5-5.7 [facility] Comment on above: Performed By: #### C MP, ETOH, CBC #### [address] Albumin/Globulin [Mass ratio] 1.6 {ratio} Normal [facility] Comment on above: Performed By: #### C MP, ETOH, CBC #### [address] ALP [Catalytic activity/Vol] 67 U/L Normal 34-104 [facility] Comment on above: Performed By: #### C MP, ETOH, CBC #### [address] ALT [Catalytic activity/Vol] 10 U/L Normal 7-52 [facility] Comment on above: Performed By: #### C MP, ETOH, CBC #### [facility] [address] [place] [address] [place] Anion gap [Moles/Vol] 10.9 mmol/L Normal 6.0-15.0 [facility] Comment on above: Performed By: #### C MP, ETOH, CBC #### [facility] [address] [place] [address] [place] AST [Catalytic activity/Vol] 15 U/L Normal 13-39 [facility] Comment on above: Performed By: #### C MP, ETOH, CBC #### [facility] [address] [place] [address] [place] Bilirubin [Mass/Vol] 0.4 mg/dL Normal 0.3-1.0 [facility] Comment on above: Performed By: #### C MP, ETOH, CBC #### [facility] [address] [place] [address] [place] Calcium [Mass/Vol] 9.5 mg/dL Normal 8.6-10.3 [facility] Comment on above: Performed By: #### C MP, ETOH, CBC #### [facility] [address] [place] [address] [place] Chloride [Moles/Vol] 106 mmol/L Normal 98-107 [facility] Comment on above: Performed By: #### C MP, ETOH, CBC #### [facility] [address] [place] [address] [place] CO2 [Moles/Vol] 24.9 mmol/L Normal 21.0-31.0 [facility] Comment on above: Performed By: #### C MP, ETOH, CBC #### [facility] [address] [place] [address] [place] Creatinine [Mass/Vol] 0.71 mg/dL Normal 0.60-1.20 [facility] Comment on above: Performed By: #### C MP, ETOH, CBC #### [facility] [address] [place] [address] [place] Creatinine Clr Calc Pharmacy 124.96 Normal [facility] Comment on above: Result Comment: PERF ORMED BY: [place] [address] PATHOLOGIST MOLD BLOWER TIFFANIE HIGH M.D. Performed By: #### C MP, ETOH, CBC #### [place] [address] [place] GFR/1.73 sq M.predicted MDRD (S/P/Bld) [Vol rate/Area] mL/min/{1.73_m2} Normal [facility] Comment on above: Performed By: #### C MP, ETOH, CBC #### [place] [address] [place] Globulin (S) [Mass/Vol] 3.1 g/dL Normal [facility] Comment on above: Performed By: #### C MP, ETOH, CBC #### [address] Glucose [Mass/Vol] 86 mg/dL Normal 70-100 [facility] Comment on above: Result Comment: [facility] Glucose Reference Range is dependent on time and content of last meal. Glucose of more than 200 mg/dL in a nonstressed, ambulatory subject supports the diagnosis of Diabetes Mellitus. ADA recommended reference range Performed By: #### C MP, ETOH, CBC #### [place] [address] [place] Potassium [Moles/Vol] 3.8 mmol/L Normal 3.5-5.1 [facility] Comment on above: Performed By: #### C MP, ETOH, CBC #### [place] [address] [place] Protein [Mass/Vol] 8.2 g/dL Normal 6.4-8.9 [facility] Comment on above: Performed By: #### C MP, ETOH, CBC #### [place] [address] [place] Sodium [Moles/Vol] 138 mmol/L Normal 136-145 [facility] Comment on above: Performed By: #### C MP, ETOH, CBC #### [address] Urea nitrogen [Mass/Vol] 9 mg/dL Normal 7-25 [facility] Comment on above: Performed By: #### C MP, ETOH, CBC #### [address] Drug Screen,Urineon 11-24-19 24 Amphetamine Screen,Urine Negative Normal Negative [facility] Comment on above: Performed By: #### U HCG, UA, URDS #### [address] Barbiturate Screen,Urine Negative Normal Negative [facility] Comment on above: Performed By: #### U HCG, UA, URDS #### [address] Benzodiazepines Screen,Urine Negative Normal Negative [facility] Comment on above: Performed By: #### U HCG, UA, URDS #### [address] Cannabinoid Screen,Urine Positive High Negative [facility] Comment on above: Result Comment: Thes e are unconfirmed results and should not be used for legal purposes. Drug Cut-Off Concentration: AMPH 1000 ng/mL BECCA 200 ng/mL JANUSZ 200 ng/mL COCM 300 ng/mL OP 300 ng/mL PCP 25 ng/mL THC 20 ng/mL PERFORMED BY: [place] [address] PATHOLOGIST MOLD BLOWER TIFFANIE HIGH M.D. Performed By: #### U HCG, UA, URDS #### [address] Cocaine Screen,Urine Negative Normal Negative [facility] Comment on above: Performed By: #### U HCG, UA, URDS #### [address] Opiate Screen,Urine Negative Normal Negative [facility] Comment on above: Performed By: #### U HCG, UA, URDS #### [address] Phencyclidine Screen,Urine Negative Normal Negative [facility] Comment on above: Performed By: #### U HCG, UA, URDS #### [address] Ethyl Alcohol Profileon 03 Ethanol [Mass/Vol] mg/dL Normal [facility] Comment on above: Performed By: #### C MP, ETOH, CBC #### [address] Percent Ethanol Not performed Normal [facility] Comment on above: Result Comment: PERF ORMED BY: [place] [address] PATHOLOGIST MOLD BLOWER TIFFANIE HIGH M.D. Performed By: #### C MP, ETOH, CBC #### [address] HCG,Urineon 11-24-2023 Beta HCG ( test) Ql (U) Negative Normal [facility] Comment on above: Order Comment: Name Collection Type:: Clean-Voided Midstream Result Comment: PERF ORMED BY: [place] [address] PATHOLOGIST MOLD BLOWER TIFFANIE HIHG M.D. Performed By: #### U HCG, UA, URDS #### [place] [id number] [facility] Urinalysison 11-24-2023 Appearance (U) Clear Normal Clear [facility] Comment on above: Order Comment: Name Collection Type:: Clean-Voided Midstream Performed By: #### U HCG, UA, URDS #### [place] [id number] [place] Bilirubin,Urine Negative Normal Negative [facility] Comment on above: Order Comment: Name Collection Type:: Clean-Voided Midstream Performed By: #### U HCG, UA, URDS #### [place] [id number] [facility] Color (U) Yellow Normal Yellow [facility] Comment on above: Order Comment: Name Collection Type:: Clean-Voided Midstream Performed By: #### U HCG, UA, URDS #### [address] Glucose Ql (U) Normal Normal Normal [facility] Comment on above: Order Comment: Name Collection Type:: Clean-Voided Midstream Performed By: #### U HCG, UA, URDS #### [address] Ketones Ql (U) Negative Normal Negative [facility] Comment on above: Order Comment: Name Collection Type:: Clean-Voided Midstream Performed By: #### U HCG, UA, URDS #### [address] Leukocyte esterase Test strip Ql (U) Negative Normal Negative [facility] Comment on above: Order Comment: Name Collection Type:: Clean-Voided Midstream Performed By: #### U HCG, UA, URDS #### [address] Nitrite,Urine Negative Normal Negative [facility] Comment on above: Order Comment: Name Collection Type:: Clean-Voided Midstream Performed By: #### U HCG, UA, URDS #### [address] Occult Blood,Urine Negative Normal Negative [facility] Comment on above: Order Comment: Name Collection Type:: Clean-Voided Midstream Performed By: #### U HCG, UA, URDS #### [address] pH (U) 6.5 [pH] Normal 5.0-9.0 [facility] Comment on above: Order Comment: Name Collection Type:: Clean-Voided Midstream Performed By: #### U HCG, UA, URDS #### [address] Protein,Urine Negative Normal Negative [facility] Comment on above: Order Comment: Name Collection Type:: Clean-Voided Midstream Performed By: #### U HCG, UA, URDS #### [facility] [address] Specificy [place],Urine 1.020 Normal 1.001-1.030 [facility] Comment on above: Order Comment: Name Collection Type:: Clean-Voided Midstream Performed By: #### U HCG, UA, URDS #### [facility] [address] Urobilinogen,Urine Normal Normal Normal [facility] Comment on above: Order Comment: Name Collection Type:: Clean-Voided Midstream Performed By: #### U HCG, UA, URDS #### [facility] [address] Lipid 1996 panelon 4 Cholesterol [Mass/Vol] 143 mg/dL Low 150-200 [facility] Comment on above: Performed By: #### 2 4331-1 #### [facility] ([id number]) [address] [facility] [place] [address] Cholesterol in HDL [Mass/Vol] 67 mg/dL Normal >39 [facility] Comment on above: Result Comment: HDL <40 mg/dL - High Risk HDL > or = 40mg/dL- Desirable HDL >60 mg/dL - Negative Risk Performed By: #### 2 4331-1 #### [facility] ([id number]) [address] [place] [address] Cholesterol in LDL [Mass/Vol] 65 mg/dL Normal <130 [facility] Comment on above: Result Comment: LDL <100 mg/dL - Desirable LDL >160 mg/dL - High Risk Performed By: #### 2 4331-1 #### [facility] ([id number]) [address], [address] [place] [address] Cholesterol in VLDL [Mass/Vol] 11 mg/dL Normal 0-30 [facility] Comment on above: Performed By: #### 2 4331-1 #### [facility] ([id number]) [address], [address] [place] [address] CHOLESTEROL:HDL 2.1 Normal 1.0-5.0 [facility] Comment on above: Performed By: #### 2 4331-1 #### [facility] ([id number]) [address] [place] [address] Triglyceride [Mass/Vol] 53 mg/dL Normal 27-150 [facility] Comment on above: Performed By: #### 2 4331-1 #### [facility] ([id number]) [address], [address] [place] [address] Vital Signs Date Time Vital Sign Value Performing Clinician Faci lity 10-13-2024 11:30-0500 Body mass index (BMI) [Ratio] 25.03 kg/m2 Rohan Deon DO Work Phone: [facility] 10-13-2024 11:30-0500 Body weight 72.48 kg Rohan Deon DO Work Phone: [facility] 10-13-2024 11:30-0500 Diastolic blood pressure 62 mm[Hg] Rohan Deon DO Work Phone: [facility] 10-13-2024 11:30-0500 Systolic blood pressure 114 mm[Hg] Rohan Deon DO Work Phone: [facility] 09-29-2024 08:51-0500 Body height 170.2 cm Tucker Givens DPM Work Phone: [facility] 09-29-2024 08:51-0500 Body mass index (BMI) [Ratio] 24.9 kg/m2 Tucker Givens DPM Work Phone: [facility] 09-29-2024 08:51-0500 Body weight 72.12 kg Tucker Givens HAYDEM Work Phone: [facility] 09-26-2024 09:46-0500 Body mass index (BMI) [Ratio] 24.9 kg/m2 La Ruvalcaba PA Work Phone: [facility] 09-26-2024 09:46-0500 Body weight 72.12 kg La Lenore PA Work Phone: [facility] 09-26-2024 09:46-0500 Diastolic blood pressure 62 mm[Hg] La Lenore PA Work Phone: [facility] 09-26-2024 09:46-0500 Systolic blood pressure 112 mm[Hg] La Lenore PA Work Phone: [facility] 09-06-2024 14:06-0500 Body mass index (BMI) [Ratio] 24.45 kg/m2 Rohan Deon DO Work Phone: [facility] 09-06-2024 14:06-0500 Body weight 70.82 kg Rohan Deon DO Work Phone: [facility] 09-06-2024 14:06-0500 Diastolic blood pressure 60 mm[Hg] Rohan Deon DO Work Phone: [facility] 09-06-2024 14:06-0500 Systolic blood pressure 128 mm[Hg] Rohan Deon DO Work Phone: [facility] 07-05-2024 14:35-0400 Body mass index (BMI) [Ratio] 24.18 kg/m2 Rohan Deon DO Work Phone: [facility] 07-05-2024 14:35-0400 Body weight 70.03 kg Rohan Deon DO Work Phone: [facility] 07-05-2024 14:35-0400 Diastolic blood pressure 68 mm[Hg] Rohan Deon DO Work Phone: [facility] 07-05-2024 14:35-0400 Systolic blood pressure 116 mm[Hg] Rohan Deon DO Work Phone: [facility] 06-10-2024 10:45-0400 Body mass index (BMI) [Ratio] 24.43 kg/m2 Nom Nurse [facility] 06-10-2024 10:45-0400 Body weight 70.76 kg [place] [employer] [facility] Nurse [facility] Healthcare Encounters Encounter Date Encounter Type Care Provider Facility Start: 10-13-2024 End: 10-13-2024 Bamboo flowsheet Rohan Deon DO Work Phone: [facility] Start: 10-13-2024 End: 10-13-2024 Bamboo flowsheet Rohan Deon DO Work Phone: [facility] Start: 10-13-2024 End: 10-13-2024 Office outpatient visit 15 minutes Rohan Deon DO Work Phone: [facility] Comment on above: Third trimester preg lazaro; 33 weeks gestation of ; size inconsistent with dates Start: 09-29-2024 End: 09-29-2024 Bamboo flowsheet Tucker Givens DPM Work Phone: [facility] Start: 09-29-2024 End: 09-29-2024 Bamboo flowsheet Tucker Givens DPM Work Phone: [facility] Start: 09-29-2024 End: 09-29-2024 ambulatory TUCKER GIVENS Not Available Start: 09-29-2024 End: 09-29-2024 Office outpatient new 30 minutes Tucker Givens DPM Work Phone: [facility] Comment on above: Abscess of left grea t toe (Primary Dx); Pain of left great toe; Onychocryptosis; Difficulty walking Start: 09-27-2024 End: 09-27-2024 Emergency department patient visit [facility] Start: 09-26-2024 End: 09-26-2024 Bamboo flowsheet La CORREA Work Phone: [facility] Start: 09-26-2024 End: 09-26-2024 Bamboo flowsheet La CORREA Work Phone: [facility] Start: 09-26-2024 End: 09-26-2024 ambulatory LA RUVALCABA Not Available Start: 09-26-2024 End: 09-26-2024 Office outpatient visit 15 minutes La CORREA Work Phone: [facility] Comment on above: Ingrown toenail (Marline gely Dx); Third trimester ; 30 weeks gestation of Start: 09-09-2024 End: 09-09-2024 Clinisync Result Encounter Rohan Deon DO Work Phone: [facility] External Department Unsolicited Start: 09-09-2024 End: 09-09-2024 Clinisync Result Encounter Rohan Deon DO Work Phone: [facility] External Department Unsolicited Start: 09-06-2024 End: 09-06-2024 Bamboo flowsheet Rohan Deon DO Work Phone: [facility] Start: 09-06-2024 End: 09-06-2024 Bamboo flowsheet Rohan Deon DO Work Phone: [facility] Start: 09-06-2024 End: 09-06-2024 Office outpatient visit 15 minutes Rohan Deon DO Work Phone: [facility] Comment on above: 27 weeks gestation o f ; Second trimester ; Diabetes mellitus screening; Anxiety with depression Start: 09-06-2024 End: 09-06-2024 ambulatory ROHAN DEON Not Available Start: 09-01-2024 ambulatory Ollie Courtney acility:[facility] Start: 08-31-2024 End: 08-31-2024 Telephone encounter Rohan Deon DO Work Phone: [facility] Start: 08-31-2024 End: 08-31-2024 [facility] Start: 08-31-2024 Encounter for other general examination MONICA SINGLETON [facility] Start: 08-28-2024 End: 08-28-2024 ambulatory CARLOTA ENRIQUEZ [facility] Start: 07-05-2024 End: 07-05-2024 Bamboo flowsheet Rohan [...] in partial remission, unspecified whether recurrent (HCC) ([facility]/HCC) Start: 06-16-2024 End: 06-19-2024 Clinisync Result Encounter [...] 05-22-2024 End: 05-22-2024 Emergency department patient visit [facility] Start: 05-11-2024 End: 05-11-2024 Emergency department patient visit [facility] Start: 02-29-2024 End: 02-29-2024 ambulatory [facility] Start: 02-22-2024 End: 02-22-2024 ambulatory ROHAN DEON Not Available Start: 02-18-2024 End: 02-18-2024 ambulatory ROHAN DEON Not Available Start: 02-12-2024 End: 02-13-2024 Emergency department patient visit ARUN Santana [facility] Start: 02-12-2024 End: 02-13-2024 Emergency department patient visit KB WRIGHT [facility] Start: 02-12-2024 End: 02-12-2024 Emergency department patient visit ARUN Santana [facility] Start: 11-24-2023 End: 11-26-2023 Evaluation and management of inpatient Ignacio Acuña Facility:[facility] Start: 11-11-2023 End: 11-11-2023 ambulatory LONNY Greene [facility] Start: 10-27-2022 End: 10-27-[address] RAJ KELLY Facility: Procedures Date Procedure Procedure Detail Performing Clinician Start: 09-26-2024 Urnls dip stick/tabl et rgnt non-auto w/o micrscp La CORREA Work Phone: Start: 09-09-2024 ALL CBC WITH AUTO DIFF Rohan Deon DO Work Phone: Start: 09-06-2024 Urnls dip stick/tabl et rgnt [...] Treatment Date Care Activity Detail Author Start: 10-27-2024 End: 10-27-2024 Patient encounter procedure 10/27/2024 10:50 AM EST Routine [facility] [address] [facility] [place] [id number] Rohan Chavarria, DO [address] [place] [address] [facility] Start: 10-13-2024 End: 10-13-2025 US for US OB follow up transabdominal approach Imaging Routine size inconsistent with dates Expected: 10/13/2024, Expires: 10/13/2025 [facility] Work Phone: Comment on above: Expected: 10/13/2024 , Expires: 10/13/2025 Start: 10-13-2024 End: 10-13-2024 Patient encounter procedure 10/13/2024 11:20 AM EST Routine [facility] [address] [place] [phone] Rohan Chavarria, DO [address] [place] [address] [place] [address] Arrived [facility] Comment on above: Arrived Start: 10-12-2024 End: 10-12-2024 Patient encounter procedure 10/12/2024 11:20 AM EST Routine [facility] [address] [facility] [place] [id number] Rohan Chavarria, DO [facility] [place] [address] [facility] Start: 10-11-2024 End: 10-11-2024 Patient encounter procedure 10/11/2024 4:00 PM EST Office Visit [facility] [address] [place] [id number] Tucker Givens, JOHANA [address] [place], [place] [id number] [facility] Start: 09-26-2024 End: 09-26-2024 Patient encounter procedure 09/26/2024 9:20 AM EST Routine [facility] [address] [place] [phone] La Ruvalcaba PA [address] [place], [place] [id number] [facility] Start: 09-06-2024 End: 09-06-2025 CBC panel - Blood by Automated count CBC Lab Routine Diabetes mellitus screening Expected: 09/06/2024 (Approximate), Expires: 09/06/2025 [facility] Work Phone: Comment on above: Expected: 09/06/2024 (Approximate), Expires: 09/06/2025 Start: 09-06-2024 End: 09-06-2025 Measurement of glucose 1 hour after glucose challenge for glucose tolerance test Glucose tolerance, 1 hour Lab Routine Diabetes mellitus screening Expected: 09/06/2024 (Approximate), Expires: 09/06/2025 [facility] Comment on above: Expected: 09/06/2024 (Approximate), Expires: 09/06/2025 Start: 09-06-2024 End: 09-06-2024 Patient encounter procedure 09/06/2024 1:50 PM EST Routine [facility] [address] [place] [phone] Rohan Chavarria, DO [address] [place] [address] Arrived [facility] Comment on above: Arrived Start: 08-03-2024 End: 08-03-2024 Patient encounter procedure 08/03/2024 2:40 PM EST Routine [facility] [address] [place] [phone] Rohan Chavarria, DO [address] [place] [address] [facility] Start: 07-18-2024 End: 07-18-2024 Professional / ancillary services management 07/18/2024 2:00 PM EDT Ancillary Procedure [facility] [address] [facility] [place] [phone] [facility] Start: 07-05-2024 End: 07-05-2025 US for US OB ANATOMY SINGLE W US OB CERVICAL LENGTH Imaging Routine Screening, , for anatomic survey Expected: 07/05/2024 (Approximate), Expires: 07/05/2025 [facility] Work Phone: Comment on above: Expected: 07/05/2024 (Approximate), Expires: 07/05/2025 Start: 07-05-2024 End: 07-05-2024 Patient encounter procedure 07/05/2024 1:40 PM EDT Routine [facility] [address] [place] [phone] Rohan Chavarria, DO [address] [facility] [address] [place] [place], [place] [id number] [facility] Start: 06-10-2024 End: 06-10-2025 ABO/Rh ABO/Rh Lab Routine Missed menses Expected: 06/10/2024 (Approximate), Expires: 06/10/2025 [facility] Comment on above: Expected: 06/10/2024 (Approximate), Expires: 06/10/2025 Start: 06-10-2024 End: 12-08-2024 Alpha fetoprotein, maternal Alpha fetoprotein, maternal Lab Routine Second trimester Expected: 06/10/2024 (Approximate), Expires: 12/08/2024 [facility] Comment on above: Expected: 06/10/2024 (Approximate), Expires: 12/08/2024 Start: 06-10-2024 End: 06-10-2025 Blood type and Indirect antibody screen panel - Blood Type and screen Lab Routine Missed menses Expected: 06/10/2024 (Approximate), Expires: 06/10/2025 [facility] Work Phone: Comment on above: Expected: 06/10/2024 (Approximate), Expires: 06/10/2025 Start: 06-10-2024 End: 06-10-2025 Drugs of abuse panel - Urine by Screen method Rapid drug screen, urine Lab Routine Encounter for supervision of normal first in first trimester , unspecified gestational age Expected: 06/10/2024 (Approximate), Expires: 06/10/2025 [facility] Comment on above: Expected: 06/10/2024 (Approximate), Expires: 06/10/2025 Start: 06-10-2024 End: 06-10-2025 US for US OB > 14 WEEKS Imaging Routine Missed menses Elevated serum hCG Expected: 06/10/2024 (Approximate), Expires: 06/10/2025 [facility] Comment on above: Expected: 06/10/2024 (Approximate), Expires: 06/10/2025 Start: 06-10-2024 End: 06-10-2025 US Pelvis transvaginal US OB transvaginal Imaging Routine Missed menses Expected: 06/10/2024 (Approximate), Expires: 06/10/2025 [facility] Comment on above: Expected: 06/10/2024 (Approximate), Expires: 06/10/2025 Start: 05-22-2024 Influenza vaccination Influenza Vacc ine (#1) [facility] Bacteria identified in Urine by Culture Urine culture Microbiology Routine Missed menses Ordered: 06/10/2024 [facility] Comment on above: Ordered: 06/10/2024 CBC W Auto Different ial panel - Blood CBC and differential Lab Routine Missed menses Ordered: 06/10/2024 [facility] Comment on above: Ordered: 06/10/2024 Hemoglobin A1c/Hemoglobin.total in Blood Hemoglobin A1c Lab Routine Missed menses Ordered: 06/10/2024 [facility] Comment on above: Ordered: 06/10/2024 Hepatitis B virus surface Ag [Presence] in Serum or Plasma by Immunoassay Hepatitis B surface antigen Lab Routine Missed menses Ordered: 06/10/2024 [facility] Comment on above: Ordered: 06/10/2024 Hepatitis C virus Ab [Presence] in Serum or Plasma by Immunoassay Hepatitis C antibody Lab Routine Missed menses Ordered: 06/10/2024 [facility] Comment on above: Ordered: 06/10/2024 HIV-1/HIV-2 antigen/antibody combination immunoassay HIV-1 and HIV-2 antibodies Lab Routine Missed menses Ordered: 06/10/2024 [facility] Comment on above: Ordered: 06/10/2024 Reagin Ab [Presence] in Serum by RPR RPR Lab Routine Missed menses Ordered: 06/10/2024 [facility] Comment on above: Ordered: 06/10/2024 Rubella antibody, IgG Rubella an tibody, IgG Lab Routine Missed menses Ordered: 06/10/2024 [facility] Comment on above: Ordered: 06/10/2024 Immunizations Immunization Date Immunization Notes Care Provider Fa geovani 05-12-2022 meningococcal B vacc ine, recombinant, OMV, adjuvanted Tucker Givens DPM Work Phone: [facility] 02-28-2016 meningococcal oligosaccharide (groups A, C, Y and W-135) diphtheria toxoid conjugate vaccine (MCV4O) Tucker Givens DPM Work Phone: [facility] 02-28-2016 tetanus toxoid, redu maggy diphtheria toxoid, and acellular pertussis vaccine, adsorbed Tucker Givens DPM Work Phone: [facility] 12-12-2009 diphtheria, tetanus toxoids and acellular pertussis vaccine Tucker Givens DPM Work Phone: [facility] 12-12-2009 measles, mumps and r ubella virus vaccine Tucker Givens DPM Work Phone: [facility] 12-12-2009 poliovirus vaccine, inactivated Tucker Givens DPM Work Phone: [facility] 09-25-2006 diphtheria, tetanus toxoids and acellular pertussis vaccine Tucker Givens DPM Work Phone: [facility] 01-21-2006 haemophilus influenz ae type b vaccine, PRP-T conjugate Tucker Givens DPM Work Phone: [facility] 01-21-2006 measles, mumps and r ubella virus vaccine Tucker Givens DPM Work Phone: [facility] 09-01-2005 DTaP-hepatitis B and poliovirus vaccine Tucker Givens DPM Work Phone: [facility] 09-01-2005 haemophilus influenz ae type b vaccine, PRP-T conjugate Tucker Givens DPM Work Phone: [facility] 05-30-2005 DTaP-hepatitis B and poliovirus vaccine Tuckerleonard Givens DPM Work Phone: [facility] 05-30-2005 haemophilus influenz ae type b vaccine, PRP-T conjugate Tucker Givens DPM Work Phone: [facility] 03-14-2005 DTaP-hepatitis B and poliovirus vaccine Tucker Rus DPM Work Phone: [facility] 03-14-2005 haemophilus influenz ae type b vaccine, PRP-T conjugate Tucker Givens DPM Work Phone: [facility] 03-14-2005 pneumococcal conjuga te vaccine, 7 valent Tucker Givens DPM Work Phone: [facility] 2004 hepatitis B vaccine, pediatric or pediatric/adolescent dosage Tucker Givens DPM Work Phone: [facility] Payers Date Payer Category Payer Medicaid [id number] 2024 Medicaid [id number] 2023 Self-pay 2022 Unknown [id number] 2004 Unknown [id number] 2.16.84 [id number] 2004 Unknown [id number] 2.16.84 0.1.000537.3.579.2.1258 2004 Unknown [id number] 2.16.84 0.1.272769.3.579.2.1258 2004 Unknown [id number] 2.16.84 0.1.069094.3.579.2.9 2004 Unknown [id number] 2.16.84 0.1.174658.3.579.2.1259 2004 Unknown [id number] 2.16.84 0.1.911732.3.579.2.1259 2004 Unknown [id number] 2.16.84 0.1.848253.3.579.2.1259 2004 Unknown [id number] 2.16.8 40.1.109532.3.579.2.1286 2004 Unknown [id number] 2.16.8 40.1.545219.3.579.2.1286 2004 Unknown [id number] 2.16.8 40.1.912459.3.579.2.128 2004 Unknown [id number] 2.16.8 40.1.825115.3.579.2.1286 2004 Unknown [id number] 2.16.8 40.1.505539.3.579.2.6 2004 Unknown [id number] 2.16.8 40.1.409904.3.579.2.1286 1972 Unknown [id number] 2.16.84 0.1.979301.3.579.2.593 1959 Unknown [id number] Unknown [id number] 2.16.8 40.1.502085.3.579.2.531 Unknown [id number] 2.16.8 40.1.050845.3.579.2.531 Social History Date Type Detail Facility Tobacco smoking stat [facility] Tobacco smoking consumption unknown [facility] Start: 06-10-2024 End: 09-29-2024 Alcoholic beverage intake Ex-drinker (finding) [facility] [...] Goal Desired Activity /State Personal health goal Clinical Notes 06-10-2024 to 10-13-2024 Monica Castellanosanil, LISANDRA - 10/13/2024 11:20 AM Devorah Givens DPM - 09/29/2024 8:45 AM ESTPatient SUNNY Barton - 09/26/2024 9:20 AM Elieser Chavarria DO - 09/06/2024 1:50 PM EST Note Date & Type Note Facility 10-13-2024 History of Presen t illness Narrative Reason for Appointment: Patient ID: Sharona Marks is a 18 y.o. female who presents for Routine Visit Patient presents today for Return OB appointment. MEDICATIONS Current Outpatient Medications Medication Instructions MV-Min-Fe Fum-FA-DHA ( 1 PO) Take by mouth venlafaxine XR (EFFEXOR XR) 37.5 mg, Oral, Daily, Do not crush or chew. ALLERGIES No Known Allergies PROBLEMS Active Ambulatory Problems Diagnosis Date Noted 27 weeks gestation of 09/06/2024 Second trimester 09/06/2024 Diabetes mellitus screening 09/06/2024 Anxiety with depression 09/06/2024 Resolved Ambulatory Problems Diagnosis Date Noted No [...] Exam Constitutional: Appearance: Normal appearance. She is normal weight. HENT: Head: Normocephalic. Cardiovascular: Rate and Rhythm: Normal rate. Pulses: Normal pulses. Pulmonary: Effort: Pulmonary effort is normal. Breath sounds: Normal breath sounds. Abdominal: Palpations: Abdomen is soft. Musculoskeletal: General: Normal range of motion. Neurological: General: No focal deficit present. Mental Status: She is alert and oriented to person, place, and time. Psychiatric: Mood and Affect: Mood normal. Behavior: Behavior normal. Thought Content: Thought content normal. Judgment: Judgment normal. Vitals and nursing note reviewed. Vitals: Estimated body mass index is 25.03 kg/m as calculated from the following: Height as of 09/29/24: 5' 7 . Weight as of this encounter: 159 lb 12.8 oz. BP: 114/62 Patient's last menstrual period was 12/27/2023. ASSESSMENT & PLAN ICD-10-CM 1. Third trimester Z34.93 2. 33 weeks gestation of Z3A.33 Patient presents today for a routine obstetrics appointment. Patient is currently 33w1d with a Estimated Date of Delivery: 11/30/24. Documented by Monica Tilley LPN on behalf of:La Ruvalcaba PA-C documented in this encounter [facility] 09-29-2024 History of Presen t illness Narrative Images from the original note were not included. Subjective Patient ID: Sharona Marks is a 18 y.o. 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 Has tried soaking foot. ). HPI Initial patient encounter and assessment. Accompanied by her boyfriend, Mart. Chief complaint: Progressively painful, locally inflamed, edematous infected ingrown toenail medial margin of the left great toe of several weeks duration. Denies injury or trauma. Initial assessment at [facility] ED on 09/27/2024. Currently on cephalexin therapy with slight interval decrease in swelling. Reports intermittent purulent drainage. Symptoms impacting ADLs, walking activity and her ability to wear footwear comfortably. Relates a history of chronic symptomatic onychocryptosis of the same margin, with bouts of paronychia; which for the most part she has been able to manage on her own until now. She is currently around 27 weeks gestational. Medications Current Outpatient Medications: cephalexin (Keflex) 500 MG capsule, Take 1 capsule (500 mg) by mouth in the morning and 1 capsule (500 mg) in the evening and 1 capsule (500 mg) before bedtime. Do all this for 7 days., Disp: 21 capsule, Rfl: 0 MV-Min-Fe Fum-FA-DHA ( 1 PO), Take by mouth, Disp: , Rfl: venlafaxine XR (Effexor XR) 37.5 MG 24 hr capsule, Take 1 capsule (37.5 mg) by mouth Daily Do not crush or chew., Disp: 30 capsule, Rfl: 11 Allergies Patient has no known allergies. Past Surgical History History reviewed. No pertinent surgical history. Family History Family History Problem Relation Name Age of Onset Cervical cancer Mother Objective General assessment: Alert and oriented. Pleasant disposition. Accompanied by her boyfriend, Mart. Vascular: DP 2/4 bilateral. PT 2/4 bilateral. CFT brisk all digits. Gradient temperature: Warm-warm bilateral. Unremarkable for ankle edema. Neurologic: Tactile and light touch sensation intact. Dermatologic: Skin turgor is good. Left great toe: The medial paronychial margin is acutely tender, locally inflamed and edematous, with reactive hypertrophic granular tissue response and a small amount of seropurulent drainage. Blanchable erythema extending to the IP joint, without streaking. The nail plate is mildly dystrophic; the medial margin is deeply incurvated. The lateral paronychia margin is non-tender, non-inflamed. Orthopedic: Range of motion: Functional ankle, subtalar and 1st MTP joint range of motion. Lesion pattern: No forefoot or digital discrete keratotic lesions are noted. Radiology: Assessment/Plan Acute paronychial abscess/localized cellulitis medial margin left great toe. 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 Plan: Review of clinical findings, etiology and contributing factors, recurrent nature of the condition, treatment strategy, rationale and objectives. Left great toe: Incision and drainage/decompression of the medial margin. Post-procedure instructions provided: Remove dressing 24 hours. Cleanse once or twice daily with warm soapy water and apply Neosporin ointment or equivalent. Band-Aid dressing as necessary, otherwise allow exposure to air as able to do so. Tylenol as needed for comfort. Complete cephalexin therapy. Briefly discussed marginal matricectomy/phenol technique left great toe for future consideration. Procedure: LEFT GREAT TOE: Aseptic technique: Local infiltrative H-block anesthesia: Xylocaine 2 percent plain: 4 cc total: Incision and drainage/decompression procedure of the medial paronychia margin; to the level of the matrix envelope, with removal of the offending incurvated nail plate; expressing a small amount of seropurulent drainage; followed by curettage of all devitalized debris. Site cleansing and irrigation. Amerigel dressing. Well tolerated. This note was created with the assistance of a speech recognition program. While intending to generate a timely document that accurately reflects the content of the visit, no guarantee can be provided that every grammatical or spelling mistake has been or will be identified or corrected. Thank you for your understanding. Tucker Givens DPM documented in this encounter [facility] 09-29-2024 Instructions Tucker iGvens DPM - 09/29/2024 8:45 AM EST Instructions as noted documented in this encounter [facility] 09-26-2024 History of Presen t illness Narrative Reason for Appointment: Patient ID: Sharona Marks is a 18 y.o. female who presents for Routine Visit Patient presents today for Return OB appointment. MEDICATIONS Current Outpatient Medications Medication Instructions MV-Min-Fe Fum-FA-DHA ( 1 PO) Take by mouth venlafaxine XR (EFFEXOR XR) 37.5 mg, Oral, Daily, Do not crush or chew. ALLERGIES No Known Allergies PROBLEMS Active Ambulatory Problems Diagnosis Date Noted 27 weeks gestation of 09/06/2024 Second trimester 09/06/2024 Diabetes mellitus screening 09/06/2024 Anxiety with depression 09/06/2024 Resolved Ambulatory Problems Diagnosis Date Noted No [...] Exam Constitutional: Appearance: Normal appearance. She is normal weight. HENT: Head: Normocephalic. Cardiovascular: Rate and Rhythm: Normal rate. Pulses: Normal pulses. Pulmonary: Effort: Pulmonary effort is normal. Breath sounds: Normal breath sounds. Abdominal: Palpations: Abdomen is soft. Musculoskeletal: General: Normal range of motion. Neurological: General: No focal deficit present. Mental Status: She is alert and oriented to person, place, and time. Psychiatric: Mood and Affect: Mood normal. Behavior: Behavior normal. Thought Content: Thought content normal. Judgment: Judgment normal. Vitals and nursing note reviewed. Vitals: Estimated body mass index is 24.9 kg/m as calculated from the following: Height as of 24: 5' 7 . Weight as of this encounter: 159 lb. BP: 112/62 Patient's last menstrual period was 12/27/2023. ASSESSMENT & PLAN ICD-10-CM 1. Third trimester Z34.93 POCT urinalysis dipstick manually resulted 2. 30 weeks gestation of Z3A.30 Return OB: Patient presents today for a routine obstetrics appointment. Patient is currently 30w5d . Patient states she is doing well but has complaints of being tired due to current . Patient has verbalizes frequent movement. labor precautions was discussed/given and patient was instructed to perform kick counts three times a day. Orders Placed This Encounter Procedures POCT urinalysis dipstick manually resulted Follow Up: Patient is to return to office in 2 week for routine OB appointment. Documented by Gemini Villafuerte MA on behalf of: [employer] documented in this encounter [facility] 09-06-2024 History of Presen t illness Narrative [...] nursing note reviewed. Exam conducted with a drywall sander present. Vitals: Estimated body mass index is [...] Rohan Chavarria DO documented in this encounter [facility] 08-31-2024 Telephone encount er Note Left message for pt to call and schedule OB appt. She is self pay, Medicaid is still not active as of 08/31/24. [facility] 08-31-2024 Miscellaneous Notes Formattin g of this note might be different from the original. Left message for pt to call and schedule OB appt. She is self pay, Medicaid is still not active as of 08/31/24. documented in this encounter [facility] 07-05-2024 History of Presen t illness Narrative [...] nursing note reviewed. Exam conducted with a drywall sander present. Vitals: Estimated body mass index is [...] Rohan Chavarria DO documented in this encounter [facility] 06-10-2024 History of Presen t illness Narrative [...] or undercooked meat, and stay away from [facility]. Patient has also been advised to not [...] Linda Interiano LPN documented in this encounter [facility] Healthcare Evaluation note Diagnosis Second trimester state, incidental Vaginal discharge Leukorrhea, not specified as infective STD exposure Screening, , for anatomic survey Encounter for anatomic survey Major depressive disorder in partial remission, unspecified whether recurrent (HCC) (CMS/HCC) documented [facility] Diagnosis 27 weeks gestation of Second trimester state, incidental Diabetes mellitus screening Screening for diabetes mellitus Anxiety with depression [facility] Diagnosis Missed menses Encounter for supervision of normal first in first trimester , unspecified gestational age Encounter for screening for cervical length Elevated serum hCG Second trimester state, incidental [facility] Diagnosis Ingrown toenail- Primary Ingrowing nail Third trimester state, incidental 30 weeks gestation of [facility]* Diagnosis Abscess of left great toe- Primary Pain of left great toe Onychocryptosis Ingrowing nail Difficulty walking Difficulty in walking [facility] Diagnosis Third trimester state, incidental 33 weeks gestation of size inconsistent with dates documented in this encounter [facility] Summary [...] pital DATE CREATED AUTHOR AUTHOR'S ORGANIZ ATION 09/08/2024 [facility] DATE CREATED AUTHOR AUTHOR'S ORGANIZ ATION 10/02/2024 [facility] EPIC DATE CREATED AUTHOR AUTHOR'S ORGANIZ ATION 10/03/2024 [facility] Care Teams (unrecognized sec tion and content) 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 Engineer Relationship Specialty Start Date End Date Arun Meredith MD [address] [place] [address], [address] [place] [address] PCP - General Family Medicine 01/22/24 Firewall Engineer Relationship Specialty Start Date End Date Arun Meredith MD [address] [place] [address], [address] [place] [address] PCP - General Family Medicine 01/22/24 Firewall Engineer Relationship Specialty Start Date End Date Arun Meredith MD [address] [place] [address], [address] [place] [address] PCP - General Family Medicine 01/22/24 Firewall Engineer Relationship Specialty Start Date End Date Arun Meredith MD [address] [place] [address], [address] [place] [address] PCP - General Family Medicine 01/22/24 Firewall Engineer Relationship Specialty Start Date End Date Arun Meredith MD [address] [place] [address], [address] [place] [address] PCP - General Family Medicine 01/22/24 Firewall Engineer Relationship Specialty Start Date End Date Arun Meredith MD [address] [place] [address], [address] [place] [address] PCP - General Family Medicine 01/22/24 Firewall Engineer Relationship Specialty Start Date End Date Arun Meredith MD [address] [place] [address], [address] [place] [address] PCP - [facility] 01/22/24 Firewall Engineer Relationship Specialty Start Date End Date Arun Meredith MD [address] [place] [address], [address] [place] [address] PCP - [facility] 01/22/24 Firewall Engineer Relationship Specialty Start Date End Date Arun Meredith MD [address] [place] [address], [address] [place] [address] PCP - [facility] 01/22/24 Firewall Engineer Relationship Specialty Start Date End Date Arun Meredith MD [address] [place] [address], [address] [place] [address] PCP - [facility] 01/22/24 Firewall Engineer Relationship Specialty Start Date End Date Arun Meredith MD [address] [place] [address], [address] [place] [address] PCP - General Family Medicine 01/22/24 Reason for Visit (unrecogniz ed section and content) Reason Comments Routine Visit STI Screening Reason Comments Routine Visit Reason Comments Amenorrhea Reason Comments 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 Has tried soaking foot. FOR RECORDS PERTAINING TO PATIENTS WHO ARE [...] BE BASED ON THE PRIMARY CLINICAL RECORDS. [facility] provides no warranty or guarantee of the accuracy or completeness of information in this document.
== END 2024-10-14 09:31 | disposition home or self-care (01) ==
LOC: US 09:30
PROVIDERS: PCP Internal Medicine; Visit Provider Physician Assistant
DX: O26.843 Uterine size-date discrepancy, third trimester (principal); Z3A.33 33 weeks gestation of pregnancy
CPT/HCPCS: 76816

== ENCOUNTER 2024-10-22 13:14 | Observation (INO) | payer OTHER, MEDICAID, SELFPAY ==
--- OUTSIDE RECORDS SUMMARY | 2024-10-22 13:19 | XMS_ITS | CCD ---
Author Organization [facility] Care Team Providers Care Dairy Nutrition Consultant Name Role Phone PAY, DR ANTHONY Admitting Unavailable PAY, DR ANTHONY Attending Unavailable PAY, DR ANTHONY Consulting Unavailable Arun Meredith MD Primary Care Provider [phone] Ignacio Acuña Attending Unavailable NON STAFF Primary Care Unavailable Ignacio Acuña Admitting Unavailable Ollie Cisneros Admitting Unavailab Ollie Chacon Attending Unavailab niki NON STAFF Primary Care Unavailable ARUN MEREDITH Primary Care Unavailable KB WRIGHT Attending Unavailable ARUN MEREDITH Primary Care Unavailable TUCKER DUEÑAS Attending Unavailable KB WRIGHT Attending Unavailable KB RWIGHT Referring Unavailable ARUN MEREDITH Primary Care Unavailable [...] Attending Unavailable ARUN MEREDITH Primary Care Unavailable ROHAN CHAVARRIA Attending Unavailable ROHAN CHAVARRIA Attending Unavailable ROHAN CHAVARRIA Attending Unavailable ROHAN CHAVARRIA Attending Unavailable ROHAN CHAVARRIA Attending Unavailable LA RUVALCABA Attending Unavailable TUCKER GIVENS Attending Unavailable Medications Current Medications Medication Drug Class(es) [...] 02-12-2024 Episodic Other aftercare (1 source) 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 re Color, UA Yellow [facility] Glucose, UA Negative Negative - 1999(110) ++++ mg/dL [facility] Interpretation and review of laboratory results Abnormal [facility] Ketones, UA Positive Negative - 160(16) ++++ mg/dL [facility] Comment on above: trace Leukocytes, UA Positive Negative - 500+++ Bhavani/mcL [facility] Comment on above: small Nitrite, UA Negative Negative - Positive [facility] pH, UA 6.5 5 - 9 [facility] Protein, UA Positive Negative - 1999(20) ++++ mg/dL [facility] Comment on above: 100 Spec Grav, UA 1.03 1 - 1.03 [facility] Urobilinogen, UA 0.2 0.2 - 12 mg/dL [facility] ALL CBC WITH AUTO DIFFon BASOPHILS ABSOLUTE AUTO 0 [facility] Basophils/100 WBC (Bld) 0.2 % 0.2 - 2.0 % [facility] Eosinophils/100 WBC (Bld) 1.1 % 0.9 - 7.0 % [facility] Erythrocyte distribution width (RBC) [Ratio] 12.7 % 11.0 - 15.0 % [facility] Hematocrit (Bld) [Volume fraction] 36.9 % 36.0 - 48.0 % [facility] Hemoglobin (Bld) [Mass/Vol] 12.3 g/dL 12.0 - 16.0 g/dL [facility] IMMATURE GRANULOCYTES ABS AUTO 0.04 High [facility] Immature granulocytes/100 WBC (Bld) 0.5 % 0.0 - 0.5 % [facility] Interpretation and review of laboratory results Abnormal [facility] LYMPHOCYTES ABSOLUTE AUTO 1.5 [facility] Lymphocytes/100 WBC (Bld) 17.5 % Low 20.5 - 60.0 % [facility] MCH (RBC) [Entitic mass] 29.1 pg 26.7 - 34.0 pg [facility] MCHC (RBC) [Mass/Vol] 33.3 g/dL 29.9 - 35.2 g/dL [facility] MCV (RBC) [Entitic vol] 87.4 fL 81.0 - 99.0 fL [facility] MONOCYTES ABSOLUTE AUTO 0.6 [facility] Monocytes/100 WBC (Bld) 7 % 1.7 - 12.0 % [facility] NEUTROPHILS ABSOLUTE AUTO 6.2 [facility] Neutrophils/100 WBC (Bld) 73.7 % 43.0 - 75.0 % [facility] Platelet mean volume (Bld) [Entitic vol] 11.5 fL 9.5 - 13.5 fL [facility] are TBH EO # 0.1 [facility] TB PLT 175 [facility] TB RBC 4[facility]22 [facility] WBC 8.3 [facility] Urinalysis macro (dipstick) panel (U)on 09-06-2024 Bilirubin, UA Negative Negative - 4(70) +++ mg/dL [facility] Blood, UA Negative Negative - 50 Mendez/mcL [facility] Clarity, UA Cloudy [facility] re Color, UA Yellow [facility] Glucose, UA Negative Negative - 2000(110) ++++ mg/dL [facility] Interpretation and review of laboratory results Abnormal [facility] Ketones, UA Negative Negative - 160(16) ++++ mg/dL [facility] Leukocytes, UA Positive Negative - 500+++ Bhavani/mcL [facility] Comment on above: small Nitrite, UA Negative Negative - Positive [facility] pH, UA 7 5 - 9 [facility] Protein, UA Trace Negative - 2000(20) ++++ mg/dL [facility] Spec Grav, UA 1.025 1 - 1.03 [facility] Urobilinogen, UA 0.2 0.2 - 12 mg/dL [facility] CBC AND AUTO DIFFon 08-31-20 24 ABSOLUTE BASOPHIL 0.0 X10E9/L Normal 0.0-0.2 [facility] Comment on above: Performed By: #### N UM #### [facility] ([id number]) [address] [place] [address] 00478 ABSOLUTE NEUTROPHIL 5.3 X10E9/L Normal 1.5-6.6 [facility] Comment on above: Performed By: #### N UM #### [facility] ([id number]) [address] [place] [address] 70065 Basophils/100 WBC (Bld) 0.5 % Normal [facility] Comment on above: Performed By: #### N UM #### [facility] ([id number]) [address] [place] [address] 25899 Eosinophils (Bld) [#/Vol] 0.1 10*3/uL Normal 0.0-0.4 [facility] Comment on above: Performed By: #### N UM #### [facility] ([id number]) [address] [place] [address] 24286 Eosinophils/100 WBC (Bld) 0.9 % Normal [facility] Comment on above: Performed By: #### N UM #### [facility] ([id number]) [address] [place] [address] 78270 Erythrocyte distribution width (RBC) [Ratio] 13.4 % Normal 11.5-15.0 [facility] Comment on above: Performed By: #### N UM #### [facility] ([id number]) [address] [place] [address] 33058 Hematocrit (Bld) [Volume fraction] 38.3 % Normal 35-47 [facility] Comment on above: Performed By: #### N UM #### [facility] ([id number]) [address] [place] [address] 30087 Hemoglobin (Bld) [Mass/Vol] 13.1 g/dL Normal 11.7-15.5 [facility] Comment on above: Performed By: #### N UM #### [facility] ([id number]) [address] [place] [address] 53398 Lymphocytes (Bld) [#/Vol] 1.3 10*3/uL Normal 1.0-3.5 [facility] Comment on above: Performed By: #### N UM #### [facility] ([id number]) [address] [place] [address] 22201 Lymphocytes/100 WBC (Bld) 18.3 % Normal [facility] Comment on above: Performed By: #### N UM #### [facility] ([id number]) [address] [place] [address] 03397 MCH (RBC) [Entitic mass] 29.0 pg Normal 27-34 [facility] Comment on above: Performed By: #### N UM #### [facility] ([id number]) [address] [place] [address] [place] [address] MCHC (RBC) [Mass/Vol] 34.2 g/dL Normal 32-36 [facility] Comment on above: Performed By: #### N UM #### [facility] ([id number]) [address] [place] [address] 07981 MCV (RBC) [Entitic vol] 85 fL Normal 80-100 [facility] Comment on above: Performed By: #### N UM #### [facility] ([id number]) [address] [place] [address] 56210 Monocytes (Bld) [#/Vol] 0.6 10*3/uL Normal 0-0.9 [facility] Comment on above: Performed By: #### N UM #### [facility] ([id number]) [address] [place] [address] 69965 Monocytes/100 WBC (Bld) 8.6 % Normal [facility] Comment on above: Performed By: #### N UM #### [facility] ([id number]) [address] [place] [address] 62906 Neutrophils/100 WBC (Bld) 71.7 % Normal [facility] Comment on above: Performed By: #### N UM #### [facility] ([id number]) [address] [place] [address] 69531 Platelet mean volume (Bld) [Entitic vol] 9.4 fL Normal 7-12 [facility] Comment on above: Performed By: #### N UM #### [facility] ([id number]) [address] [place] [address] 70375 Platelets (Bld) [#/Vol] 218 10*3/uL Normal 150-450 [facility] Comment on above: Performed By: #### N UM #### [facility] ([id number]) [address] [place] [address] 50770 RBC COUNT 4.51 X10E12/L Normal 3.80-5.20 [facility] Comment on above: Performed By: #### N UM #### [facility] ([id number]) [address] [place] [address] 50936 WBC (Bld) [#/Vol] 7.4 10*3/uL Normal 4.0-11.0 [facility] Comment on above: Performed By: #### N UM #### [facility] ([id number]) [address] [place] [address] 66448 COMPREHENSIVE METABOLIC PANE Andrew 08-31-2024 Albumin [Mass/Vol] 3.9 g/dL Normal 3.2-5.3 [facility] Comment on above: Performed By: #### 2 106-3 #### [facility] ([id number]) [address] [place] [address] 14219 ALP [Catalytic activity/Vol] 96 U/L Normal 39-130 [facility] Comment on above: Performed By: #### 2 106-3 #### [facility] ([id number]) [address] [place] [address] 68232 ALT [Catalytic activity/Vol] 9 U/L Normal 0-31 [facility] Comment on above: Performed By: #### 2 106-3 #### [facility] ([id number]) [address] [place] [address] 76579 Anion gap [Moles/Vol] 8 mmol/L Normal 5-15 [facility] Comment on above: Performed By: #### 2 106-3 #### [facility] ([id number]) [address] [place] [address] 66843 AST [Catalytic activity/Vol] 15 U/L Normal 0-41 [facility] Comment on above: Performed By: #### 2 106-3 #### [facility] ([id number]) [address] [place] [address] 12486 Bilirubin [Mass/Vol] 0.4 mg/dL Normal 0.3-1.2 [facility] Comment on above: Performed By: #### 2 106-3 #### [facility] ([id number]) [address] [place] [address] 61165 Calcium [Mass/Vol] 9.3 mg/dL Normal 8.5-10.5 [facility] Comment on above: Performed By: #### 2 106-3 #### [facility] ([id number]) [address] [place] [address] 07551 Chloride [Moles/Vol] 104 mmol/L Normal 98-109 [facility] Comment on above: Performed By: #### 2 106-3 #### [facility] ([id number]) [address] [place] [address] 27341 CO2 [Moles/Vol] 22 mmol/L Normal 22-32 [facility] Comment on above: Performed By: #### 2 106-3 #### [facility] ([id number]) [address] [place] [address] 33694 Creatinine [Mass/Vol] 0.37 mg/dL Low 0.40-1.00 [facility] Comment on above: Result Comment: METH OD TRACEABLE TO IDMS STANDARD Performed By: #### 2 106-3 #### [facility] ([id number]) [address] [place] [address] 79117 eGFR (CKD-EPI) NON-RACE DEPENDENT >90 Normal >59 [facility] Comment on above: Result Comment: Reported eGFR is based on the CKD-EPI 2020 equation that does not use a race coefficient. Performed By: #### 2 106-3 #### [facility] ([id number]) [address] [place] [address] 01128 Glucose [Mass/Vol] 88 mg/dL Normal 65-99 [facility] Comment on above: Performed By: #### 2 106-3 #### [facility] ([id number]) [address] [place] [address] 72869 Potassium [Moles/Vol] 3.3 mmol/L Low 3.5-5.0 [facility] Comment on above: Performed By: #### 2 106-3 #### [facility] ([id number]) [address] [place] [address] 30701 Protein [Mass/Vol] 7.4 g/dL Normal 6.0-8.0 [facility] Comment on above: Performed By: #### 2 106-3 #### [facility] ([id number]) [address] [place] [address] 12514 Sodium [Moles/Vol] 134 mmol/L Normal 134-146 [facility] Comment on above: Performed By: #### 2 106-3 #### [facility] ([id number]) [address] [place] [address] 44408 Urea nitrogen [Mass/Vol] 6 mg/dL Normal 5-23 [facility] Comment on above: Performed By: #### 2 106-3 #### [facility] ([id number]) [address] [place] [address] 27896 DRUG SCREEN, URINEon 024 AMPHETAMINE/METHAMP Negative Normal NEG [facility] Comment on above: Result Comment: AMPH /METH screening cut off = 1000 ng/mL Performed By: #### 2 106-3 #### [facility] ([id number]) [address] [place] [address] 12632 BARBITURATES Negative Normal NEG [facility] Comment on above: Result Comment: Becca iturates screening cut off value = 200 ng/mL Performed By: #### 2 106-3 #### [facility] ([id number]) [address] [place] [address] 39367 BENZODIAZEPINES Negative Normal NEG [facility] Comment on above: Result Comment: Janusz odiazepines screening cut off value = 200 ng/mL Performed By: #### 2 106-3 #### [facility] ([id number]) [address] [place] [address] 73760 CANNABINOIDS Positive Abnormal NEG [facility] Comment on above: Result Comment: Conf irmation available upon request. Cannabinoids/THC screening cut off value = 50 ng/mL Performed By: #### 2 106-3 #### [facility] ([id number]) [address] [place] [address] 08706 COCAINE METABOLITE Negative Normal NEG [facility] Comment on above: Result Comment: Coca ine screening cut off value = 300 ng/mL Performed By: #### 2 106-3 #### [facility] ([id number]) [address] [place] [address] 13186 ECSTASY Negative Normal NEG [facility] Comment on above: Result Comment: Ecst asy screening cut off value = 500 ng/mL This report is intended for use in clinical monitoring or management of patients. Performed By: #### 2 106-3 #### [facility] ([id number]) [address] [place] [address] 28568 METHADONE Negative Normal [facility] Comment on above: Result Comment: Meth adone screening cut off value = 300 ng/mL. Performed By: #### 2 106-3 #### [facility] ([id number]) [address] [place] [address] 74997 OPIATES Negative Normal NEG [facility] Comment on above: Result Comment: Opia jovanna screening cut off value = 300 ng/mL NOTE: This test is used for the detection of codeine, hydrocodone (>1000 ng/mL), morphine and hydromorphone (>900 ng/mL) in urine. Performed By: #### 2 106-3 #### [facility] ([id number]) [address] [place] [address] 48705 OXYCODONE Negative Normal NEG [facility] Comment on above: Result Comment: Oxyc odone screening cut off value = 300 ng/mL NOTE: This test is used for the detection of oxycodone and oxymorphone in urine. Performed By: #### 2 106-3 #### [facility] ([id number]) [address] [place] [address] 14524 PHENCYCLIDINE Negative Normal NEG [facility] Comment on above: Result Comment: Phen cyclidine screening cut off value = 25 ng/mL Performed By: #### 2 106-3 #### [facility] ([id number]) [address] [place] [address] 52209 THYROID PROFILEon 08-31-2024 Free T4 [Mass/Vol] 0.88 ng/dL Normal 0.61-1.60 [facility] Comment on above: Result Comment: NEW REFERENCE RANGE FOR PEDIATRIC PATIENTS Performed By: #### 2 106-3 #### [facility] ([id number]) [address] [place] [address] 73032 TSH 1.27 uIU/mL Normal 0.49-4.67 [facility] Comment on above: Result Comment: NEW REFERENCE RANGE FOR PEDIATRIC PATIENTS Performed By: #### 2 106-3 #### [facility] ([id number]) [address] [place] [address] 58995 URINE CULTUREon 08-31-2024 Bacteria identified Cx Nom (U) CULTURE RESULTS <10,000 ORGANISMS/ML NORMAL URO GENITAL GABRIELE Normal [facility] Comment on above: Performed By: #### 2 106-3 #### [facility] ([id number]) [address] [place] [address] 19604 URN MACROSCOPIC NURon 2023 BILIRUBIN LUCIE Small Abnormal NEG [facility] Comment on above: Performed By: #### N UM #### [facility] ([id number]) [address] [place] [address] 71882 BLOOD/HGB LUCIE Negative Normal NEG [facility] Comment on above: Performed By: #### N UM #### [facility] ([id number]) [address] [place] [address] 18184 GLUCOSE LUCIE Negative Normal NEG [facility] Comment on above: Performed By: #### N UM #### [facility] ([id number]) [address] [place] [address] 91983 KETONES LUCIE 80 mg/dL Abnormal NEG [facility] Comment on above: Performed By: #### N UM #### [facility] ([id number]) [address] [place] [address] 47096 LEUKOCYTE ESTERASE LUCIE Trace Abnormal NEG [facility] Comment on above: Performed By: #### N UM #### [facility] ([id number]) [address] [place] [address] 23463 NITRITE LUCIE Negative Normal NEG [facility] Comment on above: Performed By: #### N UM #### [facility] ([id number]) [address] [place] [address] 76509 PH LUCIE 6.0 Normal 5.0-8.5 [facility] Comment on above: Performed By: #### N UM #### [facility] ([id number]) [address] [place] [address] 92005 PROTEIN LUCIE >=300 Abnormal NEG [facility] Comment on above: Performed By: #### N UM #### [facility] ([id number]) [address] [place] [address] 82378 SPECIFIC GRAVITY LUCIE >=1.030 Normal 1.003-1.035 [facility] Comment on above: Performed By: #### N UM #### [facility] ([id number]) [address] [place] [address] 02646 UROBILINOGEN LUCIE 0.2 eu/dL Normal <1.1 [facility] Comment on above: Performed By: #### N UM #### [facility] ([id number]) [address] [place] [address] 24714 Urinalysis macro (dipstick) panel (U)on 07-05-2024 Bilirubin, UA Negative Negative - 4(70) +++ mg/dL [facility] Blood, UA Negative Negative - 50 Mendez/mcL [facility] Clarity, UA Clear [facility] re Color, UA Yellow [facility] Glucose, UA Negative Negative - 1999(110) ++++ mg/dL [facility] Interpretation and review of laboratory results Abnormal [facility] Ketones, UA Positive Negative - 160(16) ++++ mg/dL [facility] Leukocytes, UA Positive Negative - 500+++ Bhavani/mcL [facility] Nitrite, UA Negative Negative - Positive [facility] pH, UA 5.5 5 - 9 [facility] Protein, UA Positive Negative - 1999(20) ++++ mg/dL [facility] Spec Grav, UA 1.03 1 - 1.03 [facility] Urobilinogen, UA 1.0 0.2 - 12 mg/dL [facility] AFP, SERUM, OPEN SPINA BIFID Aon 06-19-2024 AFP MOM 0.60 . [facility] AFP VALUE 19.7 ng/mL . [facility] COMMENT: Comment . [facility] Comment on above: Nathalia Aguiar , Ph.D., [facility] Director References: Available Upon Request. Multiples Of Median Cutoffs For AFP Elevations Bryant 2.5 Black 2.8 IDD 2.0 Twins 4.5 Abbreviation Definitions IDD - Insulin Dep Diabetes OSBR - Open Spina Bifida Risk For further inquiries contact [employer] [facility] at [phone]. This test was developed and its performance characteristics determined by [employer]. It has not been cleared or approved by the Food and Drug Administration. Performed at: [facility] [address], [place], [place] [id number] Curtain Fitter: Robson Redman [facility], Phone: [phone] GEST. AGE ON COLLECTION DATE 16.1 . weeks [facility] GESTAT. AGE BASED ON Ultrasound . [facility] Comment on above: 15.3 on 06/10/2024 Recalculations are not recommended when gestational dating by LMP and ultrasound are within 10 days. INSULIN DEP DIABETES No . [facility] Healthcare INTERPRETATION Comment . [facility] Healt hcare Comment on above: Interpretation: Scre [...] Customer Services to discuss available options. The [employer] recommends amniocentesis be offered to women age 35 and older. [age] [place] [age] [facility] MULTIPLE GESTATION No . [facility] H ealthcare OSBR RISK [address] [place] [address] . [facility] . [facility] PURE [employer] e RESULTS Report . [facility] PURE [employer] e TEST RESULTS: Negative . [facility] WEIGHT 156 . lbs [facility] PURE [employer] e N N ULTRASOUND [id number] 15 N 1 Y 156 N N N N N White/ [facility] HCG ( test) Ql (U)o n 06-10-2024 Interpretation and review of laboratory results Abnormal [facility] Preg Test, Ur Positive [facility] Urinalysis macro (dipstick) panel (U)on 06-10-2024 Bilirubin, UA Negative Negative - 4(70) +++ mg/dL [facility] Blood, UA Negative Negative - 50 Mendez/mcL [facility] Clarity, UA Clear [facility] re Color, UA Yellow [facility] Glucose, UA Negative Negative - 1999(110) ++++ mg/dL [facility] Interpretation and review of laboratory results Abnormal [facility] Ketones, UA Positive Negative - 160(16) ++++ mg/dL [facility] Leukocytes, UA Positive Negative - 500+++ Bhavani/mcL [facility] Nitrite, UA Negative Negative - Positive [facility] pH, UA 7.0 5 - 9 [facility] Protein, UA Positive Negative - 1999(20) ++++ mg/dL [facility] Spec Grav, UA 1.025 1 - 1.03 [facility] Urobilinogen, UA 1.0 0.2 - 12 mg/dL [facility] [facility] BASIC METABOLIC PANLon 05-22 Anion gap [Moles/Vol] 6 mmol/L Normal 5-15 [facility] Comment on above: Performed By: #### N UM #### [facility] ([id number]) [address] [place] [address] 15685 Calcium [Mass/Vol] 8.7 mg/dL Normal 8.5-10.5 [facility] Comment on above: Performed By: #### N UM #### [facility] ([id number]) [address] [place] [address] 22481 Chloride [Moles/Vol] 104 mmol/L Normal 98-109 [facility] Comment on above: Performed By: #### N UM #### [facility] ([id number]) [address] [place] [address] 92275 CO2 [Moles/Vol] 22 mmol/L Normal 22-32 [facility] Comment on above: Performed By: #### N UM #### [facility] ([id number]) [address] [place] [address] 84299 Creatinine [Mass/Vol] 0.51 mg/dL Normal 0.40-1.00 [facility] Comment on above: Result Comment: METH OD TRACEABLE TO IDMS STANDARD Performed By: #### N UM #### [facility] ([id number]) [address] [place] [address] 76687 eGFR (CKD-EPI) NON-RACE DEPENDENT >90 Normal >59 [facility] Comment on above: Result Comment: Reported eGFR is based on the CKD-EPI 1 equation that does not use a race coefficient. Performed By: #### N UM #### [facility] ([id number]) [address] [place] [address] 67381 Glucose [Mass/Vol] 102 mg/dL High 65-99 [facility] Comment on above: Performed By: #### N UM #### [facility] ([id number]) [address] [place] [address] 91985 Potassium [Moles/Vol] 3.4 mmol/L Low 3.5-5.0 [facility] Comment on above: Performed By: #### N UM #### [facility] ([id number]) [address] [place] [address] 70293 Sodium [Moles/Vol] 132 mmol/L Low 134-146 [facility] Comment on above: Performed By: #### N UM #### [facility] ([id number]) [address] [place] [address] 42996 Urea nitrogen [Mass/Vol] 6 mg/dL Normal 5-23 [facility] Comment on above: Performed By: #### N UM #### [facility] ([id number]) [address] [place] [address] 02763 CBC AND AUTO DIFFon 05-22-20 24 ABSOLUTE BASOPHIL 0.1 X10E9/L Normal 0.0-0.2 [facility] Comment on above: Performed By: #### N UM #### [facility] ([id number]) [address] [place] [address] 28081 ABSOLUTE NEUTROPHIL 3.3 X10E9/L Normal 1.5-6.6 [facility] Comment on above: Performed By: #### N UM #### [facility] ([id number]) [address] [place] [address] 50828 Basophils/100 WBC (Bld) 0.9 % Normal [facility] Comment on above: Performed By: #### N UM #### [facility] ([id number]) [address] [place] [address] 60501 Eosinophils (Bld) [#/Vol] 0.2 10*3/uL Normal 0.0-0.4 [facility] Comment on above: Performed By: #### N UM #### [facility] ([id number]) [address] [place] [address] 17482 Eosinophils/100 WBC (Bld) 3.9 % Normal [facility] Comment on above: Performed By: #### N UM #### [facility] ([id number]) [address] [place] [address] 86414 Erythrocyte distribution width (RBC) [Ratio] 13.9 % Normal 11.5-15.0 [facility] Comment on above: Performed By: #### N UM #### [facility] ([id number]) [address] [place] [address] 89176 Hematocrit (Bld) [Volume fraction] 38.4 % Normal 35-47 [facility] Comment on above: Performed By: #### N UM #### [facility] ([id number]) [address] [place] [address] 21208 Hemoglobin (Bld) [Mass/Vol] 13.2 g/dL Normal 11.7-15.5 [facility] Comment on above: Performed By: #### N UM #### [facility] ([id number]) [address] [place] [address] 36371 Lymphocytes (Bld) [#/Vol] 1.4 10*3/uL Normal 1.0-3.5 [facility] Comment on above: Performed By: #### N UM #### [facility] ([id number]) [address] [place] [address] 87092 Lymphocytes/100 WBC (Bld) 25.9 % Normal [facility] Comment on above: Performed By: #### N UM #### [facility] ([id number]) [address] [place] [address] 42224 MCH (RBC) [Entitic mass] 28.2 pg Normal 27-34 [facility] Comment on above: Performed By: #### N UM #### [facility] ([id number]) [address] [place] [address] 22161 MCHC (RBC) [Mass/Vol] 34.3 g/dL Normal 32-36 [facility] Comment on above: Performed By: #### N UM #### [facility] ([id number]) [address] [place] [address] 18171 MCV (RBC) [Entitic vol] 82 fL Normal 80-100 [facility] Comment on above: Performed By: #### N UM #### [facility] ([id number]) [address] [place] [address] 49126 Monocytes (Bld) [#/Vol] 0.6 10*3/uL Normal 0-0.9 [facility] Comment on above: Performed By: #### N UM #### [facility] ([id number]) [address] [place] [address] 42327 Monocytes/100 WBC (Bld) 10.2 % Normal [facility] Comment on above: Performed By: #### N UM #### [facility] ([id number]) [address] [place] [address] 88170 Neutrophils/100 WBC (Bld) 59.1 % Normal [facility] Comment on above: Performed By: #### N UM #### [facility] ([id number]) [address] [place] [address] 93782 Platelet mean volume (Bld) [Entitic vol] 8.7 fL Normal 7-12 [facility] Comment on above: Performed By: #### N UM #### [facility] ([id number]) [address] [place] [address] 14897 Platelets (Bld) [#/Vol] 198 10*3/uL Normal 150-450 [facility] Comment on above: Performed By: #### N UM #### [facility] ([id number]) [address] [place] [address] 80097 RBC COUNT 4.67 X10E12/L Normal 3.80-5.20 [facility] Comment on above: Performed By: #### N UM #### [facility] ([id number]) [address] [place] [address] 63603 WBC (Bld) [#/Vol] 5.6 10*3/uL Normal 4.0-11.0 [facility] Comment on above: Performed By: #### N UM #### [facility] ([id number]) [address] [place] [address] 49824 HCG ( test) Ql (U)o n 05-22-2024 Beta HCG ( test) Ql (U) Positive Abnormal NEG [facility] Comment on above: Performed By: #### N UM #### [facility] ([id number]) [address] [place] [address] 09936 HCG.beta subunit IA 3rd IS Q non 05-22-2024 [place] [address] m[IU]/mL Normal P [facility] [...] neoplasms. Performed By: #### N UM #### [facility] ([id number]) [address] [place] [address] 66817 URN MACROSCOPIC NURon 2023 BILIRUBIN LUCIE Small Abnormal NEG [facility] Comment on above: Performed By: #### N UM #### [facility] ([id number]) [address] [place] [address] [place] [address] BLOOD/HGB LUCIE Trace Abnormal NEG [facility] Comment on above: Performed By: #### N UM #### [facility] ([id number]) [address] [place] [address] [place] [address] GLUCOSE LUCIE Negative Normal NEG [facility] Comment on above: Performed By: #### N UM #### [facility] ([id number]) [address] [place] [address] [place] [address] KETONES LUCIE Trace Abnormal NEG [facility] Comment on above: Performed By: #### N UM #### [facility] ([id number]) [address] [place] [address] [place] [address] LEUKOCYTE ESTERASE LUCIE Small Abnormal NEG [facility] Comment on above: Performed By: #### N UM #### [facility] ([id number]) [address] [place] [address] [place] [address] NITRITE LUCIE Negative Normal NEG [facility] Comment on above: Performed By: #### N UM #### [facility] ([id number]) [address] [place] [address] [place] [address] PH LUCIE 6.5 Normal 5.0-8.5 [facility] Comment on above: Performed By: #### N UM #### [facility] ([id number]) [address] [place] [address] 58964 PROTEIN LUCIE 100 mg/dL Abnormal NEG [facility] Comment on above: Performed By: #### N UM #### [facility] ([id number]) [address] [place] [address] 00515 SPECIFIC GRAVITY LUCIE >=1.030 Normal 1.003-1.035 [facility] Comment on above: Performed By: #### N UM #### [facility] ([id number]) [address] [place] [address] 42655 UROBILINOGEN LUCIE 1.0 eu/dL Normal <1.1 [facility] Comment on above: Performed By: #### N UM #### [facility] ([id number]) [address] [place] [address] 53899 RAPID STREP SCR NURSINGon S. pyogenes Ag EIA Ql (Throat) Positive Abnormal NEG [facility] Comment on above: Performed By: #### N UM #### [facility] ([id number]) [address] [place] [address] 88574 CBC AND AUTO DIFFon 02-29-20 ABSOLUTE BASOPHIL 0.0 X10E9/L Normal 0.0-0.2 [facility] Comment on above: Performed By: #### N UM #### [facility] ([id number]) [address] [place] [address] 82321 ABSOLUTE NEUTROPHIL 2.4 X10E9/L Normal 1.5-6.6 [facility] Comment on above: Performed By: #### N UM #### [facility] ([id number]) [address] [place] [address] 91123 Basophils/100 WBC (Bld) 0.8 % Normal [facility] Comment on above: Performed By: #### N UM #### [facility] ([id number]) [address] [place] [address] 75422 Eosinophils (Bld) [#/Vol] 0.2 10*3/uL Normal 0.0-0.4 [facility] Comment on above: Performed By: #### N UM #### [facility] ([id number]) [address] [place] [address] 35078 Eosinophils/100 WBC (Bld) 3.0 % Normal [facility] Comment on above: Performed By: #### N UM #### [facility] ([id number]) [address] [place] [address] 56765 Erythrocyte distribution width (RBC) [Ratio] 12.3 % Normal 11.5-15.0 [facility] Comment on above: Performed By: #### N UM #### [facility] ([id number]) [address] [place] [address] 30198 Hematocrit (Bld) [Volume fraction] 36.6 % Normal 35-47 [facility] Comment on above: Performed By: #### N UM #### [facility] ([id number]) [address] [place] [address] 86862 Hemoglobin (Bld) [Mass/Vol] 12.5 g/dL Normal 11.7-15.5 [facility] Comment on above: Performed By: #### N UM #### [facility] ([id number]) [address] [place] [address] 35272 Lymphocytes (Bld) [#/Vol] 2.3 10*3/uL Normal 1.0-3.5 [facility] Comment on above: Performed By: #### N UM #### [facility] ([id number]) [address] [place] [address] 85838 Lymphocytes/100 WBC (Bld) 43.8 % Normal [facility] Comment on above: Performed By: #### N UM #### [facility] ([id number]) [address] [place] [address] 54015 MCH (RBC) [Entitic mass] 29.5 pg Normal 27-34 [facility] Comment on above: Performed By: #### N UM #### [facility] ([id number]) [address] [place] [address] 13941 MCHC (RBC) [Mass/Vol] 34.1 g/dL Normal 32-36 [facility] Comment on above: Performed By: #### N UM #### [facility] ([id number]) [address] [place] [address] 07433 MCV (RBC) [Entitic vol] 86 fL Normal 80-100 [facility] Comment on above: Performed By: #### N UM #### [facility] ([id number]) [address] [place] [address] 59232 Monocytes (Bld) [#/Vol] 0.4 10*3/uL Normal 0-0.9 [facility] Comment on above: Performed By: #### N UM #### [facility] ([id number]) [address] [place] [address] 77173 Monocytes/100 WBC (Bld) 7.4 % Normal [facility] Comment on above: Performed By: #### N UM #### [facility] ([id number]) [address] [place] [address] 89780 Neutrophils/100 WBC (Bld) 45.0 % Normal [facility] Comment on above: Performed By: #### N UM #### [facility] ([id number]) [address] [place] [address] 88223 Platelet mean volume (Bld) [Entitic vol] 8.7 fL Normal 7-12 [facility] Comment on above: Performed By: #### N UM #### [facility] ([id number]) [address] [place] [address] 06736 Platelets (Bld) [#/Vol] 326 10*3/uL Normal 150-450 [facility] Comment on above: Performed By: #### N UM #### [facility] ([id number]) [address] [place] [address] 41678 RBC COUNT 4.23 X10E12/L Normal 3.80-5.20 [facility] Comment on above: Performed By: #### N UM #### [facility] ([id number]) [address] [place] [address] 71797 WBC (Bld) [#/Vol] 5.3 10*3/uL Normal 4.0-11.0 [facility] Comment on above: Performed By: #### N #### [facility] ([id number]) [address] [place] [address] 76627 BASIC METABOLIC PANLon 02-12 Anion gap [Moles/Vol] 8 mmol/L Normal 5-15 [facility] Comment on above: Performed By: #### B EDEL, , CBCA #### [facility] ([id number]) [address] [place] [address] 53186 Calcium [Mass/Vol] 9.1 mg/dL Normal 8.5-10.5 [facility] Comment on above: Performed By: #### Ed [place], , CBCA #### [facility] ([id number]) [address] [place] [address] 54062 Chloride [Moles/Vol] 103 mmol/L Normal 98-109 [facility] Comment on above: Performed By: #### B EDEL, , CBCA #### [facility] ([id number]) [address] [place] [address] 60993 CO2 [Moles/Vol] 22 mmol/L Normal 22-32 [facility] Comment on above: Performed By: #### Ed [place], , CBCA #### [facility] ([id number]) [address] [place] [address] 67630 Creatinine [Mass/Vol] 0.57 mg/dL Normal 0.40-1.00 [facility] Comment on above: Result Comment: METH OD TRACEABLE TO IDMS STANDARD Performed By: #### B EDEL, , CBCA #### [facility] ([id number]) [address] [place] [address] 96247 eGFR (CKD-EPI) NON-RACE DEPENDENT >90 Normal >59 [facility] Comment on above: Result Comment: Reported eGFR is based on the CKD-EPI 2020 equation that does not use a race coefficient. Performed By: #### B EDEL , CBCA #### [facility] ([id number]) [address] [place] [address] 02647 Glucose [Mass/Vol] 93 mg/dL Normal 65-99 [facility] Comment on above: Performed By: #### Ed [place], , CBCA #### [facility] ([id number]) [address] [place] [address] 27222 Potassium [Moles/Vol] 3.6 mmol/L Normal 3.5-5.0 [facility] Comment on above: Performed By: #### Ed [place], , CBCA #### [facility] ([id number]) [address] [place] [address] 61233 Sodium [Moles/Vol] 133 mmol/L Low 134-146 [facility] Comment on above: Performed By: #### B EDEL, , CBCA #### [facility] ([id number]) [address] [place] [address] 48531 Urea nitrogen [Mass/Vol] 11 mg/dL Normal 5-23 [facility] Comment on above: Performed By: #### B EDEL, , CBCA #### [facility] ([id number]) [address] [place] [address] 63592 CBC AND AUTO DIFFon 02-13-20 24 ABSOLUTE BASOPHIL 0.1 X10E9/L Normal 0.0-0.2 [facility] Comment on above: Performed By: #### B EDEL, , CBCA #### [facility] ([id number]) [address] [place] [address] 26402 ABSOLUTE NEUTROPHIL 5.3 X10E9/L Normal 1.5-6.6 [facility] Comment on above: Performed By: #### B EDEL, , CBCA #### [facility] ([id number]) [address] [place] [address] 36338 Basophils/100 WBC (Bld) 0.9 % Normal [facility] Comment on above: Performed By: #### B EDEL, , CBCA #### [facility] ([id number]) [address] [place] [address] 31148 DIFFERENTIAL COMMENT PLATELETS REVIEWED Normal [facility] Comment on above: Performed By: #### B EDEL, , CBCA #### [facility] ([id number]) [address] [place] [address] 42035 Eosinophils (Bld) [#/Vol] 0.4 10*3/uL Normal 0.0-0.4 [facility] Comment on above: Performed By: #### Ed [place], , CBCA #### [facility] ([id number]) [address] [place] [address] 89858 Eosinophils/100 WBC (Bld) 4.0 % Normal [facility] Comment on above: Performed By: #### B EDEL, , CBCA #### [facility] ([id number]) [address] [place] [address] 25437 Erythrocyte distribution width (RBC) [Ratio] 12.7 % Normal 11.5-15.0 [facility] Comment on above: Performed By: #### B EDEL, , CBCA #### [facility] ([id number]) [address] [place] [address] 20512 Hematocrit (Bld) [Volume fraction] 34.3 % Low 35-47 [facility] Comment on above: Performed By: #### Ed [place], , CBCA #### [facility] ([id number]) [address] [place] [address] 57675 Hemoglobin (Bld) [Mass/Vol] 12.2 g/dL Normal 11.7-15.5 [facility] Comment on above: Performed By: #### Ed [place], , CBCA #### [facility] ([id number]) [address] [place] [address] 97866 Lymphocytes (Bld) [#/Vol] 2.7 10*3/uL Normal 1.0-3.5 [facility] Comment on above: Performed By: #### Ed [place], , CBCA #### [facility] ([id number]) [address] [place] [address] 24368 Lymphocytes/100 WBC (Bld) 29.1 % Normal [facility] Comment on above: Performed By: #### Ed [place], , CBCA #### [facility] ([id number]) [address] [place] [address] 13017 MCH (RBC) [Entitic mass] 30.1 pg Normal 27-34 [facility] Comment on above: Performed By: #### Ed [place], , CBCA #### [facility] ([id number]) [address] [place] [address] 62189 MCHC (RBC) [Mass/Vol] 35.7 g/dL Normal 32-36 [facility] Comment on above: Performed By: #### B EDEL, , CBCA #### [facility] ([id number]) [address] [place] [address] 39162 MCV (RBC) [Entitic vol] 84 fL Normal 80-100 [facility] Comment on above: Performed By: #### Ed [place], , CBCA #### [facility] ([id number]) [address] [place] [address] 62329 Monocytes (Bld) [#/Vol] 0.9 10*3/uL Normal 0-0.9 [facility] Comment on above: Performed By: #### Ed [place], , CBCA #### [facility] ([id number]) [address] [place] [address] 14569 Monocytes/100 WBC (Bld) 9.9 % Normal [facility] Comment on above: Performed By: #### Ed [place], , CBCA #### [facility] ([id number]) [address] [place] [address] 36762 Neutrophils/100 WBC (Bld) 56.1 % Normal [facility] Comment on above: Performed By: #### Ed [place], , CBCA #### [facility] ([id number]) [address] [place] [address] 00388 Platelet mean volume (Bld) [Entitic vol] 9.0 fL Normal 7-12 [facility] Comment on above: Performed By: #### Ed [place]LL[place]TH, , CBCA #### [facility] ([id number]) [address] [place] [address] 18823 Platelets (Bld) [#/Vol] 203 10*3/uL Normal 150-450 [facility] Comment on above: Performed By: #### Ed [place]LL[place]TH, , CBCA #### [facility] ([id number]) [address] [place] [address], [place] [address] RBC COUNT 4.07 X10E12/L Normal 3.80-5.20 [facility] Comment on above: Performed By: #### B EDEL, , CBCA #### [facility] ([id number]) [address] [place] [address] WBC (Bld) [#/Vol] 9.4 10*3/uL Normal 4.0-11.0 [facility] Comment on above: Performed By: #### B EDEL, , CBCA #### [facility] ([id number]) [address] [place] [address] 53574 HCG.beta subunit IA 3rd IS Q non 02-13-2024 [place] [address] m[IU]/mL Normal P [facility] [...] By: #### B EDEL, , CBCA #### [facility] ([id number]) [address] [place] [address] 63749 URN MACROSCOPIC NURon 2023 BILIRUBIN LUCIE Negative Normal NEG [facility] Comment on above: Performed By: #### N UM #### [facility] ([id number]) [address] [place] [address] [place] [address] BLOOD/HGB LUCIE Large Abnormal NEG [facility] Comment on above: Performed By: #### N UM #### [facility] ([id number]) [address] [place] [address], [place] [address] GLUCOSE LUCIE Negative Normal NEG [facility] Comment on above: Performed By: #### N UM #### [facility] ([id number]) [address] [place] [address] [place] [address] KETONES LUCIE Negative Normal NEG [facility] Comment on above: Performed By: #### N UM #### [facility] ([id number]) [address] [place] [address] [place] [address] LEUKOCYTE ESTERASE LUCIE Negative Normal NEG [facility] Comment on above: Performed By: #### N UM #### [facility] ([id number]) [address] [place] [address] [place] [address] NITRITE LUCIE Negative Normal NEG [facility] Comment on above: Performed By: #### N UM #### [facility] ([id number]) [address] [place] [address] [place] [address] PH LUCIE 6.5 Normal 5.0-8.5 [facility] Comment on above: Performed By: #### N UM #### [facility] ([id number]) [address] [place] [address] [place] [address] PROTEIN LUCIE Trace Abnormal NEG [facility] Comment on above: Performed By: #### N UM #### [facility] ([id number]) [address] [place] [address] [place] [address] SPECIFIC GRAVITY LUCIE 1.015 Normal 1.003-1.035 [facility] Comment on above: Performed By: #### N UM #### [facility] ([id number]) [address] [place] [address] [place] [address] UROBILINOGEN LUCIE 0.2 eu/dL Normal <1.1 [facility] Comment on above: Performed By: #### N UM #### [facility] ([id number]) [address] [place] [address] HCG ( test) Ql (U)o n 02-12-2024 Beta HCG ( test) Ql (U) Positive Abnormal NEG [facility] Comment on above: Performed By: #### 2 106-3 #### [facility] ([id number]) [address] [place] [address] HCG.beta subunit IA 3rd IS Q non 02-12-2024 [place] [address] m[IU]/mL Normal P [facility] [...] neoplasms. Performed By: #### 4 544-3, 718-7, 01860-7 #### [facility] ([id number]) [address] [place] [address] HEMOGLOBINon 02-12-2024 Hemoglobin (Bld) [Mass/Vol] 12.7 g/dL Normal 11.7-15.5 [facility] Comment on above: Performed By: #### 4 544-3, -7-6 #### [facility] ([id number]) [address] [place] [address] Hematocrit Auto (Bld) [Volum e fraction]on 02-12-2024 Hematocrit (Bld) [Volume fraction] 35.4 % Normal 35-47 [facility] Comment on above: Performed By: #### 4 544-3, -7, #### [facility] ([id number]) [address] [place] [address] URN MACROSCOPIC NURon 2023 BILIRUBIN LUCIE Negative Normal NEG [facility] Comment on above: Performed By: #### N UM #### [facility] ([id number]) [address] [place] [address] BLOOD/HGB LUCIE MODERATE Abnormal NEG [facility] Comment on above: Performed By: #### N UM #### [facility] ([id number]) [address] [place] [address] GLUCOSE LUCIE Negative Normal [facility] Comment on above: Performed By: #### N UM #### [facility] ([id number]) [address] [place] [address] KETONES LUCIE 15 mg/dL Abnormal NEG [facility] Comment on above: Performed By: #### N UM #### [facility] ([id number]) [address] [place] [address] [place] [address] LEUKOCYTE ESTERASE LUCIE Trace Abnormal NEG [facility] Comment on above: Performed By: #### N UM #### [facility] ([id number]) [address] [place] [address] NITRITE LUCIE Negative Normal [facility] Comment on above: Performed By: #### N UM #### [facility] ([id number]) [address] [place] [address] [place] [address] PH LUCIE 6.5 Normal 5.0-8.5 [facility] Comment on above: Performed By: #### N UM #### [facility] ([id number]) [address] [place] [address] PROTEIN LUCIE Negative Normal NEG [facility] Comment on above: Performed By: #### N UM #### [facility] ([id number]) [address] [place] [address] SPECIFIC GRAVITY LUCIE >=1.030 Normal 1.003-1.035 [facility] Comment on above: Performed By: #### N UM #### [facility] ([id number]) [address] [place] [address] UROBILINOGEN LUCIE 1.0 eu/dL Normal <1.1 [facility] Comment on above: Performed By: #### N UM #### [facility] ([id number]) [address] [place] [address] [place] PREG LESS THAN 14 WKS WIT [...] cardiac activity with heart rate 100 bpm. [place]-rump length 6 mm corresponding to gestational age [...] Sandy MD on 02/12/2024 5:07 AM Normal [facility] ECG 12 lead ECGon 11-25-2023 ECG 12 lead ECG [facility] Main [place] [address] [place] [address] Electrocardiograph Report Signed Patient: Sharona Marks MR#: [id number] : 2005 Acct:[id number] Age/Sex: 17 / F ADM Date: 11/24/23 Loc: Room: [address] [place] [address] Type: ADM IN Attending Dr: Ignacio Acuña [...] change was found Confirmed by Chapito Corbin ([id number]) on 11/25/2023 7:52:58 PM Referred By: Electronically Signed By:Chapito Corbin Transcribed By: MUS Signed By Chapito Corbin MD 11/25/231952 Normal [facility] Lipid Panelon 11-25-2023 Cholesterol [Mass/Vol] 121 mg/dL Low 140-200 [facility] Comment on above: Result Comment: Chol less than 200 mg/dl low risk Chol 201-239 mg/dl borderline risk Chol 240 mg/dl and greater high risk Performed By: #### L IPID, [id number], TSH3 wRFLX #### [address] Cholesterol in HDL [Mass/Vol] 57 mg/dL Normal 23-92 [facility] Comment on above: Result Comment: HDL CHOL ATP-III CLASSIFICATION Cardiovascular Risk HDL > or equal to 60 mg/dL LOW HDL < 40 mg/dL HIGH Performed By: #### L IPID, [id number], TSH3 wRFLX #### [address] Cholesterol.total/Ch olesterol in HDL [Mass ratio] 2.1 {ratio} Normal <5.0 [facility] Comment on above: Performed By: #### L IPID, [id number], TSH3 wRFLX #### [address] LDL Cholesterol,Calculat ed 55 mg/dL Normal 0-100 [facility] Comment on above: Result Comment: LDL ATP III CLASSIFICATION LDL less than 100 mg/dL Optimal LDL 100-129 mg/dL Near or above optimal LDL 130-159 mg/dL Borderline high LDL 160-189 mg/dL High LDL greater than 189 mg/dL Very high Performed By: #### L IPID, [id number], TSH3 wRFLX #### [address] Triglyceride w/Reflex 44 mg/dL Normal 0-149 [facility] Comment on above: Result Comment: TRIG ATP III CLASSIFICATION TRIG less than 150 mg/dL Normal TRIG 150-199 mg/dL Borderline high TRIG 200-500 mg/dL High TRIG greater than 500 mg/dL Very high Standard traceable to the Center for Disease Conrtrol and Prevention (CDC) test method. Performed By: #### L IPID, [id number], TSH3 wRFLX #### [place] [id number] [facility] VLDL CHOLESTEROL 8 mg/dL Normal [facility] Comment on above: Performed By: #### L IPID, [id number], TSH3 wRFLX #### [address] Thyroid Stim Hormone w/Rflxo n 11-25-2023 Thyroid Stim Hormone w/Rflx 3.18 u[iU]/mL Normal 0.45-5.33 [facility] Comment on above: Performed By: #### L IPID, [id number], TSH3 wRFLX #### [address] Vitamin D 25 Hydroxy Totalon 11-25-2023 Vitamin D 25 Hydroxy Total 14.7 ng/mL Low 30-100 [facility] Comment on above: Result Comment: DARYA MIN D STATUS 25(OH)VITAMIN D RANGE (ng/mL) Deficient <20 Insufficient 20 to <30 Sufficient 30 to 100 Reference: Angel MF,Yovany NC, Bee WILEY, et al. Evaluation,treatment, and prevention of vitamin D deficiency; an Endocrine Society clinical practice guideline. JCEM. 2010; 96(7):1911-30. PERFORMED BY: [place] [address] PATHOLOGIST SACK MAKER TIFFANIE HIGH M.D. Performed By: #### L IPID, [id number], TSH3 wRFLX #### [address] Complete Blood Count Auto Di ffon 11-24-2023 Basophils (Bld) [#/Vol] 0.0 10*3/uL Normal 0.0-0.1 [facility] Comment on above: Result Comment: PERF ORMED BY: [place] [address] PATHOLOGIST SACK MAKER TIFFANIE HIGH M.D. Performed By: #### C MP, ETOH, CBC #### [address] Basophils/100 WBC (Bld) 0.5 % Normal . [facility] Comment on above: Performed By: #### C MP, ETOH, CBC #### [facility] [address] Eosinophils (Bld) [#/Vol] 0.1 10*3/uL Normal 0.0-0.7 [facility] Comment on above: Performed By: #### C MP, ETOH, CBC #### [place] [address] [place] Eosinophils/100 WBC (Bld) 1.0 % Normal . [facility] Comment on above: Performed By: #### C MP, ETOH, CBC #### [address] Erythrocyte distribution width (RBC) [Ratio] 13.2 % Normal 11.9-15.3 [facility] Comment on above: Performed By: #### C MP, ETOH, CBC #### [address] Hematocrit (Bld) [Volume fraction] 41.6 % Normal 36.0-46.0 [facility] Comment on above: Performed By: #### C MP, ETOH, CBC #### [address] Hemoglobin (Bld) [Mass/Vol] 14.3 g/dL Normal 12.0-16.0 [facility] Comment on above: Performed By: #### C MP, ETOH, CBC #### [place] [address] [place] Lymphocytes (Bld) [#/Vol] 3.5 10*3/uL Normal 1.20-4.8 [facility] Comment on above: Performed By: #### C MP, ETOH, CBC #### [place] [address] [place] Lymphocytes/100 WBC (Bld) 39.9 % Normal . [facility] Comment on above: Performed By: #### C MP, ETOH, CBC #### [address] MCH (RBC) [Entitic mass] 29.3 pg Normal 25.0-35.0 [facility] Comment on above: Performed By: #### C MP, ETOH, CBC #### [address] MCV (RBC) [Entitic vol] 84.8 fL Normal 78-102 [facility] Comment on above: Performed By: #### C MP, ETOH, CBC #### [address] Mean Corpuscular HGB Conc 34.5 g/dL Normal 31.0-37.0 [facility] Comment on above: Performed By: #### C MP, ETOH, CBC #### [address] Monocytes (Bld) [#/Vol] 0.6 10*3/uL Normal 0.1-1.00 [facility] Comment on above: Performed By: #### C MP, ETOH, CBC #### [address] Monocytes/100 WBC (Bld) 17.05 % Normal 0.00-20.00 [facility] Comment on above: Performed By: #### C MP, ETOH, CBC #### [address] Monocytes/100 WBC (Bld) 7.1 % Normal . [facility] Comment on above: Performed By: #### C MP, ETOH, CBC #### [address] Neutrophils (Bld) [#/Vol] 4.5 10*3/uL Normal 1.2-7.7 [facility] Comment on above: Performed By: #### C MP, ETOH, CBC #### [address] Neutrophils/100 WBC (Bld) 51.5 % Normal . [facility] Comment on above: Performed By: #### C MP, ETOH, CBC #### [address] NRBC% 0.1 /100{WBC} Normal 0-0.5 [facility] Comment on above: Performed By: #### C MP, ETOH, CBC #### [address] Platelet mean volume (Bld) [Entitic vol] 7.7 fL Normal 6.3-10.7 [facility] Comment on above: Performed By: #### C MP, ETOH, CBC #### [address] Platelets (Bld) [#/Vol] 319 10*3/uL Normal 150-450 [facility] Comment on above: Performed By: #### C MP, ETOH, CBC #### [address] RBC (Bld) [#/Vol] 4.90 10*6/uL Normal 4.10-5.[address] [facility] Comment on above: Performed By: #### C MP, ETOH, CBC #### [address] WBC (Bld) [#/Vol] 8.7 10*3/uL Normal 4.5-13.5 [facility] Comment on above: Performed By: #### C MP, ETOH, CBC #### [address] Comprehensive Metabolic Pane andrew 11-24-2023 Albumin [Mass/Vol] 5.1 g/dL Normal 3.5-5.7 [facility] Comment on above: Performed By: #### C MP, ETOH, CBC #### [address] Albumin/Globulin [Mass ratio] 1.6 {ratio} Normal [facility] Comment on above: Performed By: #### C MP, ETOH, CBC #### [address] ALP [Catalytic activity/Vol] 67 U/L Normal 34-104 [facility] Comment on above: Performed By: #### C MP, ETOH, CBC #### [address] ALT [Catalytic activity/Vol] 10 U/L Normal 7-52 [facility] Comment on above: Performed By: #### C MP, ETOH, CBC #### [facility] [address] Anion gap [Moles/Vol] 10.9 mmol/L Normal 6.0-15.0 [facility] Comment on above: Performed By: #### C MP, ETOH, CBC #### [address] AST [Catalytic activity/Vol] 15 U/L Normal 13-39 [facility] Comment on above: Performed By: #### C MP, ETOH, CBC #### [address] Bilirubin [Mass/Vol] 0.4 mg/dL Normal 0.3-1.0 [facility] Comment on above: Performed By: #### C MP, ETOH, CBC #### [address] Calcium [Mass/Vol] 9.5 mg/dL Normal 8.6-10.3 [facility] Comment on above: Performed By: #### C MP, ETOH, CBC #### [address] Chloride [Moles/Vol] 106 mmol/L Normal 98-107 [facility] Comment on above: Performed By: #### C MP, ETOH, CBC #### [address] CO2 [Moles/Vol] 24.9 mmol/L Normal 21.0-31.0 [facility] Comment on above: Performed By: #### C MP, ETOH, CBC #### [address] Creatinine [Mass/Vol] 0.71 mg/dL Normal 0.60-1.20 [facility] Comment on above: Performed By: #### C MP, ETOH, CBC #### [place] [address] [place] Creatinine Clr Calc Pharmacy 124.96 Normal [facility] Comment on above: Result Comment: PERF ORMED BY: [place] [address] PATHOLOGIST SACK MAKER TIFFANIE HIGH M.D. Performed By: #### C MP, ETOH, CBC #### [place] [address] [place] GFR/1.73 sq M.predicted MDRD (S/P/Bld) [Vol rate/Area] mL/min/{1.73_m2} Normal [facility] Comment on above: Performed By: #### C MP, ETOH, CBC #### [place] [address] [place] Globulin (S) [Mass/Vol] 3.1 g/dL Normal [facility] Comment on above: Performed By: #### C MP, ETOH, CBC #### [address] Glucose [Mass/Vol] 86 mg/dL Normal 70-100 [facility] Comment on above: Result Comment: [place]vin Glucose Reference Range is dependent on time and content of last meal. Glucose of more than 200 mg/dL in a nonstressed, ambulatory subject supports the diagnosis of Diabetes Mellitus. ADA recommended reference range Performed By: #### C MP, ETOH, CBC #### [address] Potassium [Moles/Vol] 3.8 mmol/L Normal 3.5-5.1 [facility] Comment on above: Performed By: #### C MP, ETOH, CBC #### [place] [address] [place] Protein [Mass/Vol] 8.2 g/dL Normal 6.4-8.9 [facility] Comment on above: Performed By: #### C MP, ETOH, CBC #### [place] [address] [place] Sodium [Moles/Vol] 138 mmol/L Normal 136-145 [facility] Comment on above: Performed By: #### C MP, ETOH, CBC #### [address] Urea nitrogen [Mass/Vol] 9 mg/dL Normal 7-25 [facility] Comment on above: Performed By: #### C MP, ETOH, CBC #### [address] Drug Screen,Urineon 11-24-19 24 Amphetamine Screen,Urine Negative Normal Negative [facility] Comment on above: Performed By: #### U HCG, UA, URDS #### [address] Barbiturate Screen,Urine Negative Normal Negative [facility] Comment on above: Performed By: #### U HCG, UA, URDS #### [address] Benzodiazepines Screen,Urine Negative Normal Negative [facility] Comment on above: Performed By: #### U HCG, UA, URDS #### [address] Cannabinoid Screen,Urine Positive High Negative [facility] Comment on above: Result Comment: Thes e are unconfirmed results and should not be used for legal purposes. Drug Cut-Off Concentration: AMPH 1000 ng/mL BECCA 200 ng/mL JANUSZ 200 ng/mL COCM 300 ng/mL OP 300 ng/mL PCP 25 ng/mL THC 20 ng/mL PERFORMED BY: [place] [address] PATHOLOGIST SACK MAKER TIFFANIE HIGH M.D. Performed By: #### U HCG, UA, URDS #### [address] Cocaine Screen,Urine Negative Normal Negative [facility] Comment on above: Performed By: #### U HCG, UA, URDS #### [address] Opiate Screen,Urine Negative Normal Negative [facility] Comment on above: Performed By: #### U HCG, UA, URDS #### [place] [address] [place] Phencyclidine Screen,Urine Negative Normal Negative [facility] Comment on above: Performed By: #### U HCG, UA, URDS #### [address] Ethyl Alcohol Profileon Ethanol [Mass/Vol] mg/dL Normal [facility] Comment on above: Performed By: #### C MP, ETOH, CBC #### [address] Percent Ethanol Not performed Normal [facility] Comment on above: Result Comment: PERF ORMED BY: [place] [address] PATHOLOGIST SACK MAKER TIFFANIE HIGH M.D. Performed By: #### C MP, ETOH, CBC #### [address] HCG,Urineon 11-24-2023 Beta HCG ( test) Ql (U) Negative Normal [facility] Comment on above: Order Comment: Name Collection Type:: Clean-Voided Midstream Result Comment: PERF ORMED BY: [place] [address] PATHOLOGIST SACK MAKER TIFFANIE HIGH M.D. Performed By: #### U HCG, UA, URDS #### [address] Urinalysison 11-24-2023 Appearance (U) Clear Normal Clear [facility] Comment on above: Order Comment: Name Collection Type:: Clean-Voided Midstream Performed By: #### U HCG, UA, URDS #### [address] Bilirubin,Urine Negative Normal Negative [facility] Comment on above: Order Comment: Name Collection Type:: Clean-Voided Midstream Performed By: #### U HCG, UA, URDS #### [address] Color (U) Yellow Normal Yellow [facility] Comment on above: Order Comment: Name Collection Type:: Clean-Voided Midstream Performed By: #### U HCG, UA, URDS #### [address] Glucose Ql (U) Normal Normal Normal [facility] Comment on above: Order Comment: Name Collection Type:: Clean-Voided Midstream Performed By: #### U HCG, UA, URDS #### [address] Ketones Ql (U) Negative Normal Negative [facility] Comment on above: Order Comment: Name Collection Type:: Clean-Voided Midstream Performed By: #### U HCG, UA, URDS #### [address] Leukocyte esterase Test strip Ql (U) Negative Normal Negative [facility] Comment on above: Order Comment: Name Collection Type:: Clean-Voided Midstream Performed By: #### U HCG, UA, URDS #### [place] [address] [place] Nitrite,Urine Negative Normal Negative [facility] Comment on above: Order Comment: Name Collection Type:: Clean-Voided Midstream Performed By: #### U HCG, UA, URDS #### [place] [address] [place] Occult Blood,Urine Negative Normal Negative [facility] Comment on above: Order Comment: Name Collection Type:: Clean-Voided Midstream Performed By: #### U HCG, UA, URDS #### [place] [address] [place] pH (U) 6.5 [pH] Normal 5.0-9.0 [facility] Comment on above: Order Comment: Name Collection Type:: Clean-Voided Midstream Performed By: #### U HCG, UA, URDS #### [place] [address] [place] Protein,Urine Negative Normal Negative [facility] Comment on above: Order Comment: Name Collection Type:: Clean-Voided Midstream Performed By: #### U HCG, UA, URDS #### [facility] [address] Specificy Jacobson,Urine 1.020 Normal 1.001-1.030 [facility] Comment on above: Order Comment: Name Collection Type:: Clean-Voided Midstream Performed By: #### U HCG, UA, URDS #### [facility] [address] Urobilinogen,Urine Normal Normal Normal [facility] Comment on above: Order Comment: Name Collection Type:: Clean-Voided Midstream Performed By: #### U HCG, UA, URDS #### [facility] [address] Lipid 1996 panelon 4 Cholesterol [Mass/Vol] 143 mg/dL Low 150-200 [facility] Comment on above: Performed By: #### 2 4331-1 #### [facility] ([id number]) [address] [place] [address], [address] [place] [address] Cholesterol in HDL [Mass/Vol] 67 mg/dL Normal >39 [facility] Comment on above: Result Comment: HDL <40 mg/dL - High Risk HDL > or = 40mg/dL- Desirable HDL >60 mg/dL - Negative Risk Performed By: #### 2 4331-1 #### [facility] ([id number]) [address] [place] [address], [address] [place] [address] Cholesterol in LDL [Mass/Vol] 65 mg/dL Normal <130 [facility] Comment on above: Result Comment: LDL <100 mg/dL - Desirable LDL >160 mg/dL - High Risk Performed By: #### 2 4331-1 #### [facility] ([id number]) [address], [address] [place] [address] Cholesterol in VLDL [Mass/Vol] 11 mg/dL Normal 0-30 [facility] Comment on above: Performed By: #### 2 4331-1 #### [facility] ([id number]) [address] [place] [address] CHOLESTEROL:HDL 2.1 Normal 1.0-5.0 [facility] Comment on above: Performed By: #### 2 4331-1 #### [facility] ([id number]) [address], [address] [place] [address] Triglyceride [Mass/Vol] 53 mg/dL Normal 27-150 [facility] Comment on above: Performed By: #### 2 4331-1 #### [facility] ([id number]) [address], [address] [place] [address] Vital Signs Date Time Vital Sign Value Performing Clinician Salazar gonzalez 10-13-2024 11:30-0500 Body mass index (BMI) [Ratio] 25.03 kg/m2 Rohan Deon DO Work Phone: [facility] 10-13-2024 11:30-0500 Body weight 72.48 kg Rohan Deon DO Work Phone: [facility] 10-13-2024 11:30-0500 Diastolic blood pressure 62 mm[Hg] Rohan Deon DO Work Phone: [facility] 10-13-2024 11:30-0500 Systolic blood pressure 114 mm[Hg] Rohan Deon DO Work Phone: [facility] 09-29-2024 08:51-0500 Body height 170.2 cm Tucker Givens DPM Work Phone: [facility] 09-29-2024 08:51-0500 Body mass index (BMI) [Ratio] 24.9 kg/m2 Tucker Rusher DPM Work Phone: [facility] 09-29-2024 08:51-0500 Body weight 72.12 kg Tucker Givens DPM Work Phone: [facility] 09-26-2024 09:46-0500 Body mass index (BMI) [Ratio] 24.9 kg/m2 La Lenore PA Work Phone: [facility] 09-26-2024 09:46-0500 Body weight 72.12 kg La Lenore PA Work Phone: [facility] 09-26-2024 09:46-0500 Diastolic blood pressure 62 mm[Hg] La Lenore PA Work Phone: [facility] 09-26-2024 09:46-0500 Systolic blood pressure 112 mm[Hg] La Lenore PA Work Phone: [facility] 09-06-2024 14:06-0500 Body mass index (BMI) [Ratio] 24.45 kg/m2 Rohan Deon DO Work Phone: [facility] 09-06-2024 14:06-0500 Body weight 70.82 kg Rohan Deon DO Work Phone: [facility] 09-06-2024 14:06-0500 Diastolic blood pressure 60 mm[Hg] Rohan Deon DO Work Phone: [facility] 09-06-2024 14:06-0500 Systolic blood pressure 128 mm[Hg] Rohan Deon DO Work Phone: [facility] 07-05-2024 14:35-0400 Body mass index (BMI) [Ratio] 24.18 kg/m2 Rohan Deon DO Work Phone: [facility] 07-05-2024 14:35-0400 Body weight 70.03 kg Rohan Deon DO Work Phone: [facility] 07-05-2024 14:35-0400 Diastolic blood pressure 68 mm[Hg] Rohan Deon DO Work Phone: [facility] [facility] 07-05-2024 14:35-0400 Systolic blood pressure 116 mm[Hg] Rohan Deon DO Work Phone: [facility] 06-10-2024 10:45-0400 Body mass index (BMI) [Ratio] 24.43 kg/m2 Noms Nurse [facility] 06-10-2024 10:45-0400 Body weight 70.76 kg Nom Nurse [facility] Healthcare Encounters Encounter Date Encounter Type Care Provider Facility Start: 10-13-2024 End: 10-13-2024 Bamboo flowsheet Rohan Deon DO Work Phone: [facility] Start: 10-13-2024 End: 10-13-2024 Bamboo flowsheet Rohan Deon DO Work Phone: [facility] Start: 10-13-2024 End: 10-13-2024 Office outpatient visit 15 minutes Rohan Deon DO Work Phone: [facility] Comment on above: Third trimester preg lazaro; 33 weeks gestation of ; size inconsistent with dates Start: 10-13-2024 End: 10-13-2024 ambulatory ROHAN DEON Not Available Start: 09-29-2024 End: 09-29-2024 Bamboo flowsheet Tucker Givens DPM Work Phone: [facility] Start: 09-29-2024 End: 09-29-2024 Bamboo flowsheet Tucker Givens DPM Work Phone: [facility] Start: 09-29-2024 End: 09-29-2024 ambulatory TUCKER GIVENS Not Available Start: 09-29-2024 End: 09-29-2024 Office outpatient new 30 minutes Tucker Givens DPM Work Phone: [facility] Comment on above: Abscess of left grea t toe (Primary Dx); Pain of left great toe; Onychocryptosis; Difficulty walking Start: 09-27-2024 End: 09-27-2024 Emergency department patient visit [facility] Start: 09-26-2024 End: 09-26-2024 Bamboo flowsheet La CORREA Work Phone: [facility] Start: 09-26-2024 End: 09-26-2024 Bamboo flowsheet La CORREA Work Phone: [facility] Start: 09-26-2024 End: 09-26-2024 ambulatory LA RUVALCABA Not Available Start: 09-26-2024 End: 09-26-2024 Office outpatient visit 15 minutes La CORREA Work Phone: [facility] Comment on above: Ingrown toenail (Marline gely Dx); Third trimester ; 30 weeks gestation of Start: 09-09-2024 End: 09-09-2024 Clinisync Result Encounter Rohan Deon DO Work Phone: [facility] External Department Unsolicited Start: 09-09-2024 End: 09-09-2024 Clinisync Result Encounter Rohan Deon DO Work Phone: [facility] External Department Unsolicited Start: 09-06-2024 End: [...] Not Available Start: 09-01-2024 ambulatory Ollie Courtney acility:[facility] Start: 08-31-2024 End: 08-31-2024 Telephone encounter Rohan Deon DO Work Phone: [facility] Start: 08-31-2024 End: 08-31-2024 Emergency department patient visit ARUN [facility]ana [facility] Start: 08-31-2024 Encounter for other general examination MONICA SINGLETON [facility] Start: 08-28-2024 End: 08-28-2024 ambulatory CARLOTA ENRIQUEZ [facility] Start: 07-05-2024 End: 07-05-2024 Bamboo flowsheet [...] in partial remission, unspecified whether recurrent (HCC) ([facility]/HCC) Start: 06-16-2024 End: 06-19-2024 Clinisync Result [...] 05-22-2024 End: 05-22-2024 [facility] Start: 05-11-2024 End: 05-11-2024 Emergency department patient visit ARUN [facility] Start: 02-29-2024 End: 02-29-2024 ambulatory ARUN [facility] Start: 02-22-2024 End: 02-22-2024 ambulatory ROHAN DEON Not Available Start: 02-18-2024 End: 02-18-2024 ambulatory ROHAN DEON Not Available Start: 02-12-2024 End: 02-13-2024 Emergency department patient visit ARUN Santana [facility] Start: 02-12-2024 End: 02-13-2024 Emergency department patient visit KB WRIGHT [facility] Start: 02-12-2024 End: 02-12-2024 Emergency department patient visit MYCHAL [facility] Start: 11-24-2023 End: 11-26-2023 Evaluation and management of inpatient Ignacio Acuña Facility:[facility] Start: 11-11-2023 End: 11-11-2023 ambulatory LONNY MACEDO [facility] Start: 10-27-2022 End: 10-27-[address] [...] AM EST Routine [facility] [address] [place] [id number] Rohan Chavarria, DO [address] [place] [address] [facility] Start: 10-13-2024 End: 10-13-2025 US for US OB follow up transabdominal approach Imaging Routine size inconsistent with dates Expected: 10/13/2024, Expires: 10/13/2025 [facility] Work Phone: Comment on above: Expected: 10/13/2024 , Expires: 10/13/2025 Start: 10-13-2024 End: 10-13-2024 Patient encounter procedure 10/13/2024 11:20 AM EST Routine [facility] [address] [place] [address] Rohan Chavarria, DO [address] [place] [address] Arrived [facility] Comment on above: Arrived Start: 10-12-2024 End: 10-12-2024 Patient encounter procedure 10/12/2024 11:20 AM EST Routine [facility] [address] [place] [address] Rohan Chavarria, DO [address] [place] [address] [facility] Start: 10-11-2024 End: 10-11-2024 Patient encounter procedure 10/11/2024 4:00 PM EST Office Visit [facility] [address] [place] [id number] Tucker Givens, DPM [address] [place] [address] [facility] Start: 09-26-2024 End: 09-26-2024 Patient encounter procedure 09/26/2024 9:20 AM EST Routine [facility] [address] [id number] La Ruvalcaba PA [address] [place], [place] [id number] [facility] Start: 09-06-2024 End: 09-06-2025 CBC panel - Blood by Automated count CBC Lab Routine Diabetes mellitus screening Expected: 09/06/2024 (Approximate), Expires: 09/06/2025 [facility] Healthcare Work Phone: Comment on above: Expected: [...] PM EST Routine [facility] [address] [place] [address] Rohan Chavarria, DO [address] [place], [place] [id number] Arrived [facility] Comment on above: Arrived Start: 08-03-2024 End: 08-03-2024 Patient encounter procedure 08/03/2024 2:40 PM EST Routine [facility] [address] [place] [address] Rohan Chavarria, DO [address] [place], [place] [id number] [facility] Start: 07-18-2024 End: 07-18-2024 Professional / ancillary services management 07/18/2024 2:00 PM EDT Ancillary Procedure [facility] [address] [place] [phone] [facility] Start: 07-05-2024 End: 07-05-2025 US for US OB ANATOMY SINGLE W US OB CERVICAL LENGTH Imaging Routine Screening, , for anatomic survey Expected: 07/05/2024 (Approximate), Expires: 07/05/2025 [facility] Healthcare Work Phone: Comment on above: Expected: 07/05/2024 (Approximate), Expires: 07/05/2025 Start: 07-05-2024 End: 07-05-2024 Patient encounter procedure 07/05/2024 1:40 PM EDT Routine [facility] [address] [place] [address] Rohan Chavarria, [address] [place] [address] [facility] Start: 06-10-2024 End: 06-10-2025 ABO/Rh ABO/Rh Lab Routine Missed menses Expected: 06/10/2024 (Approximate), Expires: 06/10/2025 [facility] Healthcare Comment on above: Expected: 06/10/2024 (Approximate), Expires: 06/10/2025 Start: 06-10-2024 End: 12-08-2024 Alpha fetoprotein, maternal Alpha fetoprotein, maternal Lab Routine Second trimester Expected: 06/10/2024 (Approximate), Expires: 12/08/2024 [facility] Healthcare Comment on above: Expected: 06/10/2024 (Approximate), [...] gestational age Expected: 06/10/2024 (Approximate), Expires: 06/10/2025 [facility] Comment on above: Expected: 06/10/2024 (Approximate), Expires: 06/10/2025 Start: 06-10-2024 End: 06-10-2025 US for US OB > 14 WEEKS Imaging Routine Missed menses Elevated serum hCG Expected: 06/10/2024 (Approximate), Expires: 06/10/2025 [facility] Comment on above: Expected: 06/10/2024 (Approximate), Expires: 06/10/2025 Start: 06-10-2024 End: 06-10-2025 US Pelvis transvaginal US OB transvaginal Imaging Routine Missed menses Expected: 06/10/2024 (Approximate), Expires: 06/10/2025 [facility] Comment on above: Expected: 06/10/2024 (Approximate), Expires: 06/10/2025 Start: 05-22-2024 Influenza vaccination Influenza Vacc ine (#1) [facility] Bacteria identified in Urine by Culture Urine culture Microbiology Routine Missed menses Ordered: 06/10/2024 [facility] Comment on above: Ordered: 06/10/2024 CBC W Auto Different ial panel - Blood CBC and differential Lab Routine Missed menses Ordered: 06/10/2024 [facility] Comment on above: Ordered: 06/10/2024 Hemoglobin A1c/Hemoglobin.total in Blood Hemoglobin A1c Lab Routine Missed menses Ordered: 06/10/2024 [facility] Comment on above: Ordered: 06/10/2024 Hepatitis B virus surface Ag [Presence] in Serum or Plasma by Immunoassay Hepatitis B surface antigen Lab Routine Missed menses Ordered: 06/10/2024 [facility] Comment on above: Ordered: 06/10/2024 Hepatitis C virus Ab [Presence] in Serum or Plasma by Immunoassay Hepatitis C antibody Lab Routine Missed menses Ordered: 06/10/2024 [facility] Comment on above: Ordered: 06/10/2024 HIV-1/HIV-2 antigen/antibody combination immunoassay HIV-1 and HIV-2 antibodies Lab Routine Missed menses Ordered: 06/10/2024 [facility] Comment on above: Ordered: 06/10/2024 Reagin Ab [Presence] in Serum by RPR RPR Lab Routine Missed menses Ordered: 06/10/2024 [facility] Comment on above: Ordered: 06/10/2024 Rubella antibody, IgG Rubella an tibody, IgG Lab Routine Missed menses Ordered: 06/10/2024 [facility] Comment on above: Ordered: 06/10/2024 Immunizations Immunization Date Immunization Notes Care Provider Mushtaq olivo 05-12-2022 meningococcal B vacc ine, recombinant, OMV, adjuvanted Tucker Givens DPM Work Phone: [facility] 02-28-2016 meningococcal oligosaccharide (groups A, C, Y and W-135) diphtheria toxoid conjugate vaccine (MCV4O) Tucker Givens DPM Work Phone: [facility] 02-28-2016 tetanus toxoid, redu maggy diphtheria toxoid, and acellular pertussis vaccine, adsorbed Tucker Givens DPM Work Phone: [facility] 12-12-2009 diphtheria, tetanus toxoids and acellular pertussis vaccine Tucker Givens DPM Work Phone: [facility] 12-12-2009 measles, mumps and r ubella virus vaccine Tucker Givens DPM Work Phone: [facility] 12-12-2009 poliovirus vaccine, inactivated Tucker Givens DPM Work Phone: [facility] 09-25-2006 diphtheria, tetanus toxoids and acellular pertussis vaccine Tucker Givens DPM Work Phone: [facility] 01-21-2006 haemophilus influenz ae type b vaccine, PRP-T conjugate Tucker Givens DPM Work Phone: [facility] 01-21-2006 measles, mumps and r ubella virus vaccine Tucker Givens DPM Work Phone: [facility] 09-01-2005 DTaP-hepatitis B and poliovirus vaccine Tucker Tosha DPM Work Phone: [facility] 09-01-2005 haemophilus influenz ae type b vaccine, PRP-T conjugate Tucker Rusher DPM Work Phone: [facility] 05-30-2005 DTaP-hepatitis B and poliovirus vaccine Tucker Rus DPM Work Phone: [facility] 05-30-2005 haemophilus influenz ae type b vaccine, PRP-T conjugate Tucker Rusher DPM Work Phone: [facility] 03-14-2005 DTaP-hepatitis B and poliovirus vaccine Tucker Rusher DPM Work Phone: [facility] 03-14-2005 haemophilus influenz ae type b vaccine, PRP-T conjugate Tucker Rusher DPM Work Phone: [facility] 03-14-2005 pneumococcal conjuga te vaccine, 7 valent Tucker Givens DPM Work Phone: [facility] 2004 hepatitis B vaccine, pediatric or pediatric/adolescent dosage Tuckerleonard Givens DPM Work Phone: [facility] Payers Date Payer Category Payer Medicaid [id number] 2024 Medicaid [id number] 2023 Self-pay 2022 Unknown [id number] 2004 Unknown [id number] 2.16.8 [id number] 2004 Unknown [id number] 2.16.8 40.1.344292.3.579.2.1285 2004 Unknown [id number] 2.16.8 40.1.896906.3.579.2.6 2004 Unknown [id number] 2.16.8 40.1.705081.3.579.2.1286 2004 Unknown [id number] 2.16.8 40.1.575886.3.579.2.1286 2004 Unknown [id number] 2.16.8 40.1.594705.3.579.2.1286 2004 Unknown [id number] 2.16.84 0.1.157121.3.579.2.9 2004 Unknown [id number] 2.16.84 0.1.015630.3.579.2.9 2004 Unknown [id number] 2.16.84 0.1.726485.3.579.2.9 2004 Unknown [id number] 2.16.84 0.1.320757.3.579.2.9 2004 Unknown [id number] 2.16.84 0.1.342775.3.579.2.9 2004 Unknown [id number] 2.16.84 0.1.313368.3.579.2.9 2004 Unknown [id number] 2.16.84 0.1.013978.3.579.2.9 2004 Unknown [id number] 2.16.84 0.1.102278.3.579.2.1259 1972 Unknown [id number] 2.16.84 0.1.534754.3.579.2.593 1959 Unknown [id number] Unknown [id number] 2.16.8 40.1.665476.3.579.2.531 Unknown [id number] 2.16.8 40.1.203679.3.579.2.531 Social History Date Type Detail Facility Tobacco smoking stat [facility] Tobacco smoking consumption unknown [facility] [...] goal Clinical Notes 06-10-2024 to 10-13-2024 Monica iTlley LPN - 10/13/2024 11:20 AM ESTSteалександр Givens DPM - 09/29/2024 8:45 AM ESTPatient [...] of:La Ruvalcaba PA-C documented in this encounter [facility] 09-29-2024 History of Presen t illness Narrative Images from the original note were not included. Subjective Patient ID: Sharona Marks is a 18 y.o. 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 Has tried soaking foot. ). HPI Initial patient encounter and assessment. Accompanied by her boyfriend, Mart. Chief complaint: Progressively painful, locally inflamed, edematous infected ingrown toenail medial margin of the left great toe of several weeks duration. Denies injury or trauma. Initial assessment at [facility] ED on 09/27/2024. Currently on cephalexin [...] Tucker Givens DPM documented in this encounter [facility] 09-29-2024 Instructions Tucker Givens DPM - 09/29/2024 8:45 AM EST Instructions as noted documented in this encounter [facility] 09-26-2024 History of Presen t illness Narrative [...] of: SUNNY Quintana documented in this encounter [facility] 09-06-2024 History of Presen t illness Narrative [...] nursing note reviewed. Exam conducted with a scorer single present. Vitals: Estimated body mass index is 24.45 kg/m as calculated from the following: Height as of 02/17/24: 5' 7 . Weight as of this [...] Rohan Chavarria DO documented in this encounter [facility] 08-31-2024 Telephone encount er Note Left message for pt to call and schedule OB appt. She is self pay, Medicaid is still not active as of 08/31/24. [facility] 08-31-2024 Miscellaneous Notes Formattin g of this note might be different from the original. Left message for pt to call and schedule OB appt. She is self pay, Medicaid is still not active as of 08/31/24. documented in this encounter [facility] 07-05-2024 History of Presen t illness Narrative [...] nursing note reviewed. Exam conducted with a scorer single present. Vitals: Estimated body mass index is [...] Rohan Chavarria DO documented in this encounter [facility] 06-10-2024 History of Presen t illness Narrative [...] or undercooked meat, and stay away from [facility]. Patient has also been advised to not [...] Linda Interiano LPN documented in this encounter [facility] Healthcare Evaluation note Diagnosis Second trimester [...] and content) DATE CREATED AUTHOR 10/28/2022 [facility] DATE CREATED AUTHOR AUTHOR'S ORGANIZ ATION 09/08/2024 [facility] DATE CREATED AUTHOR AUTHOR'S ORGANIZ ATION 10/03/2024 [facility] DATE CREATED AUTHOR AUTHOR'S ORGANIZ ATION 10/15/2024 [facility] EPIC Care Teams (unrecognized sec tion and content) Dairy Nutrition Consultant Relationship Specialty Start Date End Date Arun Meredith MD [address] [place] [address], [address] [place] [address] PCP - General Family Medicine 01/22/24 Dairy Nutrition Consultant Relationship Specialty Start Date End Date Arun Meredith MD [address] [place] [address], [address] [place] [address] PCP - General Family Medicine 01/22/24 Dairy Nutrition Consultant Relationship Specialty Start Date End Date Arun Meredith MD [address] [place] [address], [address] [place] [address] PCP - General Family Medicine 01/22/24 Dairy Nutrition Consultant Relationship Specialty Start Date End Date Arun Meredith MD [address] [place] [address], [address] [place] [address] PCP - General Family Medicine 01/22/24 Dairy Nutrition Consultant Relationship Specialty Start Date End Date Arun Meredith MD [address] [place] [address], [address] [place] [address] PCP - General Family Medicine 01/22/24 Dairy Nutrition Consultant Relationship Specialty Start Date End Date Arun Meredith MD [address] [place] [address], [address] [place] [address] PCP - General Family Medicine 01/22/24 Dairy Nutrition Consultant Relationship Specialty Start Date End Date Arun Meredith MD [address] [place] [address], [address] [place] [address] PCP - General Family Medicine 01/22/24 Dairy Nutrition Consultant Relationship Specialty Start Date End Date Arun Meredith MD [address] [place] [address], [address] [place] [address] PCP - General Family Medicine 01/22/24 Dairy Nutrition Consultant Relationship Specialty Start Date End Date Arun Meredith MD [address] [place] [address], [address] [place] [address] PCP - General Family Medicine 01/22/24 Dairy Nutrition Consultant Relationship Specialty Start Date End Date Arun Meredith MD [address] [place] [address], [address] [place] [address] PCP - General Family Medicine 01/22/24 Dairy Nutrition Consultant Relationship Specialty Start Date End Date Arun Meredith MD [address] [place] [address], [address] [place] [address] PCP - General Family Medicine 01/22/24 Reason for Visit (unrecogniz ed section and content) Reason Comments Routine Visit STI Screening Reason Comments Routine Visit Reason Comments Amenorrhea Reason Comments 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 [facility]. provides no warranty or guarantee of the accuracy or completeness of information in this document.
[2024-10-22 13:47] VITALS: TEMP 36.4
[2024-10-22 13:48] VITALS: BP 123/69; PULSE 78
[2024-10-22 14:08] LABS: Bilirubin Urine NEGATIVE (NEGATIVE); Blood Urine NEGATIVE (NEGATIVE); Clarity Urine CLEAR (CLEAR); Color Urine YELLOW (YELLOW); Glucose Urine UA NEGATIVE (NEGATIVE); Ketones Urine 15 mg/dL (NEGATIVE); Leukocyte Esterase Urine TRACE (NEGATIVE); Nitrite Urine NEGATIVE (NEGATIVE); Protein Urine TRACE mg/dL (NEG/TRACE); Specific Gravity Urine >=1.030 (1.005-1.025); Urobilinogen Urine 0.2 EU/dL (0.2-1.0); pH Urine 6.5 (5.0-9.0)
[2024-10-22 14:09] LABS: Urine Microscopic Indicated YES
[2024-10-22 14:19] LABS: Bacteria Urine SMALL #/HPF (NONE SEEN); Cast Seen? NONE SEEN #/LPF (NONE SEEN); Crystals Seen? None Seen #/HPF (None Seen); Mucus Urine SMALL (NONE SEEN); Squamous Epithelial Cell Urine MODERATE #/LPF (NONE/RARE); Urine Culture Indicated YES
== END 2024-10-22 16:20 | disposition home or self-care (01) ==
PROVIDERS: Admitting Provider Obstetrics & Gynecology; PCP Internal Medicine; Visit Provider Obstetrics & Gynecology
DX: O99.891 Other specified diseases and conditions complicating pregnancy (principal); R10.9 Unspecified abdominal pain; Z3A.34 34 weeks gestation of pregnancy
CPT/HCPCS: 59025; 81001; 87086; G0378; G0379

== ENCOUNTER 2024-11-03 20:17 | Outpatient (REF) | payer OTHER, SELFPAY ==
--- OUTSIDE RECORDS SUMMARY | 2024-11-03 20:20 | XMS_ITS | CCD ---
Author Organization [facility] Care Team Providers Care Tobacco Shaker Name Role Phone PAY, DR ANTHONY Admitting [...] ARUN MEREDITH Primary Care Unavailable MASOUD, ARUN aSntana Primary Care Unavailable MASOUD, ARUN Santana Primary [...] RUVALCABA Attending Unavailable TUCKER GIVENS Attending Unavailable Allergies Allergy Classification Reported Allergen(s) Allergy Type Date of Onset Reaction(s) Facility (2 sources) Hydrocortisone Drug Allergy 5 [facility] Medications Current Medications Medication Drug Class(es) Dates Sig (Normalized) Sig (Original) clobetasol propionate 0.5 mg/ml topical cream (2 sources) Corticosteroid Start: 10-27-2024 End: 11-26-2024 clobetasol (Temovate) 0.05 % cream Indications: Dermatitis Apply 1 application topically in the morning and 1 application before bedtime. Apply pea-size amount to affected area.. 60 g 1 10/27/2024 11/26/2024 Active ondansetron 4 mg disintegrating oral tablet (4 [...] 07/10/2024 Active MV-Min-Fe Fum-FA-DHA ( 1 PO) (20 sources) MV-Min- Fe Fum-FA-DHA ( 1 PO) Take by mouth Active 24 hr venlafaxine 37.5 mg extended release oral capsule (16 sources) Serotonin and Norepinephrine Reuptake Inhibitor Start: [...] Translations: [Other atopic dermatitis] Onset: 11-11-2023 Chronic Allergic reactions (2 sources) Eczema; Translations: [Dermatitis, unspecified] 10-27-2024 Episodic Anxiety disorders (19 sources) Mixed anxiety and depressive disorder; Translations: [...] conditions (not mental disorders or infectious disease) (20 sources) Patient encounter status; Translations: [Encounter for other specified screening] Onset: 09-06-2024 07-05-2024 Episodic Other skin disorders (2 sources) Ingrowing toenail; Translations: [Ingrowing nail] 09-26-2024 Episodic Other skin disorders (2 sources) Ingrowing nail; Translations: [Ingrowing nail] 09-29-2024 Episodic Other skin disorders (1 source) Ingrowing nail; Translations: [Ingrowing nail] Onset: 09-27-2024 Episodic Residual codes; unclassified (18 sources) Gestation period, 27 weeks; Translations: [27 weeks gestation of ] Onset: 09-06-2024 09-06-2024 Episodic Residual codes; unclassified (2 sources) Gestation period, 30 weeks; Translations: [30 weeks gestation of ] 09-26-2024 Episodic Residual codes; unclassified (2 sources) Gestation period, 33 weeks; Translations: [33 weeks gestation of ] 10-13-2024 Episodic Residual codes; unclassified (2 sources) Gestation period, 35 weeks; Translations: [35 weeks gestation of ] 10-27-2024 Episodic Skin and subcutaneous tissue infections (3 sources) Abscess of big toe; Translations: [Cutaneous abscess of left foot] Onset: 09-27-2024 09-29-2024 Episodic Unclassified (20 sources) OB Reminders Onset: 07-05-2024 07-05-2024 Unclassified [...] 02-12-2024 Episodic Other aftercare (1 source) Other mcc (current) drug therapy; Translations: [Other mcc (current) drug therapy] Onset: 11-11-2023 Episodic Other [...] Range Facility Urinalysis macro (dipstick) panel (U)on 10-27-2024 Bilirubin, UA Negative Negative - 4(70) +++ mg/dL [facility] Blood, UA Negative Negative - 50 Mendez/mcL [facility] Clarity, UA Clear [facility], [facility]A Yellow [facility] Glucose, UA Negative Negative - 2000(110) ++++ mg/dL [facility] Interpretation and review of laboratory results Abnormal [facility] Ketones, UA Positive Negative - 160(16) ++++ mg/dL [facility] Leukocytes, UA Positive Negative - 500+++ Bhavani/mcL [facility] Nitrite, UA Negative Negative - Positive [facility] pH, UA 7 5 - 9 [facility] Health[facility] e Protein, UA Trace Negative - 1999(20) ++++ mg/dL [facility] Spec Grav, UA 1.025 1 - 1.03 [facility] Urobilinogen, UA 0.2 0.2 - 12 mg/dL [facility] e TBH UA (CLEAN/CATCH) CONSTRUCTION OPERATIONS MANAGER/CORA RO IF IND.on 10-22-2024 BILIRUBIN URINE Negative NEGATIVE [facility] thcare BLOOD URINE Negative NEGATIVE [facility] re Clarity (U) CLEAR CLEAR [facility] re Color (U) YELLOW YELLOW [facility] e GLUCOSE URINE UA Negative NEGATIVE mg/dL [facility] Interpretation and review of laboratory results Abnormal [facility] Ketones Ql (U) 15 mg/dL [facility] Leukocyte esterase Test strip Ql (U) TRACE Abnormal NEGATIVE [facility] Health[facility] e NITRITE URINE Negative NEGATIVE [facility] care pH (U) 6.5 [pH] 5.0 - 9.0 [facility] e PROTEIN URINE TRACE NEG/TRACE mg/dL [facility] SPECIFIC GRAVITY URINE >=1.030 Abnormal 1.005 - 1.025 [facility] URINE MICROSCOPIC INDICATED YES [facility] UROBILINOGEN URINE 0.2 EU/dL 0.2 - 1.0 EU/dL [facility] e Urinalysis macro (dipstick) panel (U)on 09-26-2024 Bilirubin, UA Negative Negative - 4(70) +++ mg/dL [facility] Blood, UA Negative Negative - 50 Mendez/mcL [facility] Clarity, UA Clear [facility] re Color, UA Yellow [facility] Glucose, UA Negative Negative - 1999(110) ++++ mg/dL [facility] Interpretation and review of laboratory results Abnormal [facility] Ketones, UA Positive Negative - 160(16) ++++ mg/dL [facility] Comment on above: trace Leukocytes, UA Positive Negative - 500+++ Bhavani/mcL [facility] Comment on above: small Nitrite, UA Negative Negative - Positive [facility] pH, UA 6.5 5 - 9 [facility] Protein, UA Positive Negative - 1999(20) ++++ mg/dL [facility] Comment on above: 100 Spec Grav, UA 1.03 1 - 1.03 [facility] Urobilinogen, UA 0.2 0.2 - 12 mg/dL [facility] ALL CBC WITH AUTO DIFFon BASOPHILS ABSOLUTE AUTO 0 [facility] Basophils/100 WBC (Bld) 0.2 % 0.2 - 2.0 % [facility] Eosinophils/100 WBC (Bld) 1.1 % 0.9 - 7.0 % [facility] Erythrocyte distribution width (RBC) [Ratio] 12.7 % 11.0 - 15.0 % [facility] Hematocrit (Bld) [Volume fraction] 36.9 % 36.0 - 48.0 % [facility] e Hemoglobin (Bld) [Mass/Vol] 12.3 g/dL 12.0 - 16.0 g/dL [facility] IMMATURE GRANULOCYTES ABS AUTO 0.04 High [facility] Immature granulocytes/100 WBC (Bld) 0.5 % 0.0 - 0.5 % [facility] Interpretation and review of laboratory results Abnormal [facility] LYMPHOCYTES ABSOLUTE AUTO 1.5 [facility] Lymphocytes/100 WBC (Bld) 17.5 % Low 20.5 - 60.0 % [facility] MCH (RBC) [Entitic mass] 29.1 pg 26.7 - 34.0 pg [facility] MCHC (RBC) [Mass/Vol] 33.3 g/dL 29.9 - 35.2 g/dL [facility] MCV (RBC) [Entitic vol] 87.4 fL 81.0 - 99.0 fL [facility] MONOCYTES ABSOLUTE AUTO 0.6 [facility] Monocytes/100 WBC (Bld) 7 % 1.7 - 12.0 % [facility] NEUTROPHILS ABSOLUTE AUTO 6.2 [facility] Neutrophils/100 WBC (Bld) 73.7 % 43.0 - 75.0 % [facility] Platelet mean volume (Bld) [Entitic vol] 11.5 fL 9.5 - 13.[address] [address] E[facility] # [facility].1 [facility] PLT 175 [facility] RBC 4.22 [facility] WBC 8.3 [facility] Urinalysis macro (dipstick) panel (U)on 09-06-2024 Bilirubin, UA Negative Negative - 4(70) +++ mg/dL [facility] Blood, UA Negative Negative - 50 Mendez/mcL [facility] Clarity, UA Cloudy [facility] re Color, UA Yellow [facility] e Glucose, UA Negative Negative - 1999(110) ++++ mg/dL [facility] Interpretation and review of laboratory results Abnormal [facility] Ketones, UA Negative Negative - 160(16) ++++ mg/dL [facility] Leukocytes, UA Positive Negative - 500+++ Bhavani/mcL [facility] Comment on above: small Nitrite, UA Negative Negative - Positive [facility] pH, UA 7 5 - 9 [facility] e Protein, UA Trace Negative - 1999(20) ++++ mg/dL [facility] Spec Grav, UA 1.025 1 - 1.03 [facility] Urobilinogen, UA 0.2 0.2 - 12 mg/dL [facility] CBC AND AUTO DIFFon 08-31-20 ABSOLUTE BASOPHIL 0.0 X10E9/L Normal 0.0-0.2 [facility] Comment on above: Performed By: #### N UM #### [facility] ([id number]) [address] [place] [address] 86481 ABSOLUTE NEUTROPHIL 5.3 X10E9/L Normal 1.5-6.6 [facility] Comment on above: Performed By: #### N UM #### [facility] ([id number]) [address] [place] [address] 68177 Basophils/100 WBC (Bld) 0.5 % Normal [facility] Comment on above: Performed By: #### N UM #### [facility] ([id number]) [address] [place] [address] 37801 Eosinophils (Bld) [#/Vol] 0.1 10*3/uL Normal 0.0-0.4 [facility] Comment on above: Performed By: #### N UM #### [facility] ([id number]) [address] [place] [address] 60972 Eosinophils/100 WBC (Bld) 0.9 % Normal [facility] Comment on above: Performed By: #### N UM #### [facility] ([id number]) [address] [place] [address] 58160 Erythrocyte distribution width (RBC) [Ratio] 13.4 % Normal 11.5-15.0 [facility] Comment on above: Performed By: #### N UM #### [facility] ([id number]) [address] [place] [address] 04679 Hematocrit (Bld) [Volume fraction] 38.3 % Normal 35-47 [facility] Comment on above: Performed By: #### N UM #### [facility] ([id number]) [address] [place] [address] 80522 Hemoglobin (Bld) [Mass/Vol] 13.1 g/dL Normal 11.7-15.5 [facility] Comment on above: Performed By: #### N UM #### [facility] ([id number]) [address] [place] [address] 23198 Lymphocytes (Bld) [#/Vol] 1.3 10*3/uL Normal 1.0-3.5 [facility] Comment on above: Performed By: #### N UM #### [facility] ([id number]) [address] [place] [address] 24447 Lymphocytes/100 WBC (Bld) 18.3 % Normal [facility] Comment on above: Performed By: #### N UM #### [facility] ([id number]) [address] [place] [address] 34862 MCH (RBC) [Entitic mass] 29.0 pg Normal 27-34 [facility] Comment on above: Performed By: #### N UM #### [facility] ([id number]) [address] [place] [address] 42486 MCHC (RBC) [Mass/Vol] 34.2 g/dL Normal 32-36 [facility] Comment on above: Performed By: #### N UM #### [facility] ([id number]) [address] [place] [address] 83343 MCV (RBC) [Entitic vol] 85 fL Normal 80-100 [facility] Comment on above: Performed By: #### N UM #### [facility] ([id number]) [address] [place] [address] 96135 Monocytes (Bld) [#/Vol] 0.6 10*3/uL Normal 0-0.9 [facility] Comment on above: Performed By: #### N UM #### [facility] ([id number]) [address] [place] [address] 94558 Monocytes/100 WBC (Bld) 8.6 % Normal [facility] Comment on above: Performed By: #### N UM #### [facility] ([id number]) [address] [place] [address] 73062 Neutrophils/100 WBC (Bld) 71.7 % Normal [facility] Comment on above: Performed By: #### N UM #### [facility] ([id number]) [address] [place] [address] 07000 Platelet mean volume (Bld) [Entitic vol] 9.4 fL Normal 7-12 [facility] Comment on above: Performed By: #### N UM #### [facility] ([id number]) [address] [place] [address] 02143 Platelets (Bld) [#/Vol] 218 10*3/uL Normal 150-450 [facility] Comment on above: Performed By: #### N UM #### [facility] ([id number]) [address] [place] [address] 38633 RBC COUNT 4.51 X10E12/L Normal 3.80-5.20 [facility] Comment on above: Performed By: #### N UM #### [facility] ([id number]) [address] [place] [address] 92611 WBC (Bld) [#/Vol] 7.4 10*3/uL Normal 4.0-11.0 [facility] Comment on above: Performed By: #### N UM #### [facility] ([id number]) [address] [place] [address] 51778 COMPREHENSIVE METABOLIC PANE [facility] 08-31-2024 Albumin [Mass/Vol] 3.9 g/dL Normal 3.2-5.3 [facility] Comment on above: Performed By: #### 2 106-3 #### [facility] ([id number]) [address] [place] [address] 53870 ALP [Catalytic activity/Vol] 96 U/L Normal 39-130 [facility] Comment on above: Performed By: #### 2 106-3 #### [facility] ([id number]) [address] [place] [address] 92298 ALT [Catalytic activity/Vol] 9 U/L Normal 0-31 [facility] Comment on above: Performed By: #### 2 106-3 #### [facility] ([id number]) [address] [place] [address] 56789 Anion gap [Moles/Vol] 8 mmol/L Normal 5-15 [facility] Comment on above: Performed By: #### 2 106-3 #### [facility] ([id number]) [address] [place] [address] 38361 AST [Catalytic activity/Vol] 15 U/L Normal 0-41 [facility] Comment on above: Performed By: #### 2 106-3 #### [facility] ([id number]) [address] [place] [address] 46884 Bilirubin [Mass/Vol] 0.4 mg/dL Normal 0.3-1.2 [facility] Comment on above: Performed By: #### 2 106-3 #### [facility] ([id number]) [address] [place] [address] 94156 Calcium [Mass/Vol] 9.3 mg/dL Normal 8.5-10.5 [facility] Comment on above: Performed By: #### 2 106-3 #### [facility] ([id number]) [address] [place] [address] 17903 Chloride [Moles/Vol] 104 mmol/L Normal 98-109 [facility] Comment on above: Performed By: #### 2 106-3 #### [facility] ([id number]) [address] [place] [address] 41185 CO2 [Moles/Vol] 22 mmol/L Normal 22-32 [facility] Comment on above: Performed By: #### 2 106-3 #### [facility] ([id number]) [address] [place] [address] 09964 Creatinine [Mass/Vol] 0.37 mg/dL Low 0.40-1.00 [facility] Comment on above: Result Comment: METH OD TRACEABLE TO IDMS STANDARD Performed By: #### 2 106-3 #### [facility] ([id number]) [address] [place] [address] 76326 eGFR (CKD-EPI) NON-RACE DEPENDENT >90 Normal >59 [facility] Comment on above: Result Comment: Reported eGFR is based on the CKD-EPI 2020 equation that does not use a race coefficient. Performed By: #### 2 106-3 #### [facility] ([id number]) [address] [place] [address] 14236 Glucose [Mass/Vol] 88 mg/dL Normal 65-99 [facility] Comment on above: Performed By: #### 2 106-3 #### [facility] ([id number]) [address] [place] [address] 69939 Potassium [Moles/Vol] 3.3 mmol/L Low 3.5-5.0 [facility] Comment on above: Performed By: #### 2 106-3 #### [facility] ([id number]) [address] [place] [address] 56364 Protein [Mass/Vol] 7.4 g/dL Normal 6.0-8.0 [facility] Comment on above: Performed By: #### 2 106-3 #### [facility] ([id number]) [address] [place] [address] 15622 Sodium [Moles/Vol] 134 mmol/L Normal 134-146 [facility] Comment on above: Performed By: #### 2 106-3 #### [facility] ([id number]) [address] [place] [address] 32246 Urea nitrogen [Mass/Vol] 6 mg/dL Normal 5-23 [facility] Comment on above: Performed By: #### 2 106-3 #### [facility] ([id number]) [address] [place] [address] 02760 DRUG SCREEN, URINEon 024 AMPHETAMINE/METHAMP Negative Normal NEG [facility] Comment on above: Result Comment: AMPH /METH screening cut off = 1000 ng/mL Performed By: #### 2 106-3 #### [facility] ([id number]) [address] [place] [address] [place] [address] BARBITURATES Negative Normal NEG [facility] Comment on above: Result Comment: Becca iturates screening cut off value = 200 ng/mL Performed By: #### 2 106-3 #### [facility] ([id number]) [address] [place] [address] 74715 BENZODIAZEPINES Negative Normal [facility] Comment on above: Result Comment: Janusz odiazepines screening cut off value = 200 ng/mL Performed By: #### 2 106-3 #### [facility] ([id number]) [address] [place] [address] 11304 CANNABINOIDS Positive Abnormal NEG [facility] Comment on above: Result Comment: Conf irmation available upon request. Cannabinoids/THC screening cut off value = 50 ng/mL Performed By: #### 2 106-3 #### [facility] ([id number]) [address] [place] [address] 32698 COCAINE METABOLITE Negative Normal NEG [facility] Comment on above: Result Comment: Coca ine screening cut off value = 300 ng/mL Performed By: #### 2 106-3 #### [facility] ([id number]) [address] [place] [address] 44177 ECSTASY Negative Normal [facility] Comment on above: Result Comment: Ecst asy screening cut off value = 500 ng/mL This report is intended for use in clinical monitoring or management of patients. Performed By: #### 2 106-3 #### [facility] ([id number]) [address] [place] [address] 37038 METHADONE Negative Normal NEG [facility] Comment on above: Result Comment: Meth adone screening cut off value = 300 ng/mL. Performed By: #### 2 106-3 #### [facility] ([id number]) [address] [place] [address] 24992 OPIATES Negative Normal NEG [facility] Comment on above: Result Comment: Opia jovanna screening cut off value = 300 ng/mL NOTE: This test is used for the detection of codeine, hydrocodone (>1000 ng/mL), morphine and hydromorphone (>900 ng/mL) in urine. Performed By: #### 2 106-3 #### [facility] ([id number]) [address] [place] [address] 15390 OXYCODONE Negative Normal NEG [facility] Comment on above: Result Comment: Oxyc odone screening cut off value = 300 ng/mL NOTE: This test is used for the detection of oxycodone and oxymorphone in urine. Performed By: #### 2 106-3 #### [facility] ([id number]) [address] [place] [address] 23141 PHENCYCLIDINE Negative Normal NEG [facility] Comment on above: Result Comment: Phen cyclidine screening cut off value = 25 ng/mL Performed By: #### 2 106-3 #### [facility] ([id number]) [address] [place] [address] 29997 THYROID PROFILEon 08-31-2024 Free T4 [Mass/Vol] 0.88 ng/dL Normal 0.61-1.60 [facility] Comment on above: Result Comment: NEW REFERENCE RANGE FOR PEDIATRIC PATIENTS Performed By: #### 2 106-3 #### [facility] ([id number]) [address] [place] [address] 26840 TSH 1.27 uIU/mL Normal 0.49-4.67 [facility] Comment on above: Result Comment: NEW REFERENCE RANGE FOR PEDIATRIC PATIENTS Performed By: #### 2 106-3 #### [facility] ([id number]) [address] [place] [address] 70919 URINE CULTUREon 08-31-2024 Bacteria identified Cx Nom (U) CULTURE RESULTS <10,000 ORGANISMS/ML NORMAL URO GENITAL GABRIELE Normal [facility] Comment on above: Performed By: #### 2 106-3 #### [facility] ([id number]) [address] [place] [address] 14546 URN MACROSCOPIC NURon 2023 BILIRUBIN LUCIE Small Abnormal NEG [facility] Comment on above: Performed By: #### N UM #### [facility] ([id number]) [address] [place] [address] 70138 BLOOD/HGB LUCIE Negative Normal NEG [facility] Comment on above: Performed By: #### N UM #### [facility] ([id number]) [address] [place] [address] [place] [address] GLUCOSE LUCIE Negative Normal NEG [facility] Comment on above: Performed By: #### N UM #### [facility] ([id number]) [address] [place] [address] 90550 KETONES LUCIE 80 mg/dL Abnormal NEG [facility] Comment on above: Performed By: #### N UM #### [facility] ([id number]) [address] [place] [address] [place] [address] LEUKOCYTE ESTERASE LUCIE Trace Abnormal NEG [facility] Comment on above: Performed By: #### N UM #### [facility] ([id number]) [address] [place] [address] [place] [address] NITRITE LUCIE Negative Normal NEG [facility] Comment on above: Performed By: #### N UM #### [facility] ([id number]) [address] [place] [address] 56779 PH LUCIE 6.0 Normal 5.0-8.5 [facility] Comment on above: Performed By: #### N UM #### [facility] ([id number]) [address] [place] [address] 97537 PROTEIN LUCIE >=300 Abnormal NEG [facility] Comment on above: Performed By: #### N UM #### [facility] ([id number]) [address] [place] [address] [place] [address] SPECIFIC GRAVITY LUCIE >=1.030 Normal 1.003-1.035 [facility] Comment on above: Performed By: #### N UM #### [facility] ([id number]) [address] [facility] [place] [address] UROBILINOGEN LUCIE 0.2 eu/dL Normal <1.1 [facility] Comment on above: Performed By: #### N UM #### [facility] ([id number]) [address] [facility] [place] [address] Urinalysis macro (dipstick) panel (U)on 07-05-2024 Bilirubin, UA Negative Negative - 4(70) +++ mg/dL [facility] Blood, UA Negative Negative - 50 Mendez/mcL [facility] Clarity, UA Clear [facility] [facility] re Color, UA Yellow [facility] Glucose, UA Negative Negative - 1999(110) ++++ mg/dL [facility] Interpretation and review of laboratory results Abnormal [facility] Ketones, UA Positive Negative - 160(16) ++++ mg/dL [facility] Leukocytes, UA Positive Negative - 500+++ Bhavani/mcL [facility] Nitrite, UA Negative Negative - Positive [facility] pH, UA 5.5 5 - 9 [facility] Protein, UA Positive Negative - 1999(20) ++++ mg/dL [facility] Spec Grav, UA 1.03 1 - 1.03 [facility] Urobilinogen, UA 1.0 0.2 - 12 mg/dL [facility] AFP, SERUM, OPEN SPINA BIFID Aon 06-19-2024 AFP MOM 0.60 . [facility] AFP VALUE 19.7 ng/mL . [facility] COMMENT: Comment . [facility] Comment on above: Nathalia Aguiar , Ph.D., [facility] Director References: Available Upon Request. Multiples Of Median Cutoffs For AFP Elevations Bryant 2.5 Black 2.8 IDD 2.0 Twins 4.5 Abbreviation Definitions IDD - Insulin Dep Diabetes OSBR - Open Spina Bifida Risk For further inquiries contact [facility] at [phone]. This test was developed and its performance characteristics determined by [facility]. It has not been cleared or approved by the Food and Drug Administration. Performed at: TG - [facility] [address] [place], [place] [id number] Head Loader: Robson Redman [facility], Phone: [phone] GEST. AGE ON COLLECTION DATE 16.1 . weeks [facility] GESTAT. AGE BASED ON Ultrasound . [facility] Comment on above: 15.3 on 06/10/2024 Recalculations are not recommended when gestational dating by LMP and ultrasound are within 10 days. INSULIN DEP DIABETES No . [facility] INTERPRETATION Comment . [facility] hillary Comment on above: Interpretation: Scre en Negative [...] Customer Services to discuss available options. The [employer] recommends amniocentesis be offered to women age 35 and older. [age] [place] [age] [facility] MULTIPLE GESTATION No . [facility] H [facility] [place] [address] [place] [id number] . [facility] . [facility] RESULTS Report . [facility] TEST RESULTS: Negative . [facility] WEIGHT 156 . lbs [facility] N N ULTRASOUND [id number] 2 15 N 1 Y 156 N N N N N White/ [facility] HCG ( test) Ql (U)o n 06-10-2024 Interpretation and review of laboratory results Abnormal [facility] Preg Test, Ur Positive [facility] Urinalysis macro (dipstick) panel (U)on 06-10-2024 Bilirubin, UA Negative Negative - 4(70) +++ mg/dL [facility] Blood, UA Negative Negative - 50 Mendez/mcL [facility] Clarity, UA Clear [facility] re Color, UA Yellow [facility] Glucose, UA Negative Negative - 2000(110) ++++ mg/dL [facility] Interpretation and review of laboratory results Abnormal [facility] Ketones, UA Positive Negative - 160(16) ++++ mg/dL [facility] Leukocytes, UA Positive Negative - 500+++ Bhavani/mcL [facility] Nitrite, UA Negative Negative - Positive [facility] pH, UA 7.0 5 - 9 [facility] Protein, UA Positive Negative - 2000(20) ++++ mg/dL [facility] Spec Grav, UA 1.025 1 - 1.03 [facility] Urobilinogen, UA 1.0 0.2 - 12 mg/dL [facility] BASIC METABOLIC PANLon 05-22 Anion gap [Moles/Vol] 6 mmol/L Normal 5-15 [facility] Comment on above: Performed By: #### N UM #### [facility] ([id number]) [address] [place] [address] 67372 Calcium [Mass/Vol] 8.7 mg/dL Normal 8.5-10.5 [facility] Comment on above: Performed By: #### N UM #### [facility] ([id number]) [address] [place] [address] 89908 Chloride [Moles/Vol] 104 mmol/L Normal 98-109 [facility] Comment on above: Performed By: #### N UM #### [facility] ([id number]) [address] [place] [address] 10418 CO2 [Moles/Vol] 22 mmol/L Normal 22-32 [facility] Comment on above: Performed By: #### N UM #### [facility] ([id number]) [address] [place] [address] 99655 Creatinine [Mass/Vol] 0.51 mg/dL Normal 0.40-1.00 [facility] Comment on above: Result Comment: METH OD TRACEABLE TO IDMS STANDARD Performed By: #### N UM #### [facility] ([id number]) [address] [place] [address] 91884 eGFR (CKD-EPI) NON-RACE DEPENDENT >90 Normal >59 [facility] Comment on above: Result Comment: Reported eGFR is based on the CKD-EPI 2020 equation that does not use a race coefficient. Performed By: #### N UM #### [facility] ([id number]) [address] [place] [address] 39957 Glucose [Mass/Vol] 102 mg/dL High 65-99 [facility] Comment on above: Performed By: #### N UM #### [facility] ([id number]) [address] [place] [address] 76679 Potassium [Moles/Vol] 3.4 mmol/L Low 3.5-5.0 [facility] Comment on above: Performed By: #### N UM #### [facility] ([id number]) [address] [place] [address] 79041 Sodium [Moles/Vol] 132 mmol/L Low 134-146 [facility] Comment on above: Performed By: #### N UM #### [facility] ([id number]) [address] [place] [address] 18022 Urea nitrogen [Mass/Vol] 6 mg/dL Normal 5-23 [facility] Comment on above: Performed By: #### N UM #### [facility] ([id number]) [address] [place] [address] 02911 CBC AND AUTO DIFFon 05-22-20 24 ABSOLUTE BASOPHIL 0.1 X10E9/L Normal 0.0-0.2 [facility] Comment on above: Performed By: #### N UM #### [facility] ([id number]) [address] [place] [address] 19324 ABSOLUTE NEUTROPHIL 3.3 X10E9/L Normal 1.5-6.6 [facility] Comment on above: Performed By: #### N UM #### [facility] ([id number]) [address] [place] [address] 27314 Basophils/100 WBC (Bld) 0.9 % Normal [facility] Comment on above: Performed By: #### N UM #### [facility] ([id number]) [address] [place] [address] 08889 Eosinophils (Bld) [#/Vol] 0.2 10*3/uL Normal 0.0-0.4 [facility] Comment on above: Performed By: #### N UM #### [facility] ([id number]) [address] [place] [address] 43431 Eosinophils/100 WBC (Bld) 3.9 % Normal [facility] Comment on above: Performed By: #### N UM #### [facility] ([id number]) [address] [place] [address] 26298 Erythrocyte distribution width (RBC) [Ratio] 13.9 % Normal 11.5-15.0 [facility] Comment on above: Performed By: #### N UM #### [facility] ([id number]) [address] [place] [address] 94193 Hematocrit (Bld) [Volume fraction] 38.4 % Normal 35-47 [facility] Comment on above: Performed By: #### N UM #### [facility] ([id number]) [address] [place] [address] 14964 Hemoglobin (Bld) [Mass/Vol] 13.2 g/dL Normal 11.7-15.5 [facility] Comment on above: Performed By: #### N UM #### [facility] ([id number]) [address] [place] [address] 80163 Lymphocytes (Bld) [#/Vol] 1.4 10*3/uL Normal 1.0-3.5 [facility] Comment on above: Performed By: #### N UM #### [facility] ([id number]) [address] [place] [address] 89387 Lymphocytes/100 WBC (Bld) 25.9 % Normal [facility] Comment on above: Performed By: #### N UM #### [facility] ([id number]) [address] [place] [address] 50046 MCH (RBC) [Entitic mass] 28.2 pg Normal 27-34 [facility] Comment on above: Performed By: #### N UM #### [facility] ([id number]) [address] [place] [address] 50889 MCHC (RBC) [Mass/Vol] 34.3 g/dL Normal 32-36 [facility] Comment on above: Performed By: #### N UM #### [facility] ([id number]) [address] [place] [address] 03409 MCV (RBC) [Entitic vol] 82 fL Normal 80-100 [facility] Comment on above: Performed By: #### N UM #### [facility] ([id number]) [address] [place] [address] 89411 Monocytes (Bld) [#/Vol] 0.6 10*3/uL Normal 0-0.9 [facility] Comment on above: Performed By: #### N UM #### [facility] ([id number]) [address] [place] [address] 36516 Monocytes/100 WBC (Bld) 10.2 % Normal [facility] Comment on above: Performed By: #### N UM #### [facility] ([id number]) [address] [place] [address] 23588 Neutrophils/100 WBC (Bld) 59.1 % Normal [facility] Comment on above: Performed By: #### N UM #### [facility] ([id number]) [address] [place] [address] 40095 Platelet mean volume (Bld) [Entitic vol] 8.7 fL Normal 7-12 [facility] Comment on above: Performed By: #### N UM #### [facility] ([id number]) [address] [place] [address] 57094 Platelets (Bld) [#/Vol] 198 10*3/uL Normal 150-450 [facility] Comment on above: Performed By: #### N UM #### [facility] ([id number]) [address] [place] [address] 29076 RBC COUNT 4.67 X10E12/L Normal 3.80-5.20 [facility] Comment on above: Performed By: #### N UM #### [facility] ([id number]) [address] [place] [address] 44003 WBC (Bld) [#/Vol] 5.6 10*3/uL Normal 4.0-11.0 [facility] Comment on above: Performed By: #### N UM #### [facility] ([id number]) [address] [place] [address] 92771 HCG ( test) Ql (U)o n 05-22-2024 Beta HCG ( test) Ql (U) Positive Abnormal NEG [facility] Comment on above: Performed By: #### N UM #### [facility] ([id number]) [address] [place] [address] 51587 HCG.beta subunit IA 3rd IS Q non 05-22-2024 [place] [address] m[IU]/mL Normal P [facility] Comment on above: Result Comment: [...] neoplasms. Performed By: #### N UM #### [facility] ([id number]) [address] [place] [address] 01076 URN MACROSCOPIC NURon 2023 BILIRUBIN LUCIE Small Abnormal NEG [facility] Comment on above: Performed By: #### N UM #### [facility] ([id number]) [address] [place] [address] 58942 BLOOD/HGB LUCIE Trace Abnormal NEG [facility] Comment on above: Performed By: #### N UM #### [facility] ([id number]) [address] [place] [address] 21022 GLUCOSE LUCIE Negative Normal NEG [facility] Comment on above: Performed By: #### N UM #### [facility] ([id number]) [address] [place] [address] 88708 KETONES LUCIE Trace Abnormal NEG [facility] Comment on above: Performed By: #### N UM #### [facility] ([id number]) [address] [place] [address] 88281 LEUKOCYTE ESTERASE LUCIE Small Abnormal NEG [facility] Comment on above: Performed By: #### N UM #### [facility] ([id number]) [address] [place] [address] 09605 NITRITE LUCIE Negative Normal NEG [facility] Comment on above: Performed By: #### N UM #### [facility] ([id number]) [address] [place] [address] 81916 PH LUCIE 6.5 Normal 5.0-8.5 [facility] Comment on above: Performed By: #### N UM #### [facility] ([id number]) [address] [place] [address] 01932 PROTEIN LUCIE 100 mg/dL Abnormal NEG [facility] Comment on above: Performed By: #### N UM #### [facility] ([id number]) [address] [place] [address] 63817 SPECIFIC GRAVITY LUCIE >=1.030 Normal 1.003-1.035 [facility] Comment on above: Performed By: #### N UM #### [facility] ([id number]) [address] [place] [address] 88073 UROBILINOGEN LUCIE 1.0 eu/dL Normal <1.1 [facility] Comment on above: Performed By: #### N UM #### [facility] ([id number]) [address] [place] [address] 84015 RAPID STREP SCR NURSINGon S. pyogenes Ag EIA Ql (Throat) Positive Abnormal NEG [facility] Comment on above: Performed By: #### N UM #### [facility] ([id number]) [address] [place] [address] 08218 CBC AND AUTO DIFFon 02-29-20 24 ABSOLUTE BASOPHIL 0.0 X10E9/L Normal 0.0-0.2 [facility] Comment on above: Performed By: #### N UM #### [facility] ([id number]) [address] [place] [address] 06186 ABSOLUTE NEUTROPHIL 2.4 X10E9/L Normal 1.5-6.6 [facility] Comment on above: Performed By: #### N UM #### [facility] ([id number]) [address] [place] [address] 49254 Basophils/100 WBC (Bld) 0.8 % Normal [facility] Comment on above: Performed By: #### N UM #### [facility] ([id number]) [address] [place] [address] 45166 Eosinophils (Bld) [#/Vol] 0.2 10*3/uL Normal 0.0-0.4 [facility] Comment on above: Performed By: #### N UM #### [facility] ([id number]) [address] [place] [address] 92689 Eosinophils/100 WBC (Bld) 3.0 % Normal [facility] Comment on above: Performed By: #### N UM #### [facility] ([id number]) [address] [place] [address] 00455 Erythrocyte distribution width (RBC) [Ratio] 12.3 % Normal 11.5-15.0 [facility] Comment on above: Performed By: #### N UM #### [facility] ([id number]) [address] [place] [address] 02115 Hematocrit (Bld) [Volume fraction] 36.6 % Normal 35-47 [facility] Comment on above: Performed By: #### N UM #### [facility] ([id number]) [address] [place] [address] 77957 Hemoglobin (Bld) [Mass/Vol] 12.5 g/dL Normal 11.7-15.5 [facility] Comment on above: Performed By: #### N UM #### [facility] ([id number]) [address] [place] [address] 18388 Lymphocytes (Bld) [#/Vol] 2.3 10*3/uL Normal 1.0-3.5 [facility] Comment on above: Performed By: #### N UM #### [facility] ([id number]) [address] [place] [address] 36237 Lymphocytes/100 WBC (Bld) 43.8 % Normal [facility] Comment on above: Performed By: #### N UM #### [facility] ([id number]) [address] [place] [address] 09750 MCH (RBC) [Entitic mass] 29.5 pg Normal 27-34 [facility] Comment on above: Performed By: #### N UM #### [facility] ([id number]) [address] [place] [address] 70946 MCHC (RBC) [Mass/Vol] 34.1 g/dL Normal 32-36 [facility] Comment on above: Performed By: #### N UM #### [facility] ([id number]) [address] [place] [address] 44043 MCV (RBC) [Entitic vol] 86 fL Normal 80-100 [facility] Comment on above: Performed By: #### N UM #### [facility] ([id number]) [address] [place] [address] 87822 Monocytes (Bld) [#/Vol] 0.4 10*3/uL Normal 0-0.9 [facility] Comment on above: Performed By: #### N UM #### [facility] ([id number]) [address] [place] [address] 68094 Monocytes/100 WBC (Bld) 7.4 % Normal [facility] Comment on above: Performed By: #### N UM #### [facility] ([id number]) [address] [place] [address] 37990 Neutrophils/100 WBC (Bld) 45.0 % Normal [facility] Comment on above: Performed By: #### N UM #### [facility] ([id number]) [address] [place] [address] 45986 Platelet mean volume (Bld) [Entitic vol] 8.7 fL Normal 7-12 [facility] Comment on above: Performed By: #### N UM #### [facility] ([id number]) [address] [place] [address] 09340 Platelets (Bld) [#/Vol] 326 10*3/uL Normal 150-450 [facility] Comment on above: Performed By: #### N UM #### [facility] ([id number]) [address] [place] [address] 93295 RBC COUNT 4.23 X10E12/L Normal 3.80-5.20 [facility] Comment on above: Performed By: #### N UM #### [facility] ([id number]) [address] [place] [address] 47148 WBC (Bld) [#/Vol] 5.3 10*3/uL Normal 4.0-11.0 [facility] Comment on above: Performed By: #### N UM #### [facility] ([id number]) [address] [place] [address] 09635 BASIC METABOLIC PANLon 02-12 Anion gap [Moles/Vol] 8 mmol/L Normal 5-15 [facility] Comment on above: Performed By: #### B EDEL, , CBCA #### [facility] ([id number]) [address] [place] [address] 90983 Calcium [Mass/Vol] 9.1 mg/dL Normal 8.5-10.5 [facility] Comment on above: Performed By: #### B EDEL, , CBCA #### [facility] ([id number]) [address] [place] [address] 11568 Chloride [Moles/Vol] 103 mmol/L Normal 98-109 [facility] Comment on above: Performed By: #### B EDEL, , CBCA #### [facility] ([id number]) [address] [place] [address] 19683 CO2 [Moles/Vol] 22 mmol/L Normal 22-32 [facility] Comment on above: Performed By: #### B EDEL, , CBCA #### [facility] ([id number]) [address] [place] [address] 01576 Creatinine [Mass/Vol] 0.57 mg/dL Normal 0.40-1.00 [facility] Comment on above: Result Comment: METH OD TRACEABLE TO IDMS STANDARD Performed By: #### B EDEL, , CBCA #### [facility] ([id number]) [address] [place] [address] 91202 eGFR (CKD-EPI) NON-RACE DEPENDENT >90 Normal >59 [facility] Comment on above: Result Comment: Reported eGFR is based on the CKD-EPI 2020 equation that does not use a race coefficient. Performed By: #### B EDEL, , CBCA #### [facility] ([id number]) [address] [place] [address] 60579 Glucose [Mass/Vol] 93 mg/dL Normal 65-99 [facility] Comment on above: Performed By: #### Ed [place], , CBCA #### [facility] ([id number]) [address] [place] [address] 87871 Potassium [Moles/Vol] 3.6 mmol/L Normal 3.5-5.0 [facility] Comment on above: Performed By: #### B EDEL, , CBCA #### [facility] ([id number]) [address] [place] [address] 45508 Sodium [Moles/Vol] 133 mmol/L Low 134-146 [facility] Comment on above: Performed By: #### B EDEL, , CBCA #### [facility] ([id number]) [address] [place] [address] 01609 Urea nitrogen [Mass/Vol] 11 mg/dL Normal 5-23 [facility] Comment on above: Performed By: #### B EDEL, , CBCA #### [facility] ([id number]) [address] [place] [address] 85360 CBC AND AUTO DIFFon 02-12- 24 ABSOLUTE BASOPHIL 0.1 X10E9/L Normal 0.0-0.2 [facility] Comment on above: Performed By: #### B EDEL, , CBCA #### [facility] ([id number]) [address] [place] [address] 91149 ABSOLUTE NEUTROPHIL 5.3 X10E9/L Normal 1.5-6.6 [facility] Comment on above: Performed By: #### Ed [place], , CBCA #### [facility] ([id number]) [address] [place] [address] 67340 Basophils/100 WBC (Bld) 0.9 % Normal [facility] Comment on above: Performed By: #### Ed [place], , CBCA #### [facility] ([id number]) [address] [place] [address] [place] [address] DIFFERENTIAL COMMENT PLATELETS REVIEWED Normal [facility] Comment on above: Performed By: #### B EDEL, , CBCA #### [facility] ([id number]) [address] [place] [address] 79728 Eosinophils (Bld) [#/Vol] 0.4 10*3/uL Normal 0.0-0.4 [facility] Comment on above: Performed By: #### Ed [place], , CBCA #### [facility] ([id number]) [address] [place] [address] 79007 Eosinophils/100 WBC (Bld) 4.0 % Normal [facility] Comment on above: Performed By: #### B EDEL, , CBCA #### [facility] ([id number]) [address] [place] [address] 99278 Erythrocyte distribution width (RBC) [Ratio] 12.7 % Normal 11.5-15.0 [facility] Comment on above: Performed By: #### Ed [place], , CBCA #### [facility] ([id number]) [address] [place] [address] 35626 Hematocrit (Bld) [Volume fraction] 34.3 % Low 35-47 [facility] Comment on above: Performed By: #### Ed [place], , CBCA #### [facility] ([id number]) [address] [place] [address] 54469 Hemoglobin (Bld) [Mass/Vol] 12.2 g/dL Normal 11.7-15.5 [facility] Comment on above: Performed By: #### Ed [place], , CBCA #### [facility] ([id number]) [address] [place] [address] 09803 Lymphocytes (Bld) [#/Vol] 2.7 10*3/uL Normal 1.0-3.5 [facility] Comment on above: Performed By: #### Ed HO[place], , CBCA #### [facility] ([id number]) [address] [place] [address] 74576 Lymphocytes/100 WBC (Bld) 29.1 % Normal [facility] Comment on above: Performed By: #### Ed HOLL[place], , CBCA #### [facility] ([id number]) [address] [place] [address] 15032 MCH (RBC) [Entitic mass] 30.1 pg Normal 27-34 [facility] Comment on above: Performed By: #### B EDEL, , CBCA #### [facility] ([id number]) [address] [place] [address] 17996 MCHC (RBC) [Mass/Vol] 35.7 g/dL Normal 32-36 [facility] Comment on above: Performed By: #### Ed HOLLINGSWORTH, , CBCA #### [facility] ([id number]) [address] [place] [address] 73546 MCV (RBC) [Entitic vol] 84 fL Normal 80-100 [facility] Comment on above: Performed By: #### Ed HOLLINGSWORTH, , CBCA #### [facility] ([id number]) [address] [place] [address] 23568 Monocytes (Bld) [#/Vol] 0.9 10*3/uL Normal 0-0.9 [facility] Comment on above: Performed By: #### Ed HOLLINGSWORTH, , CBCA #### [facility] ([id number]) [address] [place] [address] 55125 Monocytes/100 WBC (Bld) 9.9 % Normal [facility] Comment on above: Performed By: #### Ed HOLLINGSWORTH, , CBCA #### [facility] ([id number]) [address] [place] [address] 30920 Neutrophils/100 WBC (Bld) 56.1 % Normal [facility] Comment on above: Performed By: #### Ed HOLLINGSWORTH, , CBCA #### [facility] ([id number]) [address] [place] [address] 56957 Platelet mean volume (Bld) [Entitic vol] 9.0 fL Normal 7-12 [facility] Comment on above: Performed By: #### B EDEL, , CBCA #### [facility] ([id number]) [address] [place] [address] 46628 Platelets (Bld) [#/Vol] 203 10*3/uL Normal 150-450 [facility] Comment on above: Performed By: #### B EDEL, , CBCA #### [facility] ([id number]) [address] [place] [address] 79361 RBC COUNT 4.07 X10E12/L Normal 3.80-5.20 [facility] Comment on above: Performed By: #### B EDEL, , CBCA #### [facility] ([id number]) [address] [place] [address] 79669 WBC (Bld) [#/Vol] 9.4 10*3/uL Normal 4.0-11.0 [facility] Comment on above: Performed By: #### B EDEL, , CBCA #### [facility] ([id number]) [address] [place] [address] 14059 HCG.beta subunit IA 3rd IS Q non 02-13-2024 [place] [address] m[IU]/mL Normal P [facility] Comment on above: Result Comment: [...] nontrophoblastic neoplasms. Performed By: #### [place], [address]-5, CBCA #### [facility] ([id number]) [address] [place] [address], [place] [address] URN MACROSCOPIC NURon 2023 BILIRUBIN LUCIE Negative Normal NEG [facility] Comment on above: Performed By: #### N UM #### [facility] ([id number]) [address] [place] [address] [place] [address] BLOOD/HGB LUCIE Large Abnormal NEG [facility] Comment on above: Performed By: #### N UM #### [facility] ([id number]) [address] [place] [address] [place] [address] GLUCOSE LUCIE Negative Normal NEG [facility] Comment on above: Performed By: #### N UM #### [facility] ([id number]) [address] [place] [address], [place] [address] KETONES LUCIE Negative Normal NEG [facility] Comment on above: Performed By: #### N UM #### [facility] ([id number]) [address] [place] [address], [place] [address] LEUKOCYTE ESTERASE LUCIE Negative Normal NEG [facility] Comment on above: Performed By: #### N UM #### [facility] ([id number]) [address] [place] [address] [place] [address] NITRITE LUCIE Negative Normal NEG [facility] Comment on above: Performed By: #### N UM #### [facility] ([id number]) [address] [place] [address] [place] [address] PH LUCIE 6.5 Normal 5.0-8.5 [facility] Comment on above: Performed By: #### N UM #### [facility] ([id number]) [address] [place] [address] PROTEIN LUCIE Trace Abnormal NEG [facility] Comment on above: Performed By: #### N UM #### [facility] ([id number]) [address] [place] [address]797 SPECIFIC GRAVITY LUCIE 1.015 Normal 1.003-1.035 [facility] Comment on above: Performed By: #### N UM #### [facility] ([id number]) [address] [place] [address]37 UROBILINOGEN LUCIE 0.2 eu/dL Normal <1.1 [facility] Comment on above: Performed By: #### N UM #### [facility] ([id number]) [address] [place] [address] 64020 HCG ( test) Ql (U)o n 02-12-2024 Beta HCG ( test) Ql (U) Positive Abnormal NEG [facility] Comment on above: Performed By: #### 2 106-3 #### [facility] ([id number]) [address] [place] [address] 03428 HCG.beta subunit IA 3rd IS Q non 02-12-2024 [place] [address] m[IU]/mL Normal P [facility] Comment on above: Result Comment: [...] Performed By: #### 4 544-3, 718-7, #### [facility] ([id number]) [address] [place] [address] 23764 HEMOGLOBINon 02-12-2024 Hemoglobin (Bld) [Mass/Vol] 12.7 g/dL Normal 11.7-15.5 [facility] Comment on above: Performed By: #### 4 544-3, 718-7, #### [facility] ([id number]) [address] [place] [address] 06224 Hematocrit Auto (Bld) [Volum e fraction]on 02-12-2024 Hematocrit (Bld) [Volume fraction] 35.4 % Normal 35-47 [facility] Comment on above: Performed By: #### 4 544-3, 718-7, #### [facility] ([id number]) [address] [place] [address] 22108 URN MACROSCOPIC NURon 2023 BILIRUBIN LUCIE Negative Normal NEG [facility] Comment on above: Performed By: #### N UM #### [facility] ([id number]) [address] [place] [address] 79384 BLOOD/HGB LUCIE MODERATE Abnormal NEG [facility] Comment on above: Performed By: #### N UM #### [facility] ([id number]) [address] [place] [address] 62047 GLUCOSE LUCIE Negative Normal NEG [facility] Comment on above: Performed By: #### N UM #### [facility] ([id number]) [address] [place] [address] 14577 KETONES LUCIE 15 mg/dL Abnormal NEG [facility] Comment on above: Performed By: #### N UM #### [facility] ([id number]) [address] [place] [address] 20256 LEUKOCYTE ESTERASE LUCIE Trace Abnormal NEG [facility] Comment on above: Performed By: #### N UM #### [facility] ([id number]) [address] [place] [address] 68815 NITRITE LUCIE Negative Normal NEG [facility] Comment on above: Performed By: #### N UM #### [facility] ([id number]) [address] [place] [address] 87024 PH LUCIE 6.5 Normal 5.0-8.5 [facility] Comment on above: Performed By: #### N UM #### [facility] ([id number]) [address] [place] [address] 39024 PROTEIN LUCIE Negative Normal NEG [facility] Comment on above: Performed By: #### N UM #### [facility] ([id number]) [address] [place] [address] 45372 SPECIFIC GRAVITY LUCIE >=1.030 Normal 1.003-1.035 [facility] Comment on above: Performed By: #### N UM #### [facility] ([id number]) [address] [place] [address] 27130 UROBILINOGEN LUCIE 1.0 eu/dL Normal <1.1 [facility] Comment on above: Performed By: #### N UM #### [facility] ([id number]) [address] [place] [address] [place] PREG LESS THAN 14 WKS WIT [...] cardiac activity with heart rate 100 bpm. [place]-rump length 6 mm corresponding to gestational age [...] Sandy MD on 02/12/2024 5:07 AM Normal [facility] ECG 12 lead ECGon 11-25-2023 ECG 12 lead ECG [facility] [place] [address] Electrocardiograph Report Signed Patient: Sharona Marks MR#: [id number] : 2005 Acct:[id number] Age/Sex: 17 / F ADM Date: 11/24/23 Loc: Room: [address] [place] [address] Type: ADM IN Attending Dr: Ignacio Acuña [...] change was found Confirmed by Chapito Corbin ([id number]) on 11/25/2023 7:52:58 PM Referred By: Electronically Signed By:Chapito Corbin Transcribed By: MUS Signed By Chapito Corbin MD 11/25/231952 Normal [facility] Lipid Panelon 11-25-2023 Cholesterol [Mass/Vol] 121 mg/dL Low 140-200 [facility] Comment on above: Result Comment: Chol less than 200 mg/dl low risk Chol 201-239 mg/dl borderline risk Chol 240 mg/dl and greater high risk Performed By: #### L IPID, [id number], TSH3 wRFLX #### [address] Cholesterol in HDL [Mass/Vol] 57 mg/dL Normal 23-92 [facility] Comment on above: Result Comment: HDL CHOL ATP-III CLASSIFICATION Cardiovascular Risk HDL > or equal to 60 mg/dL LOW HDL < 40 mg/dL HIGH Performed By: #### L IPID, [id number], TSH3 wRFLX #### [place] [id number] [facility] Cholesterol.total/Ch olesterol in HDL [Mass ratio] 2.1 {ratio} Normal <5.0 [facility] Comment on above: Performed By: #### L IPID, [id number], TSH3 wRFLX #### [place] [id number] [facility] LDL Cholesterol,Calculat ed 55 mg/dL Normal 0-100 [facility] Comment on above: Result Comment: LDL ATP III CLASSIFICATION LDL less than 100 mg/dL Optimal LDL 100-129 mg/dL Near or above optimal LDL 130-159 mg/dL Borderline high LDL 160-189 mg/dL High LDL greater than 189 mg/dL Very high Performed By: #### L IPID, [id number], TSH3 wRFLX #### [place] [id number] [place] Triglyceride w/Reflex 44 mg/dL Normal 0-149 [facility] Comment on above: Result Comment: TRIG ATP III CLASSIFICATION TRIG less than 150 mg/dL Normal TRIG 150-199 mg/dL Borderline high TRIG 200-500 mg/dL High TRIG greater than 500 mg/dL Very high Standard traceable to the Center for Disease Conrtrol and Prevention (CDC) test method. Performed By: #### L IPID, [id number], TSH3 wRFLX #### [address] VLDL CHOLESTEROL 8 mg/dL Normal [facility] Comment on above: Performed By: #### L IPID, [id number], TSH3 wRFLX #### [address] Thyroid Stim Hormone w/Rflxo n 11-25-2023 Thyroid Stim Hormone w/Rflx 3.18 u[iU]/mL Normal 0.45-5.33 [facility] Comment on above: Performed By: #### L IPID, [id number], TSH3 wRFLX #### [address] Vitamin D 25 Hydroxy Totalon 11-25-2023 [...] practice guideline. JCEM. 2010; 96(7):1911-30. PERFORMED BY: [place] [address] PATHOLOGIST BASKET TURNER TIFFANIE HIGH M.D. Performed By: #### L IPID, [id number], TSH3 wRFLX #### [address] Complete Blood Count Auto Di ffon 11-24-2023 Basophils (Bld) [#/Vol] 0.0 10*3/uL Normal 0.0-0.1 [facility] Comment on above: Result Comment: PERF ORMED BY: [place] [address] PATHOLOGIST BASKET TURNER TIFFANIE HIGH M.D. Performed By: #### C MP, ETOH, CBC #### [place] [address] [place] Basophils/100 WBC (Bld) 0.5 % Normal . [facility] Comment on above: Performed By: #### C MP, ETOH, CBC #### [place] [address] [place] Eosinophils (Bld) [#/Vol] 0.1 10*3/uL Normal 0.0-0.7 [facility] Comment on above: Performed By: #### C MP, ETOH, CBC #### [place] [address] [place] Eosinophils/100 WBC (Bld) 1.0 % Normal . [facility] Comment on above: Performed By: #### C MP, ETOH, CBC #### [place] [address] [place] Erythrocyte distribution width (RBC) [Ratio] 13.2 % Normal 11.9-15.3 [facility] Comment on above: Performed By: #### C MP, ETOH, CBC #### [address] Hematocrit (Bld) [Volume fraction] 41.6 % Normal 36.0-46.0 [facility] Comment on above: Performed By: #### C MP, ETOH, CBC #### [place] [address] [place] Hemoglobin (Bld) [Mass/Vol] 14.3 g/dL Normal 12.0-16.0 [facility] Comment on above: Performed By: #### C MP, ETOH, CBC #### [place] [address] [place] Lymphocytes (Bld) [#/Vol] 3.5 10*3/uL Normal 1.20-4.8 [facility] Comment on above: Performed By: #### C MP, ETOH, CBC #### [address] Lymphocytes/100 WBC (Bld) 39.9 % Normal . [facility] Comment on above: Performed By: #### C MP, ETOH, CBC #### [address] MCH (RBC) [Entitic mass] 29.3 pg Normal 25.0-35.0 [facility] Comment on above: Performed By: #### C MP, ETOH, CBC #### [address] MCV (RBC) [Entitic vol] 84.8 fL Normal 78-102 [facility] Comment on above: Performed By: #### C MP, ETOH, CBC #### [address] Mean Corpuscular HGB Conc 34.5 g/dL Normal 31.0-37.0 [facility] Comment on above: Performed By: #### C MP, ETOH, CBC #### [place] [address] [place] Monocytes (Bld) [#/Vol] 0.6 10*3/uL Normal 0.1-1.00 [facility] Comment on above: Performed By: #### C MP, ETOH, CBC #### [place] [address] [place] Monocytes/100 WBC (Bld) 17.05 % Normal 0.00-20.00 [facility] Comment on above: Performed By: #### C MP, ETOH, CBC #### [place] [address] [place] Monocytes/100 WBC (Bld) 7.1 % Normal . [facility] Comment on above: Performed By: #### C MP, ETOH, CBC #### [address] Neutrophils (Bld) [#/Vol] 4.5 10*3/uL Normal 1.2-7.7 [facility] Comment on above: Performed By: #### C MP, ETOH, CBC #### [address] Neutrophils/100 WBC (Bld) 51.5 % Normal . [facility] Comment on above: Performed By: #### C MP, ETOH, CBC #### [facility] [address] NRBC% 0.1 /100{WBC} Normal 0-0.[address] [facility] Comment on above: Performed By: #### C MP, ETOH, CBC #### [facility] [address] Platelet mean volume (Bld) [Entitic vol] 7.7 fL Normal 6.3-10.7 [facility] Comment on above: Performed By: #### C MP, ETOH, CBC #### [facility] [address] Platelets (Bld) [#/Vol] 319 10*3/uL Normal 150-450 [facility] Comment on above: Performed By: #### C MP, ETOH, CBC #### [address] RBC (Bld) [#/Vol] 4.90 10*6/uL Normal 4.10-5.10 [facility] Comment on above: Performed By: #### C MP, ETOH, CBC #### [address] WBC (Bld) [#/Vol] 8.7 10*3/uL Normal 4.5-13.5 [facility] Comment on above: Performed By: #### C MP, ETOH, CBC #### [address] Comprehensive Metabolic Pane david 11-24-2023 Albumin [Mass/Vol] 5.1 g/dL Normal 3.5-5.7 [facility] Comment on above: Performed By: #### C MP, ETOH, CBC #### [address] Albumin/Globulin [Mass ratio] 1.6 {ratio} Normal [facility] Comment on above: Performed By: #### C MP, ETOH, CBC #### [address] ALP [Catalytic activity/Vol] 67 U/L Normal 34-104 [facility] Comment on above: Performed By: #### C MP, ETOH, CBC #### [address] ALT [Catalytic activity/Vol] 10 U/L Normal 7-52 [facility] Comment on above: Performed By: #### C MP, ETOH, CBC #### [address] Anion gap [Moles/Vol] 10.9 mmol/L Normal 6.0-15.0 [facility] Comment on above: Performed By: #### C MP, ETOH, CBC #### [address] AST [Catalytic activity/Vol] 15 U/L Normal 13-39 [facility] Comment on above: Performed By: #### C MP, ETOH, CBC #### [address] Bilirubin [Mass/Vol] 0.4 mg/dL Normal 0.3-1.0 [facility] Comment on above: Performed By: #### C MP, ETOH, CBC #### [place] [address] [place] Calcium [Mass/Vol] 9.5 mg/dL Normal 8.6-10.3 [facility] Comment on above: Performed By: #### C MP, ETOH, CBC #### [place] [address] [place] Chloride [Moles/Vol] 106 mmol/L Normal 98-107 [facility] Comment on above: Performed By: #### C MP, ETOH, CBC #### [place] [address] [place] CO2 [Moles/Vol] 24.9 mmol/L Normal 21.0-31.0 [facility] Comment on above: Performed By: #### C MP, ETOH, CBC #### [address] Creatinine [Mass/Vol] 0.71 mg/dL Normal 0.60-1.20 [facility] Comment on above: Performed By: #### C MP, ETOH, CBC #### [address] Creatinine Clr Calc Pharmacy 124.96 Normal [facility] Comment on above: Result Comment: PERF ORMED BY: [place] [address] PATHOLOGIST BASKET TURNER TIFFANIE HIGH M.D. Performed By: #### C MP, ETOH, CBC #### [address] GFR/1.73 sq M.predicted MDRD (S/P/Bld) [Vol rate/Area] mL/min/{1.73_m2} Normal [facility] Comment on above: Performed By: #### C MP, ETOH, CBC #### [address] Globulin (S) [Mass/Vol] 3.1 g/dL Normal [facility] Comment on above: Performed By: #### C MP, ETOH, CBC #### [address] Glucose [Mass/Vol] 86 mg/dL Normal 70-100 [facility] Comment on above: Result Comment: [place] Glucose Reference Range is dependent on time and content of last meal. Glucose of more than 200 mg/dL in a nonstressed, ambulatory subject supports the diagnosis of Diabetes Mellitus. ADA recommended reference range Performed By: #### C MP, ETOH, CBC #### [address] Potassium [Moles/Vol] 3.8 mmol/L Normal 3.5-5.1 [facility] Comment on above: Performed By: #### C MP, ETOH, CBC #### [address] Protein [Mass/Vol] 8.2 g/dL Normal 6.4-8.9 [facility] Comment on above: Performed By: #### C MP, ETOH, CBC #### [address] Sodium [Moles/Vol] 138 mmol/L Normal 136-145 [facility] Comment on above: Performed By: #### C MP, ETOH, CBC #### [address] Urea nitrogen [Mass/Vol] 9 mg/dL Normal 7-25 [facility] Comment on above: Performed By: #### C MP, ETOH, CBC #### [place] [address] [place] Drug Screen,Urineon 11-24-19 24 Amphetamine Screen,Urine Negative Normal Negative [facility] Comment on above: Performed By: #### U HCG, UA, URDS #### [address] Barbiturate Screen,Urine Negative Normal Negative [facility] Comment on above: Performed By: #### U HCG, UA, URDS #### [address] Benzodiazepines Screen,Urine Negative Normal Negative [facility] Comment on above: Performed By: #### U HCG, UA, URDS #### [address] Cannabinoid Screen,Urine Positive High Negative [facility] Comment on above: Result Comment: Thes e are unconfirmed results and should not be used for legal purposes. Drug Cut-Off Concentration: AMPH 1000 ng/mL BECCA 200 ng/mL JANUSZ 200 ng/mL COCM 300 ng/mL OP 300 ng/mL PCP 25 ng/mL THC 20 ng/mL PERFORMED BY: [place] [address] PATHOLOGIST BASKET TURNER JIANLAN SUN M.D. Performed By: #### U HCG, UA, URDS #### [address] Cocaine Screen,Urine Negative Normal Negative [facility] Comment on above: Performed By: #### U HCG, UA, URDS #### [address] Opiate Screen,Urine Negative Normal Negative [facility] Comment on above: Performed By: #### U HCG, UA, URDS #### [address] Phencyclidine Screen,Urine Negative Normal Negative [facility] Comment on above: Performed By: #### U HCG, UA, URDS #### [address] Ethyl Alcohol Profileon 03 Ethanol [Mass/Vol] mg/dL Normal [facility] Comment on above: Performed By: #### C MP, ETOH, CBC #### [address] Percent Ethanol Not performed Normal [facility] Comment on above: Result Comment: PERF ORMED BY: [place] [address] PATHOLOGIST BASKET TURNER TIFFANIE HIGH M.D. Performed By: #### C MP, ETOH, CBC #### [address] HCG,Urineon 11-24-2023 Beta HCG ( test) Ql (U) Negative Normal [facility] Comment on above: Order Comment: Name Collection Type:: Clean-Voided Midstream Result Comment: PERF ORMED BY: [place] [address] PATHOLOGIST BASKET TURNER TIFFANIE HIGH M.D. Performed By: #### U HCG, UA, URDS #### [address] Urinalysison 11-24-2023 Appearance (U) Clear Normal Clear [facility] Comment on above: Order Comment: Name Collection Type:: Clean-Voided Midstream Performed By: #### U HCG, UA, URDS #### [place] [address] [place] Bilirubin,Urine Negative Normal Negative [facility] Comment on above: Order Comment: Name Collection Type:: Clean-Voided Midstream Performed By: #### U HCG, UA, URDS #### [place] [address] [place] Color (U) Yellow Normal Yellow [facility] Comment on above: Order Comment: Name Collection Type:: Clean-Voided Midstream Performed By: #### U HCG, UA, URDS #### [address] Glucose Ql (U) Normal Normal Normal [facility] Comment on above: Order Comment: Name Collection Type:: Clean-Voided Midstream Performed By: #### U HCG, UA, URDS #### [address] Ketones Ql (U) Negative Normal Negative [facility] Comment on above: Order Comment: Name Collection Type:: Clean-Voided Midstream Performed By: #### U HCG, UA, URDS #### [address] Leukocyte esterase Test strip Ql (U) Negative Normal Negative [facility] Comment on above: Order Comment: Name Collection Type:: Clean-Voided Midstream Performed By: #### U HCG, UA, URDS #### [place] [address] [place] Nitrite,Urine Negative Normal Negative [facility] Comment on above: Order Comment: Name Collection Type:: Clean-Voided Midstream Performed By: #### U HCG, UA, URDS #### [place] [address] [place] Occult Blood,Urine Negative Normal Negative [facility] Comment on above: Order Comment: Name Collection Type:: Clean-Voided Midstream Performed By: #### U HCG, UA, URDS #### [facility] [address] pH (U) 6.5 [pH] Normal 5.0-9.0 [facility] Comment on above: Order Comment: Name Collection Type:: Clean-Voided Midstream Performed By: #### U HCG, UA, URDS #### [facility] [address] [place] [id number] [facility] Protein,Urine Negative Normal Negative [facility] Comment on above: Order Comment: Name Collection Type:: Clean-Voided Midstream Performed By: #### U HCG, UA, URDS #### [facility] [address] Specificy [place],Urine 1.020 Normal 1.001-1.030 [facility] Comment on above: Order Comment: Name Collection Type:: Clean-Voided Midstream Performed By: #### U HCG, UA, URDS #### [facility] [address] Urobilinogen,Urine Normal Normal Normal [facility] Comment on above: Order Comment: Name Collection Type:: Clean-Voided Midstream Performed By: #### U HCG, UA, URDS #### [address] Lipid 1996 panelon 4 Cholesterol [Mass/Vol] 143 mg/dL Low 150-200 [facility] Comment on above: Performed By: #### 2 4331-1 #### [facility] ([id number]) [address] [place] [address], [address] [place] [address] Cholesterol in HDL [Mass/Vol] 67 mg/dL Normal >39 [facility] Comment on above: Result Comment: HDL <40 mg/dL - High Risk HDL > or = 40mg/dL- Desirable HDL >60 mg/dL - Negative Risk Performed By: #### 2 4331-1 #### [facility] ([id number]) [address], [address] [place] [address] Cholesterol in LDL [Mass/Vol] 65 mg/dL Normal <130 [facility] Comment on above: Result Comment: LDL <100 mg/dL - Desirable LDL >160 mg/dL - High Risk Performed By: #### 2 4331-1 #### [facility] ([id number]) [address], [address] [place] [address] Cholesterol in VLDL [Mass/Vol] 11 mg/dL Normal 0-30 [facility] Comment on above: Performed By: #### 2 4331-1 #### [facility] ([id number]) [address], [address] [place] [address] CHOLESTEROL:HDL 2.1 Normal 1.0-5.0 [facility] Comment on above: Performed By: #### 2 4331-1 #### [facility] ([id number]) [address], [address] [place] [address] Triglyceride [Mass/Vol] 53 mg/dL Normal 27-150 [facility] Comment on above: Performed By: #### 2 4331-1 #### [facility] ([id number]) [address], [facility] [address] [place] [address] Vital Signs Date Time Vital Sign Value Performing Clinician Salazar gonzalez 10-13-2024 11:30-0500 Body mass index (BMI) [Ratio] 25.03 kg/m2 [employer] Work Phone: [facility] [employer] 10-13-2024 11:30-0500 Body weight 72.48 kg [employer] Work Phone: [facility] [employer] 10-13-2024 11:30-0500 Diastolic blood pressure 62 mm[Hg] [employer] DO Work Phone: [facility] 10-13-2024 11:30-0500 Systolic blood pressure 114 mm[Hg] Rohan Deon DO Work Phone: [facility] 09-29-2024 08:51-0500 Body height 170.2 cm Tucker Givens DPM Work Phone: [facility] 09-29-2024 08:51-0500 Body mass index (BMI) [Ratio] 24.9 kg/m2 Tucker Givens DPM Work Phone: [facility] 09-29-2024 08:51-0500 Body weight 72.12 kg Tucker Givens DPM Work Phone: [facility] 09-26-2024 09:46-0500 Body mass index (BMI) [Ratio] 24.9 kg/m2 La Ruvalcaba PA Work Phone: [facility] 09-26-2024 09:46-0500 Body weight 72.12 kg La Lenore PA Work Phone: [facility] 09-26-2024 09:46-0500 Diastolic blood pressure 62 mm[Hg] La Ruvalcaba PA Work Phone: [facility] 09-26-2024 09:46-0500 Systolic blood pressure 112 mm[Hg] La Polk PA Work Phone: [facility] 09-06-2024 14:06-0500 Body mass index (BMI) [Ratio] 24.45 kg/m2 Rohan Deon DO Work Phone: [facility] 09-06-2024 14:06-0500 Body weight 70.82 kg Rohan Deon DO Work Phone: [facility] 09-06-2024 14:06-0500 Diastolic blood pressure 60 mm[Hg] Rohan Deon DO Work Phone: [facility] 09-06-2024 14:06-0500 Systolic blood pressure 128 mm[Hg] Rohan Deon DO Work Phone: [facility] 07-05-2024 14:35-0400 Body mass index (BMI) [Ratio] 24.18 kg/m2 Rohan Deon DO Work Phone: [facility] 07-05-2024 14:35-0400 Body weight 70.03 kg Rohan Deon DO Work Phone: [facility] 07-05-2024 14:35-0400 Diastolic blood pressure 68 mm[Hg] Rohan Deon DO Work Phone: [facility] 07-05-2024 14:35-0400 Systolic blood pressure 116 mm[Hg] Rohan Deon DO Work Phone: [facility] 06-10-2024 10:45-0400 Body mass index (BMI) [Ratio] 24.43 kg/m2 [facility] 06-10-2024 10:45-0400 Body weight 70.76 kg Noms Nurse [facility] Healthcare Encounters Encounter Date Encounter Type Care Provider Facility Start: 10-27-2024 End: 10-27-2024 Bamboo flowsheet Rohan Deon DO Work Phone: [facility] Start: 10-27-2024 End: 10-27-2024 Bamboo flowsheet Rohan Deon DO Work Phone: [facility] Start: 10-27-2024 End: 10-27-2024 Office outpatient visit 15 minutes Rohan Doen DO Work Phone: [facility] Comment on above: Third trimester preg lazaro; 35 weeks gestation of ; Eczema, unspecified type Start: 10-27-2024 End: 10-27-2024 ambulatory ROHAN DEON Not Available Start: 10-22-2024 End: 10-22-2024 Clinisync Result Encounter Rohan Deon DO Work Phone: [facility] Unsolicited Start: 10-22-2024 End: 10-22-2024 Clinisync Result Encounter Rohan Deon DO Work Phone: [facility] External Department Unsolicited Start: 10-13-2024 End: 10-13-2024 Bamboo flowsheet Rohan Deon DO Work Phone: [facility] Start: 10-13-2024 End: 10-13-2024 Bamboo flowsheet Rohan Deon DO Work Phone: [facility] Start: 10-13-2024 End: 10-13-2024 Office outpatient visit 15 minutes Rohan Deon DO Work Phone: [facility] Comment on above: Third trimester preg lazaro; 33 weeks gestation of ; size inconsistent with dates Start: 10-13-2024 End: 10-13-2024 ambulatory ROHAN DEON Not Available Start: 09-29-2024 End: 09-29-2024 Bamboo flowsheet Tucker Givens DPM Work Phone: [facility] Start: 09-29-2024 End: 09-29-2024 Bamboo flowsheet Tucker Givens DPM Work Phone: [facility] Start: 09-29-2024 End: 09-29-2024 ambulatory TUCKER GIVENS Not Available Start: 09-29-2024 End: 09-29-2024 Office outpatient new 30 minutes Tucker Givens DPM Work Phone: [facility] Comment on above: Abscess of left grea t toe (Primary Dx); Pain of left great toe; Onychocryptosis; Difficulty walking Start: 09-27-2024 End: 09-27-2024 Emergency department patient visit [facility] Start: 09-26-2024 End: 09-26-2024 Bamboo flowsheet La CORREA Work Phone: [facility] Start: 09-26-2024 End: 09-26-2024 Bamboo flowsheet La CORREA Work Phone: [facility] Start: 09-26-2024 End: 09-26-2024 ambulatory LA RUVALCABA Not Available Start: 09-26-2024 End: 09-26-2024 Office outpatient visit 15 minutes La Ruvalcaba PA Work Phone: [facility] Comment on above: Ingrown toenail (Marline gely Dx); Third trimester ; 30 weeks gestation of Start: 09-09-2024 End: 09-09-2024 Clinisync Result Encounter Rohan Deon DO Work Phone: [facility] Unsolicited Start: 09-09-2024 End: 09-09-2024 Clinisync Result Encounter Rohan Deon DO Work Phone: [facility] Unsolicited Start: 09-06-2024 End: 09-06-2024 [...] Not Available Start: 09-01-2024 ambulatory Ollie Courtney acility:[facility] Start: 08-31-2024 End: 08-31-2024 Telephone encounter Rohan Deon DO Work Phone: [facility] Start: 08-31-2024 End: 08-31-2024 Emergency department patient visit ARUN MEREDITH [facility] Start: 08-31-2024 Encounter for other general examination MONICA SINGLETON [facility] Start: 08-28-2024 End: 08-28-2024 ambulatory CARLOTA ENRIQUEZ [facility] Start: 07-05-2024 End: 07-05-2024 Bamboo flowsheet Rohan [...] in partial remission, unspecified whether recurrent (HCC) ([facility]) Start: 06-16-2024 End: 06-19-2024 Clinisync Result Encounter [...] 05-22-2024 End: 05-22-2024 Emergency department patient visit [facility] Start: 05-11-2024 End: 05-11-2024 Emergency department patient visit [facility] Start: 02-29-2024 End: 02-29-2024 ambulatory [facility] Start: 02-22-2024 End: 02-22-2024 ambulatory ROHAN DEON Not Available Start: 02-18-2024 End: 02-18-2024 ambulatory ROHAN DEON Not Available Start: 02-12-2024 End: 02-13-2024 Emergency department patient visit [facility] Start: 02-12-2024 End: 02-13-2024 Emergency department patient visit KB WRIGHT [facility] Start: 02-12-2024 End: 02-12-2024 Emergency department patient visit ARUN MEREDITH [facility] Start: 11-24-2023 End: 11-26-2023 Evaluation and management of inpatient Ignacio Acuña Facility:[facility] Start: 11-11-2023 End: 11-11-2023 ambulatory LONNY MACEDO [facility] Start: 10-27-2022 End: 10-27-[address] RAJ KELLY Facility:H1 Procedures Date Procedure Procedure Detail Performing Clinician Start: 10-27-2024 Urnls dip stick/tabl et rgnt non-auto w/o micrscp Rohan Deon DO Work Phone: Start: 10-22-2024 [facility]A (CLEAN/CATCH) CONSTRUCTION OPERATIONS MANAGER/MICRO IF IND. Rohan Deon DO Work Phone: Start: 09-26-2024 Urnls dip stick/tabl et rgnt [...] Treatment Date Care Activity Detail Author Start: 11-03-2024 End: 11-03-2024 Patient encounter procedure 11/03/2024 9:50 AM EST Routine [facility] [address] [place] [id number] La Ruvalcaba PA [address] [place] [address] [facility] Start: 10-27-2024 End: 10-27-2024 Patient encounter procedure [facility] Comment on above: Arrived Start: 10-13-2024 End: 10-13-2025 US for US OB follow up transabdominal approach Imaging Routine size inconsistent with dates Expected: 10/13/2024, Expires: 10/13/2025 [facility] Work Phone: Comment on above: Expected: 10/13/2024 , Expires: 10/13/2025 Start: 10-13-2024 End: 10-13-2024 Patient encounter procedure 10/13/2024 11:20 AM EST Routine [facility] [address] [phone] Rohan Chavarria, DO [address] [place] [address] Arrived [facility] Comment on above: Arrived Start: 10-12-2024 End: 10-12-2024 Patient encounter procedure 10/12/2024 11:20 AM EST Routine [facility] [address] [place] [phone] Rohan Chavarria, DO [address] [place] [address] [facility] Start: 10-11-2024 End: 10-11-2024 Patient encounter procedure 10/11/2024 4:00 PM EST Office Visit [facility] [address] [place] [phone] Tucker Givens, DPM [address] [place] [address] [facility] Start: 09-26-2024 End: 09-26-2024 Patient encounter procedure 09/26/2024 9:20 AM EST Routine [facility] [address] [place] [address] La Ruvalcaba PA [address] [place], [place] [id number] [facility] Start: 09-06-2024 End: 09-06-2025 CBC panel - Blood by Automated count CBC Lab Routine Diabetes mellitus screening Expected: 09/06/2024 (Approximate), Expires: 09/06/2025 [facility] Work Phone: Comment on above: Expected: 09/06/2024 (Approximate), Expires: 09/06/2025 Start: 09-06-2024 End: 09-06-2025 Measurement of glucose 1 hour after glucose challenge for glucose tolerance test Glucose tolerance, 1 hour Lab Routine Diabetes mellitus screening Expected: 09/06/2024 (Approximate), Expires: 09/06/2025 [facility] Comment on above: Expected: 09/06/2024 (Approximate), Expires: 09/06/2025 Start: 09-06-2024 End: 09-06-2024 Patient encounter procedure 09/06/2024 1:50 PM EST Routine [facility] [address] [address] Rohan Chavarria, DO [address] [place], [place] [phone] Arrived [facility] Comment on above: Arrived Start: 08-03-2024 End: 08-03-2024 Patient encounter procedure 08/03/2024 2:40 PM EST Routine [facility] [address] [address] Rohan Chavarria, DO [address] [place], [place] [id number] [facility] Start: 07-18-2024 End: 07-18-2024 Professional / ancillary services management 07/18/2024 2:00 PM EDT Ancillary Procedure [facility] [address] [phone] [facility] Start: 07-05-2024 End: 07-05-2025 US for US OB ANATOMY SINGLE W US OB CERVICAL LENGTH Imaging Routine Screening, , for anatomic survey Expected: 07/05/2024 (Approximate), Expires: 07/05/2025 [facility] Work Phone: Comment on above: Expected: 07/05/2024 (Approximate), Expires: 07/05/2025 Start: 07-05-2024 End: 07-05-2024 Patient encounter procedure 07/05/2024 1:40 PM EDT Routine [facility] [address] [phone] Rohan Chavarria, DO [address] [place] [address] [facility] Start: 06-10-2024 End: 06-10-2025 ABO/Rh ABO/Rh Lab Routine Missed menses Expected: 06/10/2024 (Approximate), Expires: 06/10/2025 [facility] Comment on above: Expected: 06/10/2024 (Approximate), Expires: 06/10/2025 Start: 06-10-2024 End: 12-08-2024 Alpha fetoprotein, maternal Alpha fetoprotein, maternal Lab Routine Second trimester Expected: 06/10/2024 (Approximate), Expires: 12/08/2024 [facility] Comment on above: Expected: 06/10/2024 [...] age Expected: 06/10/2024 (Approximate), Expires: 06/10/2025 [facility] Comment on above: Expected: 06/10/2024 (Approximate), Expires: 06/10/2025 Start: 06-10-2024 End: 06-10-2025 US for US OB > 14 WEEKS Imaging Routine Missed menses Elevated serum hCG Expected: 06/10/2024 (Approximate), Expires: 06/10/2025 [facility] Comment on above: Expected: 06/10/2024 (Approximate), Expires: 06/10/2025 Start: 06-10-2024 End: 06-10-2025 US Pelvis transvaginal US OB transvaginal Imaging Routine Missed menses Expected: 06/10/2024 (Approximate), Expires: 06/10/2025 [facility] Comment on above: Expected: 06/10/2024 (Approximate), Expires: 06/10/2025 Start: 05-22-2024 Influenza vaccination Influenza Vacc ine (#1) [facility] Bacteria identified in Urine by Culture Urine culture Microbiology Routine Missed menses Ordered: 06/10/2024 [facility] Comment on above: Ordered: 06/10/2024 CBC W Auto Different ial panel - Blood CBC and differential Lab Routine Missed menses Ordered: 06/10/2024 [facility] Comment on above: Ordered: 06/10/2024 Hemoglobin A1c/Hemoglobin.total in Blood Hemoglobin A1c Lab Routine Missed menses Ordered: 06/10/2024 [facility] Comment on above: Ordered: 06/10/2024 Hepatitis B virus surface Ag [Presence] in Serum or Plasma by Immunoassay Hepatitis B surface antigen Lab Routine Missed menses Ordered: 06/10/2024 [facility] Comment on above: Ordered: 06/10/2024 Hepatitis C virus Ab [Presence] in Serum or Plasma by Immunoassay Hepatitis C antibody Lab Routine Missed menses Ordered: 06/10/2024 [facility] Comment on above: Ordered: 06/10/2024 HIV-1/HIV-2 antigen/antibody combination immunoassay HIV-1 and HIV-2 antibodies Lab Routine Missed menses Ordered: 06/10/2024 [facility] Comment on above: Ordered: 06/10/2024 Reagin Ab [Presence] in Serum by RPR RPR Lab Routine Missed menses Ordered: 06/10/2024 [facility] Comment on above: Ordered: 06/10/2024 Rubella antibody, IgG Rubella an tibody, IgG Lab Routine Missed menses Ordered: 06/10/2024 [facility] Comment on above: Ordered: 06/10/2024 Immunizations Immunization Date Immunization Notes Care Provider Mushtaq olivo 05-12-2022 meningococcal B vacc ine, recombinant, OMV, adjuvanted Tucker Givens DPM Work Phone: [facility] 02-28-2016 meningococcal oligosaccharide (groups A, C, Y and W-135) diphtheria toxoid conjugate vaccine (MCV4O) Tucker Givens DPM Work Phone: [facility] 02-28-2016 tetanus toxoid, redu maggy diphtheria toxoid, and acellular pertussis vaccine, adsorbed Tucker Givens DPM Work Phone: [facility] 12-12-2009 diphtheria, tetanus toxoids and acellular pertussis vaccine Tucker Givens DPM Work Phone: [facility] 12-12-2009 measles, mumps and r ubella virus vaccine Tucker Givens DPM Work Phone: [facility] 12-12-2009 poliovirus vaccine, inactivated Tucker Givens DPM Work Phone: [facility] 09-25-2006 diphtheria, tetanus toxoids and acellular pertussis vaccine Tucker Givens DPM Work Phone: [facility] 01-21-2006 haemophilus influenz ae type b vaccine, PRP-T conjugate Tucker Givens DPM Work Phone: [facility] 01-21-2006 measles, mumps and r ubella virus vaccine Tucker Givens DPM Work Phone: [facility] 09-01-2005 DTaP-hepatitis B and poliovirus vaccine Tucker Rusher DPM Work Phone: [facility] 09-01-2005 haemophilus influenz ae type b vaccine, PRP-T conjugate Tucker Rusher DPM Work Phone: [facility] 05-30-2005 DTaP-hepatitis B and poliovirus vaccine Tucker Rusher DPM Work Phone: [facility] 05-30-2005 haemophilus influenz ae type b vaccine, PRP-T conjugate Tucker Rusher DPM Work Phone: [facility] 03-14-2005 DTaP-hepatitis B and poliovirus vaccine Tucker Rusher DPM Work Phone: [facility] 03-14-2005 haemophilus influenz ae type b vaccine, PRP-T conjugate Tucker Rusher DPM Work Phone: [facility] 03-14-2005 pneumococcal conjuga te vaccine, 7 valent Tucker Rusher DPM Work Phone: [facility] 2004 hepatitis B vaccine, pediatric or pediatric/adolescent dosage Tucker Rusher DPM Work Phone: [facility] Payers Date Payer Category Payer Medicaid (Managed Care) DERRELL ZIMMERMAN [id number] 2024 Medicaid [id number] 2024 Medicaid [id number] 2023 Self-pay 2022 Unknown [id number] 2004 Unknown [id number] 2.16.840.1.592878.3.579.2. 1285 2004 Unknown [id number] 2.16.840.1.625565.3.579.2. 1285 2004 Unknown [id number] 2.840.1.497257.3.579.2. 1285 2004 Unknown [id number] 2.16840.1.085626.3.579.2. 1285 2004 Unknown [id number] 2.16840.1.938115.3.579.2. 1285 2004 Unknown [id number] 2.16840.1.872461.3.579.2. 1285 2004 Unknown [id number] 2.840.1.866509.3.579.2. 1258 2004 Unknown [id number] 2.16840.1.152346.3.579.2. 1258 2004 Unknown [id number] 2.840.1.891367.3.579.2. 1258 2004 Unknown [id number] 2.840.1.869539.3.579.2. 1258 2004 Unknown [id number] 2.840.1.826012.3.579.2. 1258 2004 Unknown [id number] 2.16840.1.638364.3.579.2. 1258 2004 Unknown [id number] 2.16840.1.953261.3.579.2. 1258 2004 Unknown [id number] 2.16840.1.118918.3.579.2. 1258 2004 Unknown [id number] 2.16840.1.451977.3.579.2. 1258 1972 Unknown [id number] 2.16840.1.555872.3.579.2. 593 1959 Unknown [id number] Unknown [id number] 2.16.840.1.942140.3.579.2. 531 Unknown [id number] 2.16.840.1.107335.3.579.2. 531 Social History Date Type Detail Facility Tobacco smoking stat [facility] Tobacco smoking consumption unknown [facility] [...] Personal health goal Clinical Notes 06-10-2024 to 10-27-2024 Monica Tilley LPN - 10/27/2024 10:50 AM Anurag Tilley LPN - 10/13/2024 11:20 AM Devorah Givens DPM - 09/29/2024 8:45 AM ESTPatient InstructionsSUNNY Quintana - 09/26/2024 9:20 AM EST Note Date & Type Note Facility 10-27-2024 History of Presen t illness Narrative Reason for Appointment: Patient ID: Sharona Marks is a 18 y.o. female who presents for Routine Visit Patient presents today for Return OB appointment. MEDICATIONS Current Outpatient Medications Medication Instructions MV-Min-Fe Fum-FA-DHA ( 1 PO) Take by mouth venlafaxine XR (EFFEXOR XR) 37.5 mg, Oral, Daily, Do not crush or chew. ALLERGIES Allergies Allergen Reactions Hydrocortisone Makes eczema worse PROBLEMS Active Ambulatory Problems Diagnosis Date Noted [...] systems reviewed and are negative. OBJECTIVE Objective: OBGyn Exam Vitals: Estimated body mass index is 25.03 kg/m as calculated from the following: Height as of 09/29/24: 5' 7 . Weight as of 10/13/24: 159 lb 12.8 oz. BP: Patient's last menstrual period was 12/27/2023. ASSESSMENT & PLAN ICD-10-CM 1. Third trimester Z34.93 POCT urinalysis dipstick manually resulted 2. 35 weeks gestation of Z3A.35 Patient presents today for a routine obstetrics appointment. Patient is currently 35w1d with a Estimated Date of Delivery: 11/30/24. Patient voiced that her eczema is irritating her. Patient voiced that she cannot use the hydrocortisone cream from the Docent Coordinator, but is able to use steroid creams. Patient aware that she will have pelvic exam next appointment along with GBS obtained. RTC in 1 week. Documented by Monica Tilley LPN on behalf of: Rohan Chavarria DO documented in this encounter [facility] 10-13-2024 History of Presen t illness Narrative [...] Ruvalcaba PA-C documented in this encounter [facility] 09-29-2024 History of Presen t illness Narrative Images from the original note were not included. Subjective Patient ID: Sharona Marks is a 18 y.o. female who presents for Ingrown Toenail (18 yo [employer] presents today for infected ingrown nail, 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 Has tried soaking foot. ). HPI Initial patient encounter and assessment. Accompanied by her boyfriend, Mart. Chief complaint: Progressively painful, locally inflamed, edematous infected ingrown toenail medial margin of the left great toe of several weeks duration. Denies injury or trauma. Initial assessment at [facility] ED on 09/27/2024. Currently on cephalexin therapy [...] Givens DPM documented in this encounter [facility] 09-29-2024 Instructions Tucker Givens DPM - 09/29/2024 8:45 AM EST Instructions as noted documented in this encounter [facility] 09-26-2024 History of Presen t illness Narrative [...] SUNNY Quintana documented in this encounter [facility] 09-06-2024 History of Presen t illness Narrative [...] nursing note reviewed. Exam conducted with a coffee roaster helper present. Vitals: Estimated body mass index is [...] Chavarria DO documented in this encounter [facility] 08-31-2024 Telephone encount er Note Left message for pt to call and schedule OB appt. She is self pay, Medicaid is still not active as of 08/31/24. [facility] 12-11-2024 Miscellaneous Notes Formattin g of this note might be different from the original. Left message for pt to call and schedule OB appt. She is self pay, Medicaid is still not active as of 08/31/24. documented in this encounter [facility] 07-05-2024 History of Presen t illness Narrative [...] nursing note reviewed. Exam conducted with a coffee roaster helper present. Vitals: Estimated body mass index is [...] Chavarria DO documented in this encounter [facility] 06-10-2024 History of Presen t illness Narrative [...] or undercooked meat, and stay away from [facility]. Patient has also been advised to [...] in this encounter [facility] Evaluation note Diagnosis Second trimester state, [...] with dates documented in this encounter [facility]* Diagnosis Third trimester state, incidental 35 weeks gestation of Eczema, unspecified type documented in this encounter [facility] Summary Purpose Family History No Family History Records FoundNo Family History Records FoundNo Family History Records FoundNo Family History Records Found Advance Directives No Advanced Directives Records FoundNo Advanced Directives Records FoundNo Advanced Directives Records FoundNo Advanced Directives Records Found Additional Source Comments INFORMATION SOURCE (unrecogn ized section and content) DATE CREATED AUTHOR 10/28/2022 [facility] DATE CREATED AUTHOR AUTHOR'S ORGANIZ ATION 09/08/[address] [facility] DATE CREATED AUTHOR AUTHOR'S ORGANIZ ATION 10/03/2024 [facility] [facility] DATE CREATED AUTHOR AUTHOR'S ORGANIZ ATION 10/29/2024 [facility] EPIC Care Teams (unrecognized sec tion and content) Tobacco Shaker Relationship Specialty Start Date End Date Arun Meredith MD [address] [place] [address], [address] [place] [address] PCP - General Family Medicine 01/22/24 Tobacco Shaker Relationship Specialty Start Date End Date Arun Meredith MD [address] [place] [address], [address] [place] [address] PCP - General Family Medicine 01/22/24 Tobacco Shaker Relationship Specialty Start Date End Date Arun Merdeith MD [address] [place] [address], [address] [place] [address] PCP - General Family Medicine 01/22/24 Tobacco Shaker Relationship Specialty Start Date End Date Arun Meredith MD [address] [place] [address], [address] [place] [address] PCP - General Family Medicine 01/22/24 Tobacco Shaker Relationship Specialty Start Date End Date Arun Meredith MD [address] [place] [address], [address] [place] [address] PCP - General Family Medicine 01/22/24 Tobacco Shaker Relationship Specialty Start Date End Date Arun Meredith MD [address] [place] [address], [address] [place] [address] PCP - General Family Medicine 01/22/24 Tobacco Shaker Relationship Specialty Start Date End Date Arun Meredith MD [address] [place] [address], [address] [place] [address] PCP - General Family Medicine 01/22/24 Tobacco Shaker Relationship Specialty Start Date End Date Arun Meredith MD [address] [place] [address], [address] [place] [address] PCP - General Family Medicine 01/22/24 Tobacco Shaker Relationship Specialty Start Date End Date Arun Meredith MD [address] [place] [address], [address] [place] [address] PCP - General Family Medicine 01/22/24 Tobacco Shaker Relationship Specialty Start Date End Date Arun Meredith MD [address] [place] [address], [address] [place] [address] PCP - General [facility] 01/22/24 Tobacco Shaker Relationship Specialty Start Date End Date Arun Meredith MD [address] [place] [address], [address] [place] [address] PCP - [facility] 01/22/24 Tobacco Shaker Relationship Specialty Start Date End Date Arun Meredith MD [address] [place] [address], [address] [place] [address] PCP - [facility] 01/22/24 Tobacco Shaker Relationship Specialty Start Date End Date Arun Meredith MD [address] [place] [address], [address] [place] [address] PCP - General Family Medicine 01/22/24 Reason for Visit (unrecogniz ed section and content) Reason Comments Routine Visit STI Screening Reason Comments Routine Visit Reason Comments Amenorrhea Reason Comments Ingrown Toenail 18 yo [employer] presents to day for infected ingrown nail, [...] BE BASED ON THE PRIMARY CLINICAL RECORDS. Partly [facility]. provides no warranty or guarantee of the accuracy or completeness of information in this document.
== END 2024-11-03 20:18 | disposition home or self-care (01) ==
LOC: LAB 20:17
PROVIDERS: PCP Internal Medicine; Visit Provider Physician Assistant
DX: Z34.93 Encounter for supervision of normal pregnancy, unspecified, third trimester (principal)
CPT/HCPCS: 36415; 87081

== ENCOUNTER 2024-11-23 04:59 | Inpatient (IN) | payer OTHER, SELFPAY ==
[2024-11-23] VITALS (70 sets, daily range): BP systolic 111–176; BP diastolic 62–98; PULSE 59–96; TEMP 36.2–36.9
--- OUTSIDE RECORDS SUMMARY | 2024-11-23 05:02 | XMS_ITS | CCD ---
Author Organization [facility] Care Team Providers Care Pre Owned Sales Consultant Name Role Phone PAY, DR ANTHONY Admitting Unavailable PAY, DR ANTHONY Attending Unavailable PAY, DR ANTHONY Consulting Unavailable Arun Meredith MD Primary Care Provider [phone] Ignacio Acuña Attending Unavailable NON STAFF Primary Care Unavailable Ignacio Acuña Admitting Unavailable Ollie Cisneros Admitting Unavailab le Ollie Cisneros Attending Unavailab niki NON STAFF Primary Care [...] Care Unavailable ARUN MEREDITH Primary Care Unavailable KATRINA SINGLETON Attending Unavailable ARUN MEREDITH Primary Care Unavailable Arun Meredith MD Primary Care Provider SHASHANK CHAVARRIA Attending Unavailable DEON, SHASHANK Attending Unavailable LA RUVALCABA Attending Unavailable DEON, SHASHANK Attending Unavailable LA RUVALCABA Attending Unavailable DEON, SHASHANK Attending Unavailable DEON, SHASHANK Attending Unavailable DEON, SHASHANK Attending Unavailable DEON, SHASHANK Attending Unavailable LA RUVALCABA Attending Unavailable CLARKE GIVENS Attending Unavailable Allergies Allergy Classification Reported Allergen(s) Allergy Type Date of Onset Reaction(s) Facility (12 sources) Hydrocortisone Drug Allergy [facility] Medications Current Medications Medication Drug Class(es) Dates Sig (Normalized) Sig (Original) cariprazine 3 mg oral capsule (1 source) Atypical Antipsychotic Start: 12-30-2023 take 1 capsule by mouth once daily VRAYLAR 3 mg capsule Take 1 capsule (3 mg total) by mouth nightly. 12/30/2023 Active clobetasol propionate 0.5 mg/ml topical cream (12 sources) Corticosteroid Start: 10-31-2024 End: 12-04-2024 clobetasol (Temovate) 0.05 % cream Indications: Eczema, unspecified type Apply topically 2 (two) times a day 0.5g applied to affected area twice daily. 60 g 1 11/04/2024 12/04/2024 Active Start: 10-27-2024 End: 11-26-2024 clobetasol (Temovate) 0.05 % cream Indications: Dermatitis Apply 1 application topically in the morning and 1 application before bedtime. Apply pea-size amount to affected area.. 60 g 1 10/27/2024 11/26/2024 Active hydrOXYzine pamoate 25 mg oral capsule (1 source) Antihistamine take 1 capsule by mouth in the morning hydrOXYzine (VISTARIL) 25 mg capsule Take 1 capsule (25 mg total) by mouth in the morning. Active ondansetron 4 mg disintegrating oral tablet (4 sources) Serotonin-3 Receptor Antagonist Start: End: take 1 tablet by mouth every six [...] ( 1 PO) Take by mouth Active traZODone hydrochloride 50 mg oral tablet (1 source) Serotonin Reuptake Inhibitor Start: take 1 tablet by mouth once daily traZODone (DESYREL) 50 mg tablet Take 1 tablet (50 mg total) by mouth nightly. 12/30/2023 Active 24 hr upadacitinib 15 mg extended release oral tablet (1 source) take 1 tablet by mouth every twenty-four hours in the morning upadacitinib (RINVOQ) 15 mg tablet extended release 24 hr Take 1 tablet (15 mg total) by mouth in the morning. Active 24 hr venlafaxine 37.5 mg extended release oral capsule (20 sources) Serotonin and Norepinephrine Reuptake Inhibitor Start: 024 End: 025 take 1 capsule by mouth once daily venlafaxine XR (Effexor XR) 37.5 MG 24 hr capsule Indications: Anxiety with depression Take 1 capsule (37.5 mg) by mouth Daily Do not crush or chew. 30 capsule 11 09/06/2024 09/06/2025 Active Completed/Discontinued Medications Medication Drug Class(es) Dates Sig (Normalized) Sig (Original) [id number] 200 actuat albuterol 0.09 mg/actuat metered dose inhaler (1 source) beta2-Adrenergic Agonist End: 02-29-2024 albuterol (PROVENTIL HFA;VENTOLIN HFA) 90 mcg/actuation inhaler Inhale 2 puffs. Patient uses 1-2 puffs 30-60 minutes prior to exertion 02/29/2024 Discontinued (Therapy completed) cephalexin 500 mg oral capsule (7 sources) [...] 21 capsule 09/26/2024 10/13/2024 Discontinued (Therapy completed) cetirizine hydrochloride 10 mg oral tablet (1 source) Histamine-1 Receptor Antagonist End: 02-29-2024 take 1 tablet by mouth in the morning cetirizine (ZyrTEC) 10 mg tablet Take 10 mg by mouth in the morning. 02/29/2024 Discontinued (Therapy completed) citalopram 20 mg oral tablet (6 sources) Serotonin Reuptake Inhibitor Start: 07-05-2024 End: 07-05-2025 take 1 tablet by mouth once daily citalopram (CeleXA) 20 MG tablet Indications: Major depressive disorder in partial remission, unspecified whether recurrent (HCC) (CMS/HCC) Take 1 tablet (20 mg) by mouth Daily 30 tablet 11 07/05/2024 09/06/2024 Discontinued 2 ml dupilumab 150 mg/ml auto-injector (1 source) Interleukin-4 Receptor alpha Antagonist Start: 04-24-2022 End: 02-29-2024 DUPIXENT PEN 300 mg/2 mL pen injector SUBQ injection pen Once every other week 04/24/2022 02/29/2024 Discontinued (Therapy completed) lurasidone hydrochloride 40 mg oral tablet (1 source) Atypical Antipsychotic End: 02-29-2024 take 1 tablet by mouth in the morning lurasidone (LATUDA) 40 mg tablet Take 1 tablet (40 mg total) by mouth in the morning. 02/29/2024 Discontinued (Therapy completed) metroNIDAZOLE 500 mg oral tablet (5 sources) Nitroimidazole Antimicrobial Start: 11-04-2024 End: 11-17-2024 take 1 tablet by mouth in the morning metroNIDAZOLE (Flagyl) 500 MG tablet Indications: BV (bacterial vaginosis) Take 1 tablet (500 mg) by mouth in the morning and 1 tablet (500 mg) before bedtime. Do all this for 7 days. Do not drink alcohol while taking this medication. 14 tablet 11/04/2024 11/17/2024 Discontinued pantoprazole 20 mg delayed release oral tablet (1 source) Proton Pump Inhibitor Start: 09-25-2022 End: 02-29-2024 take 1 tablet by mouth in the morning pantoprazole (PROTONIX) 20 mg EC tablet Take 1 tablet (20 mg total) by mouth in the morning. 90 tablet 1 09/25/2022 02/29/2024 Discontinued (Therapy completed) Problems Active Problems Problem Classification Problem Date Documented Date Episodic/Chronic Allergic reactions (1 source) Other atopic dermatitis; Translations: [Other atopic dermatitis] Onset: 11-11-2023 Chronic Allergic reactions (2 sources) Eczema; Translations: [Dermatitis, unspecified] 10-27-2024 Episodic Anxiety disorders (20 sources) Mixed anxiety and depressive disorder; Translations: [...] Episodic Immunizations and screening for infectious disease (4 sources) Exposure to sexually transmissible disorder; Translations: [...] Onset: 09-27-2024 Episodic Other female genital disorders (4 sources) Vaginal discharge; Translations: [Other specified noninflammatory [...] nail] Onset: 09-27-2024 Episodic Residual codes; unclassified (20 sources) Gestation period, 27 weeks; Translations: [27 [...] [35 weeks gestation of ] 10-27-2024 Episodic Residual codes; unclassified (2 sources) Gestation period, 36 weeks; Translations: [36 weeks gestation of ] 11-03-2024 Episodic Residual codes; unclassified (2 sources) Gestation period, 38 weeks; Translations: [38 weeks gestation of ] 11-17-2024 Episodic Residual codes; unclassified (2 sources) Gestation period, 37 weeks; Translations: [37 weeks gestation of ] 11-10-2024 Episodic Skin and subcutaneous tissue infections (3 [...] Onset: 02-12-2024 Episodic Mood disorders (1 source) Mood disorders Onset: 06-25-2021 06-25-2021 Other aftercare (1 source) Other intermodal customer service (current) drug therapy; Translations: [Other alf (current) drug therapy] Onset: 11-11-2023 Episodic Other [...] source) Pallor; Translations: [Pallor] Onset: 02-29-2024 Episodic Residual codes; unclassified (1 source) Pale complexion; Translations: [Pallor] 02-29-2024 Episodic Urinary tract infections (1 source) Urinary tract infection, site not specified; Translations: [Urinary tract infection, site not specified] Onset: 05-22-2024 Episodic NEGATED: Highlighted row has been ruled out!Unclassified (1 source) No known active problems 06-04-2023 Results Test Name Value Interpretation Reference Range Facility Urinalysis macro (dipstick) panel (U)on 11-17-2024 Bilirubin, UA Negative Negative - 4(70) +++ mg/dL [facility] Blood, UA Negative Negative - 50 Mendez/mcL [facility] Clarity, UA Clear [facility] Yellow [facility] Glucose, UA Negative Negative - 2000(110) ++++ mg/dL [facility] Interpretation and review of laboratory results Abnormal [facility] Ketones, UA Negative Negative - 160(16) ++++ mg/dL [facility] Leukocytes, UA Positive Negative - 500+++ Bhavani/mcL [facility] Comment on above: small Nitrite, UA Negative Negative - Positive [facility] pH, UA 8 5 - 9 [facility] e Protein, UA Positive Negative - 2000(20) ++++ mg/dL [facility] Comment on above: 30 Spec Grav, UA 1.02 1 - 1.03 [facility] Urobilinogen, UA 0.2 0.2 - 12 mg/dL [facility] e ALL MISCELLANEOUS TESTon MISCELLANEOUS TEST COMMENT . [facility] ealthcare Comment on above: Test Ordered: [id number] Strep Gp B Culture+Rflx Strep Gp B Culture+Rflx Positive [A ] CB Reference Range: Negative Centers for Disease Control and Prevention (CDC) and [place] [employer] Gynec[employer] (ACOG) guidelines for prevention of group B streptococcal (GBS) disease specify co-collection of a vaginal and rectal swab specimen to maximize sensitivity of GBS detection. Per the CDC and ACOG, swabbing both the lower vagina and rectum substantially increases the yield of detection compared with sampling the vagina alone. Penicillin G, ampicillin, or cefazolin are indicated for intrapartum prophylaxis of GBS colonization. Reflex susceptibility testing should be performed prior to use of clindamycin only on GBS isolates from penicillin- allergic women who are considered a high risk for anaphylaxis. Treatment with vancomycin without additional testing is warranted if resistance to clindamycin is noted. Organism Identification Comment CB Reference Range: . Beta hemolytic Streptococcus, group B Clindamycin Resistant [A ] Reference Range: . Testing for inducible clindamycin resistance was performed using erythromycin and clindamycin in the D-zone test. Per the Centers for Disease Control and Prevention (CDC), erythromycin is no longer an acceptable alternative for intrapartum group B Streptococcus (GBS) prophylaxis for penicillin-allergic women at high risk for anaphylaxis. Performed at: - [address] [id number] Monitor Technician: Antonio Case PhD, Phone: [phone] CULTURE, GROUP B STREP WITH SUSCEPTIBILITY [facility] Urinalysis macro (dipstick) panel (U)on 11-10-2024 Bilirubin, UA Negative Negative - 4(70) +++ mg/dL [facility] Blood, UA Negative Negative - 50 Mendez/mcL [facility] Clarity, UA Clear [facility] re Color, UA Yellow [facility] e Glucose, UA Negative Negative - 1999(110) ++++ mg/dL [facility] Interpretation and review of laboratory results Abnormal [facility] Ketones, UA Negative Negative - 160(16) ++++ mg/dL [facility] Leukocytes, UA Positive Negative - 500+++ Bhavani/mcL [facility] Comment on above: small Nitrite, UA Negative Negative - Positive [facility] pH, UA 7 5 - 9 [facility] e Protein, UA Positive Negative - 1999(20) ++++ mg/dL [facility] Comment on above: 30mg/dL Spec Grav, UA 1.025 1 - 1.03 [facility] Urobilinogen, UA 0.2 0.2 - 12 mg/dL [facility] RECURRENT VAGINITIS (HTRX)on 11-04-2024 ATOPOBIUM VAGINAE 18.306 Abnormal [facility] ATOPOBIUM VAGINAE Detected Abnormal [facility] BVAB 2,3 (BACTERIAL VAGINOSIS ASSOCIATED BACTERIA 2, 3); MOBILUNCUS SPP 22.454 Abnormal [facility] BVAB 2,3 (BACTERIAL VAGINOSIS ASSOCIATED BACTERIA 2, 3); MOBILUNCUS SPP Detected Abnormal [facility] POPPY ALBICANS, PARAPSILOSIS, TROPICALIS 0 [facility] POPPY ALBICANS, PARAPSILOSIS, TROPICALIS Not detected [facility] POPPY GLABRATA 0 [facility] ltare POPPY GLABRATA Not detected [facility] ealtare POPPY KRUSEI 0 [facility] hcare POPPY KRUSEI Not detected [facility] lthcare CHLAMYDIA TRACHOMATIS 26.801 Abnormal [facility] CHLAMYDIA TRACHOMATIS Detected Abnormal [facility] ERMB, C; MEFA 17.799 Abnormal [facility] care ERMB, C; MEFA Detected Abnormal [facility] care GARDNERELLA VAGINALIS 20.585 Abnormal [facility] GARDNERELLA VAGINALIS Detected Abnormal [facility] Interpretation and review of laboratory results Abnormal [facility] MEGASPHAERA (TYPES 1, 2) 15.637 Abnormal [facility] MEGASPHAERA (TYPES 1, 2) Detected Abnormal [facility] MYCOPLASMA GENITALIUM 0 [facility] MYCOPLASMA GENITALIUM Not detected [facility] NEISSERIA GONORRHOEAE 0 [facility] NEISSERIA GONORRHOEAE Not detected [facility] TET B, TET M 18.745 Abnormal [facility] are TET B, TET M Detected Abnormal [facility] are TRICHOMONAS VAGINALIS 0 [facility] TRICHOMONAS VAGINALIS Not detected [facility] Urinalysis macro (dipstick) panel (U)on 11-03-2024 Bilirubin, UA Negative Negative - 4(70) +++ mg/dL [facility] Blood, UA Negative Negative - 50 Mendez/mcL [facility] Healthcare Clarity, UA Clear [facility] re Color, UA Yellow [facility] e Glucose, UA Negative Negative - 1999(110) ++++ mg/dL [facility] Interpretation and review of laboratory results Abnormal [facility] Ketones, UA Negative Negative - 160(16) ++++ mg/dL [facility] Leukocytes, UA Positive Negative - 500+++ Bhavani/mcL [facility] Comment on above: small Nitrite, UA Negative Negative - Positive [facility] pH, UA 7 5 - 9 [facility] e Protein, UA Positive Negative - 1999(20) ++++ mg/dL [facility] Comment on above: 30mg/dL Spec Grav, UA 1.025 1 - 1.03 [facility] Urobilinogen, UA 1.0 0.2 - 12 mg/dL [facility] Urinalysis macro (dipstick) panel (U)on 10-27-2024 Bilirubin, UA Negative Negative - 4(70) +++ mg/dL [facility] Blood, UA Negative Negative - 50 Mendez/mcL [facility] Healthcare Clarity, UA Clear [facility]ca re Color, UA Yellow [facility] e Glucose, UA Negative Negative - 1999(110) ++++ mg/dL [facility] Interpretation and review of laboratory results Abnormal [facility] Ketones, UA Positive Negative - 160(16) ++++ mg/dL [facility] Leukocytes, UA Positive Negative - 500+++ Bhavani/mcL [facility] Nitrite, UA Negative Negative - Positive [facility] pH, UA 7 5 - 9 [facility] e Protein, UA Trace Negative - 1999(20) ++++ mg/dL [facility] Spec Grav, UA 1.025 1 - 1.03 [facility] Urobilinogen, UA 0.2 0.2 - 12 mg/dL [facility] UA (CLEAN/CATCH) LABOR ARBITRATOR HEARING OFFICE/CORA RO IF IND.on 10-22-2024 BILIRUBIN URINE Negative NEGATIVE [facility] thcare BLOOD URINE Negative NEGATIVE [facility] re Clarity (U) CLEAR CLEAR [facility] Color (U) YELLOW YELLOW [facility] e GLUCOSE URINE UA Negative NEGATIVE mg/dL [facility] Interpretation and review of laboratory results Abnormal [facility] Ketones Ql (U) 15 mg/dL [facility] Leukocyte esterase Test strip Ql (U) TRACE Abnormal NEGATIVE [facility] e NITRITE URINE Negative NEGATIVE [facility] care pH (U) 6.5 [pH] 5.0 - 9.0 [facility] e PROTEIN URINE TRACE NEG/TRACE mg/dL [facility] SPECIFIC GRAVITY URINE >=1.030 Abnormal 1.005 - 1.025 [facility] URINE MICROSCOPIC INDICATED YES [facility] UROBILINOGEN URINE 0.2 EU/dL 0.2 - 1.0 EU/dL [facility] Urinalysis macro (dipstick) panel (U)on 09-26-2024 Bilirubin, UA Negative Negative - 4(70) +++ mg/dL [facility] Blood, UA Negative Negative - 50 Mendez/mcL [facility] Clarity, UA Clear [facility] re Color, UA Yellow [facility] e Glucose, UA Negative Negative - 1999(110) ++++ mg/dL [facility] Interpretation and review of laboratory results Abnormal [facility] Ketones, UA Positive Negative - 160(16) ++++ mg/dL [facility] Comment on above: trace Leukocytes, UA Positive Negative - 500+++ Bhavani/mcL [facility] Comment on above: small Nitrite, UA Negative Negative - Positive [facility] pH, UA 6.5 5 - 9 [facility] Protein, UA Positive Negative - 1999(20) ++++ mg/dL [facility] Comment on above: 100 Spec Grav, UA 1.03 1 - 1.03 [facility] Urobilinogen, UA 0.2 0.2 - 12 mg/dL [facility] ALL CBC WITH AUTO DIFFon BASOPHILS ABSOLUTE AUTO 0 [facility] Basophils/100 WBC (Bld) 0.2 % 0.2 - 2.0 % [facility] Eosinophils/100 WBC (Bld) 1.1 % 0.9 - 7.0 % [facility] Erythrocyte distribution width (RBC) [Ratio] 12.7 % 11.0 - 15.0 % [facility] Hematocrit (Bld) [Volume fraction] 36.9 % 36.0 - 48.0 % [facility] Hemoglobin (Bld) [Mass/Vol] 12.3 g/dL 12.0 - 16.0 g/dL [facility] IMMATURE GRANULOCYTES ABS AUTO 0.04 High [facility] Immature granulocytes/100 WBC (Bld) 0.5 % 0.0 - 0.5 % [facility] Interpretation and review of laboratory results Abnormal [facility] LYMPHOCYTES ABSOLUTE AUTO 1.5 [facility] Lymphocytes/100 WBC (Bld) 17.5 % Low 20.5 - 60.0 % [facility] MCH (RBC) [Entitic mass] 29.1 pg 26.7 - 34.0 pg [facility] MCHC (RBC) [Mass/Vol] 33.3 g/dL 29.9 - 35.2 g/dL [facility] MCV (RBC) [Entitic vol] 87.4 fL 81.0 - 99.0 fL [facility] MONOCYTES ABSOLUTE AUTO 0.6 [facility] Monocytes/100 WBC (Bld) 7 % 1.7 - 12.0 % [facility] NEUTROPHILS ABSOLUTE AUTO 6.2 [facility] Neutrophils/100 WBC (Bld) 73.7 % 43.0 - 75.0 % [facility] Platelet mean volume (Bld) [Entitic vol] 11.5 fL 9.5 - 13.5 fL [facility] EO # 0.1 [facility] TB PLT 175 [facility] TB[facility] RBC 4.22 [facility] TBH WBC 8.3 [facility] Urinalysis macro (dipstick) panel (U)on 09-06-2024 Bilirubin, UA Negative Negative - 4(70) +++ mg/dL [facility] Blood, UA Negative Negative - 50 Mendez/mcL [facility] Clarity, UA Cloudy [facility] Health[facility] re Color, UA Yellow [facility] e Glucose, UA Negative Negative - 1999(110) ++++ mg/dL [facility] Interpretation and review of laboratory results Abnormal [facility] Ketones, UA Negative Negative - 160(16) ++++ mg/dL [facility] Leukocytes, UA Positive Negative - 500+++ Bhavani/mcL [facility] Comment on above: small Nitrite, UA Negative Negative - Positive [facility] pH, UA 7 5 - 9 [facility] Protein, UA Trace Negative - 1999(20) ++++ mg/dL [facility] Spec Grav, UA 1.025 1 - 1.03 [facility] Urobilinogen, UA 0.2 0.2 - 12 mg/dL [facility] CBC AND AUTO DIFFon 08-31-20 24 ABSOLUTE BASOPHIL 0.0 X10E9/L Normal 0.0-0.2 [facility] Comment on above: Performed By: #### N UM #### [facility] ([id number]) [address] [place] [address] ABSOLUTE NEUTROPHIL 5.3 X10E9/L Normal 1.5-6.6 [facility] Comment on above: Performed By: #### N UM #### [facility] ([id number]) [address] [place] [address] 61957 Basophils/100 WBC (Bld) 0.5 % Normal [facility] Comment on above: Performed By: #### N UM #### [facility] ([id number]) [address] [place] [address]854 Eosinophils (Bld) [#/Vol] 0.1 10*3/uL Normal 0.0-0.4 [facility] Comment on above: Performed By: #### N UM #### [facility] ([id number]) [address] [place] [address] 63350 Eosinophils/100 WBC (Bld) 0.9 % Normal [facility] Comment on above: Performed By: #### N UM #### [facility] ([id number]) [address] [place] [address] 05857 Erythrocyte distribution width (RBC) [Ratio] 13.4 % Normal 11.5-15.0 [facility] Comment on above: Performed By: #### N UM #### [facility] ([id number]) [address] [place] [address] 67132 Hematocrit (Bld) [Volume fraction] 38.3 % Normal 35-47 [facility] Comment on above: Performed By: #### N UM #### [facility] ([id number]) [address] [place] [address] 41855 Hemoglobin (Bld) [Mass/Vol] 13.1 g/dL Normal 11.7-15.5 [facility] Comment on above: Performed By: #### N UM #### [facility] ([id number]) [address] [place] [address] 45212 Lymphocytes (Bld) [#/Vol] 1.3 10*3/uL Normal 1.0-3.5 [facility] Comment on above: Performed By: #### N UM #### [facility] ([id number]) [address] [place] [address] 73576 Lymphocytes/100 WBC (Bld) 18.3 % Normal [facility] Comment on above: Performed By: #### N UM #### [facility] ([id number]) [address] [place] [address] 81181 MCH (RBC) [Entitic mass] 29.0 pg Normal 27-34 [facility] Comment on above: Performed By: #### N UM #### [facility] ([id number]) [address] [place] [address] 55226 MCHC (RBC) [Mass/Vol] 34.2 g/dL Normal 32-36 [facility] Comment on above: Performed By: #### N UM #### [facility] ([id number]) [address] [place] [address] 34363 MCV (RBC) [Entitic vol] 85 fL Normal 80-100 [facility] Comment on above: Performed By: #### N UM #### [facility] ([id number]) [address] [place] [address] 77324 Monocytes (Bld) [#/Vol] 0.6 10*3/uL Normal 0-0.9 [facility] Comment on above: Performed By: #### N UM #### [facility] ([id number]) [address] [place] [address] 02816 Monocytes/100 WBC (Bld) 8.6 % Normal [facility] Comment on above: Performed By: #### N UM #### [facility] ([id number]) [address] [place] [address] 33509 Neutrophils/100 WBC (Bld) 71.7 % Normal [facility] Comment on above: Performed By: #### N UM #### [facility] ([id number]) [address] [place] [address] 33007 Platelet mean volume (Bld) [Entitic vol] 9.4 fL Normal 7-12 [facility] Comment on above: Performed By: #### N UM #### [facility] ([id number]) [address] [place] [address] 91556 Platelets (Bld) [#/Vol] 218 10*3/uL Normal 150-450 [facility] Comment on above: Performed By: #### N UM #### [facility] ([id number]) [address] [place] [address] 43346 RBC COUNT 4.51 X10E12/L Normal 3.80-5.20 [facility] Comment on above: Performed By: #### N UM #### [facility] ([id number]) [address] [place] [address] 72494 WBC (Bld) [#/Vol] 7.4 10*3/uL Normal 4.0-11.0 [facility] Comment on above: Performed By: #### N UM #### [facility] ([id number]) [address] [place] [address] 14085 COMPREHENSIVE METABOLIC PANE Andrew 08-31-2024 Albumin [Mass/Vol] 3.9 g/dL Normal 3.2-5.3 [facility] Comment on above: Performed By: #### 2 106-3 #### [facility] ([id number]) [address] [place] [address] 91263 ALP [Catalytic activity/Vol] 96 U/L Normal 39-130 [facility] Comment on above: Performed By: #### 2 106-3 #### [facility] ([id number]) [address] [place] [address] 46053 ALT [Catalytic activity/Vol] 9 U/L Normal 0-31 [facility] Comment on above: Performed By: #### 2 106-3 #### [facility] ([id number]) [address] [place] [address] 35173 Anion gap [Moles/Vol] 8 mmol/L Normal 5-15 [facility] Comment on above: Performed By: #### 2 106-3 #### [facility] ([id number]) [address] [place] [address] 98939 AST [Catalytic activity/Vol] 15 U/L Normal 0-41 [facility] Comment on above: Performed By: #### 2 106-3 #### [facility] ([id number]) [address] [place] [address] 44069 Bilirubin [Mass/Vol] 0.4 mg/dL Normal 0.3-1.2 [facility] Comment on above: Performed By: #### 2 106-3 #### [facility] ([id number]) [address] [place] [address] 64499 Calcium [Mass/Vol] 9.3 mg/dL Normal 8.5-10.5 [facility] Comment on above: Performed By: #### 2 106-3 #### [facility] ([id number]) [address] [place] [address] 41776 Chloride [Moles/Vol] 104 mmol/L Normal 98-109 [facility] Comment on above: Performed By: #### 2 106-3 #### [facility] ([id number]) [address] [place] [address] 04290 CO2 [Moles/Vol] 22 mmol/L Normal 22-32 [facility] Comment on above: Performed By: #### 2 106-3 #### [facility] ([id number]) [address] [place] [address] 91197 Creatinine [Mass/Vol] 0.37 mg/dL Low 0.40-1.00 [facility] Comment on above: Result Comment: METH OD TRACEABLE TO IDMS STANDARD Performed By: #### 2 106-3 #### [facility] ([id number]) [address] [place] [address] 03775 eGFR (CKD-EPI) NON-RACE DEPENDENT >90 Normal >59 [facility] Comment on above: Result Comment: Reported eGFR is based on the CKD-EPI 2021 equation that does not use a race coefficient. Performed By: #### 2 106-3 #### [facility] ([id number]) [address] [place] [address] 39512 Glucose [Mass/Vol] 88 mg/dL Normal 65-99 [facility] Comment on above: Performed By: #### 2 106-3 #### [facility] ([id number]) [address] [place] [address] 90934 Potassium [Moles/Vol] 3.3 mmol/L Low 3.5-5.0 [facility] Comment on above: Performed By: #### 2 106-3 #### [facility] ([id number]) [address] [place] [address] 62018 Protein [Mass/Vol] 7.4 g/dL Normal 6.0-8.0 [facility] Comment on above: Performed By: #### 2 106-3 #### [facility] ([id number]) [address] [place] [address] 03803 Sodium [Moles/Vol] 134 mmol/L Normal 134-146 [facility] Comment on above: Performed By: #### 2 106-3 #### [facility] ([id number]) [address] [place] [address] 99664 Urea nitrogen [Mass/Vol] 6 mg/dL Normal 5-23 [facility] Comment on above: Performed By: #### 2 106-3 #### [facility] ([id number]) [address] [place] [address] 27080 DRUG SCREEN, URINEon 024 AMPHETAMINE/METHAMP Negative Normal NEG [facility] Comment on above: Result Comment: AMPH /METH screening cut off = 1000 ng/mL Performed By: #### 2 106-3 #### [facility] ([id number]) [address] [place] [address] [place] [address] BARBITURATES Negative Normal NEG [facility] Comment on above: Result Comment: Becca iturates screening cut off value = 200 ng/mL Performed By: #### 2 106-3 #### [facility] ([id number]) [address] [place] [address] [place] [address] BENZODIAZEPINES Negative Normal NEG [facility] Comment on above: Result Comment: Janusz odiazepines screening cut off value = 200 ng/mL Performed By: #### 2 106-3 #### [facility] ([id number]) [address] [place] [address] 30442 CANNABINOIDS Positive Abnormal NEG [facility] Comment on above: Result Comment: Conf irmation available upon request. Cannabinoids/THC screening cut off value = 50 ng/mL Performed By: #### 2 106-3 #### [facility] ([id number]) [address] [place] [address] 33879 COCAINE METABOLITE Negative Normal NEG [facility] Comment on above: Result Comment: Coca ine screening cut off value = 300 ng/mL Performed By: #### 2 106-3 #### [facility] ([id number]) [address] [place] [address] 81821 ECSTASY Negative Normal NEG [facility] Comment on above: Result Comment: Ecst asy screening cut off value = 500 ng/mL This report is intended for use in clinical monitoring or management of patients. Performed By: #### 2 106-3 #### [facility] ([id number]) [address] [place] [address] 62265 METHADONE Negative Normal [facility] Comment on above: Result Comment: Meth adone screening cut off value = 300 ng/mL. Performed By: #### 2 106-3 #### [facility] ([id number]) [address] [place] [address] 69224 OPIATES Negative Normal NEG [facility] Comment on above: Result Comment: Opia jovanna screening cut off value = 300 ng/mL NOTE: This test is used for the detection of codeine, hydrocodone (>1000 ng/mL), morphine and hydromorphone (>900 ng/mL) in urine. Performed By: #### 2 106-3 #### [facility] ([id number]) [address] [place] [address] 36757 OXYCODONE Negative Normal NEG [facility] Comment on above: Result Comment: Oxyc odone screening cut off value = 300 ng/mL NOTE: This test is used for the detection of oxycodone and oxymorphone in urine. Performed By: #### 2 106-3 #### [facility] ([id number]) [address] [place] [address] 93179 PHENCYCLIDINE Negative Normal NEG [facility] Comment on above: Result Comment: Phen cyclidine screening cut off value = 25 ng/mL Performed By: #### 2 106-3 #### [facility] ([id number]) [address] [place] [address] 74363 THYROID PROFILEon 08-31-2024 Free T4 [Mass/Vol] 0.88 ng/dL Normal 0.61-1.60 [facility] Comment on above: Result Comment: NEW REFERENCE RANGE FOR PEDIATRIC PATIENTS Performed By: #### 2 106-3 #### [facility] ([id number]) [address] [place] [address] 98473 TSH 1.27 uIU/mL Normal 0.49-4.67 [facility] Comment on above: Result Comment: NEW REFERENCE RANGE FOR PEDIATRIC PATIENTS Performed By: #### 2 106-3 #### [facility] ([id number]) [address] [place] [address] 85613 URINE CULTUREon 08-31-2024 Bacteria identified Cx Nom (U) CULTURE RESULTS <10,000 ORGANISMS/ML NORMAL URO GENITAL GABRIELE Normal [facility] Comment on above: Performed By: #### 2 106-3 #### [facility] ([id number]) [address] [place] [address] 43342 URN MACROSCOPIC NURon 2023 BILIRUBIN LUCIE Small Abnormal NEG [facility] Comment on above: Performed By: #### N UM #### [facility] ([id number]) [address] [place] [address] 43884 BLOOD/HGB LUCIE Negative Normal NEG [facility] Comment on above: Performed By: #### N UM #### [facility] ([id number]) [address] [place] [address] 52696 GLUCOSE LUCIE Negative Normal NEG [facility] Comment on above: Performed By: #### N UM #### [facility] ([id number]) [address] [place] [address] 64980 KETONES LUCIE 80 mg/dL Abnormal NEG [facility] Comment on above: Performed By: #### N UM #### [facility] ([id number]) [address] [place] [address] 52053 LEUKOCYTE ESTERASE LUCIE Trace Abnormal NEG [facility] Comment on above: Performed By: #### N UM #### [facility] ([id number]) [address] [place] [address] 75053 NITRITE LUCIE Negative Normal NEG [facility] Comment on above: Performed By: #### N UM #### [facility] ([id number]) [address] [place] [address] 11756 PH LUCIE 6.0 Normal 5.0-8.5 [facility] Comment on above: Performed By: #### N UM #### [facility] ([id number]) [address] [place] [address] 07496 PROTEIN LUCIE >=300 Abnormal NEG [facility] Comment on above: Performed By: #### N UM #### [facility] ([id number]) [address] [place] [address] [place] [address] SPECIFIC GRAVITY LUCIE >=1.030 Normal 1.003-1.035 [facility] Comment on above: Performed By: #### N UM #### [facility] ([id number]) [address] [place] [address] [place] [address] UROBILINOGEN LUCIE 0.2 eu/dL Normal <1.1 [facility] Comment on above: Performed By: #### N UM #### [facility] ([id number]) [address] [facility] [place] [address] Urinalysis macro (dipstick) panel (U)on 07-05-2024 Bilirubin, UA Negative Negative - 4(70) +++ mg/dL [facility] Blood, UA Negative Negative - 50 Mendez/mcL [facility] Clarity, UA Clear [facility] Color, UA Yellow [facility] Glucose, UA Negative Negative - 1999(110) ++++ mg/dL [facility] Interpretation and review of laboratory results Abnormal [facility] Ketones, UA Positive Negative - 160(16) ++++ mg/dL [facility] Leukocytes, UA Positive Negative - 500+++ Bhavani/mcL [facility] Nitrite, UA Negative Negative - Positive [facility] pH, UA 5.5 5 - 9 [facility] Protein, UA Positive Negative - 1999(20) ++++ mg/dL [facility] Spec Grav, UA 1.03 1 - 1.03 [facility] care Urobilinogen, UA 1.0 0.2 - 12 mg/dL [facility] AFP, SERUM, OPEN SPINA BIFID Aon 06-19-2024 AFP MOM 0.60 . [facility] AFP VALUE 19.7 ng/mL . [facility] COMMENT: Comment . [facility] Comment on above: Nathalia Aguiar , Ph.D., [facility] Director References: Available Upon Request. Multiples Of Median Cutoffs For AFP Elevations Bryant 2.5 Black 2.8 IDD 2.0 Twins 4.5 Abbreviation Definitions IDD - Insulin Dep Diabetes OSBR - Open Spina Bifida Risk For further inquiries contact [employer] at [phone]. This test was developed and its performance characteristics determined by [employer]. It has not been cleared or approved by the Food and Drug Administration. Performed at: [facility] [address] [place], [place] [id number] Monitor Technician: Robson Redman [facility], Phone: [phone] GEST. AGE ON COLLECTION DATE 16.1 . weeks [facility] GESTAT. AGE BASED ON Ultrasound . [facility] Comment on above: 15.3 on 06/10/2024 Recalculations are not recommended when gestational dating by LMP and ultrasound are within 10 days. INSULIN DEP DIABETES No . [facility] INTERPRETATION Comment . [facility]AL[facility] Gloria thornton Comment on above: Interpretation: Scre en [...] Customer Services to discuss available options. The [employer] recommends amniocentesis be offered to women age 35 and older. [age] [place] [age] [facility] MULTIPLE GESTATION No . [facility] [place] [address] [place] [phone] . [facility] Gloria thornton RACE . [facility] Cof[facility] RESULTS Report . [facility] TEST RESULTS: Negative . [facility] WEIGHT 156 . lbs [facility] Coferon e N N ULTRASOUND [id number] 2 15 N 1 Y 156 N N N N N White/ [facility] HCG ( test) Ql (U)o n 06-10-2024 Interpretation and review of laboratory results Abnormal [facility] Preg Test, Ur Positive [facility] Urinalysis macro (dipstick) panel (U)on 06-10-2024 Bilirubin, UA Negative Negative - 4(70) +++ mg/dL [facility] Blood, UA Negative Negative - 50 Mendez/mcL [facility] Clarity, UA Clear [facility] re Color, UA Yellow [facility] Glucose, UA Negative Negative - 1999(110) ++++ mg/dL [facility] Interpretation and review of laboratory results Abnormal [facility] Ketones, UA Positive Negative - 160(16) ++++ mg/dL [facility] Leukocytes, UA Positive Negative - 500+++ Bhavani/mcL [facility] Nitrite, UA Negative Negative - Positive [facility] pH, UA 7.0 5 - 9 [facility] Protein, UA Positive Negative - 2000(20) ++++ mg/dL [facility] Spec Grav, UA 1.025 1 - 1.03 [facility] Urobilinogen, UA 1.0 0.2 - 12 mg/dL [facility] BASIC METABOLIC PANLon 05-22 Anion gap [Moles/Vol] 6 mmol/L Normal 5-15 [facility] Comment on above: Performed By: #### N UM #### [facility] ([id number]) [address] [place] [address] 10120 Calcium [Mass/Vol] 8.7 mg/dL Normal 8.5-10.5 [facility] Comment on above: Performed By: #### N UM #### [facility] ([id number]) [address] [place] [address] 10925 Chloride [Moles/Vol] 104 mmol/L Normal 98-109 [facility] Comment on above: Performed By: #### N UM #### [facility] ([id number]) [address] [place] [address] 90309 CO2 [Moles/Vol] 22 mmol/L Normal 22-32 [facility] Comment on above: Performed By: #### N UM #### [facility] ([id number]) [address] [place] [address] 55109 Creatinine [Mass/Vol] 0.51 mg/dL Normal 0.40-1.00 [facility] Comment on above: Result Comment: METH OD TRACEABLE TO IDMS STANDARD Performed By: #### N UM #### [facility] ([id number]) [address] [place] [address] 97290 eGFR (CKD-EPI) NON-RACE DEPENDENT >90 Normal >59 [facility] Comment on above: Result Comment: Reported eGFR is based on the CKD-EPI 2020 equation that does not use a race coefficient. Performed By: #### N UM #### [facility] ([id number]) [address] [place] [address] 10455 Glucose [Mass/Vol] 102 mg/dL High 65-99 [facility] Comment on above: Performed By: #### N UM #### [facility] ([id number]) [address] [place] [address] 00614 Potassium [Moles/Vol] 3.4 mmol/L Low 3.5-5.0 [facility] Comment on above: Performed By: #### N UM #### [facility] ([id number]) [address] [place] [address] 81158 Sodium [Moles/Vol] 132 mmol/L Low 134-146 [facility] Comment on above: Performed By: #### N UM #### [facility] ([id number]) [address] [place] [address] 19785 Urea nitrogen [Mass/Vol] 6 mg/dL Normal 5-23 [facility] Comment on above: Performed By: #### N UM #### [facility] ([id number]) [address] [place] [address] 42707 CBC AND AUTO DIFFon 05-22-20 24 ABSOLUTE BASOPHIL 0.1 X10E9/L Normal 0.0-0.2 [facility] Comment on above: Performed By: #### N UM #### [facility] ([id number]) [address] [place] [address] 09423 ABSOLUTE NEUTROPHIL 3.3 X10E9/L Normal 1.5-6.6 [facility] Comment on above: Performed By: #### N UM #### [facility] ([id number]) [address] [place] [address] 65267 Basophils/100 WBC (Bld) 0.9 % Normal [facility] Comment on above: Performed By: #### N UM #### [facility] ([id number]) [address] [place] [address] 47563 Eosinophils (Bld) [#/Vol] 0.2 10*3/uL Normal 0.0-0.4 [facility] Comment on above: Performed By: #### N UM #### [facility] ([id number]) [address] [place] [address] 44964 Eosinophils/100 WBC (Bld) 3.9 % Normal [facility] Comment on above: Performed By: #### N UM #### [facility] ([id number]) [address] [place] [address] 76393 Erythrocyte distribution width (RBC) [Ratio] 13.9 % Normal 11.5-15.0 [facility] Comment on above: Performed By: #### N UM #### [facility] ([id number]) [address] [place] [address] 57659 Hematocrit (Bld) [Volume fraction] 38.4 % Normal 35-47 [facility] Comment on above: Performed By: #### N UM #### [facility] ([id number]) [address] [place] [address] 73470 Hemoglobin (Bld) [Mass/Vol] 13.2 g/dL Normal 11.7-15.5 [facility] Comment on above: Performed By: #### N UM #### [facility] ([id number]) [address] [place] [address] 81140 Lymphocytes (Bld) [#/Vol] 1.4 10*3/uL Normal 1.0-3.5 [facility] Comment on above: Performed By: #### N UM #### [facility] ([id number]) [address] [place] [address] 00402 Lymphocytes/100 WBC (Bld) 25.9 % Normal [facility] Comment on above: Performed By: #### N UM #### [facility] ([id number]) [address] [place] [address] 99602 MCH (RBC) [Entitic mass] 28.2 pg Normal 27-34 [facility] Comment on above: Performed By: #### N UM #### [facility] ([id number]) [address] [place] [address] 82311 MCHC (RBC) [Mass/Vol] 34.3 g/dL Normal 32-36 [facility] Comment on above: Performed By: #### N UM #### [facility] ([id number]) [address] [place] [address] 02673 MCV (RBC) [Entitic vol] 82 fL Normal 80-100 [facility] Comment on above: Performed By: #### N UM #### [facility] ([id number]) [address] [place] [address] 24218 Monocytes (Bld) [#/Vol] 0.6 10*3/uL Normal 0-0.9 [facility] Comment on above: Performed By: #### N UM #### [facility] ([id number]) [address] [place] [address] 39269 Monocytes/100 WBC (Bld) 10.2 % Normal [facility] Comment on above: Performed By: #### N UM #### [facility] ([id number]) [address] [place] [address] 75151 Neutrophils/100 WBC (Bld) 59.1 % Normal [facility] Comment on above: Performed By: #### N UM #### [facility] ([id number]) [address] [place] [address] 81097 Platelet mean volume (Bld) [Entitic vol] 8.7 fL Normal 7-12 [facility] Comment on above: Performed By: #### N UM #### [facility] ([id number]) [address] [place] [address] 31624 Platelets (Bld) [#/Vol] 198 10*3/uL Normal 150-450 [facility] Comment on above: Performed By: #### N UM #### [facility] ([id number]) [address] [place] [address] 32934 RBC COUNT 4.67 X10E12/L Normal 3.80-5.20 [facility] Comment on above: Performed By: #### N UM #### [facility] ([id number]) [address] [place] [address] 10918 WBC (Bld) [#/Vol] 5.6 10*3/uL Normal 4.0-11.0 [facility] Comment on above: Performed By: #### N UM #### [facility] ([id number]) [address] [place] [address] 11409 HCG ( test) Ql (U)o n 05-22-2024 Beta HCG ( test) Ql (U) Positive Abnormal NEG [facility] Comment on above: Performed By: #### N UM #### [facility] ([id number]) [address] [place] [address] 39708 HCG.beta subunit IA 3rd IS Q non 05-22-2024 [place] [address] m[IU]/mL Normal P [facility] Comment on above: Result Comment: [...] neoplasms. Performed By: #### N UM #### [facility] ([id number]) [address] [place] [address] 31951 URN MACROSCOPIC NURon 2023 BILIRUBIN LUCIE Small Abnormal NEG [facility] Comment on above: Performed By: #### N UM #### [facility] ([id number]) [address] [place] [address] 26852 BLOOD/HGB LUCIE Trace Abnormal NEG [facility] Comment on above: Performed By: #### N UM #### [facility] ([id number]) [address] [place] [address] 01875 GLUCOSE LUCIE Negative Normal NEG [facility] Comment on above: Performed By: #### N UM #### [facility] ([id number]) [address] [place] [address] [place] [address] KETONES LUCIE Trace Abnormal NEG [facility] Comment on above: Performed By: #### N UM #### [facility] ([id number]) [address] [place] [address] 11971 LEUKOCYTE ESTERASE LUCIE Small Abnormal NEG [facility] Comment on above: Performed By: #### N UM #### [facility] ([id number]) [address] [place] [address] [place] [address] NITRITE LUCIE Negative Normal NEG [facility] Comment on above: Performed By: #### N UM #### [facility] ([id number]) [address] [place] [address] 08429 PH LUCIE 6.5 Normal 5.0-8.5 [facility] Comment on above: Performed By: #### N UM #### [facility] ([id number]) [address] [place] [address] 79097 PROTEIN LUCIE 100 mg/dL Abnormal NEG [facility] Comment on above: Performed By: #### N UM #### [facility] ([id number]) [address] [place] [address] 47820 SPECIFIC GRAVITY LUCIE >=1.030 Normal 1.003-1.035 [facility] Comment on above: Performed By: #### N UM #### [facility] ([id number]) [address] [place] [address] 14264 UROBILINOGEN LUCIE 1.0 eu/dL Normal <1.1 [facility] Comment on above: Performed By: #### N UM #### [facility] ([id number]) [address] [place] [address]48 RAPID STREP SCR NURSINGon S. pyogenes Ag EIA Ql (Throat) Positive Abnormal NEG [facility] Comment on above: Performed By: #### N UM #### [facility] ([id number]) [address] [place] [address] 25944 CBC AND AUTO DIFFon 02-29-20 24 ABSOLUTE BASOPHIL 0.0 X10E9/L Normal 0.0-0.2 [facility] Comment on above: Performed By: #### N UM #### [facility] ([id number]) [address] [place] [address] 89859 ABSOLUTE NEUTROPHIL 2.4 X10E9/L Normal 1.5-6.6 [facility] Comment on above: Performed By: #### N UM #### [facility] ([id number]) [address] [place] [address] 37387 Basophils/100 WBC (Bld) 0.8 % Normal [facility] Comment on above: Performed By: #### N UM #### [facility] ([id number]) [address] [place] [address] 27697 Eosinophils (Bld) [#/Vol] 0.2 10*3/uL Normal 0.0-0.4 [facility] Comment on above: Performed By: #### N UM #### [facility] ([id number]) [address] [place] [address] 27113 Eosinophils/100 WBC (Bld) 3.0 % Normal [facility] Comment on above: Performed By: #### N UM #### [facility] ([id number]) [address] [place] [address] 90670 Erythrocyte distribution width (RBC) [Ratio] 12.3 % Normal 11.5-15.0 [facility] Comment on above: Performed By: #### N UM #### [facility] ([id number]) [address] [place] [address] 24955 Hematocrit (Bld) [Volume fraction] 36.6 % Normal 35-47 [facility] Comment on above: Performed By: #### N UM #### [facility] ([id number]) [address] [place] [address] 85630 Hemoglobin (Bld) [Mass/Vol] 12.5 g/dL Normal 11.7-15.5 [facility] Comment on above: Performed By: #### N UM #### [facility] ([id number]) [address] [place] [address] 77534 Lymphocytes (Bld) [#/Vol] 2.3 10*3/uL Normal 1.0-3.5 [facility] Comment on above: Performed By: #### N UM #### [facility] ([id number]) [address] [place] [address] 59618 Lymphocytes/100 WBC (Bld) 43.8 % Normal [facility] Comment on above: Performed By: #### N UM #### [facility] ([id number]) [address] [place] [address] MCH (RBC) [Entitic mass] 29.5 pg Normal 27-34 [facility] Comment on above: Performed By: #### N UM #### [facility] ([id number]) [address] [place] [address] 00371 MCHC (RBC) [Mass/Vol] 34.1 g/dL Normal 32-36 [facility] Comment on above: Performed By: #### N UM #### [facility] ([id number]) [address] [place] [address] 62518 MCV (RBC) [Entitic vol] 86 fL Normal 80-100 [facility] Comment on above: Performed By: #### N UM #### [facility] ([id number]) [address] [place] [address] 57642 Monocytes (Bld) [#/Vol] 0.4 10*3/uL Normal 0-0.9 [facility] Comment on above: Performed By: #### N UM #### [facility] ([id number]) [address] [place] [address] 89883 Monocytes/100 WBC (Bld) 7.4 % Normal [facility] Comment on above: Performed By: #### N UM #### [facility] ([id number]) [address] [place] [address] 88184 Neutrophils/100 WBC (Bld) 45.0 % Normal [facility] Comment on above: Performed By: #### N UM #### [facility] ([id number]) [address] [place] [address] 22634 Platelet mean volume (Bld) [Entitic vol] 8.7 fL Normal 7-12 [facility] Comment on above: Performed By: #### N UM #### [facility] ([id number]) [address] [place] [address] 50377 Platelets (Bld) [#/Vol] 326 10*3/uL Normal 150-450 [facility] Comment on above: Performed By: #### N UM #### [facility] ([id number]) [address] [place] [address] 60426 RBC COUNT 4.23 X10E12/L Normal 3.80-5.20 [facility] Comment on above: Performed By: #### N UM #### [facility] ([id number]) [address] [place] [address] 69585 WBC (Bld) [#/Vol] 5.3 10*3/uL Normal 4.0-11.0 [facility] Comment on above: Performed By: #### N UM #### [facility] ([id number]) [address] [place] [address] 10502 CBC auto differentialon 02-19 Basophils (Bld) [#/Vol] 0.0 10*3/uL [facility] Basophils/100 WBC (Bld) 0.8 % [facility] Eosinophils (Bld) [#/Vol] 0.2 10*3/uL [facility] Eosinophils/100 WBC (Bld) 3.0 % [facility] Erythrocyte distribution width (RBC) [Ratio] 12.3 % 11.5 - 15.0 % [facility] Hematocrit (Bld) [Volume fraction] 36.6 % 35 - 47 % [facility] Hemoglobin (Bld) [Mass/Vol] 12.5 g/dL 11.7 - 15.5 g/dL [facility] Lymphocytes (Bld) [#/Vol] 2.3 10*3/uL [facility] Lymphocytes/100 WBC (Bld) 43.8 % [facility] MCH (RBC) [Entitic mass] 29.5 pg 27 - [address] [facility] MCHC (RBC) [Mass/Vol] 34.1 g/dL 32 - 36 g/dL [facility] MCV (RBC) [Entitic vol] 86 fL 80 - 100 fL [facility] Monocytes (Bld) [#/Vol] 0.4 10*3/uL [facility] Monocytes/100 WBC (Bld) 7.4 % [facility] Neutrophils (Bld) [#/Vol] 2.4 10*3/uL [facility] Neutrophils/100 WBC (Bld) 45.0 % [facility] Platelet mean volume (Bld) [Entitic vol] 8.7 fL 7 - 12 fL [facility] Platelets (Bld) [#/Vol] 326 10*3/uL [facility] RBC (Bld) [#/Vol] 4.23 10*6/uL [facility] WBC corrected for nucl RBC Auto (Bld) [#/Vol] 5.3 [facility] BASIC METABOLIC PANLon 02-12 Anion gap [Moles/Vol] 8 mmol/L Normal 5-15 [facility] Comment on above: Performed By: #### B EDEL, , CBCA #### [facility] ([id number]) [address] [place] [address] 63603 Calcium [Mass/Vol] 9.1 mg/dL Normal 8.5-10.5 [facility] Comment on above: Performed By: #### B EDEL, , CBCA #### [facility] ([id number]) [address] [place] [address] 32706 Chloride [Moles/Vol] 103 mmol/L Normal 98-109 [facility] Comment on above: Performed By: #### B EDEL, , CBCA #### [facility] ([id number]) [address] [place] [address] 61372 CO2 [Moles/Vol] 22 mmol/L Normal 22-32 [facility] Comment on above: Performed By: #### B EDEL, , CBCA #### [facility] ([id number]) [address] [place] [address] 96459 Creatinine [Mass/Vol] 0.57 mg/dL Normal 0.40-1.00 [facility] Comment on above: Result Comment: METH OD TRACEABLE TO IDMS STANDARD Performed By: #### B EDEL, , CBCA #### [facility] ([id number]) [address] [place] [address] 13719 eGFR (CKD-EPI) NON-RACE DEPENDENT >90 Normal >59 [facility] Comment on above: Result Comment: Reported eGFR is based on the CKD-EPI 2020 equation that does not use a race coefficient. Performed By: #### B EDEL, , CBCA #### [facility] ([id number]) [address] [place] [address] 71595 Glucose [Mass/Vol] 93 mg/dL Normal 65-99 [facility] Comment on above: Performed By: #### B EDEL, , CBCA #### [facility] ([id number]) [address] [place] [address] 48122 Potassium [Moles/Vol] 3.6 mmol/L Normal 3.5-5.0 [facility] Comment on above: Performed By: #### B EDEL, , CBCA #### [facility] ([id number]) [address] [place] [address] 96125 Sodium [Moles/Vol] 133 mmol/L Low 134-146 [facility] Comment on above: Performed By: #### B EDEL, , CBCA #### [facility] ([id number]) [address] [place] [address] 98105 Urea nitrogen [Mass/Vol] 11 mg/dL Normal 5-23 [facility] Comment on above: Performed By: #### B EDEL, , CBCA #### [facility] ([id number]) [address] [place] [address] 41846 CBC AND AUTO DIFFon 02-12- 24 ABSOLUTE BASOPHIL 0.1 X10E9/L Normal 0.0-0.2 [facility] Comment on above: Performed By: #### B EDEL, , CBCA #### [facility] ([id number]) [address] [place] [address] 42042 ABSOLUTE NEUTROPHIL 5.3 X10E9/L Normal 1.5-6.6 [facility] Comment on above: Performed By: #### B EDEL, , CBCA #### [facility] ([id number]) [address] [place] [address] 50775 Basophils/100 WBC (Bld) 0.9 % Normal [facility] Comment on above: Performed By: #### Ed [place], , CBCA #### [facility] ([id number]) [address] [place] [address] 46327 DIFFERENTIAL COMMENT PLATELETS REVIEWED Normal [facility] Comment on above: Performed By: #### Ed [place], , CBCA #### [facility] ([id number]) [address] [place] [address] 80713 Eosinophils (Bld) [#/Vol] 0.4 10*3/uL Normal 0.0-0.4 [facility] Comment on above: Performed By: #### Ed [place], , CBCA #### [facility] ([id number]) [address] [place] [address] 59608 Eosinophils/100 WBC (Bld) 4.0 % Normal [facility] Comment on above: Performed By: #### Ed [place], , CBCA #### [facility] ([id number]) [address] [place] [address] 84110 Erythrocyte distribution width (RBC) [Ratio] 12.7 % Normal 11.5-15.0 [facility] Comment on above: Performed By: #### B EDEL, , CBCA #### [facility] ([id number]) [address] [place] [address] 07276 Hematocrit (Bld) [Volume fraction] 34.3 % Low 35-47 [facility] Comment on above: Performed By: #### Ed [place], , CBCA #### [facility] ([id number]) [address] [place] [address] 80318 Hemoglobin (Bld) [Mass/Vol] 12.2 g/dL Normal 11.7-15.5 [facility] Comment on above: Performed By: #### Ed [place], , CBCA #### [facility] ([id number]) [address] [place] [address] 85055 Lymphocytes (Bld) [#/Vol] 2.7 10*3/uL Normal 1.0-3.5 [facility] Comment on above: Performed By: #### Ed [place], , CBCA #### [facility] ([id number]) [address] [place] [address] 48495 Lymphocytes/100 WBC (Bld) 29.1 % Normal [facility] Comment on above: Performed By: #### Ed [place], , CBCA #### [facility] ([id number]) [address] [place] [address] 78066 MCH (RBC) [Entitic mass] 30.1 pg Normal 27-34 [facility] Comment on above: Performed By: #### Ed [place], , CBCA #### [facility] ([id number]) [address] [place] [address] 12218 MCHC (RBC) [Mass/Vol] 35.7 g/dL Normal 32-36 [facility] Comment on above: Performed By: #### Ed [place], , CBCA #### [facility] ([id number]) [address] [place] [address] 96487 MCV (RBC) [Entitic vol] 84 fL Normal 80-100 [facility] Comment on above: Performed By: #### B EDEL, , CBCA #### [facility] ([id number]) [address] [place] [address] 43484 Monocytes (Bld) [#/Vol] 0.9 10*3/uL Normal 0-0.9 [facility] Comment on above: Performed By: #### Ed [place], , CBCA #### [facility] ([id number]) [address] [place] [address] 42895 Monocytes/100 WBC (Bld) 9.9 % Normal [facility] Comment on above: Performed By: #### Ed [place], , CBCA #### [facility] ([id number]) [address] [place] [address] 97309 Neutrophils/100 WBC (Bld) 56.1 % Normal [facility] Comment on above: Performed By: #### Ed [place], , CBCA #### [facility] ([id number]) [address] [place] [address] 41293 Platelet mean volume (Bld) [Entitic vol] 9.0 fL Normal 7-12 [facility] Comment on above: Performed By: #### Ed [place], , CBCA #### [facility] ([id number]) [address] [place] [address] 65399 Platelets (Bld) [#/Vol] 203 10*3/uL Normal 150-450 [facility] Comment on above: Performed By: #### Ed [place], , CBCA #### [facility] ([id number]) [address] [place] [address] 52178 RBC COUNT 4.07 X10E12/L Normal 3.80-5.20 [facility] Comment on above: Performed By: #### B EDEL, , CBCA #### [facility] ([id number]) [address] [place] [address] 20637 WBC (Bld) [#/Vol] 9.4 10*3/uL Normal 4.0-11.0 [facility] Comment on above: Performed By: #### B EDEL, , CBCA #### [facility] ([id number]) [address] [place] [address] 52290 HCG.beta subunit IA 3rd IS Q non 02-13-2024 [place] [address] m[IU]/mL Normal P [facility] Comment on above: Result Comment: [...] By: #### B EDEL, , CBCA #### [facility] ([id number]) [address] [place] [address] 08797 URN MACROSCOPIC NURon 2023 BILIRUBIN LUCIE Negative Normal NEG [facility] Comment on above: Performed By: #### N UM #### [facility] ([id number]) [address] [place] [address], [place] [address] BLOOD/HGB LUCIE Large Abnormal NEG [facility] Comment on above: Performed By: #### N UM #### [facility] ([id number]) [address] [place] [address], [place] [address] GLUCOSE LUCIE Negative Normal NEG [facility] Comment on above: Performed By: #### N UM #### [facility] ([id number]) [address] [place] [address], [place] [address] KETONES LUCIE Negative Normal NEG [facility] Comment on above: Performed By: #### N UM #### [facility] ([id number]) [address] [place] [address], [place] [address] LEUKOCYTE ESTERASE LUCIE Negative Normal NEG [facility] Comment on above: Performed By: #### N UM #### [facility] ([id number]) [address] [place] [address], [place] [address] NITRITE LUCIE Negative Normal NEG [facility] Comment on above: Performed By: #### N UM #### [facility] ([id number]) [address] [place] [address], [place] [address] PH LUCIE 6.5 Normal 5.0-8.5 [facility] Comment on above: Performed By: #### N UM #### [facility] ([id number]) [address] [place] [address], [place] [address] PROTEIN LUCIE Trace Abnormal NEG [facility] Comment on above: Performed By: #### N UM #### [facility] ([id number]) [address] [place] [address], [place] [address] SPECIFIC GRAVITY LUCIE 1.015 Normal 1.003-1.035 [facility] Comment on above: Performed By: #### N UM #### [facility] ([id number]) [address] [place] [address] 05119 UROBILINOGEN LUCIE 0.2 eu/dL Normal <1.1 [facility] Comment on above: Performed By: #### N UM #### [facility] ([id number]) [address] [place] [address] 38682 HCG ( test) Ql (U)o n 02-12-2024 Beta HCG ( test) Ql (U) Positive Abnormal NEG [facility] Comment on above: Performed By: #### 2 106-3 #### [facility] ([id number]) [address] [place] [address] 33870 HCG.beta subunit IA 3rd IS Q non 02-12-2024 [place] [address] m[IU]/mL Normal P [facility] Comment on above: Result Comment: [...] neoplasms. Performed By: #### 4 544-3, 718-7, 37189-3 #### [facility] ([id number]) [address] [place] [address] 02996 HEMOGLOBINon 02-12-2024 Hemoglobin (Bld) [Mass/Vol] 12.7 g/dL Normal 11.7-15.5 [facility] Comment on above: Performed By: #### 4 544-3, 718-7, #### [facility] ([id number]) [address] [place] [address] 38964 Hematocrit Auto (Bld) [Volum e fraction]on 02-12-2024 Hematocrit (Bld) [Volume fraction] 35.4 % Normal 35-47 [facility] Comment on above: Performed By: #### 4 544-3, 718-7, #### [facility] ([id number]) [address] [place] [address] 58673 URN MACROSCOPIC NURon 2023 BILIRUBIN LUCIE Negative Normal [facility] Comment on above: Performed By: #### N UM #### [facility] ([id number]) [address] [place] [address] 99662 BLOOD/HGB LUCIE MODERATE Abnormal NEG [facility] Comment on above: Performed By: #### N UM #### [facility] ([id number]) [address] [place] [address] 36634 GLUCOSE LUCIE Negative Normal [facility] Comment on above: Performed By: #### N UM #### [facility] ([id number]) [address] [place] [address] 46256 KETONES LUCIE 15 mg/dL Abnormal NEG [facility] Comment on above: Performed By: #### N UM #### [facility] ([id number]) [address] [place] [address] 87323 LEUKOCYTE ESTERASE LUCIE Trace Abnormal NEG [facility] Comment on above: Performed By: #### N UM #### [facility] ([id number]) [address] [place] [address] 43251 NITRITE LUCIE Negative Normal [facility] Comment on above: Performed By: #### N UM #### [facility] ([id number]) [address] [place] [address] PH LUCIE 6.5 Normal 5.0-8.5 [facility] Comment on above: Performed By: #### N UM #### [facility] ([id number]) [address] [place] [address] PROTEIN LUCIE Negative Normal NEG [facility] Comment on above: Performed By: #### N UM #### [facility] ([id number]) [address] [place] [address] 46403 SPECIFIC GRAVITY LUCIE >=1.030 Normal 1.003-1.035 [facility] Comment on above: Performed By: #### N UM #### [facility] ([id number]) [address] [place] [address] 64642 UROBILINOGEN LUCIE 1.0 eu/dL Normal <1.1 [facility] Comment on above: Performed By: #### N UM #### [facility] ([id number]) [address] [place] [address] 24948 US PREG LESS THAN 14 WKS WIT [...] cardiac activity with heart rate 100 bpm. [place]-rump length 6 mm corresponding to gestational age [...] on 02/12/2024 5:07 AM Normal [facility] ECG 12 lead ECGon 11-25-2023 ECG 12 lead ECG [place] [address] Electrocardiograph Report Signed Patient: Sharona Marks MR#: [id number] : 2005 Acct:[id number] Age/Sex: 17 / F ADM Date: 11/24/23 Loc: Room: [address] [place] [address] Type: ADM IN Attending Dr: Ignacio Acuña [...] change was found Confirmed by Chapito Corbin ([id number]) on 11/25/2023 7:52:58 PM Referred By: Electronically Signed By:Chapito Corbin Transcribed By: MUS Signed By Chapito Corbin MD 11/25/231952 Normal [facility] Lipid Panelon 11-25-2023 Cholesterol [Mass/Vol] 121 mg/dL Low 140-200 [facility] Comment on above: Result Comment: Chol less than 200 mg/dl low risk Chol 201-239 mg/dl borderline risk Chol 240 mg/dl and greater high risk Performed By: #### L IPID, [id number], TSH3 wRFLX #### [facility] [address] Cholesterol in HDL [Mass/Vol] 57 mg/dL Normal 23-92 [facility] Comment on above: Result Comment: HDL CHOL ATP-III CLASSIFICATION Cardiovascular Risk HDL > or equal to 60 mg/dL LOW HDL < 40 mg/dL HIGH Performed By: #### L IPID, [id number], TSH3 wRFLX #### [facility] [address] Cholesterol.total/Ch olesterol in HDL [Mass ratio] 2.1 {ratio} Normal <5.0 [facility] Comment on above: Performed By: #### L IPID, [id number], TSH3 wRFLX #### [address] LDL Cholesterol,Calculat ed 55 mg/dL Normal 0-100 [facility] Comment on above: Result Comment: LDL ATP III CLASSIFICATION LDL less than 100 mg/dL Optimal LDL 100-129 mg/dL Near or above optimal LDL 130-159 mg/dL Borderline high LDL 160-189 mg/dL High LDL greater than 189 mg/dL Very high Performed By: #### L IPID, [id number], TSH3 wRFLX #### [address] Triglyceride w/Reflex 44 mg/dL Normal 0-149 [facility] Comment on above: Result Comment: TRIG ATP III CLASSIFICATION TRIG less than 150 mg/dL Normal TRIG 150-199 mg/dL Borderline high TRIG 200-500 mg/dL High TRIG greater than 500 mg/dL Very high Standard traceable to the Center for Disease Conrtrol and Prevention (CDC) test method. Performed By: #### L IPID, [id number], TSH3 wRFLX #### [place] [id number] RUST VLDL CHOLESTEROL 8 mg/dL Normal [facility] Comment on above: Performed By: #### L IPID, [id number], TSH3 wRFLX #### [address] Thyroid Stim Hormone w/Rflxo n 11-25-2023 Thyroid Stim Hormone w/Rflx 3.18 u[iU]/mL Normal 0.45-5.33 [facility] Comment on above: Performed By: #### L IPID, [id number], TSH3 wRFLX #### [address] Vitamin D 25 Hydroxy Totalon 11-25-2023 Vitamin D 25 Hydroxy Total 14.7 ng/mL Low 30-100 [facility] Comment on above: Result Comment: DARYA MIN D STATUS 25(OH)VITAMIN D RANGE (ng/mL) Deficient <20 Insufficient 20 to <30 Sufficient 30 to 100 Reference: Angel MF,Yovany RAZO, Bee WILEY, et al. Evaluation,treatment, and prevention of vitamin D deficiency; an Endocrine Society clinical practice guideline. JCEM. 2010; 96(7):1911-30. PERFORMED BY: [place] [address] PATHOLOGIST REHABILITATION PROGRAM MANAGER TIFFANIE HIGH M.D. Performed By: #### L IPID, [id number], TSH3 wRFLX #### [address] Complete Blood Count Auto Di ffon 11-24-2023 Basophils (Bld) [#/Vol] 0.0 10*3/uL Normal 0.0-0.1 [facility] Comment on above: Result Comment: PERF ORMED BY: [place] [address] PATHOLOGIST REHABILITATION PROGRAM MANAGER TIFFANIE HIGH M.D. Performed By: #### C MP, ETOH, CBC #### [address] Basophils/100 WBC (Bld) 0.5 % Normal . [facility] Comment on above: Performed By: #### C MP, ETOH, CBC #### [address] Eosinophils (Bld) [#/Vol] 0.1 10*3/uL Normal 0.0-0.7 [facility] Comment on above: Performed By: #### C MP, ETOH, CBC #### [place] [address] [place] Eosinophils/100 WBC (Bld) 1.0 % Normal . [facility] Comment on above: Performed By: #### C MP, ETOH, CBC #### [address] Erythrocyte distribution width (RBC) [Ratio] 13.2 % Normal 11.9-15.3 [facility] Comment on above: Performed By: #### C MP, ETOH, CBC #### [address] Hematocrit (Bld) [Volume fraction] 41.6 % Normal 36.0-46.0 [facility] Comment on above: Performed By: #### C MP, ETOH, CBC #### [address] Hemoglobin (Bld) [Mass/Vol] 14.3 g/dL Normal 12.0-16.0 [facility] Comment on above: Performed By: #### C MP, ETOH, CBC #### [place] [address] [place] Lymphocytes (Bld) [#/Vol] 3.5 10*3/uL Normal 1.20-4.8 [facility] Comment on above: Performed By: #### C MP, ETOH, CBC #### [place] [address] [place] Lymphocytes/100 WBC (Bld) 39.9 % Normal . [facility] Comment on above: Performed By: #### C MP, ETOH, CBC #### [address] MCH (RBC) [Entitic mass] 29.3 pg Normal 25.0-35.0 [facility] Comment on above: Performed By: #### C MP, ETOH, CBC #### [address] MCV (RBC) [Entitic vol] 84.8 fL Normal 78-102 [facility] Comment on above: Performed By: #### C MP, ETOH, CBC #### [address] Mean Corpuscular HGB Conc 34.5 g/dL Normal 31.0-37.0 [facility] Comment on above: Performed By: #### C MP, ETOH, CBC #### [address] Monocytes (Bld) [#/Vol] 0.6 10*3/uL Normal 0.1-1.00 [facility] Comment on above: Performed By: #### C MP, ETOH, CBC #### [address] Monocytes/100 WBC (Bld) 17.05 % Normal 0.00-20.00 [facility] Comment on above: Performed By: #### C MP, ETOH, CBC #### [address] Monocytes/100 WBC (Bld) 7.1 % Normal . [facility] Comment on above: Performed By: #### C MP, ETOH, CBC #### [address] Neutrophils (Bld) [#/Vol] 4.5 10*3/uL Normal 1.2-7.7 [facility] Comment on above: Performed By: #### C MP, ETOH, CBC #### [address] Neutrophils/100 WBC (Bld) 51.5 % Normal . [facility] Comment on above: Performed By: #### C MP, ETOH, CBC #### [address] NRBC% 0.1 /100{WBC} Normal 0-0.5 [facility] Comment on above: Performed By: #### C MP, ETOH, CBC #### [address] Platelet mean volume (Bld) [Entitic vol] 7.7 fL Normal 6.3-10.7 [facility] Comment on above: Performed By: #### C MP, ETOH, CBC #### [address] Platelets (Bld) [#/Vol] 319 10*3/uL Normal 150-450 [facility] Comment on above: Performed By: #### C MP, ETOH, CBC #### [address] RBC (Bld) [#/Vol] 4.90 10*6/uL Normal 4.10-5.10 [facility] Comment on above: Performed By: #### C MP, ETOH, CBC #### [address] WBC (Bld) [#/Vol] 8.7 10*3/uL Normal 4.5-13.5 [facility] Comment on above: Performed By: #### C MP, ETOH, CBC #### [address] Comprehensive Metabolic Pane andrew 11-24-2023 Albumin [Mass/Vol] 5.1 g/dL Normal 3.5-5.7 [facility] Comment on above: Performed By: #### C MP, ETOH, CBC #### [address] Albumin/Globulin [Mass ratio] 1.6 {ratio} Normal [facility] Comment on above: Performed By: #### C MP, ETOH, CBC #### [address] ALP [Catalytic activity/Vol] 67 U/L Normal 34-104 [facility] Comment on above: Performed By: #### C MP, ETOH, CBC #### [address] [place] [address] [place] ALT [Catalytic activity/Vol] 10 U/L Normal 7-52 [facility] Comment on above: Performed By: #### C MP, ETOH, CBC #### [address] Anion gap [Moles/Vol] 10.9 mmol/L Normal 6.0-15.0 [facility] Comment on above: Performed By: #### C MP, ETOH, CBC #### [address] AST [Catalytic activity/Vol] 15 U/L Normal 13-39 [facility] Comment on above: Performed By: #### C MP, ETOH, CBC #### [address] Bilirubin [Mass/Vol] 0.4 mg/dL Normal 0.3-1.0 [facility] Comment on above: Performed By: #### C MP, ETOH, CBC #### [address] Calcium [Mass/Vol] 9.5 mg/dL Normal 8.6-10.3 [facility] Comment on above: Performed By: #### C MP, ETOH, CBC #### [place] [address] [place] Chloride [Moles/Vol] 106 mmol/L Normal 98-107 [facility] Comment on above: Performed By: #### C MP, ETOH, CBC #### [address] CO2 [Moles/Vol] 24.9 mmol/L Normal 21.0-31.0 [facility] Comment on above: Performed By: #### C MP, ETOH, CBC #### [place] [address] [place] Creatinine [Mass/Vol] 0.71 mg/dL Normal 0.60-1.20 [facility] Comment on above: Performed By: #### C MP, ETOH, CBC #### [place] [address] [place] Creatinine Clr Calc Pharmacy 124.96 Normal [facility] Comment on above: Result Comment: PERF ORMED BY: [place] [address] PATHOLOGIST REHABILITATION PROGRAM MANAGER TIFFANIE HIGH M.D. Performed By: #### C MP, ETOH, CBC #### [place] [address] [place] GFR/1.73 sq M.predicted MDRD (S/P/Bld) [Vol rate/Area] mL/min/{1.73_m2} Normal [facility] Comment on above: Performed By: #### C MP, ETOH, CBC #### [address] Globulin (S) [Mass/Vol] 3.1 g/dL Normal [facility] Comment on above: Performed By: #### C MP, ETOH, CBC #### [address] Glucose [Mass/Vol] 86 mg/dL Normal 70-100 [facility] Comment on above: Result Comment: [facility] Glucose Reference Range is dependent on time and content of last meal. Glucose of more than 200 mg/dL in a nonstressed, ambulatory subject supports the diagnosis of Diabetes Mellitus. ADA recommended reference range Performed By: #### C MP, ETOH, CBC #### [address] Potassium [Moles/Vol] 3.8 mmol/L Normal 3.5-5.1 [facility] Comment on above: Performed By: #### C MP, ETOH, CBC #### [place] [address] [place] Protein [Mass/Vol] 8.2 g/dL Normal 6.4-8.9 [facility] Comment on above: Performed By: #### C MP, ETOH, CBC #### [address] Sodium [Moles/Vol] 138 mmol/L Normal 136-145 [facility] Comment on above: Performed By: #### C MP, ETOH, CBC #### [address] Urea nitrogen [Mass/Vol] 9 mg/dL Normal 7-25 [facility] Comment on above: Performed By: #### C MP, ETOH, CBC #### [address] Drug Screen,Urineon 11-24-19 24 Amphetamine Screen,Urine Negative Normal Negative [facility] Comment on above: Performed By: #### U HCG, UA, URDS #### [address] Barbiturate Screen,Urine Negative Normal Negative [facility] Comment on above: Performed By: #### U HCG, UA, URDS #### [address] Benzodiazepines Screen,Urine Negative Normal Negative [facility] Comment on above: Performed By: #### U HCG, UA, URDS #### [address] Cannabinoid Screen,Urine Positive High Negative [facility] Comment on above: Result Comment: Thes e are unconfirmed results and should not be used for legal purposes. Drug Cut-Off Concentration: AMPH 1000 ng/mL BECCA 200 ng/mL JANUSZ 200 ng/mL COCM 300 ng/mL OP 300 ng/mL PCP 25 ng/mL THC 20 ng/mL PERFORMED BY: [place] [address] PATHOLOGIST REHABILITATION PROGRAM MANAGER TIFFANIE HIGH M.D. Performed By: #### U HCG, UA, URDS #### [address] Cocaine Screen,Urine Negative Normal Negative [facility] Comment on above: Performed By: #### U HCG, UA, URDS #### [address] Opiate Screen,Urine Negative Normal Negative [facility] Comment on above: Performed By: #### U HCG, UA, URDS #### [address] Phencyclidine Screen,Urine Negative Normal Negative [facility] Comment on above: Performed By: #### U HCG, UA, URDS #### [address] Ethyl Alcohol Profileon 03 Ethanol [Mass/Vol] mg/dL Normal [facility] Comment on above: Performed By: #### C MP, ETOH, CBC #### [address] Percent Ethanol Not performed Normal [facility] Comment on above: Result Comment: PERF ORMED BY: [place] [address] PATHOLOGIST REHABILITATION PROGRAM MANAGER TIFFANIE HIGH M.D. Performed By: #### C MP, ETOH, CBC #### [address] HCG,Urineon 11-24-2023 Beta HCG ( test) Ql (U) Negative Normal [facility] Comment on above: Order Comment: Name Collection Type:: Clean-Voided Midstream Result Comment: PERF ORMED BY: [place] [address] PATHOLOGIST REHABILITATION PROGRAM MANAGER TIFFANIE HIGH M.D. Performed By: #### U HCG, UA, URDS #### [address] Urinalysison 11-24-2023 Appearance (U) Clear Normal Clear [facility] Comment on above: Order Comment: Name Collection Type:: Clean-Voided Midstream Performed By: #### U HCG, UA, URDS #### [address] Bilirubin,Urine Negative Normal Negative [facility] Comment on above: Order Comment: Name Collection Type:: Clean-Voided Midstream Performed By: #### U HCG, UA, URDS #### [address] Color (U) Yellow Normal Yellow [facility] Comment on above: Order Comment: Name Collection Type:: Clean-Voided Midstream Performed By: #### U HCG, UA, URDS #### [address] Glucose Ql (U) Normal Normal Normal [facility] Comment on above: Order Comment: Name Collection Type:: Clean-Voided Midstream Performed By: #### U HCG, UA, URDS #### [address] Ketones Ql (U) Negative Normal Negative [facility] Comment on above: Order Comment: Name Collection Type:: Clean-Voided Midstream Performed By: #### U HCG, UA, URDS #### [address] Leukocyte esterase Test strip Ql (U) Negative Normal Negative [facility] Comment on above: Order Comment: Name Collection Type:: Clean-Voided Midstream Performed By: #### U HCG, UA, URDS #### [place] [address] [place] Nitrite,Urine Negative Normal Negative [facility] Comment on above: Order Comment: Name Collection Type:: Clean-Voided Midstream Performed By: #### U HCG, UA, URDS #### [place] [address] [place] Occult Blood,Urine Negative Normal Negative [facility] Comment on above: Order Comment: Name Collection Type:: Clean-Voided Midstream Performed By: #### U HCG, UA, URDS #### [place] [address] [place] pH (U) 6.5 [pH] Normal 5.0-9.0 [facility] Comment on above: Order Comment: Name Collection Type:: Clean-Voided Midstream Performed By: #### U HCG, UA, URDS #### [place] [address] [place] Protein,Urine Negative Normal Negative [facility] Comment on above: Order Comment: Name Collection Type:: Clean-Voided Midstream Performed By: #### U HCG, UA, URDS #### [facility] [address] Specificy [place],Urine 1.020 Normal 1.001-1.030 [facility] Comment on above: Order Comment: Name Collection Type:: Clean-Voided Midstream Performed By: #### U HCG, UA, URDS #### [facility] [address] [place] [id number] [place] Urobilinogen,Urine Normal Normal Normal [facility] Comment on above: Order Comment: Name Collection Type:: Clean-Voided Midstream Performed By: #### U HCG, UA, URDS #### [facility] [address] Lipid 1996 panelon 4 Cholesterol [Mass/Vol] 143 mg/dL Low 150-200 [facility] Comment on above: Performed By: #### 2 4331-1 #### [facility] ([id number]) [address], [address] [place] [address] Cholesterol in HDL [Mass/Vol] 67 mg/dL Normal >39 [facility] Comment on above: Result Comment: HDL <40 mg/dL - High Risk HDL > or = 40mg/dL- Desirable HDL >60 mg/dL - Negative Risk Performed By: #### 2 4331-1 #### [facility] ([id number]) [address], [address] [place] [address] Cholesterol in LDL [Mass/Vol] 65 mg/dL Normal <130 [facility] Comment on above: Result Comment: LDL <100 mg/dL - Desirable LDL >160 mg/dL - High Risk Performed By: #### 2 4331-1 #### [facility] ([id number]) [address], [address] [place] [address] Cholesterol in VLDL [Mass/Vol] 11 mg/dL Normal 0-30 [facility] Comment on above: Performed By: #### 2 4331-1 #### [facility] ([id number]) [address], [address] [place] [address] CHOLESTEROL:HDL 2.1 Normal 1.0-5.0 [facility] Comment on above: Performed By: #### 2 4331-1 #### [facility] ([id number]) [address], [address] [place] [address] Triglyceride [Mass/Vol] 53 mg/dL Normal 27-150 [facility] Comment on above: Performed By: #### 2 4331-1 #### [facility] ([id number]) [address], [address] [place] [address] Vital Signs Date Time Vital Sign Value Performing Clinician Salazar gonzalez 11-17-2024 08:39-0500 Body mass index (BMI) [Ratio] 27.38 kg/m2 La CORREA Work Phone: [facility] 11-17-2024 08:39-0500 Body weight 79.29 kg La CORREA Work Phone: [facility] 11-17-2024 08:39-0500 Diastolic blood pressure 70 mm[Hg] La CORREA Work Phone: [facility] 11-17-2024 08:39-0500 Systolic blood pressure 120 mm[Hg] La CORREA Work Phone: [facility] 11-10-2024 09:54-0500 Body mass index (BMI) [Ratio] 26.53 kg/m2 Shashank Deon DO Work Phone: [facility] 11-10-2024 09:54-0500 Body weight 76.84 kg Shashank Deon DO Work Phone: [facility] 11-10-2024 09:54-0500 Diastolic blood pressure 84 mm[Hg] Shashank Deon DO Work Phone: [facility] 11-10-2024 09:54-0500 Systolic blood pressure 122 mm[Hg] Shashank Deon DO Work Phone: [facility] 10-13-2024 11:30-0500 Body mass index (BMI) [Ratio] 25.03 kg/m2 Shashank Deon DO Work Phone: [facility] 10-13-2024 11:30-0500 Body weight 72.48 kg Shashank Deon DO Work Phone: [facility] 10-13-2024 11:30-0500 Diastolic blood pressure 62 mm[Hg] Shashank Deon DO Work Phone: [facility] 10-13-2024 11:30-0500 Systolic blood pressure 114 mm[Hg] Shashank Deon DO Work Phone: [facility] 09-29-2024 08:51-0500 Body height 170.2 cm Clarke Givens DPM Work Phone: [facility] 09-29-2024 08:51-0500 Body mass index (BMI) [Ratio] 24.9 kg/m2 Clarke Givens DPM Work Phone: [facility] 09-29-2024 08:51-0500 Body weight 72.12 kg Clarke Givens DPM Work Phone: [facility] 09-26-2024 09:46-0500 Body mass index (BMI) [Ratio] 24.9 kg/m2 La CORREA Work Phone: [facility] 09-26-2024 09:46-0500 Body weight 72.12 kg La CORREA Work Phone: [facility] 09-26-2024 09:46-0500 Diastolic blood pressure 62 mm[Hg] La CORREA Work Phone: [facility] 09-26-2024 09:46-0500 Systolic blood pressure 112 mm[Hg] La CORREA Work Phone: [facility] 09-06-2024 14:06-0500 Body mass index (BMI) [Ratio] 24.45 kg/m2 Shashank Deon DO Work Phone: [facility] 09-06-2024 14:06-0500 Body weight 70.82 kg Shashank Deon DO Work Phone: [facility] 09-06-2024 14:06-0500 Diastolic blood pressure 60 mm[Hg] Shashank Deon DO Work Phone: [facility] 09-06-2024 14:06-0500 Systolic blood pressure 128 mm[Hg] Shashank Deon DO Work Phone: [facility] 07-05-2024 14:35-0400 Body mass index (BMI) [Ratio] 24.18 kg/m2 Shashank Deon DO Work Phone: [facility] 07-05-2024 14:35-0400 Body weight 70.03 kg Shashank Deon DO Work Phone: [facility] 07-05-2024 14:35-0400 Diastolic blood pressure 68 mm[Hg] Shashank Deon DO Work Phone: [facility] 07-05-2024 14:35-0400 Systolic blood pressure 116 mm[Hg] Shashank Deon DO Work Phone: [facility] 06-10-2024 10:45-0400 Body mass index (BMI) [Ratio] 24.43 kg/m2 [facility] Nurse [facility] 06-10-2024 10:45-0400 Body weight 70.76 kg [facility] Nurse [facility] 02-29-2024 11:44-0400 Body height 167.6 cm Arun Merdeith MD Work Phone: [facility] 02-29-2024 11:44-0400 Body mass index (BMI) [Ratio] 24.86 kg/m2 [facility]un Meredith MD [facility] 02-29-2024 11:44-0400 Body weight 69.85 kg Arun Meredith MD Work Phone: [facility] [employer] [facility] 02-29-2024 11:44-0400 Diastolic blood pressure 71 mm[Hg] Arun Meredith MD Work Phone: [facility] [employer] [facility] 02-29-2024 11:44-0400 Heart rate 87 /min Arun Meredith MD Work Phone: [facility] [employer] [facility] 02-29-2024 11:44-0400 Systolic blood pressure 130 mm[Hg] Arun Meredith MD Work Phone: [facility] Encounters Encounter Date Encounter Type Care Provider Facility Start: 11-17-2024 End: 11-17-2024 Bamboo flowsheet La CORREA Work Phone: [facility] Start: 11-17-2024 End: 11-17-2024 Bamboo flowsheet La CORREA Work Phone: [facility] Start: 11-17-2024 End: 11-17-2024 Office outpatient visit 15 minutes La CORREA Work Phone: [facility] Comment on above: 38 weeks gestation o f ; Third trimester Start: 11-17-2024 End: 11-17-2024 ambulatory LA RUVALCABA Not Available Start: 11-10-2024 End: 11-10-2024 Bamboo flowsheet Shashank Deon DO Work Phone: [facility] Start: 11-10-2024 End: 11-10-2024 Bamboo flowsheet Shashank Deon DO Work Phone: [facility] Start: 11-10-2024 End: 11-10-2024 ambulatory SHASHANK DEON Not Available Start: 11-10-2024 End: 11-10-2024 Office outpatient visit 15 minutes Shashank Deon DO Work Phone: [facility] Comment on above: Third trimester preg lazaro; 37 weeks gestation of Start: 11-03-2024 End: 11-03-2024 ambulatory LA RUVALCABA Not Available Start: 11-03-2024 End: 11-03-2024 Office outpatient visit 15 minutes La CORREA Work Phone: [facility] Comment on above: Third trimester preg lazaro; 36 weeks gestation of ; Vaginal discharge; STD exposure Start: 11-03-2024 End: 11-10-2024 Clinisync Result Encounter La CORREA Work Phone: [facility] Unsolicited Start: 11-03-2024 End: 11-04-2024 External Result Encounter La CORREA Work Phone: [facility] Unsolic[facility] Start: 11-03-2024 End: 11-10-2024 External Result Encounter La CORREA Work Phone: [facility] Unsolicited Start: 10-27-2024 End: 10-27-2024 Bamboo flowsheet Shashank Deon DO Work Phone: [facility] Start: 10-27-2024 End: 10-27-2024 Bamboo flowsheet Shashank Deon DO Work Phone: [facility] Start: 10-27-2024 End: 10-27-2024 Office outpatient visit 15 minutes Shashank Deon DO Work Phone: [facility] Comment on above: Third trimester preg lazaro; 35 weeks gestation of ; Eczema, unspecified type Start: 10-27-2024 End: 10-27-2024 ambulatory SHASHANK DEON Not Available Start: 10-22-2024 End: 10-22-2024 Clinisync Result Encounter Shashank Deon DO Work Phone: [facility]solic[facility] Start: 10-22-2024 End: 10-22-2024 Clinisync Result Encounter Shashank Deon DO Work Phone: [facility] Unsolic[facility] Start: 10-13-2024 End: 10-13-2024 Bamboo flowsheet Shashank Deon DO Work Phone: [facility] Start: 10-13-2024 End: 10-13-2024 Bamboo flowsheet Shashank Deon DO Work Phone: [facility] Start: 10-13-2024 End: 10-13-2024 Office outpatient visit 15 minutes Shashank Deon DO Work Phone: [facility] Comment on above: Third trimester preg lazaro; 33 weeks gestation of ; size inconsistent with dates Start: 10-13-2024 End: 10-13-2024 ambulatory SHASHANK DEON Not Available Start: 09-29-2024 End: 09-29-2024 Bamboo flowsheet Clarke Givens DPM Work Phone: [facility] Start: 09-29-2024 End: 09-29-2024 Bamboo flowsheet Clarke Givens DPM Work Phone: [facility] Start: 09-29-2024 End: 09-29-2024 ambulatory CLARKE GIVENS Not Available Start: 09-29-2024 End: 09-29-2024 Office outpatient new 30 minutes Clarke Givens DPM Work Phone: [facility] Comment on above: Abscess of left grea t toe (Primary Dx); Pain of left great toe; Onychocryptosis; Difficulty walking Start: 09-27-2024 End: 09-27-2024 Emergency department patient visit [facility] Start: 09-26-2024 End: 09-26-2024 Bamboo flowsheet La CORREA Work Phone: [facility] Start: 09-26-2024 End: 09-26-2024 Bamboo flowsheet La CORREA Work Phone: [facility] Start: 09-26-2024 End: 09-26-2024 ambulatory LA RUVALCABA Not Available Start: 09-26-2024 End: 09-26-2024 Office outpatient visit 15 minutes La CORREA Work Phone: [facility] Comment on above: Ingrown toenail (Marline gely Dx); Third trimester ; 30 weeks gestation of Start: 09-09-2024 End: 09-09-2024 Clinisync Result Encounter Shashank Deon DO Work Phone: [facility] Unsolicited Start: 09-09-2024 End: 09-09-2024 Clinisync Result Encounter Shashank Deon DO Work Phone: [facility]solic[facility] Start: 09-06-2024 End: 09-06-2024 Bamboo flowsheet Shashank Deon DO Work Phone: [facility] Start: 09-06-2024 End: 09-06-2024 Bamboo flowsheet Shashank Deon DO Work Phone: [facility] Start: 09-06-2024 End: 09-06-2024 Office outpatient visit 15 minutes Shashank Deon DO Work Phone: [facility] Comment on above: 27 weeks gestation o f ; Second trimester ; Diabetes mellitus screening; Anxiety with depression Start: 09-06-2024 End: 09-06-2024 ambulatory SHASHANK DEON Not Available Start: 09-01-2024 ambulatory Ollie Courtney acility:[facility] Start: 08-31-2024 End: 08-31-2024 Telephone encounter Shashank Deon DO Work Phone: [facility] Start: 08-31-2024 End: 08-31-2024 Emergency department patient visit ARUN MEREDITH [facility] Start: 08-31-2024 Encounter for other general examination KATRINA SINGLETON [facility] Start: 08-28-2024 End: 08-28-2024 ambulatory CARLOTA ENRIQUEZ [facility] Start: 07-05-2024 End: 07-05-2024 Bamboo flowsheet Shashank Deon DO Work Phone: [facility] Start: 07-05-2024 End: 07-05-2024 Bamboo flowsheet Shashank Deon DO Work Phone: [facility] Start: 07-05-2024 End: 07-05-2024 ambulatory SHASHANK DEON Not Available Start: 07-05-2024 End: 07-05-2024 Office outpatient visit 15 minutes Shashank Deon DO Work Phone: [facility] Comment on above: Second trimester pre gnancy; Vaginal discharge; STD exposure; Screening, , for anatomic survey; Major depressive disorder in partial remission, unspecified whether recurrent (HCC) ([facility]) Start: 06-16-2024 End: 06-19-2024 Clinisync Result Encounter Shashank Deon DO Work Phone: [facility] Unsolicited Start: 06-16-2024 End: 06-19-2024 Clinisync Result Encounter Shashank Deon DO Work Phone: [facility] Unsolicited Start: 06-10-2024 End: 06-10-2024 ambulatory SHASHANK DEON Not Available Start: 06-10-2024 End: 06-10-2024 Office outpatient visit 5 minutes [facility] Deon Nurse [facility] Comment on above: GA: 15w2d Start: 05-22-2024 End: 05-22-2024 Emergency department patient visit [facility] Start: 05-11-2024 End: 05-11-2024 Emergency department patient visit [facility] Start: 02-29-2024 End: 02-29-2024 ambulatory [facility] Start: 02-29-2024 End: 02-29-2024 Office outpatient visit 15 minutes Arun Meredith MD Work Phone: [facility] Comment on above: Pallor (Primary Dx) Start: 02-22-2024 End: 02-22-2024 ambulatory SHASHANK DEON Not Available Start: 02-18-2024 End: 02-18-2024 ambulatory SHASHANK DEON Not Available Start: 02-12-2024 End: 02-13-2024 Emergency department patient visit ARUN MEREDITH [facility] Start: 02-12-2024 End: 02-13-2024 Emergency department patient visit KB WRIGHT [facility] Start: 02-12-2024 End: 02-12-2024 Emergency department patient visit ARUN Santana [facility] Start: 11-24-2023 End: 11-26-2023 Evaluation and management of inpatient Ignacionadia Acuña Facility:[facility] Start: 11-11-2023 End: 11-11-2023 ambulatory LONNY MACEDO [facility] Start: 10-27-2022 End: 10-27-[address] RAJ KELLY Facility: Procedures Date Procedure Procedure Detail Performing Clinician Start: 11-17-2024 Urnls dip stick/tabl et rgnt non-auto w/o micrscp La CORREA Work Phone: Start: 11-10-2024 Urnls dip stick/tabl et rgnt non-auto w/o micrscp Shashank Deon DO Work Phone: Start: 11-03-2024 RECURRENT VAGINITIS (HTRX) La CORREA Work Phone: Start: 11-03-2024 Urnls dip stick/tabl et rgnt non-auto w/o micrscp La CORREA Work Phone: Start: 11-03-2024 ALL MISCELLANEOUS TEST La CORREA Work Phone: Start: 10-27-2024 Urnls dip stick/tabl et rgnt non-auto w/o micrscp Shashank Deon DO Work Phone: Start: 10-22-2024 [facility] UA (CLEAN/CATCH) LABOR ARBITRATOR HEARING OFFICE/MICRO IF IND. Shashank Deon DO Work Phone: Start: 09-26-2024 Urnls dip stick/tabl et rgnt non-auto w/o micrscp La CORREA Work Phone: Start: 09-09-2024 ALL CBC WITH AUTO DIFF Shashank Deon DO Work Phone: Start: 09-06-2024 Urnls dip stick/tabl et rgnt non-auto w/o micrscp Shashank Deon DO Work Phone: Start: 07-05-2024 Urnls dip stick/tabl et rgnt non-auto w/o micrscp Shashank Deon DO Work Phone: Start: 06-16-2024 AFP, SERUM, OPEN SPI NA BIFIDA Shashank Deon DO Work Phone: Start: 06-10-2024 Urnls dip stick/tabl et rgnt non-auto w/o micrscp Shashank Edon DO Work Phone: Start: 06-25-2021 Adult depression scr eening assessment Arun Meredith MD Work Phone: Plan of Treatment Date Care Activity Detail Author Start: 02-27-2026 DTaP,Tdap and Td Vaccines (7 - Td or Tdap) DTaP,Tdap and Td Vaccines (7 - Td or Tdap) [facility] Start: 02-28-2025 Adult BMI Screening Adult BMI Screen ing [facility] Start: 02-28-2025 Tobacco Screening Tobacco Screening [facility] Start: 11-17-2024 End: 11-17-2024 Patient encounter procedure 11/17/2024 8:30 AM EST Routine [facility] [address] [place] [address] La Ruvalcaba PA [address] [place] [address] Arrived [facility] Comment on above: Arrived Start: 11-10-2024 End: 11-10-2024 Patient encounter procedure 11/10/2024 9:30 AM EST Routine [facility] [address] [place] [address] Shashank Chavarria, DO [address] [place] [address] [facility] Start: 11-03-2024 End: 11-03-2025 CULTURE, GROUP B STREP WITH SUSCEPTIBLITY CULTURE, GROUP B STREP WITH SUSCEPTIBLITY Lab Routine Third trimester Expected: 11/03/2024, Expires: 11/03/2025 [facility] Work Phone: Comment on above: Expected: 11/03/2024 , Expires: 11/03/2025 Start: 11-03-2024 End: 11-03-2024 Patient encounter procedure 11/03/2024 9:50 AM EST Routine [facility] [address] [place] [address] La Ruvalcaba PA [address] [facility] [address] [place], [place] [phone] [facility] Start: 10-27-2024 End: 10-27-2024 [...] AM EST Routine [facility] [address] [facility] [place] [address] Shashank Chavarria DO [address] [place], [place] [phone] Arrived [facility] Comment on above: Arrived Start: 10-12-2024 End: 10-12-2024 Patient encounter procedure 10/12/2024 11:20 AM EST Routine [facility] [address] [facility] [place] [phone] Shashank Chavarria DO [address] [place], [place] [phone] [facility] Start: 10-11-2024 End: 10-11-2024 Patient encounter procedure 10/11/2024 4:00 PM EST Office Visit [facility] [address] [place] [phone] Clarke Givens, DPM [address] [place], [place] [phone] [facility] Start: 09-26-2024 End: 09-26-2024 Patient encounter procedure 09/26/2024 9:20 AM EST Routine [facility] [address] [facility] [place] [address] La Ruvalcaba PA [address] [place], [place] [phone] [facility] Start: 09-06-2024 End: 09-06-2025 CBC panel - Blood by Automated count CBC Lab Routine Diabetes mellitus screening Expected: 09/06/2024 (Approximate), Expires: 09/06/2025 [facility] Work Phone: Comment on above: Expected: 09/06/2024 (Approximate), Expires: 09/06/2025 Start: 09-06-2024 End: 09-06-2025 Measurement of glucose 1 hour after glucose challenge for glucose tolerance test Glucose tolerance, 1 hour Lab Routine Diabetes mellitus screening Expected: 09/06/2024 (Approximate), Expires: 09/06/2025 [facility] Comment on above: Expected: 09/06/2024 (Approximate), Expires: 09/06/2025 Start: 09-06-2024 End: 09-06-2024 Patient encounter procedure 09/06/2024 1:50 PM EST Routine [facility] [address] [facility] [place] [phone] Shashank Chavarria, DO [address] [place] [address] Arrived [facility] Comment on above: Arrived Start: 08-03-2024 End: 08-03-2024 Patient encounter procedure 08/03/2024 2:40 PM EST Routine [facility] [address] [facility] [place] [address] Shashank Chavarria, DO [address] [facility] [address] [place] [address] [facility] Start: 07-18-2024 End: 07-18-2024 Professional / ancillary services management 07/18/2024 2:00 PM EDT Ancillary Procedure [facility] [address] [facility] [place] [address] [facility] Start: 07-05-2024 End: 07-05-2025 US for US OB ANATOMY SINGLE W US OB CERVICAL LENGTH Imaging Routine Screening, , for anatomic survey Expected: 07/05/2024 (Approximate), Expires: 07/05/2025 [facility] Work Phone: Comment on above: Expected: 07/05/2024 (Approximate), Expires: 07/05/2025 Start: 07-05-2024 End: 07-05-2024 Patient encounter procedure 07/05/2024 1:40 PM EDT Routine [facility] [address] [facility] [place] [phone] Shashank Chavarria, DO [address] [facility] [address] [place] [place], [place] [phone] [facility] Start: 06-10-2024 End: 06-10-2025 ABO/Rh ABO/Rh Lab Routine Missed menses Expected: 06/10/2024 (Approximate), Expires: 06/10/2025 [facility] Comment on above: Expected: 06/10/2024 (Approximate), Expires: 06/10/2025 Start: 06-10-2024 End: 12-08-2024 Alpha fetoprotein, maternal Alpha fetoprotein, maternal Lab Routine Second trimester Expected: 06/10/2024 (Approximate), Expires: 12/08/2024 [facility] Comment on above: Expected: 06/10/2024 (Approximate), Expires: 12/08/2024 Start: 06-10-2024 End: 06-10-2025 Blood type and Indirect antibody screen panel - Blood Type and screen Lab Routine Missed menses Expected: 06/10/2024 (Approximate), Expires: 06/10/2025 [facility] Work Phone: Comment on above: Expected: 06/10/2024 (Approximate), Expires: 06/10/2025 Start: 06-10-2024 End: 06-10-2025 Drugs of abuse panel - Urine by Screen method Rapid drug screen, urine Lab Routine Encounter for supervision of normal first in first trimester , unspecified gestational age Expected: 06/10/2024 (Approximate), Expires: 06/10/2025 [facility] Comment on above: Expected: 06/10/2024 (Approximate), Expires: 06/10/2025 Start: 06-10-2024 End: 06-10-2025 US for US OB > 14 WEEKS Imaging Routine Missed menses Elevated serum hCG Expected: 06/10/2024 (Approximate), Expires: 06/10/2025 [facility] Comment on above: Expected: 06/10/2024 (Approximate), Expires: 06/10/2025 Start: 06-10-2024 End: 06-10-2025 US Pelvis transvaginal US OB transvaginal Imaging Routine Missed menses Expected: 06/10/2024 (Approximate), Expires: 06/10/2025 [facility] Comment on above: Expected: 06/10/2024 (Approximate), Expires: 06/10/2025 Start: 06-04-2024 Screening for Chlamy rayna trachomatis Chlamydia Screening [facility] Start: 05-22-2024 Influenza vaccination [facility] Start: 05-22-2023 COVID-19 Vaccine () COVID-19 Vaccine ( season) [facility] Start: 06-25-2022 Depression Screening Depression Scre ening [facility] Start: 2004 Tobacco Counseling Tobacco Counselin g [facility] Bacteria identified in Urine by Culture Urine culture Microbiology Routine Missed menses Ordered: 06/10/2024 [facility] Comment on above: Ordered: 06/10/2024 CBC W Auto Different ial panel - Blood CBC and differential Lab Routine Missed menses Ordered: 06/10/2024 [facility] Comment on above: Ordered: 06/10/2024 CHLAMYDIA TRACHOMATI S (GENITO/STI) CHLAMYDIA TRACHOMATIS (GENITO/STI) Lab Routine Vaginal discharge STD exposure Ordered: 11/03/2024 [facility] Comment on above: Ordered: 11/03/2024 Hemoglobin A1c/Hemoglobin.total in Blood Hemoglobin A1c Lab Routine Missed menses Ordered: 06/10/2024 [facility] Comment on above: Ordered: 06/10/2024 Hepatitis B virus surface Ag [Presence] in Serum or Plasma by Immunoassay Hepatitis B surface antigen Lab Routine Missed menses Ordered: 06/10/2024 [facility] Comment on above: Ordered: 06/10/2024 Hepatitis C virus Ab [Presence] in Serum or Plasma by Immunoassay Hepatitis C antibody Lab Routine Missed menses Ordered: 06/10/2024 [facility] Comment on above: Ordered: 06/10/2024 HIV-1/HIV-2 antigen/antibody combination immunoassay HIV-1 and HIV-2 antibodies Lab Routine Missed menses Ordered: 06/10/2024 [facility] Comment on above: Ordered: 06/10/2024 Neisseria gonorrhoea e DNA [Presence] in Unspecified specimen by WAYLON with probe detection Neisseria gonorrhea DNA probe, direct Lab Routine Vaginal discharge STD exposure Ordered: 11/03/2024 [facility] Comment on above: Ordered: 11/03/2024 Reagin Ab [Presence] in Serum by RPR RPR Lab Routine Missed menses Ordered: 06/10/2024 [facility] Comment on above: Ordered: 06/10/2024 Rubella antibody, IgG Rubella an tibody, IgG Lab Routine Missed menses Ordered: 06/10/2024 [facility] Comment on above: Ordered: 06/10/2024 SURESWAB(R) ADVANCED VAGINITIS PLUS, TMA SURESWAB(R) ADVANCED VAGINITIS PLUS, TMA Pathology and Cytology Routine Vaginal discharge STD exposure Ordered: 11/03/2024 [facility] Comment on above: Ordered: 11/03/2024 Immunizations Immunization Date Immunization Notes Care Provider Fa geovani 05-12-2022 meningococcal B vacc ine, recombinant, OMV, adjuvanted Arun Meredith MD Work Phone: [facility] 03-13-2021 COVID-19, mRNA, LNP- S, PF, 30mcg/0.3mL Dose Arun Meredith MD Work Phone: [facility] 02-28-2016 meningococcal oligosaccharide (groups A, C, Y and W-135) diphtheria toxoid conjugate vaccine (MCV4O) Arun Meredith MD Work Phone: [facility] 02-28-2016 tetanus toxoid, redu maggy diphtheria toxoid, and acellular pertussis vaccine, adsorbed Arun Meredith MD Work Phone: [facility] 12-12-2009 diphtheria, tetanus toxoids and acellular pertussis vaccine Arun Meredith MD Work Phone: [facility] 12-12-2009 measles, mumps and rubella virus vaccine Arun Merdeith MD Work Phone: [facility] 12-12-2009 poliovirus vaccine, inactivated Arun Meredith MD Work Phone: [facility] 09-25-2006 diphtheria, tetanus toxoids and acellular pertussis vaccine Arun Meredith MD Work Phone: [facility] 01-21-2006 haemophilus influenz ae type b vaccine, PRP-T conjugate Arun Meredith MD Work Phone: [facility] 01-21-2006 measles, mumps and rubella virus vaccine Arun Meredith MD Work Phone: [facility] 09-01-2005 DTaP-hepatitis B and poliovirus vaccine Arun Meredith MD Work Phone: [facility] 09-01-2005 haemophilus influenz ae type b vaccine, PRP-T conjugate Arun Meredith MD Work Phone: [facility] 05-30-2005 DTaP-hepatitis B and poliovirus vaccine Arun Meredith MD Work Phone: [facility] 05-30-2005 haemophilus influenz ae type b vaccine, PRP-T conjugate Arun Meredith MD Work Phone: [facility] 03-14-2005 DTaP-hepatitis B and poliovirus vaccine Arun Meredith MD Work Phone: [facility] 03-14-2005 haemophilus influenz ae type b vaccine, PRP-T conjugate Arun Meredith MD Work Phone: [facility] 03-14-2005 pneumococcal conjuga te vaccine, 7 valent Arun Meredith MD Work Phone: [facility] 2004 hepatitis B vaccine, pediatric or pediatric/adolescent dosage Arun Meredith MD Work Phone: [facility] Payers Date Payer Category Payer Medicaid (Managed Care) DERRELL ZIMMERMAN [id number] 2024 Medicaid [id number] 2024 Medicaid [id number] 2023 Self-pay 2022 Unknown KIMBERLY MONCADA (PPO) [id number] 2022-Present [phone] [facility] [id number] [place] [address] [id number] 2022 Unknown [id number] 2004 Unknown [id number] 2.16.840.1.672769.3.579.2. 1285 2004 Unknown [id number] 2.16.840.1.242169.3.579.2. 1285 2004 Unknown [id number] 2.16.840.1.226577.3.579.2. 1285 2004 Unknown [id number] 2.16.840.1.724410.3.579.2. 1285 2004 Unknown [id number] 2.16.840.1.548492.3.579.2. 1285 2004 Unknown [id number] 2.16840.1.456489.3.579.2. 1285 2004 Unknown [id number] 2.16.840.1.819804.3.579.2. 1258 2004 Unknown [id number] 2.16.840.1.342840.3.579.2. 1258 2004 Unknown [id number] 2.16.840.1.368580.3.579.2. 1258 2004 Unknown [id number] 2.16.840.1.121373.3.579.2. 1258 2004 Unknown [id number] 2.16.840.1.831919.3.579.2. 1258 2004 Unknown [id number] 2.16.840.1.900343.3.579.2. 1258 2004 Unknown [id number] 2.16.840.1.863665.3.579.2. 1258 2004 Unknown [id number] 2.16.840.1.776896.3.579.2. 1258 2004 Unknown [id number] 2.16.840.1.196013.3.579.2. 1259 2004 Unknown [id number] 2.16.840.1.089734.3.579.2. 1259 2004 Unknown [id number] 2.16.840.1.045410.3.579.2. 1259 2004 Unknown [id number] 2.16.840.1.782697.3.579.2. 1259 1972 Unknown [id number] 2.16.840.1.954500.3.579.2. 593 1959 Unknown [id number] Unknown [id number] 2.16.840.1.789932.3.579.2. 531 Unknown [id number] 2.16.840.1.472626.3.579.2. 531 Social History Date Type Detail Facility Tobacco smoking stat [facility] Tobacco smoking consumption unknown [facility] Start: 06-10-2024 End: 09-29-2024 Alcoholic beverage intake Ex-drinker (finding) [facility] Start: 02-18-2024 Alcohol Comment maybe once gabrielle ry couple of months [facility] Sex assigned at Not on file [facility] Start: 11-01-2020 End: 07-05-2024 Gender identity Not on file [facility] Start: 11-01-2020 End: 07-05-2024 History of Social function [facility] Start: 02-12-2024 Tobacco smoking stat [facility] Never smoked tobacco [facility] Start: 02-12-2024 Tobacco use and exposure User of smokeless tobacco [facility] Start: 02-29-2024 Alcoholic beverage intake Lifetime non-drinker (finding) [facility] How hard is it for y ou to pay for the very basics like food, housing, medical care, and heating Not hard at all [facility] Goals Date Patient Goal Desired Activity /State Personal health goal Clinical Notes 02-29-2024 to 11-17-2024 SUNNY Quintana - 11/17/2024 8:30 AM Anurag Tilley, RADIAL SAW OPERATOR - 11/10/2024 9:30 AM Loree Palafox, RADIAL SAW OPERATOR - 11/03/2024 2:20 PM ESTSusan Emanueltler, RADIAL SAW OPERATOR - 10/27/2024 10:50 AM ESTPatient Instructions Note Date & Type Note Facility 11-17-2024 History of Presen t illness Narrative Reason for Appointment: Patient ID: Sharona Marks is a 18 y.o. female who presents for Routine Visit Patient presents today for Return OB appointment. MEDICATIONS Current Outpatient Medications Medication Instructions clobetasol (Temovate) 0.05 % cream Topical, 2 times daily, 0.5g applied to affected area twice daily. MV-Min-Fe Fum-FA-DHA ( 1 PO) Take by [...] nursing note reviewed. Exam conducted with a equipment engineering technician present. Vitals: Estimated body mass index is 27.38 kg/m as calculated from the following: Height as of 25: 5' 7 . Weight as of this encounter: 174 lb 12.8 oz. BP: 120/70 Patient's last menstrual period was 12/27/2023. ASSESSMENT & PLAN ICD-10-CM 1. 38 weeks gestation of Z3A.38 POCT urinalysis dipstick manually resulted 2. Third trimester Z34.93 POCT urinalysis dipstick manually resulted Return OB: Patient presents today for a routine obstetrics appointment. Patient is currently 38w1d . Patient states she is doing well but has complaints of being tired due to current . Patient has verbalizes frequent movement. labor precautions was discussed/given and patient was instructed to perform kick counts three times a day. Orders Placed This Encounter Procedures POCT urinalysis dipstick manually resulted Follow Up: Patient is to return to office in 1 week for routine OB appointment. Documented by Annie Palafox LPN on behalf of: SUNNY Quintana documented in this encounter [facility] 11-10-2024 History of Presen t illness Narrative Reason for Appointment: Patient ID: Sharona Marks is a 18 y.o. female who presents for Routine Visit Patient presents today for Return OB appointment. MEDICATIONS Current Outpatient Medications Medication Instructions clobetasol (Temovate) 0.05 % cream Topical, 2 times daily, 0.5g applied to affected area twice daily. metroNIDAZOLE (FLAGYL) 500 mg, Oral, 2 times daily, Do not drink alcohol while taking this medication MV-Min-Fe Fum-FA-DHA ( 1 PO) Take by [...] Constitutional: Appearance: Normal appearance. She is well-developed. Genitourinary: Vulva normal. Cardiovascular: Rate and Rhythm: Normal rate and [...] nursing note reviewed. Exam conducted with a equipment engineering technician present. Vitals: Estimated body mass index is 26.53 kg/m as calculated from the following: Height as of 09/29/24: 5' 7 . Weight as of this encounter: 169 lb 6.4 oz. BP: 122/84 Patient's last menstrual period was 12/27/2023. ASSESSMENT & PLAN ICD-10-CM 1. Third trimester Z34.93 POCT urinalysis dipstick manually resulted 2. 37 weeks gestation of Z3A.37 Patient presents today for a routine obstetrics appointment. Patient is currently 37w1d with a Estimated Date of Delivery: 11/30/24. Patient is currently 1cm dilated. Answered patients questions in regards to collecting colostrum. Patient to return to clinic in 1 week. Documented by Katrina Tilley LPN on behalf of: Shashank Chavarria DO documented in this encounter [facility] 11-03-2024 History of Presen t illness Narrative Reason for Appointment: Patient ID: Sharona Marks is a 18 y.o. female who presents for Routine Visit Patient presents today for Return OB appointment. MEDICATIONS Current Outpatient Medications Medication Instructions clobetasol (Temovate) 0.05 % cream APPLY A PEA SIZED AMOUNT TO THE AFFECTED AREA TOPICALLY IN THE MORNING AND BEFORE BEDTIME MV-Min-Fe Fum-FA-DHA ( 1 PO) Take by [...] nursing note reviewed. Exam conducted with a equipment engineering technician present. Vitals: Estimated body mass index is 25.03 kg/m as calculated from the following: Height as of 09/29/24: 5' 7 . Weight as of 10/13/24: 159 lb 12.8 oz. BP: Patient's last menstrual period was 12/27/2023. ASSESSMENT & PLAN ICD-10-CM 1. Third trimester Z34.93 POCT urinalysis dipstick manually resulted CULTURE, GROUP B STREP WITH SUSCEPTIBLITY CULTURE, GROUP B STREP WITH SUSCEPTIBLITY CANCELED: CULTURE, GROUP B STREP WITH SUSCEPTIBLITY 2. 36 weeks gestation of Z3A.36 3. Vaginal discharge N89.8 SURESWAB(R) ADVANCED VAGINITIS PLUS, TMA CHLAMYDIA TRACHOMATIS (GENITO/STI) Neisseria gonorrhea DNA probe, direct 4. STD exposure Z20.2 SURESWAB(R) ADVANCED VAGINITIS PLUS, TMA CHLAMYDIA TRACHOMATIS (GENITO/STI) Neisseria gonorrhea DNA probe, direct Patient is doing well but has complaints of being tired and having maternal discomfort due to . Patient verbalized frequent movement and was instructed to perform kick counts three times per day. labor precautions were given, LARC consent was signed/declined, and GBS/Cultures were obtained. Cervical check was performed and patient is 0cm dilated. Orders Placed This Encounter Procedures CULTURE, GROUP B STREP WITH SUSCEPTIBLITY CHLAMYDIA TRACHOMATIS (GENITO/STI) Neisseria gonorrhea DNA probe, direct POCT urinalysis dipstick manually resulted Follow Up: Patient is to return to office in 1 week for routine OB appointment Documented by Annie Palafox LPN on behalf of: SUNNY Quintana documented in this encounter [facility] 10-27-2024 History of Presen t illness Narrative [...] cannot use the hydrocortisone cream from the Barrel [employer], but is able to use steroid creams. Patient aware that she will have pelvic exam next appointment along with GBS obtained. RTC in 1 week. Documented by Katrina Tilley LPN on behalf of: Shashank Chavarria DO documented in this encounter [facility] 10-13-2024 History of Presen t illness Narrative [...] Estimated Date of Delivery: 11/30/24. Documented by Katrina Tilley LPN on behalf of:La Ruvalcaba PA-C documented in this encounter [facility] 09-29-2024 History of Presen t illness Narrative Images from the original note were not included. Subjective Patient ID: Sharona Marks is a 18 y.o. female who presents for Ingrown Toenail (18 yo [employer] presents today for infected ingrown nail, 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 Has tried soaking foot. ). HPI Initial patient encounter and assessment. Accompanied by her boyfriend, Mart. Chief complaint: Progressively painful, locally inflamed, edematous infected ingrown toenail medial margin of the left great toe of several weeks duration. Denies injury or trauma. Initial assessment at [facility] ED on 09/27/2024. Currently on cephalexin [...] or corrected. Thank you for your understanding. Clarke Givens DPM documented in this encounter [facility] 09-29-2024 Instructions Clarke Givens DPM - 09/29/2024 8:45 AM EST Instructions as noted documented in this encounter [facility] 09-26-2024 History of Presen t illness Narrative [...] [employer] documented in this encounter [facility] 09-06-2024 History of Presen t illness Narrative [...] nursing note reviewed. Exam conducted with a equipment engineering technician present. Vitals: Estimated body mass index is [...] to clinic in 2-3 weeks. Documented by Katrina Tilley LPN on behalf of: Shashank Chavarria DO documented in this encounter [facility] 08-31-2024 Telephone encount er Note Left message for pt to call and schedule OB appt. She is self pay, Medicaid is still not active as of 08/31/24. [facility] 08-31-2024 Miscellaneous Notes Formattin g of this note might be different from the original. Left message for pt to call and schedule OB appt. She is self pay, Medicaid is still not active as of 08/31/24. documented in this encounter [facility] 07-05-2024 History of Presen t illness Narrative [...] nursing note reviewed. Exam conducted with a equipment engineering technician present. Vitals: Estimated body mass index is [...] by Hemalatha Zaldivar LPN on behalf of: Shashank Chavarria DO documented in this encounter [facility] 06-10-2024 History of Presen t illness Narrative [...] or undercooked meat, and stay away from [facility]. Patient has also been advised to [...] Linda Interiano LPN documented in this encounter [facility] 02-29-2024 History of Presen t illness Narrative Subjective Patient ID: Sharona Marks is a 18 y.o. female. At the end of January she had a miscarriage. It was followed by heavy clots. She returned to work at the end of last week and felt weak and faint. She was noted to be pale. She was evaluated at the nurses station and her vitals were normal. She needs clearance to return to full duty at work. She states that she is feeling fine physically. No further spells of lightheadedness or feeling faint. The following portions of the patient's history were reviewed and updated as appropriate: allergies, current medications, past medical history, past social history, past surgical history, and problem list. Review of Systems Objective Physical Exam Constitutional: Comments: She interacts appropriately. She maybe a little bit pale. Blood pressure is normal. Eyes: Pupils: Pupils are equal, round, and reactive to light. Comments: No nystagmus Cardiovascular: Rate and Rhythm: Normal rate and regular rhythm. Heart sounds: No murmur heard. No gallop. Pulmonary: Effort: Pulmonary effort is normal. Breath sounds: Normal breath sounds. Musculoskeletal: Right lower leg: No edema. Left lower leg: No edema. Neurological: General: No focal deficit present. Mental Status: She is alert. Assessment/Plan Will check a CBC today and if that is normal she can return to work without restriction 03/01/2024. Diagnoses and all orders for this visit: Pallor - CBC auto differential; Future documented in this encounter [facility] Evaluation note Diagnosis Second trimester state, incidental [...] unspecified type [facility] Diagnosis Third trimester state, incidental 36 weeks gestation of Vaginal discharge Leukorrhea, not specified as infective STD exposure [facility] Diagnosis Pallor- Primary [facility] Diagnosis 38 weeks gestation of Third trimester state, incidental [facility] Diagnosis Third trimester state, incidental 37 weeks gestation of documented [facility]ocumented [facility] Purpose Family History No Family History Records FoundNo Family History Records FoundNo Family History Records FoundNo Family History Records Found Advance Directives No Advanced Directives Records FoundNo Advanced Directives Records FoundNo Advanced Directives Records FoundNo Advanced Directives Records Found Additional Source Comments INFORMATION SOURCE (unrecogn ized section and content) DATE CREATED AUTHOR 10/28/2022 [facility] DATE CREATED AUTHOR AUTHOR'S ORGANIZ ATION 09/08/[address] [facility] DATE CREATED AUTHOR AUTHOR'S ORGANIZ ATION 10/03/2024 [facility] DATE CREATED AUTHOR AUTHOR'S ORGANIZ ATION 11/19/2024 [facility] EPIC Care Teams (unrecognized sec tion and content) Pre Owned Sales Consultant Relationship Specialty Start Date End Date Arun Meredith MD [address] [place] [address], [address] [place] [address] PCP - General Family Medicine 01/22/24 Pre Owned Sales Consultant Relationship Specialty Start Date End Date Arun Meredith MD [address] [place] [address], [address] [place] [address] PCP - General Family Medicine 01/22/24 Pre Owned Sales Consultant Relationship Specialty Start Date End Date Arun Meredith MD [address] [place] [address], [address] [place] [address] PCP - General Family Medicine 01/22/24 Pre Owned Sales Consultant Relationship Specialty Start Date End Date Arun Meredith MD [address] [place] [address], [address] [place] [address] PCP - General Family Medicine 01/22/24 Pre Owned Sales Consultant Relationship Specialty Start Date End Date Arun Meredith MD [address] [place] [address], [address] [place] [address] PCP - General Family Medicine 01/22/24 Pre Owned Sales Consultant Relationship Specialty Start Date End Date Arun Meredith MD [address] [place] [address], [address] [place] [address] PCP - General Family Medicine 01/22/24 Pre Owned Sales Consultant Relationship Specialty Start Date End Date Arun Meredith MD [address] [place] [address], [address] [place] [address] PCP - General Family Medicine 01/22/24 Pre Owned Sales Consultant Relationship Specialty Start Date End Date Arun Meredith MD [address] [place] [address], [address] [place] [address] PCP - General Family Medicine 01/22/24 Pre Owned Sales Consultant Relationship Specialty Start Date End Date Arun Meredith MD [address] [place] [address], [address] [place] [address] PCP - General Family Medicine 01/22/24 Pre Owned Sales Consultant Relationship Specialty Start Date End Date Arun Meredith MD [address] [place] [address], [address] [place] [address] PCP - General Family Medicine 01/22/24 Pre Owned Sales Consultant Relationship Specialty Start Date End Date Arun Meredith MD [address] [place] [address], [address] [place] [address] PCP - General Family Medicine 01/22/24 Pre Owned Sales Consultant Relationship Specialty Start Date End Date Arun Meredith MD [address] [place] [address], [address] [place] [address] PCP - General Family Medicine 01/22/24 Pre Owned Sales Consultant Relationship Specialty Start Date End Date Arun Meredith MD [address] [place] [address], [address] [place] [address] PCP - General Family Medicine 01/22/24 Pre Owned Sales Consultant Relationship Specialty Start Date End Date Arun Meredith MD [address] [place] [address], [address] [place] [address] PCP - General Family Medicine 01/22/24 Pre Owned Sales Consultant Relationship Specialty Start Date End Date Arun Meredith MD [address] [place] [address], [address] [place] [address] PCP - General Family Medicine 01/22/24 Pre Owned Sales Consultant Relationship Specialty Start Date End Date Arun Meredith MD [address] [place] [address], [address] [place] [address] PCP - General Pediatrics 09/05/19 Pre Owned Sales Consultant Relationship Specialty Start Date End Date Arun Meredith MD [address] [place] [address], [address] [place] [address] PCP - General Family Medicine 01/22/24 Reason for Visit (unrecogniz ed section and content) Reason Comments Routine Visit STI Screening Reason Comments Routine Visit Reason Comments Amenorrhea Reason Comments Ingrown Toenail 18 yo [employer] presents to day for infected ingrown nail, 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 Has tried soaking foot. Reason Comments Follow-up Patient had a miscar riage, felt faint at work, work believes she is anemic and needs to be tested FOR RECORDS PERTAINING TO PATIENTS WHO ARE [...] BE BASED ON THE PRIMARY CLINICAL RECORDS. [employer] [facility]. provides no warranty or guarantee of the accuracy or completeness of information in this document.
[2024-11-23] MEDS: AMPICILLIN SODIUM 2,000 MG in 0.9 % SODIUM CHLORIDE 100 ML 200 MG IV (06:00)
[2024-11-23] MEDS: 0.9 % SODIUM CHLORIDE 1,000 ML 125 ML IV ×2 (06:13→17:03)
[2024-11-23] MEDS: OXYTOCIN/0.9 % SODIUM CHLORIDE 10 UNITS/500 ML PLAST..BAG 6 UNIT IV (06:14)
[2024-11-23 06:26] LABS: Hematocrit 32.4 % (36.0-48.0); Hemoglobin 10.4 g/dL (12.0-16.0); Mean Corpuscular HGB Conc 32.1 g/dL (29.9-35.2); Mean Corpuscular Hemoglobin 26.1 pg (26.7-34.0); Mean Corpuscular Volume 81.2 fL (81.0-99.0); Mean Platelet Volume 12.4 fL (9.5-13.5); Platelet Count 214 10^3/uL (150-450); Red Blood Count 3.99 10^6/uL (4.20-5.40); Red Cell Distribution Width 13.8 % (11.0-15.0); White Blood Count 10.3 10^3/uL (4.0-11.0)
[2024-11-23 06:43] LABS: Amphetamine Screen Urine NEGATIVE (NEGATIVE); Barbiturates Screen Urine NEGATIVE (NEGATIVE); Benzodiazepines Screen Urine NEGATIVE (NEGATIVE); Buprenorphine Screen Urine NEGATIVE (NEGATIVE); Cannabinoid Screen Urine POSITIVE (NEGATIVE); Cocaine Screen Urine NEGATIVE (NEGATIVE); Methadone Screen Urine NEGATIVE (NEGATIVE); Methamphetamines Screen Urine NEGATIVE (NEGATIVE); Opiate Screen Urine NEGATIVE (NEGATIVE); Oxycodone Screen Urine NEGATIVE (NEGATIVE); Phencyclidine Screen Urine NEGATIVE (NEGATIVE); Tricyclic Antidepressant Urine NEGATIVE (NEGATIVE)
[2024-11-23] MEDS: AMPICILLIN SODIUM 1,000 MG in 0.9 % SODIUM CHLORIDE 50 ML 100 MG IV ×3 (10:01→17:58)
[2024-11-23] MEDS: ROPIVACAINE HCL/PF 400 MG/200 ML PREMIX 10 MG EPIDURAL (12:27)
[2024-11-23] MEDS: 0.9 % SODIUM CHLORIDE 1,000 ML 1000 ML IV (12:28)
[2024-11-23] MEDS: ONDANSETRON PF 4 MG/2 ML VIAL IV (13:52)
[2024-11-23] MEDS: OXYTOCIN/0.9 % SODIUM CHLORIDE 10 UNITS/500 ML PLAST..BAG 60 UNIT IV (17:04)
--- NOTE | 2024-11-23 20:02 | PM.OBPRCVD ---
Procedure Intrapartal events: None Induction method: per pitocin protocol Delivery augmentation: rupture of membranes and pitocin Delivery monitor: external FHT and external uterine Route of delivery: Episiotomy Description: none L&D Laceration Description: periurethral - 1st degree and perineal - 2nd degree Delivery repair: Vicryl Estimated blood loss (mL): 300 Anesthesia type: Epidural Disposition: floor Infant Delivery date: 11/23/24 Gender: male presentation: vertex Placental delivery description: Spontaneous cord description: 3 Vessels and Nuchal Cord
[2024-11-23] MEDS: OXYTOCIN/0.9 % SODIUM CHLORIDE 20 UNITS/1,000 ML PLAST..BAG 125 UNIT IV (20:32)
[2024-11-23] MEDS: IBUPROFEN 600 MG TABLET PO (22:35)
[2024-11-24 00:21] VITALS: BP 140/86; PULSE 67
[2024-11-24] MEDS: GLYCERIN/WITCH HAZEL PADS 1 PAD TOPICAL (00:27)
[2024-11-24] MEDS: BENZOCAINE/MENTHOL 85 GRAM SPRAY BOTTLE 1 APPLIC TOPICAL (00:27)
[2024-11-24 06:30] LABS: Basophils Percent Auto 0.3 % (0.2-2.0); Eosinophils Absolute Auto 0.1 10^3/uL (0.0-0.7); Eosinophils Percent Auto 0.3 % (0.9-7.0); Hematocrit 28.8 % (36.0-48.0); Hemoglobin 9.2 g/dL (12.0-16.0); Immature Granulocytes Abs Auto 0.08 10^3/uL (0.00-0.03); Immature Granulocytes Pct Auto 0.6 % (0.0-0.5); Lymphocytes Absolute Auto 2.1 10^3/uL (1.2-3.8); Lymphocytes Percent Auto 14.2 % (20.5-60.0); Mean Corpuscular HGB Conc 31.9 g/dL (29.9-35.2); Mean Corpuscular Hemoglobin 25.8 pg (26.7-34.0); Mean Corpuscular Volume 80.9 fL (81.0-99.0); Mean Platelet Volume 11.8 fL (9.5-13.5); Monocytes Absolute Auto 1.2 10^3/uL (0.3-0.8); Monocytes Percent Auto 8.5 % (1.7-12.0); Neutrophils Absolute Auto 11.1 10^3/uL (1.4-6.5); Neutrophils Percent Auto 76.1 % (43.0-75.0); Platelet Count 199 10^3/uL (150-450); Red Blood Count 3.56 10^6/uL (4.20-5.40); White Blood Count 14.5 10^3/uL (4.0-11.0)
--- NOTE | 2024-11-24 08:38 | P.OBPN_ITS ---
OB - PN: Subj Subjective Patient comments: no complaints and pain well controlled [place] status: doing well Exam Constitutional Vital Signs, click to edit/add: Last Vital Signs Temp 97.9 F 11/23/24 17:19 Pulse 67 11/24/24 00:21 Resp 18 11/23/24 13:00 BP 140/86 11/24/24 00:21 O2 Del Method Room Air 11/24/24 00:34 Documenting provider has reviewed patient's vital signs: yes Common normals: no apparent distress Respiratory Common normals: normal respiratory effort and clear to auscultation bilaterally Cardio Common normals: regular rate and regular rhythm GI Common normals: Normal to inspection, nondistended, normoactive bowel sounds present Extremity Common normals: normal to inspection and no clubbing, cyanosis or edema Results Labs Labs: Short CBC 11/24/24 Range/Units 06:15 WBC 14.5 H (4.0-11.0) 10^3/uL Hgb 9.2 L (12.0-16.0) g/dL Hct 28.8 L (36.0-48.0) % Plt Count 199 (150-450) 10^3/uL OB - PN: A/P Plan - Vaginal Delivery day: 1 Plan: routine care Time Spent with Patient Time: Total time spent is greater than 50% in coordination of care (as documented) at patient's floor/unit and/or counseling patient: Total time spent with greater than 50% in coordination of care (as documented) at patient's floor/unit and/or counseling patient: less than 15 minutes
[2024-11-24] MEDS: DOCUSATE SODIUM 100 MG CAPSULE PO ×2 (09:18→21:42)
[2024-11-24 09:19] VITALS: BP 140/81; PULSE 85; TEMP 36.2
[2024-11-24] MEDS: IBUPROFEN 600 MG TABLET PO ×2 (10:12→18:15)
[2024-11-24 13:28] LABS: HIV Antigen NON-REACTIVE (NONREACTIVE); Internal Control Within Normal Limits
--- NOTE | 2024-11-24 15:54 | SWNOTE1 ---
SW consulted due to positive drug screen on admission, pt positive for THC. SW met with pt, father of baby, and pt's mother in room. Pt was alright with SW discussing everything. Pt's mother stated they live with her anyways. Pt and father of baby voiced they have everything they need at home for baby. Pt is bottle feeding baby. Pt has apt with [facility] next for assistance with formula and other things. They do live with her mother and have good support. Pt admits to THC use and stated it was not all the time and she did it due to having some anxiety, no plans on continuing once home. Pt and father of baby caring for baby appropriate, no concerns. SW did advise that SW is mandated beam dyer and has to make report to [facility] CPS. Pt and father of baby voiced understanding and no further questions at this time. Referral made to [facility] CPS, HIPAA form filled out and sent to
[2024-11-24 16:54] VITALS: BP 131/77; PULSE 77
[2024-11-24] MEDS: ACETAMINOPHEN 325 MG TABLET 650 MG PO (21:42)
[2024-11-25] MEDS: IBUPROFEN 600 MG TABLET PO ×2 (00:50→08:34)
[2024-11-25 00:52] VITALS: BP 127/79; PULSE 77
[2024-11-25 06:11] LABS: HBsAg Screen Negative (Negative); HCV Antibody Non Reactive (Non Reactive)
[2024-11-25 08:30] VITALS: TEMP 36.6
[2024-11-25 08:34] VITALS: BP 131/65; PULSE 65
[2024-11-25] MEDS: DOCUSATE SODIUM 100 MG CAPSULE PO (08:34)
--- NOTE | 2024-11-25 08:45 | PM.OBPN ---
OB - PN: Subj Subjective Patient comments: no complaints and pain well controlled [place] status: doing well Exam Constitutional Vital Signs, click to edit/add: Last Vital Signs Temp 97.2 F L 11/24/24 09:19 Pulse 65 11/25/24 08:34 Resp 18 11/23/24 13:00 BP 131/65 11/25/24 08:34 O2 Del Method Room Air 11/25/24 00:55 Documenting provider has reviewed patient's vital signs: yes Common normals: no apparent distress Respiratory Common normals: normal respiratory effort and clear to auscultation bilaterally Cardio Common normals: regular rate and regular rhythm GI Common normals: Normal to inspection, nondistended, normoactive bowel sounds present Extremity Common normals: no calf tenderness OB - PN: A/P Plan - Vaginal Delivery day: 2 Plan: routine care, discharge home and follow up 6 weeks Time Spent with Patient Time: Total time spent is greater than 50% in coordination of care (as documented) at patient's floor/unit and/or counseling patient: Total time spent with greater than 50% in coordination of care (as documented) at patient's floor/unit and/or counseling patient: less than 15 minutes
[2024-11-25 11:08] LABS: Rapid Plasma Reagin, Quant Non Reactive titer (NonRea<1:1)
[2024-11-25] MEDS: ACETAMINOPHEN 325 MG TABLET 650 MG PO (12:28)
[2024-11-26 15:10] LABS: Cannabinoid Positive (.); Carboxy THC Conf, MS, UR 471 ng/mL (Cutoff=10)
== END 2024-11-25 15:47 | disposition home or self-care (01) | DRG 560 ==
PROVIDERS: Admitting Provider Obstetrics & Gynecology; PCP Internal Medicine; Visit Provider Obstetrics & Gynecology
DX: O99.824 Streptococcus B carrier state complicating childbirth (principal); O69.81X0 Labor and delivery complicated by cord around neck, without compression, not applicable or unspecified; O70.1 Second degree perineal laceration during delivery; Z3A.39 39 weeks gestation of pregnancy; Z37.0 Single live birth; F12.90 Cannabis use, unspecified, uncomplicated; O99.324 Drug use complicating childbirth
CPT/HCPCS: 36415; 51702; 59050; 59410; 80307; 80349; 85025; 85027; 86592; 86803; 86850; 86900; 86901; 87340; 87389; J0290; J2405; J2795